=== PATIENT | male | born 1975 | race Caucasian/White ===

== ENCOUNTER → 2017-07-15 11:37 | Outpatient (CLI) | payer OTHER, SELFPAY | PROVIDERS: Family Provider Nurse Practitioner; PCP Nurse Practitioner; Visit Provider Otolaryngology | DX: J32.9 Chronic sinusitis, unspecified (principal) | CPT/HCPCS: 87070; 87205 ==

== ENCOUNTER → 2017-07-29 08:18 | Outpatient (CLI) | payer OTHER, SELFPAY ==
--- NOTE | 2017-07-29 08:25 | CT_ITS ---
STUDY: CT MAXILLOFACIAL SINUSES REASON FOR EXAM: Male, 41 years old. Acute sinusitis. RADIATION DOSAGE (If Supplied By Facility): CTDIvol = ( 33.06 ) mGy, DLP = ( 862.77 ) mGycm TECHNIQUE: The patient was scanned in a multi detector CT scanner. High resolution axial imaging was performed without the administration of intravenous contrast material. Sagittal and coronal images were reconstructed. Individualized dose optimization techniques were used for this CT. COMPARISON: None. FINDINGS: FRONTAL SINUSES: There is minimal mucosal thickening of the frontal sinuses. ETHMOIDAL SINUSES: There is mild mucosal thickening of the ethmoid sinuses bilaterally. MAXILLARY SINUSES: There is mild mucosal thickening of the maxillary sinuses bilaterally with well-defined large soft tissue density that could represent retention cyst or polyp. SPHENOIDAL SINUSES: Normal aeration, without mucosal inflammatory disease. The right ostiomeatal complex is patent. The left ostiomeatal complex is probably occluded. Normal bilateral middle turbinates. Normal bilateral inferior turbinates. There is a right sided nasal septal deviation, but without a nasal septal spur. There is patency of the bilateral nasal airways. The visualized osseous structures are normal. The visualized bilateral orbital contents are normal. CT/Sinus/Facial Bone IMPRESSION: Sinus disease as described above. Probable retention cyst or polyp in the right maxillary sinus. 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 Electronically Signed: Norris Phillips MD at 15:27 EST Tel , Service support ,
== END ==
PROVIDERS: Family Provider Nurse Practitioner; PCP Nurse Practitioner; Visit Provider Otolaryngology
DX: J32.9 Chronic sinusitis, unspecified (principal)
CPT/HCPCS: 70486

== ENCOUNTER → 2024-02-10 | Outpatient (CLI) | payer OTHER, SELFPAY ==
[2024-02-10 07:47] LABS: Absolute Lymphocyte Count 1.89 X10^3/uL (0.83-4.51); Absolute Neutrophil Count 3.7 X10^3/uL (2.0-7.7); Basophil# 0.03 X10^3/uL; Basophil% 0.5 % (0-1); Eosinophils% 1.6 % (0-5); Hematocrit 50.1 % (40-54); Hemoglobin 16.8 g/dL (13.0-16.5); Lymphocyte # 1.89 X10^3/ul (0.83-4.51); Lymphocyte % 29.8 % (19-41); Mean Corp Hgb Conc 33.5 g/dL (32-36); Mean Corpuscular Hgb 30.9 pg (27.0-32.0); Mean Corpuscular Volume 92.1 fL (80-94); Monocyte# 0.61 X10^3/uL; Monocyte% 9.6 % (0-10); NRBC Flagged by Analyzer 0 % (0-5); Neutrophil % 58.2 % (47-70); Platelet Count 207 K/mm3 (150-450); RBC Distribution Width CV 11.9 % (11.6-14.6); RBC Distribution Width SD 40.2 fl (35.1-43.9); Red Blood Count 5.44 M/mm3 (4.6-6.2); White Blood Count 6.4 K/mm3 (4.4-11.0)
[2024-02-10 11:12] LABS: ALB/GLOB Ratio 1.1 RATIO (0.9-2.4); AST(SGOT) 22 U/L (15-37); Alanine Aminotransfer ALT/SGPT 34 U/L (16-61); Albumin, Serum 3.6 g/dL (3.2-5.0); Alkaline Phosphatase 80 U/L (45-117); Anion Gap 4 (5-15); BUN 13 mg/dL (7-18); Calcium,Total 8.9 mg/dL (8.5-10.1); Chloride 108 mmol/L (98-107); Cholesterol 183 mg/dL (200); Creatinine, Serum 0.93 mg/dL (0.70-1.30); EST Glomerular Filtration Rate 92 mL/min (>60); Est Glom Filt Rate - Afr Amer 112 mL/min (>60); Globulin 3.2 g/dL (2.2-4.2); Glucose 92 mg/dL (74-106); High Density Lipoprotein 37 mg/dL; PSA,Total - Annual Screen 1.44 ng/mL (0.00-4.00); Potassium 3.8 mmol/L (3.5-5.1); Protein, Total 6.8 g/dL (6.4-8.2); Sodium Level 141 mmol/L (136-145); Triglycerides 125 mg/dL; Very Low Density Lipoprotein 25 mg/dL (5-40)
== END | disposition home or self-care (01) ==
LOC: LAB 06:57
PROVIDERS: PCP Nurse Practitioner; Referring Provider Nurse Practitioner Family; Visit Provider Nurse Practitioner Family
DX: Z00.01 Encounter for general adult medical examination with abnormal findings (principal)
CPT/HCPCS: 36415; 80053; 80061; 84153; 85025; G0103

== ENCOUNTER → 2024-03-12 | Outpatient (CLI) | payer OTHER, SELFPAY ==
--- OUTSIDE RECORDS SUMMARY | 2024-03-12 16:28 | XMS RPT_ITS | CCD ---
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 Engineering Professor Name Role Phone Xiao Coon Unavailable Benjamín Dumontwin Unavailable Angelica Akhtar Unavailable Unavailable Twyla Tapia Unavailable Unavailable Unavailable Unavailable Dannielle Doran Unavailable Unavailable Elli Shipman Unavailable Unavailable Angelica Akhtar Unavailable Unavailable Medications Completed/Discontinued Medications Medication Drug Class(es) Dates Sig (Normalized) Sig (Original) amoxicillin 875 mg / clavulanate 125 mg oral tablet (6 sources) Penicillin-class Antibacterial Start: 02-16-2015 End: 03-02-2015 take 1 tablet by mouth twice daily AUGMENTIN, 875-125MG (Oral Tablet) 1 (one) Tablet bid for 14 days Quantity: 28 {Tablet} Refills: 0 Ordered: 16-Feb-2015 Rei PIERRE Susan Start : 16-Feb-2015 End : 02-Mar-2015 Inactive azithromycin 250 mg oral tablet (6 sources) Macrolide Antimicrobial Start: 03-14-2019 End: 07-08-2020 take 1 tablet by mouth once daily Zithromax Z-Eloy 250 MG Oral Tablet tad Tablet qd for 0 days Quantity: 1 {Package} Refills: 0 Ordered: 08-Jul-2020 Gene Doran CMAin Start : 14-Mar-2019 End : 08-Jul-2020 Inactive bifidobacterium infantis 4 mg oral capsule (6 sources) Start: 04-05-2011 End: 04-23-2013 take 1 capsule by mouth once daily ALIGN, 4MG (Oral Capsule) 1 Capsule daily for 0 days Quantity: 30 {Capsule} Refills: 0 Ordered: 23-Apr-2013 Lisa Hwang LPN Start : 05-Apr-2011 End : 23-Apr-2013 Inactive 12 hr buPROPion hydrochloride 150 mg extended release oral tablet (6 sources) Aminoketone Start: 01-06-2014 End: 02-16-2015 BUPROPION HCL ER (SR), 150MG (Oral Tablet Extended Release 12 Hour) 1 (one) Tablet ER 12HR Tablet ER 12HR TAD for 0 days Quantity: 60 {Tablet} Refills: 0 Ordered: 16-Feb-2015 Krystle Cleveland LPN Start : 06-Jan-2014 End : 16-Feb-2015 Discontinued Comments: take 150mg daily x 3 days, then take twice daily the last dose of the day no later than 6pm after on for 7 days then stop smoking Comment on above: take 150mg daily x 3 days, then take twice daily the last dose of the day no later than 6pm after on for 7 days then stop smoking celecoxib 200 mg oral capsule (6 sources) Nonsteroidal Anti-inflammatory Drug Start: 01-10-2014 End: 02-16-2015 take 1 capsule by mouth once daily CELEBREX, 200MG (Oral Capsule) 1 Capsule daily for 0 days Quantity: 30 {Capsule} Refills: 0 Ordered: 16-Feb-2015 Krystle Cleveland LPN Start : 10-Jan-2014 End : 16-Feb-2015 Discontinued cetirizine hydrochloride 10 mg chewable tablet (6 sources) Histamine-1 Receptor Antagonist Start: 02-15-2013 End: 04-23-2013 take 1 tablet by mouth once daily ZYRTEC CHILDRENS ALLERGY, 10MG (Oral Tablet Chewable) 1 Tablet Chewable daily for 0 days Quantity: 30 {Tablet_Chewable } Refills: 0 Ordered: 23-Apr-2013 Lisa Hwang LPN Start : 15-Feb-2013 End : 23-Apr-2013 Inactive esomeprazole 40 mg granules for oral suspension (6 sources) Proton Pump Inhibitor Start: 07-09-2009 take 1 dose by mouth once daily NEXIUM, 40MG (Oral Packet) 1 (one) Packet daily for 0 days Quantity: 30 {Packet} Refills: 6 Ordered: 17-Aug-2009 Angelica Akhtar RN Start : 09-Jul-2009 Inactive FLUoxetine 20 mg oral capsule (6 sources) Serotonin Reuptake Inhibitor Start: 08-17-2009 take 1 capsule by mouth once daily PROZAC, 20MG (Oral Capsule) 1 (one) Capsule qd for 0 days Quantity: 30 {Capsule} Refills: 0 Ordered: 01-Feb-2010 Jaiden HOUSER Lisa Start : 17-Aug-2009 Inactive hyoscyamine sulfate 0.125 mg sublingual tablet (6 sources) Start: 08-17-2009 take 1 tablet under the tongue every four hours as needed LEVSIN/SL, 0.125MG (Sublingual Tablet Sublingual) 1 (one) Tab Sublingual q4hr prn for 0 days Quantity: 30 {Tab_Sublingual} Refills: 0 Ordered: 01-Feb-2010 Lisa Hwang LPN Start : 17-Aug-2009 Inactive Comments: no more than 1.5mg/day-- pt will try again alone- it could have been the PPI giving the side effects Comment on above: no more than 1.5mg/d ay-- pt will try again alone- it could have been the PPI giving the side effects ivermectin 3 mg oral tablet (2 sources) Antiparasitic, Pediculicide Start: 07-08-2020 take 4 tablets by mouth once daily Ivermectin 3 MG Oral Tablet 4 Tablet qd for 0 days Quantity: 20 {Tablet} Refills: 0 Ordered: 08-Jul-2020 Xiao Coon DO, DO, Kathleen Start : 08-Jul-2020 Active levoFLOXacin 500 mg oral tablet (6 sources) Quinolone Antimicrobial Start: 07-17-2007 End: 07-31-2007 take 1 tablet by mouth once daily LEVAQUIN, 500MG (Oral Tablet) 1 Tablet daily for 10 days Quantity: 10 {Tablet} Refills: 0 Ordered: 17-Jul-2007 Michelle Landeros Start : 17-Jul-2007 End : 31-Jul-2007 Inactive lidocaine 0.05 mg/mg medicated patch (6 sources) Antiarrhythmic, Amide Local Anesthetic Start: 08-14-2007 LIDODERM, 5% (External Patch) 1 for 0 days Refills: 0 Ordered: 17-Aug-2009 Angelica Akhtar RN Start : 14-Aug-2007 Inactive lubiprostone 0.024 mg oral capsule (6 sources) Chloride Channel Activator Start: 08-17-2009 End: 09-07-2009 take 1 capsule by mouth once daily AMITIZA, 24MCG (Oral Capsule) 1 (one) Capsule qd for 21 days Refills: 0 Ordered: 06-Oct-2009 Jaymie MATT Xiao Coon DO Xiao Start : 17-Aug-2009 End : 07-Sep-2009 Inactive meloxicam 7.5 mg oral tablet (6 sources) Nonsteroidal Anti-inflammatory Drug Start: 04-23-2013 End: 07-17-2013 take 1 tablet by mouth once daily at mealtime MOBIC, 7.5MG (Oral Tablet) 1 Tablet daily for 0 days Quantity: 30 {Tablet} Refills: 0 Ordered: 17-Jul-2013 Angelica Akhtar RN Start : 23-Apr-2013 End : 17-Jul-2013 Inactive Comments: take with food Comment on above: take with food metaxalone 800 mg oral tablet (6 sources) Start: 10-21-2013 End: 01-06-2014 take 1 tablet by mouth once daily at bedtime SKELAXIN, 800MG (Oral Tablet) 1 Tablet qhs / HS for 0 days Quantity: 30 {Tablet} Refills: 0 Ordered: 06-Jan-2014 Lisa Hwang LPN Start : 21-Oct-2013 End : 06-Jan-2014 Discontinued methylPREDNISolone 4 mg oral tablet (6 sources) Corticosteroid Start: 10-21-2013 End: 01-06-2014 take 1 tablet by mouth at mealtime MEDROL (ELOY), 4MG (Oral Tablet) 1 Tablet TAD for 0 days Quantity: 1 {Package} Refills: 0 Ordered: 06-Jan-2014 Lisa Hwang LPN Start : 21-Oct-2013 End : 06-Jan-2014 Discontinued Comments: with food Comment on above: with food mometasone furoate 0.05 mg/actuat metered dose nasal spray (6 sources) Corticosteroid Start: 12-10-2008 NASONEX, 50MCG/ACT (Nasal Suspension) 2 (two) Suspension qd for 0 days Refills: 0 Ordered: 17-Aug-2009 Angelica Akhtar RN Start : 10-Dec-2008 Inactive naproxen 500 mg oral tablet (12 sources) Nonsteroidal Anti-inflammatory Drug Start: 04-02-2012 End: 04-23-2013 take 1 tablet by mouth twice daily at mealtime NAPROXEN, 500MG (Oral Tablet) 1 Tablet bid for 0 days Quantity: 60 {Tablet} Refills: 3 Ordered: 23-Apr-2013 Lisa Hwang LPN Start : 02-Apr-2012 End : 23-Apr-2013 Inactive Comments: Take with food Start: 02-08-2010 End: 02-22-2010 take 1 tablet by mouth every six hours as needed ALEVE, 220MG (Oral Tablet) 1 (one) Tablet q6hrs prn for 14 days Refills: 0 Ordered: 16-Mar-2010 Carmelina Minaya CNP Start : 08-Feb-2010 End : 22-Feb-2010 Inactive Comment on above: Take with food predniSONE 20 mg oral tablet (6 sources) Start: 01-18-2016 End: 03-14-2019 predniSONE 20 MG Oral Tablet 1 (one) Tablet bid for 3days then qd for 4days with food for 0 days Quantity: 10 {Tablet} Refills: 0 Ordered: 14-Mar-2019 Angelica Akhtar RN Start : 18-Jan-2016 End : 14-Mar-2019 Inactive raNITIdine 300 mg oral tablet (12 sources) Histamine-2 Receptor Antagonist Start: 02-15-2013 End: 07-17-2013 take 1 tablet by mouth twice daily ZANTAC, 300MG (Oral Tablet) 1 Tablet bid for 0 days Quantity: 60 {Tablet} Refills: 0 Ordered: 17-Jul-2013 Angelica Akhtar RN Start : 15-Feb-2013 End : 17-Jul-2013 Inactive ZANTAC 75, 75MG (Oral Tablet) 1 PRN for 0 days Refills: 0 Ordered: 17-Aug-2009 Angelica Akhtar RN Inactive Triamcinolone (6 sources) Corticosteroid Start: 07-24-2007 NASACORT AQ, 5 5MCG/ACT (Nasal Aerosol Solution) 1 Aerosol Soln 1-2 sprays daily for 0 days Refills: 0 Ordered: 17-Aug-2009 Angelica Akhtar RN Start : 24-Jul-2007 Inactive Start: 07-24-2007 NASACORT AQ, 5 5MCG/ACT (Nasal Aerosol Solution) 1 Aerosol Soln 1-2 sprays daily for 0 days Refills: 0 Ordered: 17-Aug-2009 Angelica Akhtar LPN Start : 24-Jul-2007 Inactive NEGATED: Highlighted row has not occurred!drug or medication (6 sources) No Known Histori john Medications Problems Active Problems Problem Classification Problem Date Documented Date Episodic/Chronic Abdominal hernia (6 sources) Diaphragmatic hernia without mention of obstruction or gangrene; Translations: [HERNIA, DIAPHRAGMATIC W/O OBSTRUCTION/GNGR] 03-14-2019 Episodic Abdominal pain (20 sources) Epigastric pain; Translations: [Abdominal pain] Resolved : 07-08-1903-14-2019 Episodic Anxiety disorders (12 sources) Anxiety; Translations: [Anxiety] 03-14-2019 Chronic Chronic obstructive pulmonary disease and bronchiectasis (6 sources) Chronic obstructive pulmonary disease and bronchiectasis Conditions associated with dizziness or vertigo (12 sources) Dizziness; Translations: [Dizziness] Resolved : 12-11-1912-10-2008 Episodic Disorders of teeth and jaw (12 sources) Unspecified disorder of the teeth and supporting structures; Translations: [Unspecified disorder of the teeth and supporting structures] 03-14-2019 Episodic Esophageal disorders (6 sources) Esophageal reflux; Translations: [Reflux, esophageal] 03-14-2019 Chronic Fever of unknown origin (20 sources) Fever; Translations: [Fever presenting with conditions classified elsewhere] 03-14-2019 Episodic Gastritis and duodenitis (6 sources) Acute gastritis, without mention of hemorrhage; Translations: [GASTRITIS, ACUTE W/O HEMORRHAGE] 03-14-2019 Episodic Immunizations and screening for infectious disease (2 sources) Contact with and (suspected) exposure to other viral communicable diseases; Translations: [Exposure to SARS virus] 07-08-2020 Episodic Other connective tissue disease (6 sources) Tendinitis of elbow or forearm; Translations: [Tendonitis of elbow or forearm] 03-14-2019 Episodic Other gastrointestinal disorders (18 sources) Irritable bowel syndrome; Translations: [Irritable bowel syndrome] 03-14-2019 Chronic Other gastrointestinal disorders (18 sources) Constipation; Translations: [Constipation] 03-14-2019 Episodic Other gastrointestinal disorders (12 sources) Diarrhea; Translations: [Diarrhea] 03-14-2019 Episodic Other nervous system disorders (2 sources) Loss of sense of smell; Translations: [Loss of smell] 07-08-2020 Episodic Other non-traumatic joint disorders (6 sources) Joint pain; Translations: [Pain in unspecified joint] 03-14-2019 Episodic Other non-traumatic joint disorders (6 sources) Pain in joint, shoulder region; Translations: [Shoulder joint pain, unspecified laterality] 03-14-2019 Episodic Other nutritional; endocrine; and metabolic disorders (6 sources) Body mass index 25-29 - overweight; Translations: [BMI 26.0-26.9,adult] 03-14-2019 Chronic Other nutritional; endocrine; and metabolic disorders (12 sources) Weight loss; Translations: [Weight loss] 03-14-2019 Episodic Other upper respiratory disease (12 sources) Chronic pharyngitis; Translations: [CHRONIC PHARYNGITIS] 03-14-2019 Chronic Comment on above: has reflux uncontrol led, nasal drainage. stop etoh stop nsaid handout given reflux Other upper respiratory disease (6 sources) Spasm of the cricopharyngeus muscle; Translations: [Dysphagia, cricopharyngeal] 03-14-2019 Episodic Comment on above: consider endoscopy i f not better Other upper respiratory disease (12 sources) Pain in throat Episodic Other upper respiratory infections (20 sources) Sinusitis; Translations: [Acute sinusitis] 03-14-2019 Episodic Otitis media and related conditions (6 sources) Dysfunction of eustachian tube; Translations: [Eustachian tube dysfunction] 03-14-2019 Episodic Pneumonia (except that caused by tuberculosis or sexually transmitted disease) (2 sources) Severe acute respiratory syndrome; Translations: [SARS (severe acute respiratory syndrome)] 07-16-2020 Episodic Residual codes; unclassified (12 sources) Chill; Translations: [Chill] 03-14-2019 Episodic Residual codes; unclassified (6 sources) Vaccination required; Translations: [Vaccine for ejqwkmngqc-lwopivh-jogpms sis with poliomyelitis] 03-14-2019 Episodic Residual codes; unclassified (2 sources) Generalized aches and pains; Translations: [Body aches] 07-08-2020 Episodic Spondylosis; intervertebral disc disorders; other back problems (20 sources) Low back pain; Translations: [Neck pain] 03-14-2019 Episodic Comment on above: 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 resolving now. willuese otc pepcid ac bid. increase fliuds. not think need IV fliuds today. if not better byu end of week call. off work unti tomorrow Past or Other Problems Problem Classification Problem Date Documented Date Episodic/Chronic Chronic obstructive pulmonary disease and bronchiectasis (6 sources) Bronchitis; Translations: [Bronchitis] Resolved: 12-10-2008 02-24-2015 Episodic Influenza (6 sources) Influenza Other connective tissue disease (6 sources) Pain of left hand; Translations: [Pain of left hand] 03-14-2019 Unclassified (6 sources) Social Hx: Non Smoker/No Tobacco Use (Renamed from Non Smoker/No Tobacco Use); Translations: [Social Hx: Non Smoker/No Tobacco Use (Renamed from Non Smoker/No Tobacco Use)] 03-14-2019 Unclassified (12 sources) Finding of sensation of pharynx; Translations: [Throat fullness] 03-14-2019 Comment on above: swollen uvula ? nusrat rgy vs effect of smoking vs other Unclassified (6 sources) Eustachian tube dysfunction (381.81) Unclassified (12 sources) Smoking Unclassified (14 sources) Non-smoker; Translations: [Non-smoker] 03-14-2019 Unclassified (20 sources) Unspecified Diagnosis 03-14-2019 Unclassified (18 sources) Pain in joint involving shoulder region (719.41) Unclassified (6 sources) PREVENTION OF TETANUS (V03.7) Unclassified (6 sources) Social Hx: Alcohol Use (Renamed from Alcohol Use); Translations: [Social Hx: Alcohol Use (Renamed from Alcohol Use)] 03-14-2019 Comment on above: Occasional alcohol u se Unclassified (6 sources) Social Hx: Caffeine Use (Renamed from Caffeine Use); Translations: [Social Hx: Caffeine Use (Renamed from Caffeine Use)] 03-14-2019 Comment on above: 1 12oz qd Unclassified (6 sources) Social Hx: Exercise History (Renamed from Exercise History); Translations: [Social Hx: Exercise History (Renamed from Exercise History)] 03-14-2019 Comment on above: Moderate Unclassified (6 sources) Social Hx: Most Recent Primary Occupation (Renamed from Most Recent Primary Occupation); Translations: [Social Hx: Most Recent Primary Occupation (Renamed from Most Recent Primary Occupation)] 03-14-2019 Comment on above: 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 Unclassified (6 sources) Social Hx: No Drug Use (Renamed from No Drug Use); Translations: [Social Hx: No Drug Use (Renamed from No Drug Use)] 03-14-2019 Unclassified (6 sources) Dysphagia, cricopharyngeal Unclassified (8 sources) BMI 26.0-26.9,adult Unclassified (12 sources) Tendonitis of elbow or forearm Unclassified (12 sources) Pain of left hand Unclassified (6 sources) ARTHRALGIAS 719.40 Unclassified (4 sources) Body aches Unclassified (2 sources) Loss of smell Results Test Name Value Interpretation Reference Range Facility Influenza A&B Viral Culture (46259)Ordered By: Yuid Cruz on 03-14-2019 Virus identified Cx Nom (Isol) Negative Normal [facility] Work Phone: Throat Culture ([id number])Ordere d By: Yudi Cruz on 03-14-2019 Bacteria identified Aer cx Nom (Unsp spec) Negative Normal [facility] Work Phone: DAVID CULTURE-OTHER ([phone])Ord ered By: Contracting Specialist on 02-16-2015 Bacteria identified Respiratory culture Nom (Unsp spec) Final report Normal [facility] Work Phone: Comment on above: PATIENT NOT FASTINGP ERFORMED BY: [facility] Aifguk7766 [facility] [id number] Information: SRC:ENE [id number] Bacteria identified Respiratory culture Nom (Unsp spec) RRF Normal [facility] Work Phone: Comment on above: Routine respiratory nasim PATIENT NOT FASTINGP ERFORMED BY: [facility] Khydzm3360 [facility] [id number] Information: SRC:ENE [id number] Rapid Strep Test, Office ([phone])on 02-16-2015 S. pyogenes Ag IA Ql (Unsp spec) Negative Normal [facility] Work Phone: MANISHA (ANTINUCLEAR ANTIBODY) ( [phone])Ordered By: Contracting Specialist on 01-10-2014 Nuclear Ab Ql (S) Negative Normal [facility] Work Phone: Comment on above: PATIENT NOT FASTINGP ERFORMED BY: CB [facility] Xxzbun1561 [address] RoadDublin [place] [id number] BY: teextee[address] [id number] ANTI-SEMI TRUCK DRIVER (ANTI RIBONUCLEAR P ROTEIN ANTIBODY) (41392) test code [id number] By: Contracting Specialist on 01-10-2014 Sjogrens syndrome-A extractable nuclear Ab Qn (S) <0.2 Normal 0.0-0.9 [facility] Work Phone: Comment on above: PATIENT NOT FASTINGP ERFORMED BY: CB [facility] Gryccr0904 Johns RoadDublin [place] [id number] BY: teextee[address] [id number] Sjogrens syndrome-B extractable nuclear Ab Qn (S) 0.5 {AI} Normal 0.0-0.9 [facility] Work Phone: Comment on above: PATIENT NOT FASTINGP ERFORMED BY: CB [facility] Ucnpry3363 Johns RoadThe [facility] Banks Hospitalin [place] [id number] BY: teextee[address] [id number] ANTI-Sm (ANTI KURTZ ANTIBODY ) (35524) test code 868705Nymhdcp By: Contracting Specialist on 01-10-2014 Ribonucleoprotein extractable nuclear Ab Qn (S) <0.2 Normal 0.0-0.9 [facility] Work Phone: Comment on above: PATIENT NOT FASTINGP ERFORMED BY: CB [facility] Qpmbyd0732 [address] RoadDublin [place] [id number] BY: teextee[address] [id number] Kurtz extractable nuclear Ab Qn (S) <0.2 Normal 0.0-0.9 [facility] Work Phone: Comment on above: PATIENT NOT FASTINGP ERFORMED BY: CB [facility] Gwnmee2566 [address] RoadDublin [place] [id number] BY: te[address]tee[address] [id number] C-REACTIVE PROTEIN (47255)Or dered By: Contracting Specialist on 01-10-2014 CRP [Mass/Vol] 0.6 mg/L Normal 0.0-4.9 [facility] Work Phone: Comment on above: PATIENT NOT FASTINGP ERFORMED BY: [employer]70 [facility] [id number] BY: teextee[address] [id number] [facility]CP ANTIBODY (01858)Ordered By: Contracting Specialist on 01-10-2014 Cyclic citrullinated peptide IgA+IgG IA Qn 11 {units} Normal 0-19 [facility] Work Phone: Comment on above: Negative <20 Weak po sitive 20 - 39 Moderate positive 40 - 59 Strong positive >59 PATIENT NOT FASTINGP ERFORMED BY: [employer]6370 [facility] [id number] BY: [employer] [id number] Lyme Disease Antibody W/ Ref trevor (90529)Ordered By: Contracting Specialist on 01-10-2014 B. burgdorferi IgG+IgM Qn (S) {index_val} Normal 0.00-0.90 [facility] Work Phone: Comment on above: Negative <0.91 Equiv ocal 0.91 - 1.09 Positive >1.09 Please note reference interval change PATIENT NOT FASTINGP ERFORMED BY: [place]6370 [facility] [id number] BY: teextee[address] [id number] METABOLIC PANEL, COMPREHENSI VE (33392)Ordered By: Contracting Specialist on 01-10-2014 Albumin [Mass/Vol] 4.3 g/dL Normal 3.5-5.[address] [facility] Work Phone: Comment on above: PATIENT NOT FASTINGP ERFORMED BY: CB [facility] Tllxsx1973 [facility] [id number] BY: [facility] [id number] Information: 246128,[id number] Albumin/Globulin [Mass ratio] 2.0 {ratio} Normal 1.1-2.5 [facility] Work Phone: Comment on above: PATIENT NOT FASTINGP ERFORMED BY: CB [facility] Qztszb6833 [facility] [id number] BY: [facility] [id number] Information: [id number] ALP [Catalytic activity/Vol] 73 [iU]/L Normal 39-117 [facility] Work Phone: Comment on above: PATIENT NOT FASTINGP ERFORMED BY: CB [facility] Mkpopm8257 [facility] [id number] BY: [facility] [id number] Information: 618498,F51241 ALT [Catalytic activity/Vol] 21 [iU]/L Normal 0-44 [facility] Work Phone: Comment on above: PATIENT NOT FASTINGP ERFORMED BY: CB [facility] Xtuznk6347 [facility] [id number] BY: [facility] [id number] Information: 150444,[id number] AST [Catalytic activity/Vol] 18 [iU]/L Normal 0-40 [facility] Work Phone: Comment on above: PATIENT NOT FASTINGP ERFORMED BY: CB [facility] Ostjka7960 [facility] [id number] BY: [address] [id number] Information: [id number] Bilirubin [Mass/Vol] 0.4 mg/dL Normal 0.0-1.2 [facility] Work Phone: Comment on above: PATIENT NOT FASTINGP ERFORMED BY: CB [facility] Cvyjru8518 [address] RoadDublin [place] [id number] BY: BN [facility] [address] [id number] Information: [id number],T61400 Calcium [Mass/Vol] 9.3 mg/dL Normal 8.7-10.[address] [facility] Work Phone: Comment on above: PATIENT NOT FASTINGP ERFORMED BY: CB [facility] Eppmld2531 [address] RoadDublin [place] [id number] BY: BN [facility] [address] [id number] Information: 054220,D27896 Chloride [Moles/Vol] 103 mmol/L Normal 97-108 [facility] Work Phone: Comment on above: PATIENT NOT FASTINGP ERFORMED BY: CB [facility] Gadjnb8801 [address] RoadDublin [place] [id number] BY: [facility] [address] [id number] Information: 530990,F97200 CO2 [Moles/Vol] 24 mmol/L Normal 18-29 [facility] Work Phone: Comment on above: PATIENT NOT FASTINGP ERFORMED BY: CB [facility] Puavsv3591 [address] RoadDublin [place] [id number] BY: [facility] [address] [id number] Information: 147584,S13337 Creatinine [Mass/Vol] 0.95 mg/dL Normal 0.76-1.27 [facility] Work Phone: Comment on above: PATIENT NOT FASTINGP ERFORMED BY: CB [facility] Abnfhc8839 [address] RoadDublin [place] [id number] BY: [facility] [address] [id number] Information: 633471,H78490 GFR/1.73 sq M predicted among blacks CKD-EPI (S/P/Bld) [Vol rate/Area] 117 mL/min/1.73 Normal [facility] Work Phone: Comment on above: PATIENT NOT FASTINGP ERFORMED BY: CB [facility] Luuizh9650 [facility] [id number] BY: LabTusaar Corp[address] [id number] Information: 557071,C42195 GFR/1.73 sq M predicted among non-blacks CKD-EPI (S/P/Bld) [Vol rate/Area] 101 mL/min/1.73 Normal [facility] Work Phone: Comment on above: PATIENT NOT FASTINGP ERFORMED BY: CB [facility] Uyanya9599 [facility] [id number] BY: [facility] [employer] [id number] Information: 468945,O76853 Globulin (S) [Mass/Vol] 2.1 g/dL Normal 1.5-4.5 [facility] Work Phone: Comment on above: PATIENT NOT FASTINGP ERFORMED BY: CB [facility] Ebblqc8470 [facility] [id number] BY: [employer] [id number] Information: [id number] Glucose [Mass/Vol] 101 mg/dL Abnormal 65-99 Compre [facility] Internal Medicine Work Phone: Comment on above: PATIENT NOT FASTINGP ERFORMED BY: CB [facility] Kvdogw5235 [facility] [id number] BY: [employer] [id number] Information: [id number] Potassium [Moles/Vol] 4.7 mmol/L Normal 3.5-5.2 [facility] Work Phone: Comment on above: PATIENT NOT FASTINGP ERFORMED BY: CB [facility] Moghpj3273 Johns RoadDublin [place] [id number] BY: [facility] [address] [id number] Information: [id number] Protein [Mass/Vol] 6.4 g/dL Normal 6.0-8.[address] [facility] Internal Medicine Work Phone: Comment on above: PATIENT NOT FASTINGP ERFORMED BY: CB [facility] Pjjqtz6171 Johns RoadDublin [place] [id number] BY: [facility] [address] [id number] Information: [id number] Sodium [Moles/Vol] 142 mmol/L Normal 134-[address] [facility] Internal Medicine Work Phone: Comment on above: PATIENT NOT FASTINGP ERFORMED BY: CB [facility] Jxhkwz9018 Johns RoadDublin [place] [id number] BY: [facility] [address] [id number] Information: [id number] Urea nitrogen [Mass/Vol] 10 mg/dL Normal 6-20 [facility] Work Phone: Comment on above: PATIENT NOT FASTINGP ERFORMED BY: CB [facility] Cnjygx4642 Johns RoadDuin [place] [id number] BY: BN [facility] [address] [id number] Information: [id number] Urea nitrogen/Creatinine [Mass ratio] 11 mg/mg Normal 8-19 [facility] Work Phone: Comment on above: PATIENT NOT FASTINGP ERFORMED BY: CB [facility] Vrkcww6885 Johns RoadDublin [place] [id number] BY: [facility] [address] [id number] Information: [id number] RHEUMATOID FACTOR-QUANT (288 31)Ordered By: Contracting Specialist on 01-10-2014 Rheumatoid factor Qn 6.1 {IU/mL} Normal 0.0-13.9 [facility] Work Phone: Comment on above: PATIENT NOT FASTINGP ERFORMED BY: MILLER teextee Ykhczs1640 [facility] [id number] BY: teextee[address] [id number] SED RATE ERYTHROCYTE ([id number]) Ordered By: Contracting Specialist on 01-10-2014 ESR (Bld) [Velocity] 2 mm/h Normal 0-15 [facility] Work Phone: Comment on above: PATIENT NOT FASTINGP ERFORMED BY: MILLER [employer] Zfyswi8506 [address] [facility] [id number] BY: teextee[address] [id number] TSH ([id number])Ordered By: CROSSROADS SYSTEMSe m Partnership Manager on 01-10-2014 TSH Qn 1.240 {uIU/mL} Normal 0.450-4.500 [facility] Internal Medicine Work Phone: Comment on above: PATIENT NOT FASTINGP ERFORMED BY: MILLER [employer] Vmdwwk9531 [facility] [id number] BY: teextee[address] [id number] CBC, Platelets & Auto Diff ( [id number])Ordered By: Contracting Specialist on 10-21-2013 Basophils (Bld) [#/Vol] 0.0 {x10E3/uL} Normal 0.0-0.2 [facility] Work Phone: Comment on above: PATIENT NOT FASTINGP ERFORMED BY: MILLER [employer] Jggsog6794 [facility] [id number] Information: [id number] Basophils/100 WBC (Bld) 1 % Normal 0-3 [facility] Work Phone: Comment on above: PATIENT NOT FASTINGP ERFORMED BY: [facility]6370 [facility] [id number] Information: [id number] Eosinophils (Bld) [#/Vol] 0.2 {x10E3/uL} Normal 0.0-0.4 [facility] Work Phone: Comment on above: PATIENT NOT FASTINGP ERFORMED BY: [address] [id number] Information: [id number] Eosinophils/100 WBC (Bld) 3 % Normal 0-5 [facility] Work Phone: Comment on above: PATIENT NOT FASTINGP ERFORMED BY: [address] [id number] Information: [id number] Erythrocyte distribution width (RBC) [Ratio] 13.1 % Normal 12.3-15.4 [facility] Work Phone: Comment on above: PATIENT NOT FASTINGP ERFORMED BY: [address] [id number] Information: [id number] Hematocrit (Bld) [Volume fraction] 49.1 % Normal 37.5-51.0 [facility] Work Phone: Comment on above: PATIENT NOT FASTINGP ERFORMED BY: [address] [id number] Information: [id number] Hemoglobin (Bld) [Mass/Vol] 17.2 g/dL Normal 12.6-17.7 [facility] Work Phone: Comment on above: PATIENT NOT FASTINGP ERFORMED BY: [address] [id number] Information: [id number] Immature granulocytes (Bld) [#/Vol] 0.0 {x10E3/uL} Normal 0.0-0.1 [facility] Work Phone: Comment on above: PATIENT NOT FASTINGP ERFORMED BY: MILLER [facility]Ins[facility]6370 [facility] [id number] Information: [id number] Immature granulocytes/100 WBC (Bld) 0 % Normal 0-2 [facility] Work Phone: Comment on above: PATIENT NOT FASTINGP ERFORMED BY: [address] [id number] Information: [id number] Lymphocytes (Bld) [#/Vol] 1.2 {x10E3/uL} Normal 0.7-3.1 [facility] Work Phone: Comment on above: PATIENT NOT FASTINGP ERFORMED BY: [address] [id number] Information: [id number] Lymphocytes/100 WBC (Bld) 24 % Normal 14-46 [facility] Work Phone: Comment on above: PATIENT NOT FASTINGP ERFORMED BY: [address] [id number] Information: [id number] MCH (RBC) [Entitic mass] 31.3 pg Normal 26.6-33.0 [facility] Work Phone: Comment on above: PATIENT NOT FASTINGP ERFORMED BY: [address] [id number] Information: [id number] MCHC (RBC) [Mass/Vol] 35.0 g/dL Normal 31.5-35.7 [facility] Work Phone: Comment on above: PATIENT NOT FASTINGP ERFORMED BY: [place] 3545670 [facility] [id number] Information: [id number] MCV (RBC) [Entitic vol] 89 fL Normal 79-97 [facility] Work Phone: Comment on above: PATIENT NOT FASTINGP ERFORMED BY: [address] [id number] Information: [id number] Monocytes (Bld) [#/Vol] 0.4 {x10E3/uL} Normal 0.1-0.9 [facility] Work Phone: Comment on above: PATIENT NOT FASTINGP ERFORMED BY: MILLER LabCoRehabilitation Hospital of South JerseyQgoohy6685 [facility] [id number] Information: [id number] Monocytes/100 WBC (Bld) 8 % Normal 4-12 [facility] Work Phone: Comment on above: PATIENT NOT FASTINGP ERFORMED BY: [facility]Ins[facility]6370 [facility] [id number] Information: [id number] Neutrophils (Bld) [#/Vol] 3.3 {x10E3/uL} Normal 1.4-7.0 [facility] Work Phone: Comment on above: PATIENT NOT FASTINGP ERFORMED BY: [facility]Ins[facility] Hospital6370 [facility] [id number] Information: [id number] Neutrophils/100 WBC (Bld) 64 % Normal 40-74 [facility] Work Phone: Comment on above: PATIENT NOT FASTINGP ERFORMED BY: [facility] Zjczhc5670 [facility] [id number] Information: [id number] Platelets (Bld) [#/Vol] 190 {x10E3/uL} Normal 155-379 [facility] Work Phone: Comment on above: Effective November 04, 2013, the reference interval for Platelets will be changing for 13 years and older to: 150 - 379 PATIENT NOT FASTINGP ERFORMED BY: MILLER [facility] Cydnyg7674 [facility] [id number] Information: [id number] RBC (Bld) [#/Vol] 5.50 {x10E6/uL} Normal 4.14-5.80 Co mprehensive Internal Medicine Work Phone: Comment on above: PATIENT NOT FASTINGP ERFORMED BY: MILLER [facility] Jyrlqe4090 [facility] [id number] Information: [id number] WBC (Bld) [#/Vol] 5.1 {x10E3/uL} Normal 3.4-10.8 [facility] Work Phone: Comment on above: PATIENT NOT FASTINGP ERFORMED BY: MILLER [facility] Jznlck0110 [facility] [id number] Information: [id number] TSH (62965)Ordered By: Neale m Partnership Manager on 10-21-2013 TSH Qn 1.180 {uIU/mL} Normal 0.450-4.500 [facility] Internal Medicine Work Phone: Comment on above: PATIENT NOT FASTINGP ERFORMED BY: MILLER LabM[facility] Rsmfpn7273 [facility] [id number] Rapid Flu (14626 x 2)on 06-23 FLUAV Ag IA Ql (Throat) Negative Normal [facility] Work Phone: DAVID CULTURE-OTHER ([id number])Ord ered By: Contracting Specialist on 02-15-2013 Bacteria identified Respiratory culture Nom (Unsp spec) RRF Normal [facility] Work Phone: Comment on above: Routine respiratory nasim PATIENT NOT FASTINGP ERFORMED BY: MILLER [facility] Cnykbt5992 [facility] [id number] Information: SRC: THROAT Bacteria identified Respiratory culture Nom (Unsp spec) Final report Normal [facility] Work Phone: Comment on above: PATIENT NOT FASTINGP ERFORMED BY: [facility] Hoqijs5382 [facility] [id number] Information: SRC: THROAT Rapid Flu (11241 x 2)on 03-22 FLUAV Ag IA Ql (Throat) Negative Normal [facility] Work Phone: Urinalysis, Office ([id number])Or dered By: Maria Fernanda Santillan on 07-09-2009 Bilirubin Ql (U) Negative Normal Comprehe nsive Internal Medicine Work Phone: Glucose Test strip (U) [Mass/Vol] Negative Normal [facility] Work Phone: Hemoglobin Ql (U) Negative Normal Compreh ensive Internal Medicine Work Phone: Ketones Ql (U) Negative Normal Comprehens naresh Internal Medicine Work Phone: Leukocyte esterase Test strip Ql (U) Negative Normal [facility] Work Phone: Nitrite Ql (U) Negative Normal Comprehens naresh Internal Medicine Work Phone: pH (U) 6.5 [pH] Normal [facility] Work Phone: Protein Ql (U) Trace Normal Comprehens naresh Internal Medicine Work Phone: Specific gravity (U) [Rel density] 1.020 1 Normal [facility] Work Phone: Urobilinogen (24H U) [Mass/Time] Normal Normal [facility] Work Phone: Vital Signs Date Time Vital Sign Value Performing Clinician Facility 07-08-2020 14:14-0500 BMI (Body Mass Index) 26.55 kg/m2 Xiao Coon [facility] naresh Internal Medicine; [facility] Work Phone: Comment on above: no vs taken as this is phone encounter d ue to covid 07-08-2020 14:14-0500 Body weight 86.35 kg Xiao Coon [facility] Internal Medicine; [facility] Work Phone: Comment on above: no vs taken as this is phone encounter d ue to covid 07-08-2020 14:14-0500 BSA (Body Surface Area) 2.07 m2 Xiao Coon [facility] Internal Medicine; [facility] Work Phone: Comment on above: no vs taken as this is phone encounter d ue to covid 07-08-2020 14:14-0500 Height 180.34 cm X[facility] Coon [facility]; [facility] Work Phone: Comment on above: no vs taken as this is phone encounter d ue to covid 03-14-2019 07:21-0400 BMI (Body Mass Index) 26.55 kg/m2 Xiao Seay [facility] Internal Medicine Work Phone: 03-14-2019 07:21-0400 Body Temperature 97.8 [degF] Xiao Coon [facility] Internal Medicine Work Phone: Comment on above: Method: Temporal 03-14-2019 07:21-0400 Body weight 86.35 kg Xiao Coon [facility] Internal Medicine Work Phone: 03-14-2019 07:21-0400 BP Diastolic 78 mm[Hg] Xiao Coon [facility] Internal Medicine Work Phone: Comment on above: Patient Position: Sitting; Cuff Location : Left Arm; Cuff Size: Large 03-14-2019 07:21-0400 BP Systolic 146 mm[Hg] Xiao Coon [facility] Internal Medicine Work Phone: Comment on above: Patient Position: Sitting; Cuff Location : Left Arm; Cuff Size: Large 03-14-2019 07:21-0400 BSA (Body Surface Area) 2.07 m2 Xiao Coon [facility] Internal Medicine Work Phone: 03-14-2019 07:21-0400 Height 180.34 cm Xiao Coon [facility] Internal Medicine Work Phone: 03-14-2019 07:21-0400 Pulse (Heart Rate) 94 /min Xiao Coon [facility] Internal Medicine Work Phone: Comment on above: Pattern: Regular 03-14-2019 07:21-0400 Pulse Oximetry 97 % Xiao Coon [facility] Internal Medicine Work Phone: Comment on above: Room air 03-14-2019 07:21-0400 Respiratory Rate 17 /min Xiao Coon [facility] Internal Medicine Work Phone: Comment on above: Pattern: Unlabored 01-18-2016 13:25-0400 BMI (Body Mass Index) 26.55 kg/m2 Xiao Seay [facility] Internal Medicine Work Phone: 01-18-2016 13:25-0400 Body weight 86.35 kg Xiao Coon [facility] Internal Medicine Work Phone: 01-18-2016 13:25-0400 BP Diastolic 80 mm[Hg] Xiao Coon [facility] Internal Medicine Work Phone: Comment on above: Patient Position: Sitting; Cuff Location : Left Arm; Cuff Size: Large 01-18-2016 13:25-0400 BP Systolic 120 mm[Hg] Xiao Coon [facility] Internal Medicine Work Phone: Comment on above: Patient Position: Sitting; Cuff Location : Left Arm; Cuff Size: Large 01-18-2016 13:25-0400 BSA (Body Surface Area) 2.07 m2 Xiao Coon [facility] Internal Medicine Work Phone: 01-18-2016 13:25-0400 Height 180.34 cm Xiao Coon [facility] Internal Medicine Work Phone: 01-18-2016 13:25-0400 Pulse (Heart Rate) 89 /min Xiao Coon [facility] Internal Medicine Work Phone: Comment on above: Pattern: Regular 01-18-2016 13:25-0400 Pulse Oximetry 97 % Xiao Coon [facility] Internal Medicine Work Phone: Comment on above: Room air 01-18-2016 13:25-0400 Respiratory Rate 18 /min Xiao Coon [facility] Internal Medicine Work Phone: Comment on above: Pattern: Unlabored 09-03-2015 07:43-0400 BMI (Body Mass Index) 26.24 kg/m2 Xiao Coon [facility] Internal Medicine Work Phone: 09-03-2015 07:43-0400 Body weight 85.33 kg Xiao Coon [facility] Internal Medicine Work Phone: 09-03-2015 07:43-0400 BP Diastolic 60 mm[Hg] Xiao Coon [facility] Internal Medicine Work Phone: Comment on above: Patient Position: Sitting; Cuff Location : Left Arm; Cuff Size: Large 09-03-2015 07:43-0400 BP Systolic 110 mm[Hg] Xiao Coon [facility] Internal Medicine Work Phone: Comment on above: Patient Position: Sitting; Cuff Location : Left Arm; Cuff Size: Large 09-03-2015 07:43-0400 BSA (Body Surface Area) 2.05 m2 Xiao Coon [facility] Internal Medicine Work Phone: 09-03-2015 07:43-0400 Height 180.34 cm Xiao Coon [facility] Internal Medicine Work Phone: 09-03-2015 07:43-0400 Pulse (Heart Rate) 65 /min Xiao Coon [facility] Internal Medicine Work Phone: Comment on above: Pattern: Regular 09-03-2015 07:43-0400 Pulse Oximetry 97 % Xiao Coon [facility] Internal Medicine Work Phone: Comment on above: Room air 09-03-2015 07:43-0400 Respiratory Rate 18 /min Xiao Coon [facility] Internal Medicine Work Phone: Comment on above: Pattern: Unlabored 02-16-2015 09:38-0400 BMI (Body Mass Index) 25.82 kg/m2 Xiao Coon [facility] Internal Medicine Work Phone: 02-16-2015 09:38-0400 Body Temperature 97.4 [degF] Xiao Coon [facility] Internal Medicine Work Phone: 02-16-2015 09:38-0400 Body weight 83.97 kg Xiao Coon [facility] Internal Medicine Work Phone: 02-16-2015 09:38-0400 BP Diastolic 78 mm[Hg] Xiao Coon [facility] Internal Medicine Work Phone: Comment on above: Patient Position: Sitting; Cuff Location : Left Arm; Cuff Size: Standard 02-16-2015 09:38-0400 BP Systolic 114 mm[Hg] Xiao Coon [facility] Internal Medicine Work Phone: Comment on above: Patient Position: Sitting; Cuff Location : Left Arm; Cuff Size: Standard 02-16-2015 09:38-0400 BSA (Body Surface Area) 2.04 m2 Xiao Coon [facility] Internal Medicine Work Phone: 02-16-2015 09:38-0400 Height 180.34 cm Xiao Coon [facility] Internal Medicine Work Phone: 02-16-2015 09:38-0400 Pulse (Heart Rate) 82 /min Xiao Coon [facility] Internal Medicine Work Phone: Comment on above: Pattern: Regular 02-16-2015 09:38-0400 Pulse Oximetry 98 % Xiao Coon [facility] Internal Medicine Work Phone: Comment on above: Room air 02-16-2015 09:38-0400 Respiratory Rate 16 /min Xiao Coon [facility] Internal Medicine Work Phone: Comment on above: Pattern: Unlabored 01-10-2014 08:03-0400 BMI (Body Mass Index) 24.87 kg/m2 Xiao Coon [facility] Internal Medicine Work Phone: 01-10-2014 08:03-0400 Body Temperature 98.6 [degF] Xiao Coon [facility] Internal Medicine Work Phone: Comment on above: Method: Oral 01-10-2014 08:03-0400 Body weight 80.88 kg Xiao Coon [facility] Internal Medicine Work Phone: 01-10-2014 08:03-0400 BP Diastolic 80 mm[Hg] Xiao Coon [facility] Internal Medicine Work Phone: Comment on above: Patient Position: Sitting; Cuff Location : Left Arm; Cuff Size: Standard 01-10-2014 08:03-0400 BP Systolic 120 mm[Hg] Xiao Coon [facility] Internal Medicine Work Phone: Comment on above: Patient Position: Sitting; Cuff Location : Left Arm; Cuff Size: Standard 01-10-2014 08:03-0400 BSA (Body Surface Area) 2.01 m2 Xiao Coon [facility] Internal Medicine Work Phone: 01-10-2014 08:03-0400 Height 180.34 cm Xiao Coon [facility] Internal Medicine Work Phone: 01-10-2014 08:03-0400 Pulse (Heart Rate) 76 /min Xiao Coon [facility] Internal Medicine Work Phone: Comment on above: Pattern: Regular 01-10-2014 08:03-0400 Pulse Oximetry 98 % Xiao Coon [facility] Internal Medicine Work Phone: Comment on above: Room air 01-10-2014 08:03-0400 Respiratory Rate 16 /min Xiao Coon [facility] Internal Medicine Work Phone: 01-06-2014 08:39-0400 BMI (Body Mass Index) 24.87 kg/m2 Xiao Coon [facility] Internal Medicine Work Phone: 01-06-2014 08:39-0400 Body Temperature 98.4 [degF] Xiao Coon [facility] Internal Medicine Work Phone: Comment on above: Method: Oral 01-06-2014 08:39-0400 Body weight 80.88 kg Xiao Coon [facility] Internal Medicine Work Phone: 01-06-2014 08:39-0400 BP Diastolic 78 mm[Hg] Xiao Coon [facility] Internal Medicine Work Phone: Comment on above: Patient Position: Sitting; Cuff Location : Left Arm; Cuff Size: Standard 01-06-2014 08:39-0400 BP Systolic 120 mm[Hg] Xiao Coon [facility] Internal Medicine Work Phone: Comment on above: Patient Position: Sitting; Cuff Location : Left Arm; Cuff Size: Standard 01-06-2014 08:39-0400 BSA (Body Surface Area) 2.01 m2 Xiao Coon [facility] Internal Medicine Work Phone: 01-06-2014 08:39-0400 Height 180.34 cm Xiao Coon [facility] Internal Medicine Work Phone: 01-06-2014 08:39-0400 Pulse (Heart Rate) 82 /min Xiao Coon [facility] Internal Medicine Work Phone: Comment on above: Pattern: Regular 01-06-2014 08:39-0400 Pulse Oximetry 98 % Xiao Coon [facility] Internal Medicine Work Phone: Comment on above: Room air 01-06-2014 08:39-0400 Respiratory Rate 17 /min Xiao Coon [facility] Internal Medicine Work Phone: Comment on above: Pattern: Unlabored 10-21-2013 09:49-0400 BMI (Body Mass Index) 26.12 kg/m2 Xiao Coon [facility] Internal Medicine Work Phone: 10-21-2013 09:49-0400 Body Temperature 99.2 [degF] Xiao Coon [facility] Internal Medicine Work Phone: Comment on above: Method: Oral 10-21-2013 09:49-0400 Body weight 84.96 kg Xiao Coon [facility] Internal Medicine Work Phone: 10-21-2013 09:49-0400 BP Diastolic 80 mm[Hg] Xiao Coon [facility] Internal Medicine Work Phone: Comment on above: Patient Position: Sitting; Cuff Location : Left Arm; Cuff Size: Standard 10-21-2013 09:49-0400 BP Systolic 122 mm[Hg] Xiao Coon [facility] Internal Medicine Work Phone: Comment on above: Patient Position: Sitting; Cuff Location : Left Arm; Cuff Size: Standard 10-21-2013 09:49-0400 BSA (Body Surface Area) 2.05 m2 Xiao Coon [facility] Internal Medicine Work Phone: 10-21-2013 09:49-0400 Height 180.34 cm Xiao Coon [facility] Internal Medicine Work Phone: 10-21-2013 09:49-0400 Pulse (Heart Rate) 78 /min Xiao Coon [facility] Internal Medicine Work Phone: Comment on above: Pattern: Regular 10-21-2013 09:49-0400 Pulse Oximetry 99 % Xiao Coon [facility] Internal Medicine Work Phone: Comment on above: Room air 10-21-2013 09:49-0400 Respiratory Rate 17 /min Xiao Coon [facility] Internal Medicine Work Phone: 07-17-2013 08:57-0500 BMI (Body Mass Index) 26.12 kg/m2 Xiao Seay [facility] Internal Medicine Work Phone: 07-17-2013 08:57-0500 Body Temperature 98.7 [degF] Xiao Coon [facility] Internal Medicine Work Phone: Comment on above: Method: Oral 07-17-2013 08:57-0500 Body weight 84.96 kg Xiao Coon [facility] Internal Medicine Work Phone: 07-17-2013 08:57-0500 BP Diastolic 70 mm[Hg] Xiao Coon [facility] Internal Medicine Work Phone: Comment on above: Patient Position: Sitting; Cuff Location : Left Arm; Cuff Size: Large 07-17-2013 08:57-0500 BP Systolic 118 mm[Hg] Xiao Coon [facility] Internal Medicine Work Phone: Comment on above: Patient Position: Sitting; Cuff Location : Left Arm; Cuff Size: Large 07-17-2013 08:57-0500 BSA (Body Surface Area) 2.05 m2 Xiao Coon [facility] Internal Medicine Work Phone: 07-17-2013 08:57-0500 Height 180.34 cm Xiao Coon [facility] Internal Medicine Work Phone: 07-17-2013 08:57-0500 Pulse (Heart Rate) 79 /min Xiao Coon [facility] Internal Medicine Work Phone: Comment on above: Pattern: Regular 07-17-2013 08:57-0500 Pulse Oximetry 99 % Xiao Coon [facility] Internal Medicine Work Phone: Comment on above: Room air 07-17-2013 08:57-0500 Respiratory Rate 18 /min Xiao Coon [facility] Internal Medicine Work Phone: Comment on above: Pattern: Unlabored 04-23-2013 08:50-0500 BMI (Body Mass Index) 26.12 kg/m2 Xiao Seay [facility] Internal Medicine Work Phone: 04-23-2013 08:50-0500 Body Temperature 98.9 [degF] Xiao Coon [facility] Internal Medicine Work Phone: Comment on above: Method: Oral 04-23-2013 08:50-0500 Body weight 84.96 kg Xiao Coon [facility] Internal Medicine Work Phone: 04-23-2013 08:50-0500 BP Diastolic 78 mm[Hg] Xiao Coon [facility] Internal Medicine Work Phone: Comment on above: Patient Position: Sitting; Cuff Location : Left Arm; Cuff Size: Standard 04-23-2013 08:50-0500 BP Systolic 128 mm[Hg] Xiao Coon [facility] Internal Medicine Work Phone: Comment on above: Patient Position: Sitting; Cuff Location : Left Arm; Cuff Size: Standard 04-23-2013 08:50-0500 BSA (Body Surface Area) 2.05 m2 Xiao Coon [facility] Internal Medicine Work Phone: 04-23-2013 08:50-0500 Height 180.34 cm Xiao Coon [facility] Internal Medicine Work Phone: 04-23-2013 08:50-0500 Pulse (Heart Rate) 84 /min Xiao Coon [facility] Internal Medicine Work Phone: Comment on above: Pattern: Regular 04-23-2013 08:50-0500 Pulse Oximetry 98 % Xiao Coon [facility] Internal Medicine Work Phone: Comment on above: Room air 04-23-2013 08:50-0500 Respiratory Rate 17 /min Xiao Coon [facility] Internal Medicine Work Phone: 02-15-2013 07:18-0400 BMI (Body Mass Index) 26.12 kg/m2 X[facility] Coon [facility] Internal Medicine Work Phone: Comment on above: 136/78 at [facility] 02-15-2013 07:18-0400 Body Temperature 97.5 [degF] Xiao Coon [facility] Internal Medicine Work Phone: Comment on above: Method: Temporal 136/78 at [facility] 02-15-2013 07:18-0400 Body weight 84.96 kg Xiao Coon [facility] Internal Medicine Work Phone: Comment on above: 136/78 at [facility] 02-15-2013 07:18-0400 BP Diastolic 80 mm[Hg] Xiao Coon [facility] Internal Medicine Work Phone: Comment on above: Patient Position: Sitting; Cuff Location : Left Arm; Cuff Size: Standard 136/78 at [facility] 02-15-2013 07:18-0400 BP Systolic 140 mm[Hg] Xiao Coon [facility] Internal Medicine Work Phone: Comment on above: Patient Position: Sitting; Cuff Location : Left Arm; Cuff Size: Standard 136/78 at [facility] 02-15-2013 07:18-0400 BSA (Body Surface Area) 2.05 m2 Xiao Coon [facility] Internal Medicine Work Phone: Comment on above: 136/78 at [facility] 02-15-2013 07:18-0400 Height 180.34 cm Xiao Coon [facility] Internal Medicine Work Phone: Comment on above: 136/78 at [facility] 02-15-2013 07:18-0400 Pulse (Heart Rate) 72 /min Xiao Coon [facility] Internal Medicine Work Phone: Comment on above: Pattern: Regular 136/78 at [facility] 02-15-2013 07:18-0400 Pulse Oximetry 98 % Xiao Coon [facility] Internal Medicine Work Phone: Comment on above: Room air 136/78 at [facility] 02-15-2013 07:18-0400 Respiratory Rate 16 /min Xiao Coon [facility] Internal Medicine Work Phone: Comment on above: Pattern: Unlabored 136/78 at [facility] 04-02-2012 09:10-0500 BMI (Body Mass Index) 26.12 kg/m2 Xiao Coon [facility] Internal Medicine Work Phone: 04-02-2012 09:10-0500 Body Temperature 98.9 [degF] Xiao Coon [facility] Internal Medicine Work Phone: Comment on above: Method: Oral 04-02-2012 09:10-0500 Body weight 84.96 kg Xiao Coon [facility] Internal Medicine Work Phone: 04-02-2012 09:10-0500 BP Diastolic 84 mm[Hg] Xiao Coon [facility] Internal Medicine Work Phone: Comment on above: Patient Position: Sitting; Cuff Location : Left Arm; Cuff Size: Standard 04-02-2012 09:10-0500 BP Systolic 120 mm[Hg] Xiao Coon [facility] Internal Medicine Work Phone: Comment on above: Patient Position: Sitting; Cuff Location : Left Arm; Cuff Size: Standard 04-02-2012 09:10-0500 BSA (Body Surface Area) 2.05 m2 Xiao Coon [facility] Internal Medicine Work Phone: 04-02-2012 09:10-0500 Height 180.34 cm Xiao Coon [facility] Internal Medicine Work Phone: 04-02-2012 09:10-0500 Pulse (Heart Rate) 72 /min Xiao Coon [facility] Internal Medicine Work Phone: Comment on above: Pattern: Regular 04-02-2012 09:10-0500 Respiratory Rate 16 /min Xiao Coon [facility] Internal Medicine Work Phone: Comment on above: Pattern: Unlabored 06-14-2011 08:10-0500 Body Temperature 98.5 [degF] Xiao Cono [facility] Internal Medicine Work Phone: Comment on above: Method: Oral 06-14-2011 08:10-0500 BP Diastolic 84 mm[Hg] Xiao Coon [facility] Internal Medicine Work Phone: Comment on above: Patient Position: Sitting 06-14-2011 08:10-0500 BP Systolic 122 mm[Hg] Xiao Coon [facility] Internal Medicine Work Phone: Comment on above: Patient Position: Sitting 06-14-2011 08:10-0500 Pulse (Heart Rate) 76 /min Xiao Coon [facility] Internal Medicine Work Phone: Comment on above: Pattern: Regular 06-14-2011 08:10-0500 Pulse Oximetry 98 % Xiao Coon [facility] Internal Medicine Work Phone: Comment on above: Room air 06-14-2011 08:10-0500 Respiratory Rate 18 /min Xiao Coon [facility] Internal Medicine Work Phone: 04-05-2011 08:13-0500 BMI (Body Mass Index) 26.12 kg/m2 Xiao Coon [facility] Internal Medicine Work Phone: 04-05-2011 08:13-0500 Body Temperature 97.3 [degF] Xiao Coon [facility] Internal Medicine Work Phone: Comment on above: Method: Oral 04-05-2011 08:13-0500 Body weight 84.96 kg Xiao Coon [facility] Internal Medicine Work Phone: 04-05-2011 08:13-0500 BP Diastolic 78 mm[Hg] Xiao Coon [facility] Internal Medicine Work Phone: Comment on above: Patient Position: Sitting; Cuff Location : Left Arm; Cuff Size: Standard 04-05-2011 08:13-0500 BP Systolic 118 mm[Hg] Xiao Coon [facility] Internal Medicine Work Phone: Comment on above: Patient Position: Sitting; Cuff Location : Left Arm; Cuff Size: Standard 04-05-2011 08:13-0500 BSA (Body Surface Area) 2.05 m2 Xiao Coon [facility] Internal Medicine Work Phone: 04-05-2011 08:13-0500 Height 180.34 cm Xiao Coon [facility] Internal Medicine Work Phone: 04-05-2011 08:13-0500 Pulse (Heart Rate) 76 /min Xiao Coon [facility] Internal Medicine Work Phone: Comment on above: Pattern: Regular 04-05-2011 08:13-0500 Pulse Oximetry 98 % Xiao Coon [facility] Internal Medicine Work Phone: Comment on above: Room air 04-05-2011 08:13-0500 Respiratory Rate 17 /min Xiao Coon [facility] Internal Medicine Work Phone: Comment on above: Pattern: Unlabored 02-08-2010 16:44-0400 BMI (Body Mass Index) 25.9 kg/m2 Xiao Seay naresh Internal Medicine Work Phone: 02-08-2010 16:44-0400 Body weight 89.05 kg Xiao Coon [facility] Internal Medicine Work Phone: 02-08-2010 16:44-0400 BP Diastolic 70 mm[Hg] Xiao Coon [facility] Internal Medicine Work Phone: Comment on above: Patient Position: Sitting; Cuff Location : Left Arm; Cuff Size: Standard 02-08-2010 16:44-0400 BP Systolic 110 mm[Hg] Xiao Coon [facility] Internal Medicine Work Phone: Comment on above: Patient Position: Sitting; Cuff Location : Left Arm; Cuff Size: Standard 02-08-2010 16:44-0400 BSA (Body Surface Area) 2.14 m2 Xiao Coon [facility] Internal Medicine Work Phone: 02-08-2010 16:44-0400 Height 185.42 cm Xiao Coon [facility] Internal Medicine Work Phone: 02-08-2010 16:44-0400 Pulse (Heart Rate) 76 /min Xiao Coon [facility] Internal Medicine Work Phone: Comment on above: Pattern: Regular 02-08-2010 16:44-0400 Respiratory Rate 16 /min Xiao Coon [facility] Internal Medicine Work Phone: Comment on above: Pattern: Unlabored 02-01-2010 10:33-0400 BMI (Body Mass Index) 25.9 kg/m2 Xiao Seay naresh Internal Medicine Work Phone: 02-01-2010 10:33-0400 Body Temperature 97.7 [degF] Xiao Coon [facility] Internal Medicine Work Phone: Comment on above: Method: Oral 02-01-2010 10:33-0400 Body weight 89.05 kg Xiao Coon [facility] Internal Medicine Work Phone: 02-01-2010 10:33-0400 BP Diastolic 74 mm[Hg] Xiao Coon [facility] Internal Medicine Work Phone: Comment on above: Patient Position: Sitting; Cuff Location : Left Arm; Cuff Size: Standard 02-01-2010 10:33-0400 BP Systolic 112 mm[Hg] Xiao Coon [facility] Internal Medicine Work Phone: Comment on above: Patient Position: Sitting; Cuff Location : Left Arm; Cuff Size: Standard 02-01-2010 10:33-0400 BSA (Body Surface Area) 2.14 m2 Xiao Coon [facility] Internal Medicine Work Phone: 02-01-2010 10:33-0400 Height 185.42 cm Xiao Coon [facility] Internal Medicine Work Phone: 02-01-2010 10:33-0400 Pulse (Heart Rate) 78 /min Xiao Coon [facility] Internal Medicine Work Phone: Comment on above: Pattern: Regular 02-01-2010 10:33-0400 Respiratory Rate 17 /min Xiao Coon [facility] Internal Medicine Work Phone: Comment on above: Pattern: Unlabored 08-17-2009 17:26-0400 BMI (Body Mass Index) 25.9 kg/m2 Xiao Coon [facility] Internal Medicine Work Phone: 08-17-2009 17:26-0400 Body weight 89.05 kg Xiao Coon [facility] Internal Medicine Work Phone: 08-17-2009 17:26-0400 BP Diastolic 86 mm[Hg] Xiao Coon [facility] Internal Medicine Work Phone: Comment on above: Patient Position: Sitting; Cuff Location : Left Arm; Cuff Size: Large 08-17-2009 17:26-0400 BP Systolic 122 mm[Hg] Xiao Coon [facility] Internal Medicine Work Phone: Comment on above: Patient Position: Sitting; Cuff Location : Left Arm; Cuff Size: Large 08-17-2009 17:26-0400 BSA (Body Surface Area) 2.14 m2 Xiao Coon [facility] Internal Medicine Work Phone: 08-17-2009 17:26-0400 Height 185.42 cm Xiao Coon [facility] Internal Medicine Work Phone: 08-17-2009 17:26-0400 Pulse (Heart Rate) 60 /min Xiao Coon [facility] Internal Medicine Work Phone: Comment on above: Pattern: Regular 08-17-2009 17:26-0400 Respiratory Rate 20 /min Xiao Coon [facility] Internal Medicine Work Phone: Comment on above: Pattern: Unlabored 07-23-2009 09:56-0500 BMI (Body Mass Index) 25.9 kg/m2 Xiao Coon [facility] Internal Medicine Work Phone: 07-23-2009 09:56-0500 Body weight 89.05 kg Xiao Coon [facility] Internal Medicine Work Phone: 07-23-2009 09:56-0500 BP Diastolic 78 mm[Hg] Xiao Coon [facility] Internal Medicine Work Phone: Comment on above: Patient Position: Sitting; Cuff Location : Left Arm; Cuff Size: Standard 07-23-2009 09:56-0500 BP Systolic 118 mm[Hg] Xiao Coon [facility] Internal Medicine Work Phone: Comment on above: Patient Position: Sitting; Cuff Location : Left Arm; Cuff Size: Standard 07-23-2009 09:56-0500 BSA (Body Surface Area) 2.14 m2 Xiao Coon [facility] Internal Medicine Work Phone: 07-23-2009 09:56-0500 Height 185.42 cm Xiao Coon [facility] Internal Medicine Work Phone: 07-23-2009 09:56-0500 Pulse (Heart Rate) 82 /min Xiao Coon [facility] Internal Medicine Work Phone: Comment on above: Pattern: Regular 07-23-2009 09:56-0500 Respiratory Rate 16 /min Xiao Coon [facility] Internal Medicine Work Phone: Comment on above: Pattern: Unlabored 07-09-2009 15:27-0500 BMI (Body Mass Index) 25.9 kg/m2 [facility] Work Phone: 07-09-2009 15:27-0500 Body Temperature 98.5 [degF] Xiao Coon [facility] Internal Medicine Work Phone: Comment on above: Method: Oral 07-09-2009 15:27-0500 Body weight 89.05 kg Xiao Coon [facility] Internal Medicine Work Phone: 07-09-2009 15:27-0500 BP Diastolic 82 mm[Hg] Xiao Coon [facility] Internal Medicine Work Phone: Comment on above: Patient Position: Sitting; Cuff Location : Left Arm; Cuff Size: Standard 07-09-2009 15:27-0500 BP Systolic 130 mm[Hg] Xiao Coon [facility] Internal Medicine Work Phone: Comment on above: Patient Position: Sitting; Cuff Location : Left Arm; Cuff Size: Standard 07-09-2009 15:27-0500 BSA (Body Surface Area) 2.14 m2 Xiao Coon [facility] Internal Medicine Work Phone: 07-09-2009 15:27-0500 Height 185.42 cm Xiao Coon [facility] Internal Medicine Work Phone: 07-09-2009 15:27-0500 Pulse (Heart Rate) 80 /min Xiao Coon [facility] Internal Medicine Work Phone: Comment on above: Pattern: Regular 07-09-2009 15:27-0500 Respiratory Rate 16 /min Xiao Coon [facility] Internal Medicine Work Phone: Comment on above: Pattern: Unlabored 12-10-2008 09:02-0400 Body Temperature 98.6 [degF] Xiao Coon [facility] Internal Medicine Work Phone: Comment on above: Method: Undefined 12-10-2008 09:02-0400 Body weight 0 kg Xiao Coon [facility] Internal Medicine Work Phone: 12-10-2008 09:02-0400 BP Diastolic 72 mm[Hg] Xiao Coon [facility] Internal Medicine Work Phone: Comment on above: Patient Position: Sitting; Cuff Location : Left Arm; Cuff Size: Standard 12-10-2008 09:02-0400 BP Systolic 124 mm[Hg] Xiao Coon [facility] Internal Medicine Work Phone: Comment on above: Patient Position: Sitting; Cuff Location : Left Arm; Cuff Size: Standard 12-10-2008 09:02-0400 Head Circumference 0 cm Xiao Coon [facility] Internal Medicine Work Phone: 12-10-2008 09:02-0400 Height 0 cm Xiao Coon [facility] Internal Medicine Work Phone: 12-10-2008 09:02-0400 Pulse (Heart Rate) 92 /min Xiao Coon [facility] Internal Medicine Work Phone: Comment on above: Pattern: Regular 12-10-2008 09:02-0400 Respiratory Rate 16 /min Xiao Coon [facility] Internal Medicine Work Phone: Comment on above: Pattern: Undefined 08-14-2007 15:30-0400 BMI (Body Mass Index) 25.9 kg/m2 Xiao Coon [facility] Internal Medicine Work Phone: 08-14-2007 15:30-0400 Body Temperature 98.9 [degF] Xiao Coon [facility] Internal Medicine Work Phone: Comment on above: Method: Oral 08-14-2007 15:30-0400 Body weight 89.05 kg Xiao Coon [facility] Internal Medicine Work Phone: 08-14-2007 15:30-0400 BP Diastolic 78 mm[Hg] Xiao Coon [facility] Internal Medicine Work Phone: Comment on above: Patient Position: Sitting; Cuff Location : Left Arm; Cuff Size: Large 08-14-2007 15:30-0400 BP Systolic 124 mm[Hg] Xiao Coon [facility] Internal Medicine Work Phone: Comment on above: Patient Position: Sitting; Cuff Location : Left Arm; Cuff Size: Large 08-14-2007 15:30-0400 BSA (Body Surface Area) 2.14 m2 Xiao Coon [facility] Internal Medicine Work Phone: 08-14-2007 15:30-0400 Head Circumference 0 cm Xiao Coon [facility] Internal Medicine Work Phone: 08-14-2007 15:30-0400 Height 185.42 cm Xiao Coon [facility] Internal Medicine Work Phone: 08-14-2007 15:30-0400 Pulse (Heart Rate) 80 /min Xiao Coon [facility] Internal Medicine Work Phone: Comment on above: Pattern: Regular 08-14-2007 15:30-0400 Respiratory Rate 18 /min Xiao Coon [facility] Internal Medicine Work Phone: Comment on above: Pattern: Unlabored 07-31-2007 15:16-0400 BMI (Body Mass Index) 25.9 kg/m2 Xiao Coon [facility] Internal Medicine Work Phone: 07-31-2007 15:16-0400 Body Temperature 98.2 [degF] Xiao Coon [facility] Internal Medicine Work Phone: Comment on above: Method: Oral 07-31-2007 15:16-0400 Body weight 89.05 kg Xiao Coon [facility] Internal Medicine Work Phone: 07-31-2007 15:16-0400 BP Diastolic 66 mm[Hg] Xiao Coon [facility] Internal Medicine Work Phone: Comment on above: Patient Position: Sitting; Cuff Location : Left Arm; Cuff Size: Standard 07-31-2007 15:16-0400 BP Systolic 120 mm[Hg] Xiao Coon [facility] Internal Medicine Work Phone: Comment on above: Patient Position: Sitting; Cuff Location : Left Arm; Cuff Size: Standard 07-31-2007 15:16-0400 BSA (Body Surface Area) 2.14 m2 Xiao Coon [facility] Internal Medicine Work Phone: 07-31-2007 15:16-0400 Head Circumference 0 cm Xiao Coon [facility] Internal Medicine Work Phone: 07-31-2007 15:16-0400 Height 185.42 cm Xiao Coon [facility] Internal Medicine Work Phone: 07-31-2007 15:16-0400 Pulse (Heart Rate) 80 /min Xiao Coon [facility] Internal Medicine Work Phone: Comment on above: Pattern: Regular 07-31-2007 15:16-0400 Respiratory Rate 18 /min Xiao Coon [facility] Internal Medicine Work Phone: Comment on above: Pattern: Unlabored 07-24-2007 15:10-0500 BMI (Body Mass Index) 25.9 kg/m2 Xiao Coon [facility] Internal Medicine Work Phone: 07-24-2007 15:10-0500 Body Temperature 97.5 [degF] Xiao Coon [facility] Internal Medicine Work Phone: Comment on above: Method: Oral 07-24-2007 15:10-0500 Body weight 89.05 kg Xiao Coon [facility] Internal Medicine Work Phone: 07-24-2007 15:10-0500 BP Diastolic 72 mm[Hg] Xiao Coon [facility] Internal Medicine Work Phone: Comment on above: Patient Position: Sitting; Cuff Location : Right Arm; Cuff Size: Large 07-24-2007 15:10-0500 BP Systolic 122 mm[Hg] Xiao Coon [facility] Internal Medicine Work Phone: Comment on above: Patient Position: Sitting; Cuff Location : Right Arm; Cuff Size: Large 07-24-2007 15:10-0500 BSA (Body Surface Area) 2.14 m2 Xiao Coon [facility] Internal Medicine Work Phone: 07-24-2007 15:10-0500 Head Circumference 0 cm Xiao Coon [facility] Internal Medicine Work Phone: 07-24-2007 15:10-0500 Height 185.42 cm Xiao Coon [facility] Internal Medicine Work Phone: 07-24-2007 15:10-0500 Pulse (Heart Rate) 84 /min Xiao Coon [facility] Internal Medicine Work Phone: Comment on above: Pattern: Regular 07-24-2007 15:10-0500 Respiratory Rate 18 /min Xiao Coon [facility] Internal Medicine Work Phone: Comment on above: Pattern: Unlabored 07-17-2007 12:58-0500 BMI (Body Mass Index) 25.9 kg/m2 Xiao Seay naresh Internal Medicine Work Phone: 07-17-2007 12:58-0500 Body Temperature 98.1 [degF] Xiao Coon [facility] Internal Medicine Work Phone: Comment on above: Method: Oral 07-17-2007 12:58-0500 Body weight 89.05 kg Xiao Coon [facility] Internal Medicine Work Phone: 07-17-2007 12:58-0500 BP Diastolic 80 mm[Hg] Xiao Coon [facility] Internal Medicine Work Phone: Comment on above: Patient Position: Sitting; Cuff Location : Left Arm; Cuff Size: Standard 07-17-2007 12:58-0500 BP Systolic 126 mm[Hg] Xiao Coon [facility] Internal Medicine Work Phone: Comment on above: Patient Position: Sitting; Cuff Location : Left Arm; Cuff Size: Standard 07-17-2007 12:58-0500 BSA (Body Surface Area) 2.14 m2 Xiao Coon [facility] Internal Medicine Work Phone: 07-17-2007 12:58-0500 Head Circumference 0 cm Xiao Coon [facility] Internal Medicine Work Phone: 07-17-2007 12:58-0500 Height 185.42 cm Xiao Coon [facility] Internal Medicine Work Phone: 07-17-2007 12:58-0500 Pulse (Heart Rate) 78 /min Xiao Coon [facility] Internal Medicine Work Phone: Comment on above: Pattern: Regular 07-17-2007 12:58-0500 Respiratory Rate 17 /min Xiao Coon [facility] Internal Medicine Work Phone: Comment on above: Pattern: Unlabored Encounters Encounter Date Encounter Type Care Provider Facility Start: 07-16-2020 End: 07-16-2020 Annotation/Addendum Xiao [facility] Start: 07-08-2020 End: 07-08-2020 Annotation/Addendum Xiao [facility] Start: 07-08-2020 End: 07-08-2020 Office outpatient visit 10 minutes Xiao Andrade [facility] Start: 03-15-2019 End: 03-15-2019 Phone Encounter Xiao [facility] Start: 03-15-2019 End: 03-15-2019 Phone Encounter Xiao Jaymie [facility] Start: 03-14-2019 End: 03-14-2019 Phone Encounter Xiao Jaymieronnie [facility] Start: 03-14-2019 End: 03-14-2019 Office outpatient visit 10 minutes Xiao Andrade [facility] Start: 01-18-2016 End: 01-18-2016 Office outpatient visit 10 minutes Xiao Coon [facility] Start: 09-03-2015 End: 09-03-2015 Office outpatient visit 15 minutes Xiao Coon [facility] Start: 02-16-2015 End: 02-16-2015 Office outpatient visit 15 minutes Xiao Coon [facility] Start: 01-10-2014 End: 01-10-2014 Office outpatient visit 25 minutes Xiao Coon [facility] Start: 01-06-2014 End: 01-06-2014 Office outpatient visit 25 minutes Xiao Coon [facility] Start: 10-21-2013 End: 10-21-2013 Erroneous Entry Xiao [facility] Start: 10-21-2013 End: 10-21-2013 Office outpatient visit 25 minutes Xiao Coon [facility] Start: 07-17-2013 End: 07-17-2013 Patient encounter procedure [facility] Start: 04-23-2013 End: 04-23-2013 Office outpatient visit 15 minutes Xiao oCon [facility] Start: 02-15-2013 End: 02-17-2013 Patient encounter procedure Xiao Andrade [facility] Start: 04-02-2012 End: 04-02-2012 Office outpatient visit 25 minutes Xiao Andrade [facility] Start: 06-14-2011 End: 06-14-2011 Patient encounter procedure Xiao Coon [facility] Start: 04-05-2011 End: 04-05-2011 Office outpatient visit 25 minutes X[facility] Start: 02-08-2010 End: 02-08-2010 Office outpatient visit 15 minutes Xiao Coon [facility] Start: 02-01-2010 End: 02-01-2010 Annotation/Addendum Xiao Coon [facility] Start: 02-01-2010 End: 02-01-2010 Patient encounter procedure Xiao Coon [facility] Start: 02-01-2010 End: 02-01-2010 Office outpatient visit 25 minutes Xiao Coon [facility] Start: 10-06-2009 End: 10-06-2009 Phone Encounter Xiao Coon [facility] Start: 08-17-2009 End: 08-17-2009 Patient encounter procedure Xiao Coon [facility] Start: 07-23-2009 End: 07-23-2009 Office outpatient visit 25 minutes Xiaomo Coon [facility] Start: 07-09-2009 End: 07-09-2009 Office outpatient visit 25 minutes Xiao Prescotton [facility] Start: 12-10-2008 End: 12-10-2008 Patient encounter procedure Xiaomo Coon [facility] Start: 08-14-2007 End: 08-14-2007 Patient encounter procedure Xiao Coon [facility] Start: 07-31-2007 End: 07-31-2007 Office outpatient visit 15 minutes Xiaomo Prescotton [facility] Start: 07-24-2007 End: 07-24-2007 Office outpatient visit 25 minutes Xiao Coon [facility] Start: 07-17-2007 End: 07-17-2007 Office outpatient visit 15 minutes Xiao Jaymie [facility] Procedures Date Procedure Procedure Detail Performing Clinician Start: 07-29-2017 End: 07-29-2017 Sinus/Facial Bone Comments: See Note; NOTES: [facility] Imaging Services [address] [place] [address] Sinus/Facial Bone MR#: [id number] Acct: [id number] Name: HASEEB HERNANDEZ aXnder Rep #: [id number] : 1975 M 41 From: Norris Phillips MD PCP: Carmelina Minaya NP Status: REG CLI Study: Sinus/Facial Bone Date of Exam: 07/29/17 Exam# [id number] Ordering Dr: Mickey Rice MD STUDY: CT MAXILLOFACIAL SINUSES REASON FOR EXAM: Male, 41 years old. Acute sinusitis. RADIATION DOSAGE (If Supplied By Facility): CTDIvol = ( 33.06 ) mGy, DLP = ( 862.77 ) mGycm TECHNIQUE: The patient was scanned in a multi detector CT scanner. High resolution axial imaging was performed without the administration of intravenous contrast material. Sagittal and coronal images were reconstructed. Individualized dose optimization techniques were used for this CT. COMPARISON: None. FINDINGS: FRONTAL SINUSES: There is minimal mucosal thickening of the frontal sinuses. ETHMOIDAL SINUSES: There is mild mucosal thickening of the ethmoid sinuses bilaterally. MAXILLARY SINUSES: There is mild mucosal thickening of the maxillary sinuses bilaterally with well-defined large soft tissue density that could represent retention cyst or polyp. SPHENOIDAL SINUSES: Normal aeration, without mucosal inflammatory disease. The right ostiomeatal complex is patent. The left ostiomeatal complex is probably occluded. Normal bilateral middle turbinates. Normal bilateral inferior turbinates. There is a right sided nasal septal deviation, but without a nasal septal spur. There is patency of the bilateral nasal airways. The visualized osseous structures are normal. The visualized bilateral orbital contents are normal. CT/Sinus/Facial Bone IMPRESSION: Sinus disease as described above. Probable retention cyst or polyp in the right maxillary sinus. 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 Electronically Signed: Norris Phillips MD at 15:27 EST Tel , Service support , CC: Carmelina Minaya NP; Ron Rice MD Feature Writer: Signed Xiao Coon Start: 01-07-2014 End: 01-07-2014 Cerv Spine 4 or 5 Views Comments: See Note; NOTES: [facility] Imaging Services [address] [place] [id number] Radiology Report MR#: [id number] Acct: [id number] Name: HASEEB HERNANDEZ Rep #: [id number] : 1975 M 38 From: Quirino Marcial MD PCP: Carmelina Minaya Status: REG CLI Study: Cerv Spine 4 or 5 Views Date of Exam: 01/07/14 Exam# [id number] Ordering Dr: Carmelina Minaya STUDY: X-RAY - CERVICAL SPINE REASON FOR EXAM: Male, 38 years old. Soft tissue density along the posterior cervical region. TECHNIQUE: 6 view(s) of the cervical spine were obtained including oblique views. COMPARISON: None FINDINGS: Normal anterior atlantoaxial articulation. Normal odontoid process. Normal cervical lordosis. Normal vertebral bodies and endplates. Normal disc space heights. Normal visualized intervertebral neuroforamina. The soft tissue structures are unremarkable. IMPRESSION: Normal x-ray examination of the visualized cervical spine. Electronically Signed: Quirino Marcial MD at 15:45 EDT Tel [phone], Service support [phone], RAD/Cerv Spine 4 or 5 Views IMPRESSION: Normal x-ray examination of the visualized cervical spine. Electronically Signed: Quirino Marcial MD at 15:45 EDT Tel [phone], Service support [phone], CC: Carmelina Minaya Feature Writer: Signed Carmelina Minaya Work Phone: Start: 01-07-2014 End: 01-07-2014 Chest PA and Lateral Comments: See Note; NOTES: [facility] Imaging Services [address] [place] [address] Radiology Report MR#: [id number] Acct: [id number] Name: HASEEB HERNANDEZ Rep #: [id number] : 1975 M 38 From: Quirino Marcial MD PCP: Carmelina Minaya Status: REG CLI Study: Chest PA and Lateral Date of Exam: 01/07/14 Exam# [id number] Ordering Dr: Carmelina Minaya STUDY: X-RAY CHEST REASON FOR EXAM: Male, 38 years old. Long-time smoker. TECHNIQUE: PA and lateral views of the chest. COMPARISON: None. FINDINGS: Hyperinflation. 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 There is no demonstrated pleural abnormality. Normal size heart. Normal mediastinum and tawny. Normal visualized pulmonary arteries. Normal visualized aortic arch and descending thoracic aorta. Normal visualized thoracic spine. Normal visualized ribs, clavicles, and shoulders. There is no demonstrated abnormality of the visualized soft tissue structures of the upper abdomen. IMPRESSION: Hyperinflation. 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 Electronically Signed: Quirino Marcial MD at 15:44 EDT Tel [phone], Service support [phone], RAD/Chest PA and Lateral IMPRESSION: Hyperinflation. 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 Electronically Signed: Quirino Marcial MD at 15:44 EDT Tel [phone], Service support [phone], CC: Carmelina Minaya Feature Writer: Signed Carmelina Minaya Work Phone: Start: 01-07-2014 End: 01-07-2014 Thyroid Comments: See Note; NOTES: [facility] Imaging Services [address] [place] [address] Ultrasound Report MR#: [id number] Acct: [id number] Name: HASEEB HERNANDEZ Rep #: [id number] : 1975 M 38 From: Quirino Marcial MD PCP: Carmelina Minaya Status: REG CLI Study: Thyroid Date of Exam: 01/07/14 Exam# [id number] Ordering Dr: Carmelina Minaya STUDY: THYROID ULTRASOUND REASON FOR EXAM: Male, 38 years old. Swelling and dysphagia. TECHNIQUE: Ultrasound evaluation of the thyroid was performed with real-time and static mays-scale imaging. COMPARISON: None. FINDINGS: RIGHT LOBE: The right lobe of the thyroid gland measures 4.6 cm x 1.7 cm x 1.5 cm. There is a homogeneous echotexture. The regional lymph nodes are normal. There are no demonstrated solid, cystic or complex lesions. LEFT LOBE: The left lobe of the thyroid gland measures 4.2 cm x 2.1 cm x 1.6 cm. There is a homogeneous echotexture. The regional lymph nodes are normal. There are no demonstrated solid, cystic or complex lesions. ISTHMUS: The isthmus measures 2.0 mm. IMPRESSION: Normal ultrasound examination of the thyroid. Electronically Signed: Quirino Marcial MD at 13:56 EDT Tel [phone], Service support [phone], CC: Carmelina Minaya Feature Writer: Signed Carmelina Minaya Work Phone: Plan of Treatment Date Care Activity Detail Author Start: 07-08-2020 [place] influenza 2019 Novel Coronavirus (COVID-19), FANNY (32258) [facility]; [facility] Work Phone: Start: 07-08-2020 Procedure Education Eprescribe d prescriptions (G8553) [facility]; [facility] Work Phone: Start: 03-14-2019 Procedure Education Eprescribe d prescriptions (G8553) [facility] Work Phone: Start: 03-14-2019 [place] influenza Rapid Flu (46231 x 2) [facility] Work Phone: Start: 03-14-2019 S. pyogenes Ag IA Ql (Unsp spec) Rapid Strep Test, Office (80858) [facility] Work Phone: Start: 01-18-2016 Procedure Education Eprescribe d prescriptions (G8553) [facility] Work Phone: Start: 02-16-2015 Patient Education Sore throat: diagnosis and treatment [facility] Work Phone: Start: 02-16-2015 Provider Instruction s for Treatment [facility] Work Phone: Start: 01-10-2014 Patient Education Celiac Disea se and the Gluten-Free Diet: celiac disease [facility] Work Phone: Start: 01-10-2014 Provider Instruction s for Treatment Follow up if no improvement or if symptoms worsen [facility] Work Phone: Start: 01-06-2014 Provider Instruction s for Treatment Follow up Monday with [facility] Work Phone: Start: 07-17-2013 Provider Instruction s for Treatment [facility] Work Phone: Start: 04-23-2013 Patient Education Low Back Andres n: Brief Version *: low back [facility] Work Phone: Start: 04-23-2013 Provider Instruction s for Treatment Follow up in 1 week [facility] Work Phone: Start: 04-02-2012 Provider Instruction s for Treatment Follow up if no improvement or if symptoms worsen [facility] Work Phone: Start: 02-08-2010 Provider Instruction s for Treatment exercises [facility] Work Phone: Start: 02-01-2010 Provider Instruction s for Treatment FOLLOW UP IN 1 WEEK [facility] Work Phone: Start: 08-17-2009 Provider Instruction s for Treatment FOLLOW UP IN 1 MONTH [facility] Work Phone: Start: 07-23-2009 Fluorescent nonnfct agt antb screen ea antibody FLURESCNT ANTIB SCRN EA (67175) celiac profile [facility] Work Phone: Start: 07-23-2009 Immunoassay analyte qual/semiqual multiple step IMMUNOASSAY, ANALYTE (NON-INFECT) (19775) celiac profile [facility] Work Phone: Start: 07-23-2009 Assay of gammaglobul in iga igd igg igm each IGA/IGD/IGG/IGM-EACH (32961) celiac profile [facility] Work Phone: Start: 07-23-2009 Antibody helicobacte r pylori HELICOBACTER PYLORI ANTIBODY PROFILE IgG, IgM, IgA (97853) [facility] Work Phone: Start: 12-10-2008 Provider Instruction s for Treatment Antibiotic Usage Education - Male [facility] Work Phone: Start: 08-14-2007 Provider Instruction s for Treatment [facility] Work Phone: Start: 07-31-2007 Provider Instruction s for Treatment [facility] Work Phone: Start: 07-24-2007 Provider Instruction s for Treatment [facility] Work Phone: Start: 07-17-2007 Provider Instruction s for Treatment [facility] Work Phone: Start: 07-17-2007 Glucose [Mass/Vol] Blood Gluco se , Office (20236) [facility] Work Phone: Start: 07-17-2007 [place] influenza Rapid Flu (08457 x 2) [facility] Work Phone: Comment on above: neg [facility] Work Phone: [facility] Work Phone: [facility] Work Phone: [facility] Work Phone: [facility] Work Phone[facility] Work Phone: [facility] Work Phone: [facility] Work Phone: [facility] Work Phone: [facility] Work Phone: Payers Date Payer Category Payer Policy ID Unknown Social History Date Type Detail Facility Tobacco use: Tobacco use: [facility] Work Phone: Instructions Name Dates Details How to access health informa tion online Indication:Non-smoker Start:14-Mar-2019 Instruction Type:Patient Education How to access health informa tion online - Detail Indication:Non-smoker Start:14-Mar-2019 Instruction Type:Patient Education Patient Instructions Indication:Non-smoker Start:14-Mar-2019 Instruction Type:Provider Instructions for Treatment How to access health informa tion online Indication:Pain of left hand Start:18-Jan-2016 Instruction Type:Patient Education How to access health informa tion online - Detail Indication:Pain of left hand Start:18-Jan-2016 Instruction Type:Patient Education Patient Instructions Indication:Pain of left hand Start:18-Jan-2016 Instruction Type:Provider Instructions for Treatment How to access health informa tion online Indication:Tendonitis of elbow or forearm Start:03-Sep-2015 Instruction Type:Patient Education How to access health informa tion online - Detail Indication:Tendonitis of elbow or forearm Start:03-Sep-2015 Instruction Type:Patient Education Patient Instructions Indication:Tendonitis of elbow or forearm Start:03-Sep-2015 Instruction Type:Provider Instructions for Treatment Patient Instructions Indication:CHRONIC PHARYNGITIS Start:15-Feb-2013 Instruction Type:Provider Instructions for Treatment Name Dates Details How to access health informa tion online Indication:Non-smoker Start:14-Mar-2019 Instruction Type:Patient Education How to access health informa tion online - Detail Indication:Non-smoker Start:14-Mar-2019 Instruction Type:Patient Education Patient Instructions Indication:Non-smoker Start:14-Mar-2019 Instruction Type:Provider Instructions for Treatment How to access health informa tion online Indication:Pain of left hand Start:18-Jan-2016 Instruction Type:Patient Education How to access health informa tion online - Detail Indication:Pain of left hand Start:18-Jan-2016 Instruction Type:Patient Education Patient Instructions Indication:Pain of left hand Start:18-Jan-2016 Instruction Type:Provider Instructions for Treatment How to access health informa tion online Indication:Tendonitis of elbow or forearm Start:03-Sep-2015 Instruction Type:Patient Education How to access health informa tion online - Detail Indication:Tendonitis of elbow or forearm Start:03-Sep-2015 Instruction Type:Patient Education Patient Instructions Indication:Tendonitis of elbow or forearm Start:03-Sep-2015 Instruction Type:Provider Instructions for Treatment Patient Instructions Indication:CHRONIC PHARYNGITIS Start:15-Feb-2013 Instruction Type:Provider Instructions for Treatment Name Dates Details How to access health informa tion online Indication:Non-smoker Start:14-Mar-2019 Instruction Type:Patient Education How to access health informa tion online - Detail Indication:Non-smoker Start:14-Mar-2019 Instruction Type:Patient Education Patient Instructions Indication:Non-smoker Start:14-Mar-2019 Instruction Type:Provider Instructions for Treatment How to access health informa tion online Indication:Pain of left hand Start:18-Jan-2016 Instruction Type:Patient Education How to access health informa tion online - Detail Indication:Pain of left hand Start:18-Jan-2016 Instruction Type:Patient Education Patient Instructions Indication:Pain of left hand Start:18-Jan-2016 Instruction Type:Provider Instructions for Treatment How to access health informa tion online Indication:Tendonitis of elbow or forearm Start:03-Sep-2015 Instruction Type:Patient Education How to access health informa tion online - Detail Indication:Tendonitis of elbow or forearm Start:03-Sep-2015 Instruction Type:Patient Education Patient Instructions Indication:Tendonitis of elbow or forearm Start:03-Sep-2015 Instruction Type:Provider Instructions for Treatment Patient Instructions Indication:CHRONIC PHARYNGITIS Start:15-Feb-2013 Instruction Type:Provider Instructions for Treatment Name Dates Details Patient Instructions Indication:Non-smoker Start:08-Jul-2020 Instruction Type:Provider Instructions for Treatment How to Access Health Informa tion Online using Patient Portal and [employer] Indication:Non-smoker Start:08-Jul-2020 Instruction Type:Patient Education How to access health informa tion online Indication:Non-smoker Start:14-Mar-2019 Instruction Type:Patient Education How to access health informa tion online - Detail Indication:Non-smoker Start:14-Mar-2019 Instruction Type:Patient Education Patient Instructions Indication:Non-smoker Start:14-Mar-2019 Instruction Type:Provider Instructions for Treatment How to access health informa tion online Indication:Pain of left hand Start:18-Jan-2016 Instruction Type:Patient Education How to access health informa tion online - Detail Indication:Pain of left hand Start:18-Jan-2016 Instruction Type:Patient Education Patient Instructions Indication:Pain of left hand Start:18-Jan-2016 Instruction Type:Provider Instructions for Treatment How to access health informa tion online Indication:Tendonitis of elbow or forearm Start:03-Sep-2015 Instruction Type:Patient Education How to access health informa tion online - Detail Indication:Tendonitis of elbow or forearm Start:03-Sep-2015 Instruction Type:Patient Education Patient Instructions Indication:Tendonitis of elbow or forearm Start:03-Sep-2015 Instruction Type:Provider Instructions for Treatment Patient Instructions Indication:CHRONIC PHARYNGITIS Start:15-Feb-2013 Instruction Type:Provider Instructions for Treatment Name Dates Details Patient Instructions Indication:Non-smoker Start:08-Jul-2020 Instruction Type:Provider Instructions for Treatment How to Access Health Informa tion Online using Patient Portal and [employer] Indication:Non-smoker Start:08-Jul-2020 Instruction Type:Patient Education How to access health informa tion online Indication:Non-smoker Start:14-Mar-2019 Instruction Type:Patient Education How to access health informa tion online - Detail Indication:Non-smoker Start:14-Mar-2019 Instruction Type:Patient Education Patient Instructions Indication:Non-smoker Start:14-Mar-2019 Instruction Type:Provider Instructions for Treatment How to access health informa tion online Indication:Pain of left hand Start:18-Jan-2016 Instruction Type:Patient Education How to access health informa tion online - Detail Indication:Pain of left hand Start:18-Jan-2016 Instruction Type:Patient Education Patient Instructions Indication:Pain of left hand Start:18-Jan-2016 Instruction Type:Provider Instructions for Treatment How to access health informa tion online Indication:Tendonitis of elbow or forearm Start:03-Sep-2015 Instruction Type:Patient Education How to access health informa tion online - Detail Indication:Tendonitis of elbow or forearm Start:03-Sep-2015 Instruction Type:Patient Education Patient Instructions Indication:Tendonitis of elbow or forearm Start:03-Sep-2015 Instruction Type:Provider Instructions for Treatment Patient Instructions Indication:CHRONIC PHARYNGITIS Start:15-Feb-2013 Instruction Type:Provider Instructions for Treatment Additional Source Comments FOR RECORDS PERTAINING TO PATIENTS WHO ARE OR HAVE BEEN ENROLLED IN A CHEMICAL DEPENDENCY/SUBSTANCEABUSE PROGRAM, SOME INFORMATION MAY BE OMITTED. This clinical summary was aggregated from multiple sources. Caution should be exercised in using it in the provision of clinical care. This summary normalizes information from multiple sources, and as a consequence, information in this document may materially change the coding, format and clinical context of patient data. In addition, data may be omitted in some cases. CLINICAL DECISIONS SHOULD BE BASED ON THE PRIMARY CLINICAL RECORDS. [employer] [facility]. provides no warranty or guarantee of the accuracy or completeness of information in this document.
[2024-03-12 17:49] LABS: CRP 3.01 mg/L (0.0-3.0)
[2024-03-14 17:08] LABS: Endomysial Antibody IgA Negative (Negative); Immunoglobulin A 153 mg/dL (90-386); t-Transglutaminase IgA <2 U/mL (0-3)
== END | disposition home or self-care (01) ==
LOC: MTLAB 14:53
PROVIDERS: PCP Nurse Practitioner Family; Referring Provider Internal Medicine Gastroenterology; Visit Provider Internal Medicine Gastroenterology
DX: R14.0 Abdominal distension (gaseous) (principal); R19.7 Diarrhea, unspecified
CPT/HCPCS: 36415; 82784; 83516; 86140; 86255

== ENCOUNTER → 2024-04-03 | Outpatient (CLI) | payer OTHER, SELFPAY ==
[2024-04-03 13:58] LABS: Absolute Lymphocyte Count 1.26 X10^3/uL (0.83-4.51); Absolute Neutrophil Count 4.7 X10^3/uL (2.0-7.7); Basophil# 0.03 X10^3/uL; Basophil% 0.5 % (0-1); Eosinophil# 0.04 X10^3/uL; Eosinophils% 0.6 % (0-5); Hematocrit 48.4 % (40-54); Lymphocyte # 1.26 X10^3/ul (0.83-4.51); Lymphocyte % 20.1 % (19-41); Mean Corp Hgb Conc 35.1 g/dL (32-36); Mean Corpuscular Hgb 31.4 pg (27.0-32.0); Mean Corpuscular Volume 89.5 fL (80-94); Mean Platelet Vol. 9.9 fl (6.2-12.0); Monocyte# 0.24 X10^3/uL; Monocyte% 3.8 % (0-10); NRBC Flagged by Analyzer 0 % (0-5); Neutrophil # 4.69 X10^3/uL (2.7-7.7); Neutrophil % 74.7 % (47-70); Platelet Count 216 K/mm3 (150-450); RBC Distribution Width CV 11.7 % (11.6-14.6); RBC Distribution Width SD 37.8 fl (35.1-43.9); Red Blood Count 5.41 M/mm3 (4.6-6.2); White Blood Count 6.3 K/mm3 (4.4-11.0)
[2024-04-03 14:34] LABS: ALB/GLOB Ratio 1.1 RATIO (0.9-2.4); AST(SGOT) 20 U/L (15-37); Alanine Aminotransfer ALT/SGPT 32 U/L (16-61); Albumin, Serum 3.6 g/dL (3.2-5.0); Alkaline Phosphatase 82 U/L (45-117); Anion Gap 7 (5-15); BUN 16 mg/dL (7-18); BUN/Creat Ratio 15.1 RATIO (10-20); Chloride 107 mmol/L (98-107); Creatinine, Serum 1.06 mg/dL (0.70-1.30); EST Glomerular Filtration Rate 79 mL/min (>60); Est Glom Filt Rate - Afr Amer 96 mL/min (>60); Ferritin 246 ng/mL (26-388); Globulin 3.4 g/dL (2.2-4.2); Glucose 207 mg/dL (74-106); Iron 56 ug/dL (65-175); Potassium 3.8 mmol/L (3.5-5.1); Sodium Level 139 mmol/L (136-145)
[2024-04-03 14:41] LABS: Vitamin B12 757 pg/mL (211-911)
[2024-04-04 11:50] LABS: Hemoglobin A1c 5.5 % (3.8-5.6)
== END | disposition home or self-care (01) ==
LOC: LAB 13:35
PROVIDERS: PCP Nurse Practitioner Family; Referring Provider Nurse Practitioner Family; Visit Provider Nurse Practitioner Family
DX: R53.83 Other fatigue (principal); R73.01 Impaired fasting glucose
CPT/HCPCS: 36415; 80053; 82306; 82607; 82728; 83036; 83540; 84439; 84443; 85025

== ENCOUNTER 2024-09-17 06:04 | Emergency (ER) | payer OTHER, BC, SELFPAY ==
[2024-09-17 06:07] VITALS: BP 145/89; PULSE 67; RESP 17; TEMP 36.4; O2SAT 100; BMI 27.4
--- NOTE | 2024-09-17 06:36 | CT_ITS ---
PROCEDURE: BRAIN/HEAD WITHOUT CONTRAST 09/17/2024 REASON FOR EXAM: DIZZINESS TECHNIQUE: Head CT without intravenous contrast. Coronal and Sagittal reconstruction series were provided. One or more dose reduction techniques were used (e.g., Automated exposure control, adjustment of the mA and/or kV according to patient size, use of iterative reconstruction technique. RADIATION DOSE SUMMARY: CTDlvol: 44.99 mGy DLP: 796.11 mGycm COMPARISON: None available FINDINGS: No intracranial hemorrhage, mass effect or CT evidence of large vascular territory acute infarct. The ventricles are within limits and midline. The mays-white differentiation appears preserved. CSF spaces appear within limits. Partially imaged large mucous retention cyst right maxillary sinus. The other visualized paranasal sinuses, mastoids and orbits appear within limits. CT/Brain/Head without Contrast IMPRESSION: No intracranial hemorrhage, mass effect or CT evidence of large vascular territ ory acute infarct. Partially imaged large mucous retention cyst right maxillary sinus. Reading Location: [id number]
[2024-09-17 06:52] LABS: Absolute Lymphocyte Count 1.39 X10^3/uL (0.83-4.51); Absolute Neutrophil Count 3.4 X10^3/uL (2.0-7.7); Basophil# 0.03 X10^3/uL; Basophil% 0.6 % (0-1); Eosinophil# 0.06 X10^3/uL; Eosinophils% 1.1 % (0-5); Hematocrit 49.6 % (40-54); Hemoglobin 17.2 g/dL (13.0-16.5); Lymphocyte # 1.39 X10^3/ul (0.83-4.51); Mean Corp Hgb Conc 34.7 g/dL (32-36); Mean Corpuscular Hgb 31.4 pg (27.0-32.0); Mean Corpuscular Volume 90.7 fL (80-94); Mean Platelet Vol. 9.9 fl (6.2-12.0); Monocyte# 0.47 X10^3/uL; Monocyte% 8.8 % (0-10); NRBC Flagged by Analyzer 0 % (0-5); Neutrophil # 3.37 X10^3/uL (2.7-7.7); Neutrophil % 63.1 % (47-70); Platelet Count 195 K/mm3 (150-450); RBC Distribution Width CV 11.6 % (11.6-14.6); RBC Distribution Width SD 38.6 fl (35.1-43.9); Red Blood Count 5.47 M/mm3 (4.6-6.2); White Blood Count 5.3 K/mm3 (4.4-11.0)
[2024-09-17] MEDS: diazePAM 5 MG Tablet PO (07:04)
[2024-09-17] MEDS: 0.9% Normal Saline (1000mL) 1,000 ML 999 ML IV (07:04)
[2024-09-17 07:05] LABS: Anion Gap 11 (5-15); BUN 11 mg/dL (4-19); BUN/Creat Ratio 9.9 RATIO (10-20); Calcium,Total 9.1 mg/dL (7.6-11.0); Carbon Dioxide 23.1 mmol/L (21.0-32.0); Chloride 106 mmol/L (98-108); Creatinine, Serum 1.07 mg/dL (0.70-1.20); EST Glomerular Filtration Rate 85 (>60); Estimated Creatinine Clearance 88.94 ml/min (50-250); Glucose 126 mg/dL (70-99); Sodium Level 140 mmol/L (133-145)
--- NOTE | 2024-09-17 07:36 | EDS_ITS ---
HPI History of Present Illness Chief Complaint: Dizziness Informant: patient Narrative Narrative: Patient is a 49-year-old male with past medical history of colon cancer requiring intestinal resection roughly 5 months ago as well as anxiety. He states yesterday after stepping into his truck he felt dizzy. He described it as a sense of motion. He states it resolved but after driving home when he got out it it returned once again. He states he was able to go to sleep but when he awoke and tried to stand up the dizziness returned. He reports that the dizziness resolves that he is at rest but as soon as he begins to look around or move his head or change position symptoms return. He denies any recent illness and states that there has been no bouts of vomiting. He also denies any recent head trauma. However with the dizziness reoccurring he presents for evaluation [facility] Medical History RUQ pain Anxiety Hypertension Home Medications ?Medication ?Instructions ?Recorded ?Last Taken ?Type acetaminophen 325 mg tablet 650 mg PO Q6H PRN pain 08/13 Unknown History multivitamin 1 tab PO QDAY 05/24/24 Unkno wn History omeprazole 20 mg capsule,delayed 20 mg PO QDAY PRN maria del carmen aea 05/24/24 Unknown History release diazepam 5 mg tablet (Valium) 5 mg PO TID PRN vertigo #15 tabs 09/17/24 Unknown Rx Allergy/AdvReac Type Severity Reaction Status Date / Time No Known Allergies Allergy Verified 09/17/24 06:05 Family History Mother Diabetes Brother Diabetes Daughter Thyroid disorder Other Cancer Heart disease Surgical History History of esophagogastroduodenoscopy (EGD) Abnormal colonoscopy Hx of right hemicolectomy Social History housing: house Smoking Status: Former smoker quit date: 05/22/16 alcohol intake: current alcohol intake frequency: a few times a week substance use type: former substance user and marijuana ROS ROS ED Constitutional Constitutional ED: Denies chills or fever(s) Eyes Eyes: Denies change in vision ENT ENT ED: Reports other Details: Positive tinnitus ; Denies ear pain or sore throat Cardiovascular Cardiovascular: Denies chest pain or racing heartbeat Respiratory/Chest Respiratory/Chest: Denies cough or dyspnea Gastrointestinal Gastrointestinal: Reports diarrhea and other Details: Patient reports diarrhea is a chronic issue for him especially since his intestinal resection ; Denies abdominal pain, nausea or vomiting Musculoskeletal Musculoskeletal: Denies myalgias or neck pain Integumentary Denies rash Neurologic Neurologic: Reports other Details: Positive dizziness ; Denies headache(s) Hematologic/Lymphatic Hematologic/Lymphatic: Denies easy bleeding or easy bruising EXAM Physical Exam Const Vital Signs: 09/17/24 06:07 Temperature 97.5 F L Temperature Source Oral Pulse Rate 67 Respiratory Rate 17 Blood Pressure 145/89 H Blood Pressure Mean 107 Pulse Ox 100 Oxygen Delivery Method Room Air Positive well nourished and well developed General Appearance ED: well developed; Negative for pallor HEENT Reports moist mucous membranes HEENT Narrative: Normocephalic atraumatic Eyes PERRL and EOMs intact bilaterally General Eye ED: Negative for scleral icterus Neck supple Resp normal respiratory effort and clear to auscultation bilaterally Cardio regular rate and regular rhythm Rate: other Other Details: No murmurs rubs or gallops noted Radial and carotid pulses are equal and symmetric GI normal to inspection, nondistended, normoactive bowel sounds, non-tender, non- distended and no masses Auscultation: normoactive bowel sounds Palpation: soft Extremity normal to inspection Neuro oriented x3, CN's II-XII intact bilaterally and no sensory deficits noted Neuro Narrative: GCS of 15 Cranial nerves II through XII are grossly intact without focal neurologic deficit No pronator drift no dysmetria no truncal ataxia NIH stroke scale score of 0 There is positive horizontal nystagmus as well as Hallpike Leonard exam Sensorium / Orientation: alert Motor Exam: strength 5/5 throughout Psych mental status grossly normal Skin no rashes or lesions noted and No skin turgor normal Skin Narrative: Skin turgor is slightly increased General Skin Exam: Negative for jaundice or pallor MDM MDM MDM Narrative Medical decision making narrative: Patient arrived to the ER with stable vitals. He reported symptoms consistent with peripheral vertigo. As he does have an underlying history of intestinal cancer a CT of the head was obtained to rule out a metastatic brain mass or spontaneous subarachnoid or subdural hemorrhage. In order to rule out acute blood loss anemia or acute kidney injury or electrolyte abnormality basic labs were obtained. Patient was given IV fluids as he did have increase skin turgor and dehydration is a concern for dizziness. He was also medicated with Valium as his history and exam indicate peripheral vertigo. His imaging and laboratory studies revealed no clinically significant finding. After receiving IV hydration and Valium he did report improvement of his symptoms. He was ambulated and was able to walk to and from the bathroom with a steady gait. Therefore at this time with improvement of his dizziness and overall negative workup I do not feel there is need for admission and he is otherwise safe for discharge with symptomatic care History & Record Review Discussion w/independent historian: Patient Lab Data Attestation: I reviewed the patient's lab results. Labs: Laboratory Results - last 24 hr 09/17/24 06:12 WBC 5.3 RBC 5.47 Hgb 17.2 H Hct 49.6 MCV 90.7 MCH 31.4 MCHC 34.7 RDW Std Deviation 38.6 RDW Coeff of Miracle 11.6 Plt Count 195 MPV 9.9 Immature Gran % (Auto) 0.400 Neut % (Auto) 63.1 Lymph % (Auto) 26.0 [place] % (Auto) 8.8 Eos % (Auto) 1.1 Baso % (Auto) 0.6 Absolute Neuts (auto) 3.4 Absolute Lymphs (auto) 1.39 Nucleated RBC % 0 Sodium 140 Potassium 4.0 Chloride 106 Carbon Dioxide 23.1 Anion Gap 11 BUN 11 Creatinine 1.07 Estim Creat Clear Calc 88.94 Est GFR (MDRD) Non-Af 85 BUN/Creatinine Ratio 9.9 L Glucose 126 H Calcium 9.1 Radiography Diagnostic Testing: Clinical Impression(s) from Imaging Studies Brain CT 09/17/24 06:36 IMPRESSION: No intracranial hemorrhage, mass effect or CT evidence of large vascular territory acute infarct. Partially imaged large mucous retention cyst right maxillary sinus. Reading Location: [facility] Discharge Plan Triage Chief Complaint: Dizziness ED Provider: Florentin Barnes Dx/Rx/DC Orders Clinical Impression: Peripheral vertigo, History of colon cancer Instructions: Vestibular Rehab Therapy, ED Vertigo, Unspecified Prescriptions: New diazepam [Valium] 5 mg tablet 5 mg PO TID PRN (Reason: vertigo) Qty: 15 0RF No Action acetaminophen 325 mg tablet 650 mg PO Q6H PRN (Reason: pain) multivitamin Tablet 1 tab PO QDAY omeprazole 20 mg capsule,delayed release(DR/EC) 20 mg PO QDAY PRN (Reason: [place]) Stand Alone Forms: ED Work / School Excuse Primary Care Provider: Savannah Forbes Referrals: Savannah Forbes, [employer] [employer] [Primary Care Provider] - Activity Restrictions/Additional Instructions: Your history exam and workup is consistent with peripheral vertigo. Use the prescribed medication as directed to help control your symptoms. You may try physical therapy treatments such as the Yamilex maneuver to help resolve the vertigo as well. Follow-up with your family doctor for further evaluation and return to the ER if you have any further concerns or worsening of symptoms Print Language: Georgian Disposition Disposition: Home, Self Care
[2024-09-17 08:29] VITALS: PULSE 67; RESP 18; O2SAT 100
[2024-09-17 08:31] VITALS: BP 107/87; PULSE 67; RESP 15; TEMP 36.6; O2SAT 97
== END 2024-09-17 08:33 | disposition home or self-care (01) ==
PROVIDERS: Emergency Provider Emergency Medicine; PCP Nurse Practitioner Family; Visit Provider Emergency Medicine
DX: H81.399 Other peripheral vertigo, unspecified ear (principal); Z87.891 Personal history of nicotine dependence; Z85.038 Personal history of other malignant neoplasm of large intestine; I10 Essential (primary) hypertension; F41.9 Anxiety disorder, unspecified; E86.0 Dehydration
CPT/HCPCS: 70450; 80048; 85025; 96360; 99282; A4216

== ENCOUNTER → 2025-04-02 | Outpatient (CLI) | payer OTHER, BC, SELFPAY ==
--- OUTSIDE RECORDS SUMMARY | 2025-04-02 06:21 | XMS RPT_ITS | CCD ---
Author Organization [facility] Inform ion Partnership [facility] Care Team Providers Care Shot Core Drill Operator Helper Name Role Phone Xiao Coon Unavailable Cal Dumont Unavailable Angelica Akhtar Unavailable Unavailable Twyla Tapia Unavailable Unavailable Unavailable Unavailable Dannielle Doran Unavailable Unavailable Elli Shipman Unavailable Unavailable Angelica Akhtar Unavailable Unavailable YOANA RECORD CHANGER ASSEMBLER, IONIA Primary Care Physician NAVIN GONZALEZ Attending Unavailable YOANA RECORD CHANGER ASSEMBLER, IONIA Primary Care Unavailable Silverio Rounding Nurse, Nima Unavailable Unaluann lable Yoana, Kenny Attending Unavailable Yoana, Kenny Referring Unavailable Yoana, Kenny Primary Care Unavailable Florentin Barnes Attending Unavailable Yoana, Kenny Primary Care Unavailable Isiah Alexandra Attending Unavailable Isiah Alexandra Referring Unavailable Yoana, Kenny Primary Care Unavailable Yoana, Kenny Primary Care Unavailable Eleanor Lund Attending Unavailable Isiah Alexandra Attending Unavailable Yoana, Kenny Primary Care Unavailable Navin Gonzalez Referring Unavailable Yoana, Kenny Referring Unavailable Yoana, Kenny Primary Care Unavailable Rosio 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, Kenia Attending Unavailable Yoana, Kenny Attending Unavailable Yoana, Kenny Referring Unavailable Rei 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, Carmelina Primary Care Unavailable Yoana, Kenny Primary Care Unavailable Johan Preciado Referring Unavailable Johan Preciado Attending Unavailable NICOLLE UNDERWOOD, NAVIN Attending Unavailable NICOLLE UNDERWOOD, NAVIN Admitting Unavailable YOANA RECORD CHANGER ASSEMBLER, IONIA Primary Care Unavailable NICOLLE UNDERWOOD, NAVIN Consulting Unavailable NICOLLE UNDERWOOD, NAVIN Attending Unavailable NAVIN GONZALEZ MD Admitting Unavailable JOSE RAMON RAMIREZ MD Consulting Unavailable YOANA RECORD CHANGER ASSEMBLER, IONIA Primary Care Unavailable ALISA UNDERWOOD, ESTRELLITA Consulting Unavailable INCOLLE UNDERWOOD, NAVIN Attending Unavailable YOANA ROGERS, IONIA Primary Care Unavailable YOANA ROGERS, IONIA Primary Care Unavailable NICOLLE UNDERWOOD, NAVIN Attending Unavailable NICOLLE UNDERWOOD, NAVIN Attending Unavailable YOANA ROGERS, IONIA Primary Care Unavailable NICOLLE UNDERWOOD, NAVIN Attending Unavailable [facility] Primary Care Unavailable Medications Current Medications Medication Drug Class(es) Dates Sig (Normalized) Sig (Original) acetaminophen 325 mg oral tablet (3 sources) Start: 04-30-2024 Tylenol 325 mg oral tablet Dose : 650 mg = 2 tab(s), Oral, q6h, PRN as needed for pain Start Date: 04/30/24 Status: Ordered Repeat number: 1 Start: 04-27-2024 acetaminophen Dose : 650 mg = 2 tab(s), Oral, q6h, PRN Pain, scale 1-6, 0 Refill(s) Start Date: 04/27/24 Status: Ordered hydrOXYzine hydrochloride 25 mg oral tablet (4 sources) Antihistamine Start: 04-04-2024 hydrOXYzine hydrochloride 25 mg oral tablet Dose : 50 mg = 2 tab(s), Oral, q6h, PRN as needed for anxiety, 0 Refill(s) Start Date: 04/04/24 Status: Ordered metroNIDAZOLE 500 mg oral tablet (1 source) Nitroimidazole Antimicrobial Start: 04-09-2024 End: 04-10-2024 metroNIDAZOLE 500 mg oral tablet Dose : 1,000 mg = 2 tab(s), Oral, TID, Start day before surgery-1st dose noon/2nd dose 1pm /3rd dose 8pm. Follow each dose with glass of water., X 1 day(s), # 6 tab(s), 0 Refill(s), 04/10/24 10:38:00 AM EST, Pharmacy: [facility], 180.3, cm, 04/09/24 10:11:00 EST, Height, 90.7, kg, 04/09/24 10:11:00 EST, Dosing Weight Start Date: 04/09/24 Stop Date: 04/10/24 Status: Ordered mupirocin 0.02 mg/mg topical ointment (1 source) RNA Synthetase Inhibitor Antibacterial Start: 04-17-2024 mupirocin 2% topical ointment Apply 1 everett, Topical, BID, Bilateral intranasal application twice daily x 5 days pre-surgery &/or as many days pre-surgery as possible., Apply to: nostril, each, # 22 gram(s), 0 Refill(s), Pharmacy: [facility], Ointment, 180, cm, 04/17/24 11:10:00 EST, Height, 90.7, kg, 04/17/24 11:10:00 EST, Dosing Weight Start Date: 04/17/24 Status: Ordered neomycin sulfate 500 mg oral tablet (1 source) Aminoglycoside Antibacterial Start: 04-09-2024 End: 04-10-2024 neomycin 500 mg oral tablet Dose : 1,000 mg = 2 tab(s), Oral, TID, Start day before surgery-1st dose noon/2nd dose 1pm /3rd dose 8pm. Follow each dose with glass of water., X 1 day(s), # 6 tab(s), 0 Refill(s), 04/10/24 10:38:00 AM EST, Pharmacy: [facility], 180.3, cm, 04/09/24 10:11:00 EST, Height, 90.7, kg, 04/09/24 10:11:00 EST, Dosing Weight Start Date: 04/09/24 Stop Date: 04/10/24 Status: Ordered omeprazole 20 mg delayed release oral capsule (6 sources) Proton Pump Inhibitor Start: 04-04-2024 omeprazole 20 mg oral delayed release capsule Dose : 20 mg = 1 cap(s), Oral, qDay, PRN abdominal discomfort, 0 Refill(s) Start Date: 04/04/24 Status: Ordered Repeat number: 1 ondansetron 4 mg oral tablet (1 source) Serotonin-3 Receptor Antagonist Start: 04-27-2024 End: 04-30-2024 Zofran 4 mg oral tablet Dose : 4 mg = 1 tab(s), Oral, q6h, PRN Nausea/Vomiting, X 3 day(s), # 12 tab(s), 0 Refill(s), 04/30/24 12:08:00 PM EST, Pharmacy: [facility], 180.3, cm, 04/22/24 13:14:00 EST, Height, kg, 04/22/24 13:14:00 EST, Dosing Weight Start Date: 04/27/24 Stop Date: 04/30/24 Status: Ordered PEG-3350 with Electrolytes (Eqv-GoLYTELY) oral powder for reconstitution (2 sources) Start: 04-09-2024 PEG-3350 with Electrolytes (Eqv-GoLYTELY) oral powder for reconstitution Dose = 240 mL, Oral, q10min, until 4 liters are consumed or the rectal effluent is clear, # 4,000 mL, 0 Refill(s), Pharmacy: [facility], 180.3, cm, 04/09/24 10:11:00 EST, Height, kg, 04/09/24 10:11:00 EST, Dosing Weight Start Date: 04/09/24 Status: Ordered Vitafusion MultiVites Gummies (6 sources) Start: 04-04-2024 take 1 tablet by mouth once daily in the morning Vitafusion MultiVites Gummies Dose = 1 tab(s), Oral, qAM, 0 Refill(s) Start Date: 04/04/24 Status: Ordered Repeat number: 1 Start: 04-04-2024 take 1 tablet by koko th once daily in the morning Vitafusion MultiVites Gummies Dose = 1 tab(s), Oral, qAM, 0 Refill(s) Start Date: 04/04/24 Status: Ordered Start: 04-04-2024 Vitafusion Mul tiVites Gummies 0 Refill(s) Start Date: 04/04/24 Status: Ordered Vitamin D3 (2 sources) Start: 04-04-2024 Vitamin D3 qDa y, 0 Refill(s) Start Date: 04/04/24 Status: Ordered Completed/Discontinued Medications Medication Drug Class(es) Dates Sig (Normalized) Sig (Original) amoxicillin 875 mg / clavulanate 125 mg oral tablet (6 sources) Penicillin-class Antibacterial Start: 02-16-2015 End: 03-02-2015 take 1 tablet by mouth twice daily AUGMENTIN, 875-125MG (Oral Tablet) 1 (one) Tablet bid for 14 days Quantity: 28 {Tablet} Refills: 0 Ordered: 16-Feb-2015 Carmelina Minaya CNP Start : 16-Feb-2015 End : 02-Mar-2015 Inactive azithromycin 250 mg oral tablet (6 sources) Macrolide Antimicrobial Start: 03-14-2019 End: 07-08-2020 take 1 tablet by mouth once daily Zithromax Z-Eloy 250 MG Oral Tablet tad Tablet qd for 0 days Quantity: 1 {Package} Refills: 0 Ordered: 08-Jul-2020 Dannielle Doran CMA Start : 14-Mar-2019 End : 08-Jul-2020 Inactive [...] Quantity: 30 {Capsule} Refills: 0 Ordered: 01-Feb-2010 Lisa Hwang LPN Start : 17-Aug-2009 Inactive hyoscyamine sulfate 0.125 [...] for 21 days Refills: 0 Ordered: 06-Oct-2009 Xiao Coon DO, DO, Kathleen Start : 17-Aug-2009 End : 07-Sep-2009 Inactive [...] for 14 days Refills: 0 Ordered: 16-Mar-2010 Rei PIERRECarmelina Start : 08-Feb-2010 End : 22-Feb-2010 Inactive [...] (20 sources) Epigastric pain; Translations: [Abdominal pain] Onset: 07-03-19 25 Resolved : 07-08-1903-14-2019 Episodic Anxiety disorders (20 sources) Anxiety; Translations: [Anxiety disorder] 03-14-2019 Chronic Cancer of colon (10 sources) Malignant tumor of colon; Translations: [Malignant neoplasm of colon, unspecified] Onset: 04-22-20 Chronic Chronic obstructive pulmonary disease and bronchiectasis (6 sources) Chronic obstructive pulmonary disease and bronchiectasis Conditions associated with dizziness or vertigo (13 sources) Dizziness; Translations: [Dizziness and giddiness] Onset: 09-25-19 Resolved : 12-11-19 09 12-10-2008 Episodic Disorders of teeth and jaw (12 sources) Unspecified disorder of the teeth and supporting structures; Translations: [Unspecified disorder of the teeth and supporting structures] 03-14-2019 Episodic Esophageal disorders (7 sources) Esophageal reflux; Translations: [Gastroesophageal reflux disease without esophagitis] 03-14-2019 Chronic Essential hypertension (7 sources) Hypertensive disorder; Translations: [Essential hypertension] 04-04-2024 Chronic Fever of unknown origin (20 sources) Fever; Translations: [Fever presenting with conditions classified elsewhere] 03-14-2019 Episodic Gastritis and duodenitis (6 sources) Acute gastritis, without mention of hemorrhage; Translations: [GASTRITIS, ACUTE W/O HEMORRHAGE] 03-14-2019 Episodic Hypertension with complications and secondary hypertension (1 source) Hypertensive heart disease; Translations: [Hypertensive heart disease without heart failure] Chronic Immunizations and screening for infectious disease (2 sources) Contact with and (suspected) exposure to other viral communicable diseases; Translations: [Exposure to SARS virus] 07-08-2020 Episodic Intestinal obstruction without hernia (1 source) Intestinal obstruction; Translations: [Ileus, unspecified] Episodic Nausea and vomiting (1 source) Nausea; Translations: [Nausea] Episodic Nutritional deficiencies (1 source) Severe protein-calorie malnutrition (Luciano: less than 60% of standard weight); Translations: [Unspecified severe protein-calorie malnutrition] Chronic Other connective tissue disease (6 sources) Tendinitis of elbow or forearm; Translations: [Tendonitis of elbow or forearm] 03-14-2019 Episodic Other gastrointestinal disorders (18 sources) Irritable bowel syndrome; Translations: [Irritable bowel syndrome] 03-14-2019 Chronic Other gastrointestinal disorders (18 sources) Constipation; Translations: [Constipation] 03-14-2019 Episodic Other gastrointestinal disorders (12 sources) Diarrhea; Translations: [Diarrhea] 03-14-2019 Episodic Other gastrointestinal disorders (1 source) Swollen abdomen; Translations: [Abdominal distension (gaseous)] Episodic Other nervous system disorders (2 sources) [...] (6 sources) Vaccination required; Translations: [Vaccine for sejrblzzyv-pamrujx-unlsro sis with poliomyelitis] 03-14-2019 Episodic Residual codes; unclassified (2 sources) Generalized aches and pains; Translations: [Body aches] 07-08-2020 Episodic Residual codes; unclassified (1 source) Acquired absence of organ; Translations: [Acquired absence of other specified parts of digestive tract] Onset: 04-25-20 Episodic Screening and history of mental health and substance abuse codes (1 source) H/O: Disorder; Translations: [Personal history of nicotine dependence] Episodic Spondylosis; intervertebral disc disorders; other back problems (20 sources) Low back pain; Translations: [Neck pain] 03-14-2019 Episodic Comment on above: 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 -S1MRI July Substance-related disorders (6 sources) Smoker; Translations: [Smoking] 03-14-2019 Chronic Thyroid disorders (1 source) Disorder of thyroid gland; Translations: [Disorder of thyroid, unspecified] Episodic Unclassified (20 sources) Unclassified (6 sources) HERNIA, [...] Other Problems Problem Classification Problem Date Documented Da te Episodic/Chronic Chronic obstructive pulmonary disease and bronchiectasis (6 sources) Bronchitis; Translations: [Bronchitis] Resolved: 12-10-2008 02-24-2015 Episodic Complications of surgical procedures or medical care (3 sources) Postoperative complication; Translations: [Other postprocedural complications and disorders of digestive system] Onset: 04-30-2024 Episodic Influenza (6 sources) Influenza Malaise and fatigue (1 source) Other fatigue; Translations: [Other fatigue] Onset: 04-30-2024 Episodic Other connective tissue disease (6 sources) Pain of left hand; Translations: [Pain of left hand] 03-14-2019 Other gastrointestinal disorders (1 source) Abdominal distension (gaseous); Translations: [Abdominal distension (gaseous)] Onset: 04-05-2024 Episodic Unclassified (6 sources) Social Hx: Non Smoker/No [...] aches Unclassified (2 sources) Loss of smell Unclassified (1 source) History of SARS-CoV-2; Translations: [Personal history of COVID-19] Results Test Name Value Interpretation Reference Range Facility Basic Metabolic Profile (BMP )on 09-17-2024 BUN/CRE 9.9 RATIO Low 10-20 [facility] Comment on above: Performed By: #### L 100.0100, L500.2500 ####[facility] [address] [place], [address] Calcium [Mass/Vol] 9.1 mg/dL Normal 7.6-11.0 [facility] Comment on above: Performed By: #### L 100.0100, L500.2500 ####[facility] [address] [place], [address] Chloride [Moles/Vol] 106 mmol/L Normal 98-108 [facility] Comment on above: Performed By: #### L 100.0100, L500.2500 ####[facility] [address] [place], [address] CO2 [Moles/Vol] 23.1 mmol/L Normal 21.0-32.0 [facility] Comment on above: Performed By: #### L 100.0100, L500.2500 ####[facility] [address] [place], [address] Creatinine [Mass/Vol] 1.07 mg/dL Normal 0.70-1.20 [facility] Comment on above: Performed By: #### L 100.0100, L500.2500 ####[facility] [address] [place], [address] ECRCL 88.94 ml/min Normal 50-250 [facility] Comment on above: Performed By: #### L 100.0100, L500.2500 ####[facility] [address] [place], [address] GAP 11 Normal 5-15 [facility] Comment on above: Performed By: #### L 100.0100, L500.2500 ####[facility] [address] [place], [address] GFR/1.73 sq M.predicted among non-blacks MDRD (S/P/Bld) [Vol rate/Area] 85 mL/min/{1.73_m2} Normal >60 [facility] Comment on above: Result Comment: mL/m in/1.73m2 CKD-EPI Creatinine Equation (2020) Performed By: #### L 100.0100, L500.2500 ####[facility] [address] [place], [address] Glucose [Mass/Vol] 126 mg/dL High 70-99 [facility] Comment on above: Performed By: #### L 100.0100, L500.2500 ####[facility] [address] [place], [address] Potassium [Moles/Vol] 4.0 mmol/L Normal 3.3-5.1 [facility] Comment on above: Performed By: #### L 100.0100, L500.2500 ####[facility] [address] [place], [address] Sodium [Moles/Vol] 140 mmol/L Normal 133-145 [facility] Comment on above: Performed By: #### L 100.0100, L500.2500 ####[facility] [address] [place], [address] Urea nitrogen [Mass/Vol] 11 mg/dL Normal 4-19 [facility] Comment on above: Performed By: #### L 100.0100, L500.2500 ####[facility] [address] [place], [address] Brain/Head without Contrasto n 09-17-2024 Brain/Head without Contrast [facility] Imaging Services [address] [place] [address] Brain/Head without Contrast MR#: [id number] Acct: [id number] Name: DENISE HERNANDEZ Rep #: [id number] : 1975 M 49 From: Tor Kwon MD PCP: TIP Vanegas Status: REG ER Study: Brain/Head without Contrast Date of Exam: 08/21 02/13 Exam# [id number] Ordering Dr: Florentin Barnes DO PROCEDURE: BRAIN/HEAD WITHOUT CONTRAST 09/17/2024 REASON FOR EXAM: DIZZINESS TECHNIQUE: Head CT without intravenous contrast. Coronal and Sagittal reconstruction series were provided. One or more dose reduction techniques were used (e.g., Automated exposure control, adjustment of the mA and/or kV according to patient size, use of iterative reconstruction technique. RADIATION DOSE SUMMARY: CTDlvol: 44.99 mGy DLP: 796.11 mGycm COMPARISON: None available FINDINGS: No intracranial hemorrhage, mass effect or CT evidence of large vascular territory acute infarct. The ventricles are within limits and midline. The mays-white differentiation appears preserved. CSF spaces appear within limits. Partially imaged large mucous retention cyst right maxillary sinus. The other visualized paranasal sinuses, mastoids and orbits appear within limits. CT/Brain/Head without Contrast IMPRESSION: No intracranial hemorrhage, mass effect or CT evidence of large vascular territory acute infarct. Partially imaged large mucous retention cyst right maxillary sinus. Reading Location: [id number] CC: TIP Lees; Florentin Barnes DO Rag Cutting Machine Tender: Signed Normal [facility] CBC W/Diff, Automatedon 04-2 Absolute Lymph 1.39 X10 3/uL Normal 0.83-4.51 [facility] Comment on above: Performed By: #### L 100.0100, L500.2500 ####[facility] [address] [place], [address] Absolute Neut 3.4 X10 3/uL Normal 2.0-7.7 [facility] Comment on above: Performed By: #### L 100.0100, L500.2500 ####[facility] [address] [place], [address] Basophils/100 WBC (Bld) 0.6 % Normal 0-1 [facility] Comment on above: Performed By: #### L 100.0100, L500.2500 ####[facility] [address] [place], [address] Eosinophils/100 WBC (Bld) 1.1 % Normal 0-5 [facility] Comment on above: Performed By: #### L 100.0100, L500.2500 ####[facility] [address] [place], [address] Erythrocyte distribution width (RBC) [Ratio] 11.6 % Normal 11.6-14.6 [facility] Comment on above: Performed By: #### L 100.0100, L500.2500 ####[facility] [address] [place], [address] Hematocrit (Bld) [Volume fraction] 49.6 % Normal 40-54 [facility] Comment on above: Performed By: #### L 100.0100, L500.2500 ####[facility] [address] [place], [address] Hemoglobin (Bld) [Mass/Vol] 17.2 g/dL High 13.0-16.5 [facility] Comment on above: Performed By: #### L 100.0100, L500.2500 ####[facility] [address] [place], [address] IG% 0.400 Normal 0.0-0.9 [facility] Comment on above: Result Comment: IG% - Immature Granulocytes (promyelocytes, myelocytes and metamyelocytes) > 1% indicates that a LEFT SHIFT is Present. Performed By: #### L 100.0100, L500.2500 ####[facility] [address] [place], [address] Lymphocytes/100 WBC (Bld) 26.0 % Normal 19-41 [facility] Comment on above: Performed By: #### L 100.0100, L500.2500 ####[facility] [address] [place], [address] MCH (RBC) [Entitic mass] 31.4 pg Normal 27.0-32.0 [facility] Comment on above: Performed By: #### L 100.0100, L500.2500 ####[facility] [address] [place], [address] MCHC (RBC) [Mass/Vol] 34.7 g/dL Normal 32-36 [facility] Comment on above: Performed By: #### L 100.0100, L500.2500 ####[facility] [address] [place], [address] MCV (RBC) [Entitic vol] 90.7 fL Normal 80-94 [facility] Comment on above: Performed By: #### L 100.0100, L500.2500 ####[facility] [address] [place], [address] Monocytes/100 WBC (Bld) 8.8 % Normal 0-10 [facility] Comment on above: Performed By: #### L 100.0100, L500.2500 ####[facility] [address] [place], [address] Neutrophils/100 WBC (Bld) 63.1 % Normal 47-70 [facility] Comment on above: Performed By: #### L 100.0100, L500.2500 ####[facility] [address] [place], [address] Nucleated RBC (Bld) [#/Vol] 0 10*3/uL Normal 0-5 [facility] Comment on above: Performed By: #### L 100.0100, L500.2500 ####[facility] [address] [place], [address] Platelet mean volume (Bld) [Entitic vol] 9.9 fL Normal 6.2-12.0 [facility] Comment on above: Performed By: #### L 100.0100, L500.2500 ####[facility] [address] [place], [address] Platelets (Bld) [#/Vol] 195 10*3/uL Normal 150-450 [facility] Comment on above: Performed By: #### L 100.0100, L500.2500 ####[facility] [address] [place], [address] RBC (Bld) [#/Vol] 5.47 10*6/uL Normal 4.6-6.2 [facility] Comment on above: Performed By: #### L 100.0100, L500.2500 ####[facility] [address] [place], [address] RDW SD 38.6 fl Normal 35.1-43.9 [facility] Comment on above: Performed By: #### L 100.0100, L500.2500 ####[facility] [address] [place], [address] WBC (Bld) [#/Vol] 5.3 10*3/uL Normal 4.4-11.0 [facility] Comment on above: Performed By: #### L 100.0100, L500.2500 ####[facility] [address] [place], [address] Emergency Department Summary on 09-17-2024 Emergency Department Summary [facility] Medical Records Department [address] [place] [address] Emergency Department Summary 09/17/24 MR#: [id number] Acct: [id number] Name: DENISE HERNANDEZ Rep #: [id number] : 1975 49 From: Florentin Barnes DO PCP: TIP Vanegas Status:REG ER Location: ED HPI History of Present Illness Chief Complaint: Dizziness Informant: patient Narrative Narrative: Patient is a 49-year-old male with past medical history of colon cancer requiring intestinal resection roughly 5 months ago as well as anxiety. He states yesterday after stepping into his truck he felt dizzy. He described it as a sense of motion. He states it resolved but after driving home when he got out it it returned once again. He states he was able to go to sleep but when he awoke and tried to stand up the dizziness returned. He reports that the dizziness resolves that he is at rest but as soon as he begins to look around or move his head or change position symptoms return. He denies any recent illness and states that there has been no bouts of vomiting. He also denies any recent head trauma. However with the dizziness reoccurring he presents for evaluation [facility] Medical History RUQ pain Anxiety Hypertension Home Medications ???Medication ???Instructions ???Recorded ???Last Taken ???Type acetaminophen 325 mg tablet 650 mg PO Q6H PRN pain 05/24/24 Un known History multivitamin 1 tab PO QDAY 05/24/24 Unknown His tory omeprazole 20 mg capsule,delayed 20 mg PO QDAY PRN [place] 05/24/24 Unknown History release diazepam 5 mg tablet (Valium) 5 mg PO TID PRN vertigo #15 tabs 0 09/17/24 Unknown Rx Allergy/AdvReac Type Severity Reaction Status Date / Time No Known Allergies Allergy Verified 09/17/24 06:05 Family History Mother Diabetes Brother Diabetes Daughter Thyroid disorder Other Cancer Heart disease Surgical History History of esophagogastroduodenoscopy (EGD) Abnormal colonoscopy Hx of right hemicolectomy Social History housing: house Smoking Status: Former smoker quit date: 05/22/16 alcohol intake: current alcohol intake frequency: a few times a week substance use type: former substance user and marijuana ROS ROS ED Constitutional Constitutional ED: Denies chills or fever(s) Eyes Eyes: Denies change in vision ENT ENT ED: Reports other Details: Positive tinnitus ; Denies ear pain or sore throat Cardiovascular Cardiovascular: Denies chest pain or racing heartbeat Respiratory/Chest Respiratory/Chest: Denies cough or dyspnea Gastrointestinal Gastrointestinal: Reports diarrhea and other Details: Patient reports diarrhea is a chronic issue for him especially since his intestinal resection ; Denies abdominal pain, nausea or vomiting Musculoskeletal Musculoskeletal: Denies myalgias or neck pain Integumentary Denies rash Neurologic Neurologic: Reports other Details: Positive dizziness ; Denies headache(s) Hematologic/Lymphatic Hematologic/Lymphatic: Denies easy bleeding or easy bruising EXAM Physical Exam Const Vital Signs: 09/17/24 06:07 Temperature 97.5 F L Temperature Source Oral Pulse Rate 67 Respiratory Rate 17 Blood Pressure 145/89 H Blood Pressure Mean 107 Pulse Ox 100 Oxygen Delivery Method Room Air Positive well nourished and well developed General Appearance ED: well developed; Negative for pallor HEENT Reports moist mucous membranes HEENT Narrative: Normocephalic atraumatic Eyes PERRL and EOMs intact bilaterally General Eye ED: Negative for scleral icterus Neck supple Resp normal respiratory effort and clear to auscultation bilaterally Cardio regular rate and regular rhythm Rate: other Other Details: No murmurs rubs or gallops noted Radial and carotid pulses are equal and symmetric GI normal to inspection, nondistended, normoactive bowel sounds, non-tender, non-distended and no masses Auscultation: normoactive bowel sounds Palpation: soft Extremity normal to inspection Neuro oriented x3, CN's II-XII intact bilaterally and no sensory deficits noted Neuro Narrative: GCS of 15 Cranial nerves II through XII are grossly intact without focal neurologic deficit No pronator drift no dysmetria no truncal ataxia NIH stroke scale score of 0 There is positive horizontal nystagmus as well as Hallpike Mars exam Sensorium / Orientation: alert Motor Exam: strength 5/5 throughout Psych mental status grossly normal Skin no rashes or lesions noted and No skin turgor normal Skin Narrative: Skin turgor is slightly increased General S (more content not included)... Normal [facility] Oncology Visit Reporton 06-22 Oncology Visit Report [facility] [address] [facility] 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 History of Present Illness 48-year-old man with a PMH positive for IBS underwent screening colonoscopy on 03/19/2024 under the care of Dr. Preciado. Was found to have a broad-based sessile polyp in the ascending colon which was biopsied. Pathology showed moderately differentiated adenocarcinoma, MMR impaired. He underwent laparoscopic right hemicolectomy on 04/22/[address] Gonzalez at [facility]. Pathology showed adenocarcinoma, grade 2, tumor invaded into the lower third of the submucosa, margins negative, lymph node 23 negative. Care was complicated by ileus postoperatively requiring hospitalization for nearly 2 weeks. Referred to [facility] April 2024. [facility]: EPCAM, MLH1, MSH2, MSH6, PMHS2 negative Interval History The patient is presenting to clinic for a planned follow up to review genetic testing. Now 10 weeks post op. Concerns today include abd pain ongoing from surgery. Rates pain 2/10, achy with intermittent sharp pain. Is concerned as pain is not improving. BMs are 3-4 times daily. Specifically denies weight loss, CP, palpitations, cough, SOB, melena, hematochezia, swelling of his extremities, rash. + h/a related to eye strain, does not occur when wears his readers. PFSH Medical History Anxiety Hypertension Surgical History History of esophagogastroduodenoscopy (EGD) Abnormal colonoscopy Hx of right hemicolectomy Family History Mother Diabetes Brother Diabetes Daughter Thyroid disorder Other Cancer Heart disease Social History housing: house Smoking Status: Former smoker quit date: 05/22/16 alcohol intake: current alcohol intake frequency: a few times a week substance use type: former substance user and marijuana ROS ROS Narrative Negative except as documented in the interval HPI Intake Vital Signs 05/28/24 10:53 07/03/24 15:52 Height 5 ft 11 in 5 ft 11 in Weight: 194 lb 6 oz 199 lb 5 oz BMI 27.1 27.8 BP 110/76 Blood Pressure Location Lt brachial Position Sitting Respiration 18 Pulse 67 Pulse Source Monitor Temp 97.9 F Temperature Source Temporal Artery Pulse Oximetry (%) 97 Oxygen Delivery Method room air Intake Is patient in pain?: No Allergies No Known Allergies Allergy (Verified 07/03/24 15:52) Medications ???Medication ???Instructions ???Recorded ???Confirmed ???Type acetaminophen 325 mg tablet 650 mg PO Q6H PRN 05/24/24 5 History multivitamin 1 tab PO QDAY 05/24/24 07/03/24 Hi story omeprazole 20 mg capsule,delayed 20 mg PO QDAY PRN 05/24/24 5 History release Central Venous Access Central Venous Access: No Laboratory Tests 05/28/24 11:55 Carcinoembryonic Ag 2.8 Exam Physical Exam Const alert, oriented x3 and no apparent distress HEENT normocephalic Eyes no scleral icterus Neck supple Lymph Lymphatic: no lymphadenopathy noted Resp normal respiratory effort and clear to auscultation bilaterally Cardio regular rate, regular rhythm, S1 normal heart sound and S2 normal heart sound GI normal to inspection, nondistended, normoactive bowel sounds GI Narrative: midline incision well healed Back/Spine no CVA tenderness Extremity no clubbing, cyanosis or edema Skin no rashes or lesions noted Neuro oriented x3, CN's II-XII intact bilaterally and moves all extremities Psych mental status grossly normal Coding Level of Care Code Off vis,est,level 4 Exam Problem Focused Diagnoses Malignant neoplasm of ascending colon C18.2 Colon location: ascending RUQ pain R10.11 Assessment and Plan Assessment and Plan (1) Colon cancer: Status: Acute Qualifiers: Colon location: ascending Qualified Code(s): C18.2 - Malignant neoplasm of ascending colon Comment: Ascending colon cancer, stage I(pT1 pN0 M0) MMR impaired. 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 Also discussed stage I disease, the fact that there is no role for adjuvant chemotherapy so the appropriate management is surveillance for recurrence. Plan: To do observation. Ramirez syndrome Hereditary cancer panel negative for EPCAM, MLH1, MS (more content not included)... Normal [facility] Carcinoembryonic Antigenon 0 05-29-2024 CEA 2.8 ng/mL Normal 0.0-4.7 [facility] Comment on above: Result Comment: Nons mokers <3.9 Smokers <5.6 [employer] Electrochemiluminescence Immunoassay (ECLIA) Values obtained with different assay methods or kits cannot be used interchangeably. Results cannot be interpreted as absolute evidence of the presence or absence of malignant disease. Performed at: [employer] [id number] Small Business Sales Representative: Johan Montenegro PhD, Phone: [phone] Performed By: #### L 3108.2300 #### [facility] [address] [place], [address] NATERAon 05-28-2024 ANKUR SEE SCANNED REPORT Normal [facility] Comment on above: Performed By: #### L [id number] #### [facility] [address] [place], [address] Oncology Visit Reporton Oncology Visit Report [facility] [address] [place] [address] OFFICE VISIT Date of Service: 05/28/24 1047 MR#: [id number] Acct: [id number] Name: DENISE HERNANDEZ Rep #: [id number] : 1975 From: Isiah Alexandra MD Age/Sex: 48/M Location[place] [facility] [place] Status: Signed HPI Subjective Date of Service 05/28/24 Chief Complaint Referred for colon cancer/MMR positive. History of Present Illness 48-year-old man had screening colonoscopy on 03/19/2024. Was found to have a broad-based sessile polyp in the ascending colon which was biopsied. Pathology showed moderately differentiated adenocarcinoma, MMR impaired. He underwent laparoscopic right hemicolectomy on 04/22/2024. Pathology showed adenocarcinoma, grade 2, tumor invades into the lower third of the submucosa, margins negative, lymph node 23 negative. He is now referred for further evaluation and management. He feels well. [facility] Medical History Anxiety Hypertension Surgical History History of esophagogastroduodenoscopy (EGD) Abnormal colonoscopy Hx of right hemicolectomy Family History Mother Diabetes Brother Diabetes Daughter Thyroid disorder Other Cancer Heart disease Social History housing: house Smoking Status: Former smoker quit date: 05/22/16 alcohol intake: current alcohol intake frequency: a few times a week substance use type: former substance user and marijuana ROS Constitutional Constitutional: Reports systems reviewed and no addt'l complaints, except as documented Eyes Eyes: Reports systems reviewed and no addt'l complaints, except as documented ENT HEENT: Reports systems reviewed and no addt'l complaints, except as documented Cardiovascular Cardiovascular: Reports systems reviewed and no addt'l complaints, except as documented Respiratory/Chest Respiratory/Chest: Reports systems reviewed and no addt'l complaints, except as documented Gastrointestinal Gastrointestinal: Reports systems reviewed and no addt'l complaints, except as documented Genitourinary Genitourinary: Reports systems reviewed and no addt'l complaints, except as documented Musculoskeletal Musculoskeletal: Reports systems reviewed and no addt'l complaints, except as documented Integumentary Integumentary: Reports systems reviewed and no addt'l complaints, except as documented Neurologic Neurologic: Reports systems reviewed and no addt'l complaints, except as documented Psychiatric Psychiatric: Reports systems reviewed and no addt'l complaints, except as documented Endocrine Endocrinology: Reports systems reviewed and no addt'l complaints, except as documented Hematologic/Lymphatic Hematologic/Lymphatic: Reports systems reviewed and no addt'l complaints, except as documented Allergic/Immunologic Allergic/Immunologic: Reports systems reviewed and no addt'l complaints, except as documented Intake Vital Signs 05/28/24 10:49 05/28/24 10:53 Height 5 ft 11 in 5 ft 11 in Weight: 88.167 kg 88.167 kg BMI 27.1 27.1 BP 104/71 Blood Pressure Location Lt brachial Position Sitting Respiration 18 Pulse 71 Pulse Source Monitor Temp 98.4 F Temperature Source Temporal Artery Pulse Oximetry (%) 100 Oxygen Delivery Method room air Intake Is patient in pain?: No Allergies No Known Allergies Allergy (Verified 05/28/24 10:47) Medications ???Medication ???Instructions ???Recorded ???Confirmed ???Type acetaminophen 325 mg tablet 650 mg PO Q6H PRN 05/24/24 05/28/24 History multivitamin 1 tab PO QDAY 05/24/24 05/28/24 History omeprazole 20 mg capsule,delayed 20 mg PO QDAY PRN 05/24/24 05/28/24 History release Central Venous Access Central Venous Access: No Exam Physical Exam Const alert, oriented x3 and no apparent distress HEENT normocephalic, external ears normal and external nose normal Eyes PERRL, conjunctivae normal and no scleral icterus Neck supple Lymph Lymphatic: no lymphadenopathy noted Resp normal respiratory effort and clear to auscultation bilaterally Cardio regular rate, regular rhythm, S1 normal heart sound, S2 normal heart sound and no murmurs GI normal to inspection, nondistended, normoactive bowel sounds no CVA tenderness Back/Spine no CVA tenderness Extremity no clubbing, cyanosis or edema Skin no rashes or lesions noted Neuro oriented x3, CN's II-XII intact bilaterally and moves all extremities Psych mental status grossly normal Coding Level of Care Code Off vis,new,level 3 Diagnoses Malignant neoplasm of ascending colon C18.2 Colon location: ascending Assessment (more content not included)... Normal [facility] Supplemental Reporton 2023 Supplemental Report . Pathology Reports Accession: Collected Date/Time: Received Date/Time: Pathologist: [id number] 04/22/2024 11:18 EST 04/22/2024 14:03 ISAÍAS CHEN MD Supplemental Report SUPPLEMENTAL: [facility] [address] [place] [id number] MLH1 Methylation Analysis Clinical summary and Indication: Colon Adenocarcinoma Body Site: Right Colon MLH1 Result: Positive Hypermethylation of the MLH1 promoter was detected in the provided specimen. Hypermethylation of the MLH1 promoter and presence of the BRAF [id number] mutation are characteristic of sporadic cancers. Results should be interpreted in conjunction with clinical and other laboratory findings for the most accurate interpretation. Complete report scanned into chart. Electronically Signed by Diagnostic interpretation performed at [facility] ISAÍAS DAVILA Sign out Date: 05/13/2024 08:56 Performing Lab: [facility], [address] [place] [address] Pathology Dept Final Surgical Pathology Report DIAGNOSIS: COLON, RIGHT HEMICOLECTOMY: - ADENOCARCINOMA, MODERATELY DIFFERENTIATED, 2.2 CM IN GREATEST DIMENSION - TUMOR INVADES INTO SUBMUCOSA - MARGINS: NEGATIVE - 23 REGIONAL LYMPH NODES NEGATIVE FOR TUMOR Comment: The pathology report from the previous endoscopic biopsy at [place] revealed loss of MLH1 and PMS2 MMR proteins, with intact MSH2 and MSH6. The [place] specimen has been sent for MLH1 methylation studies. A supplemental report will follow. COLON AND RECTUM: Resection SPECIMEN PROCEDURE: Right hemicolectomy MACROSCOPIC EVALUATION OF MESORECTUM: Not applicable TUMOR TUMOR SITE: ASCENDING COLON - Mid ascending HISTOLOGIC TYPE: Adenocarcinoma HISTOLOGIC GRADE: G2, moderately differentiated TUMOR SIZE: GREATEST DIMENSION (CENTIMETERS) - 2.2 cm MULTIPLE PRIMARY SITES: Not applicable TUMOR EXTENT: Invades submucosa SUB-MUCOSAL INVASION: Present DEPTH OF SUB-MUCOSAL INVASION: 3 mm EXTENT OF SUB-MUCOSAL INVASION: Tumor invades into lower one third of submucosa MACROSCOPIC TUMOR PERFORATION: Not identified LYMPHATIC AND / OR VASCULAR INVASION: Not identified PERINEURAL INVASION: Not identified TUMOR BUDDING SCORE: Low (0-4) Pathology Reports Accession: Collected Date/Time: Received Date/Time: Pathologist: [id number] 04/22/2024 11:18 EST 04/22/2024 14:03 ISAÍAS CHEN MD 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 TREATMENT EFFECT: No known presurgical therapy MARGINS MARGIN STATUS FOR INVASIVE CARCINOMA: All margins negative for invasive carcinoma DISTANCE FROM INVASIVE CARCINOMA TO RADIAL (CIRCUMFERENTIAL) MARGIN: Not applicable MARGIN STATUS FOR NON-INVASIVE TUMOR: All margins negative for high-grade dysplasia / intramucosal carcinoma and low-grade dysplasia REGIONAL LYMPH NODES REGIONAL LYMPH NODE STATUS: All regional lymph nodes negative for tumor NUMBER OF LYMPH NODES EXAMINED: 23 TUMOR DEPOSITS: Not identified DISTANT METASTASIS DISTANT SITE(S) INVOLVED: Not applicable pTNM CLASSIFICATION (AJCC 8th Edition) Reporting of pT, pN, and (when applicable) pM categories is based on information available to the pathologist at the time the report is issued. As per the AJCC (Chapter 1, 8th Ed.) it is the managing physician's responsibility to establish the final pathologic stage based upon all pertinent information, including but potentially not limited to this pathology report. MODIFIED CLASSIFICATION: Not applicable PT CATEGORY: pT1 T SUFFIX: Not applicable PN CATEGORY: pN0 PM CATEGORY: Not applicable - pM cannot be determined from the submitted specimen(s) ADDITIONAL FINDINGS ADDITIONAL FINDINGS: None identified COMMENT(S): Previous endoscopic biopsy pathology report: Mismatch repair protein analysis was reported to show loss of MLH1 and PMS2, with intact MSH2 and MSH6 proteins. Ángel specimen has been sent for MLH1 methylation studies. 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 The serosal surface is pink-hemorrhagic with multiple thin adhesions with the distal 20 cm of colon air-filled and dilated to 8.5 cm. The specimen is opened at both stapled ends to reveal located in the ascending colon is a greenfield-pink polypoid mass measuring 3.5 x 1.9 x 1.5 cm. The polypoid mass is blocked out and entirely submitted. The polypoid mass measures 17 cm to the proximal staple line margin, 35 cm to the distal staple line margin, 6 cm to the b (more content not included)... Normal [facility] .Auto Diffon 05-04-2024 Basophil, Absolute 0.0 10 3/mcL Normal 0.0-0.3 [facility] Comment on above: Performed By: #### A RICARDO, CBC, ADIFF, MG, BMP, GFR #### [address] [address] Basophils/100 WBC (Bld) 0.5 % Normal 0.0-2.5 [facility] Comment on above: Performed By: #### A RICARDO, CBC, ADIFF, MG, BMP, GFR #### [address] [address] Eosinophil, Absolute 0.1 10 3/mcL Normal 0.0-0.7 [facility] Comment on above: Performed By: #### A RICARDO, CBC, ADIFF, MG, BMP, GFR #### [address] [address] Eosinophils/100 WBC (Bld) 2.0 % Normal 0.0-6.0 [facility] Comment on above: Performed By: #### A RICARDO, CBC, ADIFF, MG, BMP, GFR #### [address] [address] Lymphocyte, Absolute 1.5 10 3/mcL Normal 0.9-4.3 [facility] Comment on above: Performed By: #### A RICARDO, CBC, ADIFF, MG, BMP, GFR #### [address] [address] Lymphocytes/100 WBC (Bld) 23.7 % Normal 20.0-40.0 [facility] Comment on above: Performed By: #### A RICARDO, CBC, ADIFF, MG, BMP, GFR #### [address] [address] Monocyte, Absolute 0.6 10 3/mcL Normal 0.1-1.4 [facility] Comment on above: Performed By: #### A RICARDO, CBC, ADIFF, MG, BMP, GFR #### [address] [address] Monocytes/100 WBC (Bld) 9.5 % Normal 2.0-13.0 [facility] Comment on above: Performed By: #### A RICARDO, CBC, ADIFF, MG, BMP, GFR #### [address] [address] Neutrophils/100 WBC (Bld) 64.3 % Normal 50.0-75.0 [facility] Comment on above: Performed By: #### A RICARDO, CBC, ADIFF, MG, BMP, GFR #### [address] [address] .GFRon 05-04-2024 GFR Non- >60 [facility] Comment on above: Result Comment: GFR Population mean for , Non- Americans Ages 20-29 = 116 mL/min/1.73 sq.m. Ages 30-39 = 107 mL/min/1.73 sq.m. Ages 40-49 = 99 mL/min/1.73 sq.m. Ages 50-59 = 93 mL/min/1.73 sq.m. Ages 60-69 = 85 mL/min/1.73 sq.m. Ages 70+ = 75 mL/min/1.73 sq.m. Chronic Kidney Disease: Less than 60 mL/min/1.73 square meters End Stage Renal Disease: Less than 15 mL/min/1.73 square meters Performed By: #### A RICARDO, CBC, ADIFF, MG, BMP, GFR #### [place] [address] GFR >60 Normal [facility] Comment on above: Result Comment: GFR Population mean for , Non- Americans Ages 20-29 = 116 mL/min/1.73 sq.m. Ages 30-39 = 107 mL/min/1.73 sq.m. Ages 40-49 = 99 mL/min/1.73 sq.m. Ages 50-59 = 93 mL/min/1.73 sq.m. Ages 60-69 = 85 mL/min/1.73 sq.m. Ages 70+ = 75 mL/min/1.73 sq.m. Chronic Kidney Disease: Less than 60 mL/min/1.73 square meters End Stage Renal Disease: Less than 15 mL/min/1.73 square meters Performed By: #### A RICARDO, CBC, ADIFF, MG, BMP, GFR #### [address] [address] .NEUABSon 05-04-2024 Neutrophil, Absolute 4.0 10 3/mcL Normal 2.3-8.1 [facility] Comment on above: Performed By: #### A RICARDO, CBC, ADIFF, MG, BMP, GFR #### [address] [address] BMPon 05-04-2024 BUN/Creatinine Ratio 12.5 ratio Normal 10.0-22.0 [facility] Comment on above: Performed By: #### A RICARDO, CBC, ADIFF, MG, BMP, GFR #### [address] [address] Calcium [Mass/Vol] 8.4 mg/dL Low 8.7-10.4 [facility] Comment on above: Performed By: #### A RICARDO, CBC, ADIFF, MG, BMP, GFR #### [address] [address] Chloride [Moles/Vol] 110 mmol/L Normal 98-110 [facility] Comment on above: Performed By: #### A RICARDO, CBC, ADIFF, MG, BMP, GFR #### [address] [address] CO2 [Moles/Vol] 26 mmol/L Normal 22-32 [facility] Comment on above: Performed By: #### A RICARDO, CBC, ADIFF, MG, BMP, GFR #### [address] [address] Creatinine [Mass/Vol] 0.72 mg/dL Normal 0.60-1.40 [facility] Comment on above: Result Comment: Test ing performed on Vaprema analyzer using enzymatic creatinine methodology. Performed By: #### A RICARDO, CBC, ADIFF, MG, BMP, GFR #### [place] [address] Electrolyte Balance 5.0 mEq/L Normal 4.0-15.0 [facility] Comment on above: Performed By: #### A RICARDO, CBC, ADIFF, MG, BMP, GFR #### [place] [id number] Glucose [Mass/Vol] 91 mg/dL Normal 70-110 [facility] Comment on above: Performed By: #### A RICARDO, CBC, ADIFF, MG, BMP, GFR #### [place] [address] Potassium [Moles/Vol] 4.1 mmol/L Normal 3.5-5.0 [facility] Comment on above: Performed By: #### A RICARDO, CBC, ADIFF, MG, BMP, GFR #### [place] [id number] Sodium [Moles/Vol] 141 mmol/L Normal 136-145 [facility] Comment on above: Performed By: #### A RICARDO, CBC, ADIFF, MG, BMP, GFR #### [place] [id number] Urea nitrogen [Mass/Vol] 9.0 mg/dL Normal 8.0-22.0 [facility] Comment on above: Performed By: #### A RICARDO, CBC, ADIFF, MG, BMP, GFR #### [address] [address] CBCon 05-04-2024 Erythrocyte distribution width (RBC) [Ratio] 12.3 % Normal 11.5-15.5 [facility] Comment on above: Performed By: #### A RICARDO, CBC, ADIFF, MG, BMP, GFR #### [place] [address] Hematocrit (Bld) [Volume fraction] 41.3 % Normal 40.0-52.0 [facility] Comment on above: Performed By: #### A RICARDO, CBC, ADIFF, MG, BMP, GFR #### [place] [address] Hgb 14.2 G/dL Normal 13.0-17.5 [facility] Comment on above: Performed By: #### A RICARDO, CBC, ADIFF, MG, BMP, GFR #### [place] [address] MCH (RBC) [Entitic mass] 31.4 pg Normal 27.0-33.0 [facility] Comment on above: Performed By: #### A RICARDO, CBC, ADIFF, MG, BMP, GFR #### [place] [address] MCHC 34.5 G/dL Normal 32.0-36.0 [facility] Comment on above: Performed By: #### A RICARDO, CBC, ADIFF, MG, BMP, GFR #### [place] [address] MCV (RBC) [Entitic vol] 91.0 fL Normal 81.0-100.0 [facility] Comment on above: Performed By: #### A RICARDO, CBC, ADIFF, MG, BMP, GFR #### [place] [address] Platelet 211 10 3/mcL Normal 150-450 [facility] Comment on above: Performed By: #### A RICARDO, CBC, ADIFF, MG, BMP, GFR #### [place] [address] Platelet mean volume (Bld) [Entitic vol] 7.9 fL Normal 6.4-10.5 [facility] Comment on above: Performed By: #### A RICARDO, CBC, ADIFF, MG, BMP, GFR #### [place] [address] RBC 4.54 10 6/mcL Normal 4.50-6.00 [facility] Comment on above: Performed By: #### A RICARDO, CBC, ADIFF, MG, BMP, GFR #### [address] [address] WBC 6.2 10 3/mcL Normal 4.5-10.8 [facility] Comment on above: Performed By: #### A RICARDO, CBC, ADIFF, MG, BMP, GFR #### [address] [address] LABORATORYOrdered By: SYSTEM SYSTEM on 05-04-2024 Basophils (Bld) [#/Vol] 0.0 103/mcL Normal 0.0 - 0.3 10^3/mcL Workflow SS Basophils/100 WBC (Bld) 0.5 % Normal 0.0 - 2.5 % Workflow SS Calcium [Mass/Vol] 8.4 mg/dL Low 8.7 - 10. 4 mg/dL ADM SS Chloride [Moles/Vol] 110 mmol/L Normal 98 - 110 mEq/L ADM SS CO2 [Moles/Vol] 26 mmol/L Normal 22 - 32 mEq/L ADM SS Creatinine [Mass/Vol] 0.72 mg/dL Normal 0.60 - 1.40 mg/dL ADM SS Comment on above: Interpretive Data: T esting performed on [employer] analyzer using enzymatic creatinine methodology. Electrolyte Balance 5.0 mEq/L Normal 4.0 - 15 .0 mEq/L ADM SS Eosinophils (Bld) [#/Vol] 0.1 103/mcL Normal 0.0 - 0.7 10^3/mcL Workflow SS Eosinophils/100 WBC (Bld) 2.0 % Normal 0.0 - 6.0 % Workflow SS Erythrocyte distribution width (RBC) [Ratio] 12.3 % Normal 11.5 - 15.5 % Workflow SS GFR/1.73 sq M.predicted among blacks MDRD (S/P/Bld) [Vol rate/Area] ml/min/1.73sqm Invalid Interpretation Code Chemistry S Comment on above: Interpretive Data: GFR Population mean for , Non- Americans Ages 20-29 = 116 mL/min/1.73 sq.m. Ages 30-39 = 107 mL/min/1.73 sq.m. Ages 40-49 = 99 mL/min/1.73 sq.m. Ages 50-59 = 93 mL/min/1.73 sq.m. Ages 60-69 = 85 mL/min/1.73 sq.m. Ages 70+ = 75 mL/min/1.73 sq.m. Chronic Kidney Disease: Less than 60 mL/min/1.73 square meters End Stage Renal Disease: Less than 15 mL/min/1.73 square meters GFR/1.73 sq M.predicted among non-blacks MDRD (S/P/Bld) [Vol rate/Area] ml/min/1.73sqm Invalid Interpretation Code Chemistry S Comment on above: Interpretive Data: GFR Population mean for , Non- Americans Ages 20-29 = 116 mL/min/1.73 sq.m. Ages 30-39 = 107 mL/min/1.73 sq.m. Ages 40-49 = 99 mL/min/1.73 sq.m. Ages 50-59 = 93 mL/min/1.73 sq.m. Ages 60-69 = 85 mL/min/1.73 sq.m. Ages 70+ = 75 mL/min/1.73 sq.m. Chronic Kidney Disease: Less than 60 mL/min/1.73 square meters End Stage Renal Disease: Less than 15 mL/min/1.73 square meters Glucose [Mass/Vol] 91 mg/dL Normal 70 - 110 mg/dL ADM SS Hematocrit (Bld) [Volume fraction] 41.3 % Normal 40.0 - 52.0 % Workflow SS Hemoglobin (Bld) [Mass/Vol] 14.2 G/dL Normal 13.0 - 17.5 G/dL Workflow SS Lymphocytes (Bld) [#/Vol] 1.5 103/mcL Normal 0.9 - 4.3 10^3/mcL Workflow SS Lymphocytes/100 WBC (Bld) 23.7 % Normal 20.0 - 40.0 % Workflow SS Magnesium [Mass/Vol] 1.9 mg/dL Normal 1.6 - 2.4 mg/dL ADM SS MCH (RBC) [Entitic mass] 31.4 pg Normal 27.0 - 33.0 pg Workflow SS MCHC 34.5 G/dL Normal 32.0 - 36.0 G/dL Workflow SS MCV (RBC) [Entitic vol] 91.0 fL Normal 81.0 - 100.0 fL Workflow SS Monocytes (Bld) [#/Vol] 0.6 103/mcL Normal 0.1 - 1.4 10^3/mcL Workflow SS Monocytes/100 WBC (Bld) 9.5 % Normal 2.0 - 13.0 % AH Workflow SS Neutrophils (Bld) [#/Vol] 4.0 103/mcL Normal 2.3 - 8.1 10^3/mcL Workflow SS Neutrophils/100 WBC (Bld) 64.3 % Normal 50.0 - 75.0 % Workflow SS Platelet mean volume (Bld) [Entitic vol] 7.9 fL Normal 6.4 - 10.5 fL Workflow SS Platelets (Bld) [#/Vol] 211 103/mcL Normal 150 - 450 10^3/mcL AH Workflow SS Potassium [Moles/Vol] 4.1 mmol/L Normal 3.5 - 5.0 mEq/L ADM SS RBC (Bld) [#/Vol] 4.54 106/mcL Normal 4.50 - 6.00 10^6/mcL Workflow SS Sodium [Moles/Vol] 141 mmol/L Normal 136 - 145 mEq/L ADM SS Urea nitrogen [Mass/Vol] 9.0 mg/dL Normal 8.0 - 22.0 mg/dL ADM SS Urea nitrogen/Creatinine [Mass ratio] 12.5 ratio Normal 10.0 - 22.0 ratio ADM SS WBC (Bld) [#/Vol] 6.2 103/mcL Normal 4.5 - 10.8 10^3/mcL Workflow SS MGon 05-04-2024 Magnesium [Mass/Vol] 1.9 mg/dL Normal 1.6-2.4 [facility] Comment on above: Performed By: #### A RICARDO, CBC, ADIFF, MG, BMP, GFR #### [address] [address] .Auto Diffon 05-03-2024 Basophil, Absolute 0.0 10 3/mcL Normal 0.0-0.3 [facility] Comment on above: Performed By: #### A RICARDO, CBC, ADIFF, MG, BMP, GFR #### [address] [address] Eosinophil, Absolute 0.1 10 3/mcL Normal 0.0-0.7 [facility] Comment on above: Performed By: #### A RICARDO, CBC, ADIFF, MG, BMP, GFR #### [address] [address] Lymphocyte, Absolute 1.2 10 3/mcL Normal 0.9-4.3 [facility] Comment on above: Performed By: #### A RICARDO, CBC, ADIFF, MG, BMP, GFR #### [address] [address] Monocyte, Absolute 0.8 10 3/mcL Normal 0.1-1.4 [facility] Comment on above: Performed By: #### A RICARDO, CBC, ADIFF, MG, BMP, GFR #### [address] [address] .Auto DiffOrdered By: SYSTEM SYSTEM on 05-03-2024 Basophils/100 WBC (Bld) 0.4 % Normal 0.0-2.5 AH Workflow SS Comment on above: Performed By: #### A RICARDO, CBC, ADIFF, MG, BMP, GFR #### [address] [address] Eosinophils/100 WBC (Bld) 1.4 % Normal 0.0-6.0 AH Workflow SS Comment on above: Performed By: #### A RICARDO, CBC, ADIFF, MG, BMP, GFR #### [address] [address] Lymphocytes/100 WBC (Bld) 16.4 % Low 20.0-40.0 AH Workflow SS Comment on above: Performed By: #### A RICARDO, CBC, ADIFF, MG, BMP, GFR #### [address] [address] Monocytes/100 WBC (Bld) 10.1 % Normal 2.0-13.0 AH Workflow SS Comment on above: Performed By: #### A RICARDO, CBC, ADIFF, MG, BMP, GFR #### [address] [address] Neutrophils/100 WBC (Bld) 71.7 % Normal 50.0-75.0 AH Workflow SS Comment on above: Performed By: #### A RICARDO, CBC, ADIFF, MG, BMP, GFR #### [address] [address] .GFRon 05-03-2024 GFR >60 [facility] MAIN Comment on above: Result Comment: GFR Population mean for , Non- Americans Ages 20-29 = 116 mL/min/1.73 sq.m. Ages 30-39 = 107 mL/min/1.73 sq.m. Ages 40-49 = 99 mL/min/1.73 sq.m. Ages 50-59 = 93 mL/min/1.73 sq.m. Ages 60-69 = 85 mL/min/1.73 sq.m. Ages 70+ = 75 mL/min/1.73 sq.m. Chronic Kidney Disease: Less than 60 mL/min/1.73 square meters End Stage Renal Disease: Less than 15 mL/min/1.73 square meters Performed By: #### A RICARDO, CBC, GFR, ADIFF, BMP #### [place] [address] GFR Non- >60 [facility] MAIN Comment on above: Result Comment: GFR Population mean for , Non- Americans Ages 20-29 = 116 mL/min/1.73 sq.m. Ages 30-39 = 107 mL/min/1.73 sq.m. Ages 40-49 = 99 mL/min/1.73 sq.m. Ages 50-59 = 93 mL/min/1.73 sq.m. Ages 60-69 = 85 mL/min/1.73 sq.m. Ages 70+ = 75 mL/min/1.73 sq.m. Chronic Kidney Disease: Less than 60 mL/min/1.73 square meters End Stage Renal Disease: Less than 15 mL/min/1.73 square meters Performed By: #### A RICARDO, CBC, GFR, ADIFF, BMP #### [address] [address] GFR Non- >60 [facility] MAIN Comment on above: Result Comment: GFR Population mean for , Non- Americans Ages 20-29 = 116 mL/min/1.73 sq.m. Ages 30-39 = 107 mL/min/1.73 sq.m. Ages 40-49 = 99 mL/min/1.73 sq.m. Ages 50-59 = 93 mL/min/1.73 sq.m. Ages 60-69 = 85 mL/min/1.73 sq.m. Ages 70+ = 75 mL/min/1.73 sq.m. Chronic Kidney Disease: Less than 60 mL/min/1.73 square meters End Stage Renal Disease: Less than 15 mL/min/1.73 square meters Performed By: #### A RICARDO, CBC, ADIFF, MG, BMP, GFR #### [address] [address] GFR >60 Normal [facility] MAIN Comment on above: Result Comment: GFR Population mean for , Non- Americans Ages 20-29 = 116 mL/min/1.73 sq.m. Ages 30-39 = 107 mL/min/1.73 sq.m. Ages 40-49 = 99 mL/min/1.73 sq.m. Ages 50-59 = 93 mL/min/1.73 sq.m. Ages 60-69 = 85 mL/min/1.73 sq.m. Ages 70+ = 75 mL/min/1.73 sq.m. Chronic Kidney Disease: Less than 60 mL/min/1.73 square meters End Stage Renal Disease: Less than 15 mL/min/1.73 square meters Performed By: #### A RICARDO, CBC, ADIFF, MG, BMP, GFR #### [address] [address] .NEUABSon 05-03-2024 Neutrophil, Absolute 5.4 10 3/mcL Normal 2.3-8.1 [facility] MAIN Comment on above: Performed By: #### A RICARDO, CBC, ADIFF, MG, BMP, GFR #### [address] [address] BMPon 05-03-2024 BUN/Creatinine Ratio 12.5 ratio Normal 10.0-22.0 [facility] Comment on above: Performed By: #### A RICARDO, CBC, GFR, ADIFF, BMP #### [address] [address] Calcium [Mass/Vol] 6.3 mg/dL Critically abnormal 8.7-10.4 [facility] MAIN Comment on above: Performed By: #### A IRCARDO, CBC, GFR, ADIFF, BMP #### [address] [address] Creatinine [Mass/Vol] 0.56 mg/dL Low 0.60-1.40 [facility] MA[facility] Comment on above: Result Comment: Test ing performed on Vaprema analyzer using enzymatic creatinine methodology. Performed By: #### A RICARDO, CBC, GFR, ADIFF, BMP #### [address] [address] Glucose [Mass/Vol] 686 mg/dL Critically abnormal 70-110 [facility] MAIN Comment on above: Performed By: #### A RICARDO, CBC, GFR, ADIFF, BMP #### [address] [address] Urea nitrogen [Mass/Vol] 7.0 mg/dL Low 8.0-22.0 [facility] Comment on above: Performed By: #### A RICARDO, CBC, GFR, ADIFF, BMP #### [address] [address] Chloride [Moles/Vol] 112 mmol/L High 98-110 [facility] MA[facility] Comment on above: Performed By: #### A RICARDO, CBC, GFR, ADIFF, BMP #### [address] [address] CO2 [Moles/Vol] 19 mmol/L Low 22-32 [facility] MA[facility] Comment on above: Performed By: #### A RICARDO, CBC, GFR, ADIFF, BMP #### [address] [address] Electrolyte Balance 7.0 mEq/L Normal 4.0-15.0 [facility] Comment on above: Performed By: #### A RICARDO, CBC, GFR, ADIFF, BMP #### [address] [address] Potassium [Moles/Vol] 4.6 mmol/L Normal 3.5-5.0 [facility] Comment on above: Performed By: #### A RICARDO, CBC, GFR, ADIFF, BMP #### [place] [id number] Sodium [Moles/Vol] 138 mmol/L Normal 136-145 [facility] MAIN Comment on above: Performed By: #### A RICARDO, CBC, GFR, ADIFF, BMP #### [address] [address] CBCOrdered By: SYSTEM SYSTEM on 05-03-2024 Erythrocyte distribution width (RBC) [Ratio] 12.3 % Normal 11.5-15.5 AH Workflow SS Comment on above: Performed By: #### A RICARDO, CBC, ADIFF, MG, BMP, GFR #### [place] [id number] Hematocrit (Bld) [Volume fraction] 42.3 % Normal 40.0-52.0 AH Workflow SS Comment on above: Performed By: #### A RICARDO, CBC, ADIFF, MG, BMP, GFR #### [place] [address] MCH (RBC) [Entitic mass] 31.7 pg Normal 27.0-33.0 AH Workflow SS Comment on above: Performed By: #### A RICARDO, CBC, ADIFF, MG, BMP, GFR #### [place] [address] MCHC 34.4 G/dL Normal 32.0-36.0 AH Workflow SS Comment on above: Performed By: #### A RICARDO, CBC, ADIFF, MG, BMP, GFR #### [place] [address] MCV (RBC) [Entitic vol] 92.1 fL Normal 81.0-100.0 AH Workflow SS Comment on above: Performed By: #### A RICARDO, CBC, ADIFF, MG, BMP, GFR #### [place] [address] Platelet mean volume (Bld) [Entitic vol] 8.2 fL Normal 6.4-10.5 AH Workflow SS Comment on above: Performed By: #### A RICARDO, CBC, ADIFF, MG, BMP, GFR #### [place] [id number] [facility] 05-03-2024 Hgb 14.6 G/dL Normal 13.0-17.5 [facility] Comment on above: Performed By: #### A RICARDO, CBC, ADIFF, MG, BMP, GFR #### [place] [address] Platelet 221 10 3/mcL Normal 150-450 [facility] MA[facility] Comment on above: Performed By: #### A RICARDO, CBC, ADIFF, MG, BMP, GFR #### [place] [address] RBC 4.59 10 6/mcL Normal 4.50-6.00 [facility] Comment on above: Performed By: #### A RICARDO, CBC, ADIFF, MG, BMP, GFR #### [place] [address] WBC 7.6 10 3/mcL Normal 4.5-10.8 [facility] Comment on above: Performed By: #### A RICARDO, CBC, ADIFF, MG, BMP, GFR #### [place] [id number] CMP 05-03-2024 Albumin Level 2.8 G/dL Low 3.2-4.8 [facility] MA[facility] Comment on above: Performed By: #### A RICARDO, CBC, ADIFF, MG, BMP, GFR #### [place] [address] ALT [Catalytic activity/Vol] 60 U/L High 12-55 [facility] MA[facility] Comment on above: Performed By: #### A RICARDO, CBC, ADIFF, MG, BMP, GFR #### [place] [address] Bili Total 0.30 mg/dL Normal 0.20-1.20 [facility] MA[facility] Comment on above: Result Comment: Use of this assay is not recommended for patients undergoing treatment with eltrombopag due to the potential for falsely elevated results. Performed By: #### A RICARDO, CBC, ADIFF, MG, BMP, GFR #### [place] [address] BUN/Creatinine Ratio 16.7 ratio Normal 10.0-22.0 [facility] MAIN Comment on above: Performed By: #### A RICARDO, CBC, ADIFF, MG, BMP, GFR #### [place] [address] Electrolyte Balance 7.0 mEq/L Normal 4.0-15.0 [facility] MAIN Comment on above: Performed By: #### A RICARDO, CBC, ADIFF, MG, BMP, GFR #### [place] [address] Total Protein 5.3 G/dL Low 5.7-8.2 [facility] MAIN Comment on above: Performed By: #### A RICARDO, CBC, ADIFF, MG, BMP, GFR #### [place] [address] CMPOrdered By: SYSTEM SYSTEM on 05-03-2024 Albumin/Globulin [Mass ratio] 1.1 {ratio} Normal 0.9-1.6 AH ADM SS Comment on above: Performed By: #### A RICARDO, CBC, ADIFF, MG, BMP, GFR #### [place] [id number] ALP [Catalytic activity/Vol] 59 U/L Normal 38-126 AH ADM SS Comment on above: Performed By: #### A RICARDO, CBC, ADIFF, MG, BMP, GFR #### [place] [address] AST [Catalytic activity/Vol] 19 U/L Normal 8-34 AH ADM SS Comment on above: Performed By: #### A RICARDO, CBC, ADIFF, MG, BMP, GFR #### [place] [address] Calcium [Mass/Vol] 8.7 mg/dL Normal 8.7-10.4 AH ADM SS Comment on above: Performed By: #### A RICARDO, CBC, ADIFF, MG, BMP, GFR #### [place] [id number] Chloride [Moles/Vol] 110 mmol/L Normal 98-110 AH ADM SS Comment on above: Performed By: #### A RICARDO, CBC, ADIFF, MG, BMP, GFR #### [address] [address] CO2 [Moles/Vol] 25 mmol/L Normal 22-32 AH ADM SS Comment on above: Performed By: #### A RICARDO, CBC, ADIFF, MG, BMP, GFR #### [address] [address] Creatinine [Mass/Vol] 0.78 mg/dL Normal 0.60-1.40 ADM SS Comment on above: Interpretive Data: T esting performed on [employer] CH analyzer using enzymatic creatinine methodology. Result Comment: Test ing performed on [employer] CH analyzer using enzymatic creatinine methodology. Performed By: #### A RICARDO, CBC, ADIFF, MG, BMP, GFR #### [address] [address] Globulin 2.5 G/dL Normal 1.5-3.8 AH ADM SS Comment on above: Performed By: #### A RICARDO, CBC, ADIFF, MG, BMP, GFR #### [address] [address] Glucose [Mass/Vol] 124 mg/dL High 70-110 AH ADM SS Comment on above: Performed By: #### A RICARDO, CBC, ADIFF, MG, BMP, GFR #### [address] [address] Potassium [Moles/Vol] 3.9 mmol/L Normal 3.5-5.0 ADM SS Comment on above: Performed By: #### A RICARDO, CBC, ADIFF, MG, BMP, GFR #### [address] [address] Sodium [Moles/Vol] 142 mmol/L Normal 136-145 AH ADM SS Comment on above: Performed By: #### A RICARDO, CBC, ADIFF, MG, BMP, GFR #### [address] [address] Urea nitrogen [Mass/Vol] 13.0 mg/dL Normal 8.0-22.0 ADM SS Comment on above: Performed By: #### A RICARDO, CBC, ADIFF, MG, BMP, GFR #### [address] [address] LABORATORYOrdered By: Sandra Green on 05-03-2024 Glucose [Mass/Vol] 686 mg/dL Invalid Interpretation Code 70 - 110 mg/dL [facility] LABORATORYOrdered By: SYSTEM SYSTEM on 05-03-2024 Calcium [Mass/Vol] 6.3 mg/dL Invalid Interpretation Code 8.7 - 10.4 mg/dL ADM SS Comment on above: Result Comment: Read back by Yudi Wei RN. 05/03/2024 17:28:32 EST Chloride [Moles/Vol] 112 mmol/L High 98 - 110 mEq/L ADM SS CO2 [Moles/Vol] 19 mmol/L Low 22 - 32 mEq/L ADM SS Creatinine [Mass/Vol] 0.56 mg/dL Low 0.60 - 1.40 mg/dL ADM SS Comment on above: Interpretive Data: T esting performed on [employer] analyzer using enzymatic creatinine methodology. Glucose [Mass/Vol] 686 mg/dL Invalid Interpretation Code 70 - 110 mg/dL ADM SS Comment on above: Result Comment: Read back by Yudi Wei RN. 05/03/2024 17:28:32 EST Magnesium [Mass/Vol] 1.6 mg/dL Normal 1.6 - 2.4 mg/dL ADM SS Phosphate [Mass/Vol] 3.0 mg/dL Normal 2.4 - 5.1 mg/dL ADM SS Comment on above: Result Comment: Spec imen lipemic. Results may be falsely decreased. Interpretive Data: * *Note - New Reference Range in effect 19 Potassium [Moles/Vol] 4.6 mmol/L Normal 3.5 - 5.0 mEq/L ADM SS Sodium [Moles/Vol] 138 mmol/L Normal 136 - 145 mEq/L ADM SS Urea nitrogen [Mass/Vol] 7.0 mg/dL Low 8.0 - 22.0 mg/dL ADM SS Urea nitrogen/Creatinine [Mass ratio] 12.5 ratio Normal 10.0 - 22.0 ratio ADM SS Albumin BCP dye [Mass/Vol] 2.8 G/dL Low 3.2 - 4.8 G/dL ADM SS ALT No additional P-5'-P [Catalytic activity/Vol] 60 U/L High 12 - 55 U/L ADM SS Basophils (Bld) [#/Vol] 0.0 103/mcL Normal 0.0 - 0.3 10^3/mcL AH Workflow SS Bilirubin [Mass/Vol] 0.30 mg/dL Normal 0.20 - 1.20 mg/dL AH ADM SS Comment on above: Interpretive Data: U se of this assay is not recommended for patients undergoing treatment with eltrombopag due to the potential for falsely elevated results. Eosinophils (Bld) [#/Vol] 0.1 103/mcL Normal 0.0 - 0.7 10^3/mcL Workflow SS Hemoglobin (Bld) [Mass/Vol] 14.6 G/dL Normal 13.0 - 17.5 G/dL AH Workflow SS Lymphocytes (Bld) [#/Vol] 1.2 103/mcL Normal 0.9 - 4.3 10^3/mcL AH Workflow SS Monocytes (Bld) [#/Vol] 0.8 103/mcL Normal 0.1 - 1.4 10^3/mcL AH Workflow SS Neutrophils (Bld) [#/Vol] 5.4 103/mcL Normal 2.3 - 8.1 10^3/mcL AH Workflow SS Platelets (Bld) [#/Vol] 221 103/mcL Normal 150 - 450 10^3/mcL AH Workflow SS Protein [Mass/Vol] 5.3 G/dL Low 5.7 - 8.2 G/dL ADM SS RBC (Bld) [#/Vol] 4.59 106/mcL Normal 4.50 - 6.00 10^6/mcL Workflow SS Urea nitrogen/Creatinine [Mass ratio] 16.7 ratio Normal 10.0 - 22.0 ratio ADM SS WBC (Bld) [#/Vol] 7.6 103/mcL Normal 4.5 - 10.8 10^3/mcL Workflow SS Laboratory - Chemistry and C hemistry - challengeOrdered By: SYSTEM SYSTEM on 05-03-2024 GFR/1.73 sq M.predicted among blacks MDRD (S/P/Bld) [Vol rate/Area] ml/min/1.73sqm Invalid Interpretation Code Chemistry S Comment on above: Interpretive Data: GFR Population mean for , Non- Americans Ages 20-29 = 116 mL/min/1.73 sq.m. Ages 30-39 = 107 mL/min/1.73 sq.m. Ages 40-49 = 99 mL/min/1.73 sq.m. Ages 50-59 = 93 mL/min/1.73 sq.m. Ages 60-69 = 85 mL/min/1.73 sq.m. Ages 70+ = 75 mL/min/1.73 sq.m. Chronic Kidney Disease: Less than 60 mL/min/1.73 square meters End Stage Renal Disease: Less than 15 mL/min/1.73 square meters GFR/1.73 sq M.predicted among non-blacks MDRD (S/P/Bld) [Vol rate/Area] ml/min/1.73sqm Invalid Interpretation Code Chemistry S Comment on above: Interpretive Data: GFR Population mean for , Non- Americans Ages 20-29 = 116 mL/min/1.73 sq.m. Ages 30-39 = 107 mL/min/1.73 sq.m. Ages 40-49 = 99 mL/min/1.73 sq.m. Ages 50-59 = 93 mL/min/1.73 sq.m. Ages 60-69 = 85 mL/min/1.73 sq.m. Ages 70+ = 75 mL/min/1.73 sq.m. Chronic Kidney Disease: Less than 60 mL/min/1.73 square meters End Stage Renal Disease: Less than 15 mL/min/1.73 square meters MGon 05-03-2024 Magnesium [Mass/Vol] 1.6 mg/dL Normal 1.6-2.4 [facility] MAIN Comment on above: Performed By: #### A RICARDO, CBC, GFR, ADIFF, BMP #### [place] [address] No Panel InformationOrdered By: SYSTEM SYSTEM on 05-03-2024 Electrolyte Balance 7.0 mEq/L Normal 4.0 - 15 .0 mEq/L ADM SS PHOSon 05-03-2024 Phosphate [Mass/Vol] 3.0 mg/dL Normal 2.4-5.1 [facility] MAIN Comment on above: Result Comment: Spec imen lipemic. Results may be falsely decreased. Note - New Reference Range in effect 19 Performed By: #### A RICARDO, CBC, GFR, ADIFF, BMP #### [address] [address] .Auto Diffon 05-01-2024 Basophil, Absolute 0.0 10 3/mcL Normal 0.0-0.3 [facility] MAIN Comment on above: Performed By: #### A RICARDO, CBC, ADIFF, MG, BMP, GFR #### [address] [address] Basophils/100 WBC (Bld) 0.5 % Normal 0.0-2.5 [facility] MA[facility] Comment on above: Performed By: #### A RICARDO, CBC, ADIFF, MG, BMP, GFR #### [address] [address] Eosinophil, Absolute 0.1 10 3/mcL Normal 0.0-0.7 [facility] Comment on above: Performed By: #### A RICARDO, CBC, ADIFF, MG, BMP, GFR #### [address] [address] Eosinophils/100 WBC (Bld) 1.9 % Normal 0.0-6.0 [facility] Comment on above: Performed By: #### A RICARDO, CBC, ADIFF, MG, BMP, GFR #### [address] [address] Lymphocyte, Absolute 1.0 10 3/mcL Normal 0.9-4.3 [facility]IN Comment on above: Performed By: #### A RICARDO, CBC, ADIFF, MG, BMP, GFR #### [address] [address] Lymphocytes/100 WBC (Bld) 19.4 % Low 20.0-40.0 [facility] Comment on above: Performed By: #### A RICARDO, CBC, ADIFF, MG, BMP, GFR #### [address] [address] Monocyte, Absolute 0.9 10 3/mcL Normal 0.1-1.4 [facility] MAIN Comment on above: Performed By: #### A RICARDO, CBC, ADIFF, MG, BMP, GFR #### [address] [address] Monocytes/100 WBC (Bld) 17.9 % High 2.0-13.0 [facility] MA[facility] Comment on above: Performed By: #### A RICARDO, CBC, ADIFF, MG, BMP, GFR #### [address] [address] Neutrophils/100 WBC (Bld) 60.3 % Normal 50.0-75.0 [facility] Comment on above: Performed By: #### A RICARDO, CBC, ADIFF, MG, BMP, GFR #### [address] [address] .GFRon 05-01-2024 GFR Non- >60 [facility] MAIN Comment on above: Result Comment: GFR Population mean for , Non- Americans Ages 20-29 = 116 mL/min/1.73 sq.m. Ages 30-39 = 107 mL/min/1.73 sq.m. Ages 40-49 = 99 mL/min/1.73 sq.m. Ages 50-59 = 93 mL/min/1.73 sq.m. Ages 60-69 = 85 mL/min/1.73 sq.m. Ages 70+ = 75 mL/min/1.73 sq.m. Chronic Kidney Disease: Less than 60 mL/min/1.73 square meters End Stage Renal Disease: Less than 15 mL/min/1.73 square meters Performed By: #### A RICARDO, CBC, GFR, ADIFF, BMP #### [address] [address] GFR >60 [facility] MAIN Comment on above: Result Comment: GFR Population mean for , Non- Americans Ages 20-29 = 116 mL/min/1.73 sq.m. Ages 30-39 = 107 mL/min/1.73 sq.m. Ages 40-49 = 99 mL/min/1.73 sq.m. Ages 50-59 = 93 mL/min/1.73 sq.m. Ages 60-69 = 85 mL/min/1.73 sq.m. Ages 70+ = 75 mL/min/1.73 sq.m. Chronic Kidney Disease: Less than 60 mL/min/1.73 square meters End Stage Renal Disease: Less than 15 mL/min/1.73 square meters Performed By: #### A RICARDO, CBC, GFR, ADIFF, BMP #### [address] [address] GFR >60 Normal [facility] MAIN Comment on above: Result Comment: GFR Population mean for , Non- Americans Ages 20-29 = 116 mL/min/1.73 sq.m. Ages 30-39 = 107 mL/min/1.73 sq.m. Ages 40-49 = 99 mL/min/1.73 sq.m. Ages 50-59 = 93 mL/min/1.73 sq.m. Ages 60-69 = 85 mL/min/1.73 sq.m. Ages 70+ = 75 mL/min/1.73 sq.m. Chronic Kidney Disease: Less than 60 mL/min/1.73 square meters End Stage Renal Disease: Less than 15 mL/min/1.73 square meters Performed By: #### A RICARDO, CBC, GFR, ADIFF, BMP #### [address] [address] GFR Non- >60 Normal [facility] MAIN Comment on above: Result Comment: GFR Population mean for , Non- Americans Ages 20-29 = 116 mL/min/1.73 sq.m. Ages 30-39 = 107 mL/min/1.73 sq.m. Ages 40-49 = 99 mL/min/1.73 sq.m. Ages 50-59 = 93 mL/min/1.73 sq.m. Ages 60-69 = 85 mL/min/1.73 sq.m. Ages 70+ = 75 mL/min/1.73 sq.m. Chronic Kidney Disease: Less than 60 mL/min/1.73 square meters End Stage Renal Disease: Less than 15 mL/min/1.73 square meters Performed By: #### A RICARDO, CBC, GFR, ADIFF, BMP #### [address] [address] .NEUABSon 05-01-2024 Neutrophil, Absolute 3.2 10 3/mcL Normal 2.3-8.1 [facility] Comment on above: Performed By: #### A RICARDO, CBC, ADIFF, MG, BMP, GFR #### [address] [address] BMPon 05-01-2024 BUN/Creatinine Ratio 21.2 ratio Normal 10.0-22.0 [facility] Comment on above: Performed By: #### A RICARDO, CBC, ADIFF, MG, BMP, GFR #### [place] [id number] Calcium [Mass/Vol] 8.6 mg/dL Low 8.7-10.4 [facility] Comment on above: Performed By: #### A RICARDO, CBC, ADIFF, MG, BMP, GFR #### [place] [id number] Chloride [Moles/Vol] 105 mmol/L Normal 98-110 [facility] Comment on above: Performed By: #### A RICARDO, CBC, ADIFF, MG, BMP, GFR #### [place] [id number] CO2 [Moles/Vol] 28 mmol/L Normal 22-32 [facility] Comment on above: Performed By: #### A RICARDO, CBC, ADIFF, MG, BMP, GFR #### [place] [id number] Creatinine [Mass/Vol] 0.99 mg/dL Normal 0.60-1.40 [facility] Comment on above: Result Comment: Test ing performed on Vaprema analyzer using enzymatic creatinine methodology. Performed By: #### A RICARDO, CBC, ADIFF, MG, BMP, GFR #### [address] [address] Electrolyte Balance 6.0 mEq/L Normal 4.0-15.0 [facility] Comment on above: Performed By: #### A RICARDO, CBC, ADIFF, MG, BMP, GFR #### [address] [address] Glucose [Mass/Vol] 93 mg/dL Normal 70-110 [facility] Comment on above: Performed By: #### A RICARDO, CBC, ADIFF, MG, BMP, GFR #### [place] [id number] Potassium [Moles/Vol] 4.1 mmol/L Normal 3.5-5.0 [facility] Comment on above: Performed By: #### A RICARDO, CBC, ADIFF, MG, BMP, GFR #### [address] [address] Sodium [Moles/Vol] 139 mmol/L Normal 136-145 [facility] Comment on above: Performed By: #### A RICARDO, CBC, ADIFF, MG, BMP, GFR #### [place] [address] Urea nitrogen [Mass/Vol] 21.0 mg/dL Normal 8.0-22.0 [facility] Comment on above: Performed By: #### A RICARDO, CBC, ADIFF, MG, BMP, GFR #### [place] [id number] CBCon 05-01-2024 Erythrocyte distribution width (RBC) [Ratio] 12.7 % Normal 11.5-15.5 [facility] Comment on above: Performed By: #### A RICARDO, CBC, ADIFF, MG, BMP, GFR #### [place] [address] Hematocrit (Bld) [Volume fraction] 43.9 % Normal 40.0-52.0 [facility] Comment on above: Performed By: #### A RICARDO, CBC, ADIFF, MG, BMP, GFR #### [place] [address] Hgb 15.6 G/dL Normal 13.0-17.5 [facility] Comment on above: Performed By: #### A RICARDO, CBC, ADIFF, MG, BMP, GFR #### [place] [id number] MCH (RBC) [Entitic mass] 32.0 pg Normal 27.0-33.0 [facility] Comment on above: Performed By: #### A RICARDO, CBC, ADIFF, MG, BMP, GFR #### [place] [address] MCHC 35.6 G/dL Normal 32.0-36.0 [facility] Comment on above: Performed By: #### A RICARDO, CBC, ADIFF, MG, BMP, GFR #### [place] [address] MCV (RBC) [Entitic vol] 90.0 fL Normal 81.0-100.0 [facility] Comment on above: Performed By: #### A RICARDO, CBC, ADIFF, MG, BMP, GFR #### [place] [address] Platelet 225 10 3/mcL Normal 150-450 [facility] Comment on above: Performed By: #### A RICARDO, CBC, ADIFF, MG, BMP, GFR #### [place] [address] Platelet mean volume (Bld) [Entitic vol] 7.7 fL Normal 6.4-10.5 [facility] Comment on above: Performed By: #### A RICARDO, CBC, ADIFF, MG, BMP, GFR #### [place] [address] RBC 4.87 10 6/mcL Normal 4.50-6.00 [facility] Comment on above: Performed By: #### A RICARDO, CBC, ADIFF, MG, BMP, GFR #### [place] [address] WBC 5.3 10 3/mcL Normal 4.5-10.8 [facility] Comment on above: Performed By: #### A RICARDO, CBC, ADIFF, MG, BMP, GFR #### [place] [address] CHOLon 05-01-2024 Cholesterol [Mass/Vol] 117 mg/dL Normal 50-199 [facility] Comment on above: Result Comment: Chol esterol Reference Interval: Less than 200 Desirable 200-239 Borderline high risk 240 and above High risk Performed By: #### A RICARDO, CBC, GFR, ADIFF, BMP #### [place] [address] CKon 05-01-2024 CK [Catalytic activity/Vol] 53 U/L Normal 7-185 [facility] Comment on above: Performed By: #### A RICARDO, CBC, GFR, ADIFF, BMP #### [address] [address] CMPon 05-01-2024 Albumin Level 3.1 G/dL Low 3.2-4.8 [facility] Comment on above: Performed By: #### A RICARDO, CBC, GFR, ADIFF, BMP #### [place] [id number] Albumin/Globulin [Mass ratio] 1.2 {ratio} Normal 0.9-1.6 [facility] Comment on above: Performed By: #### A RICARDO, CBC, GFR, ADIFF, BMP #### [place] [address] ALP [Catalytic activity/Vol] 66 U/L Normal 38-126 [facility] Comment on above: Performed By: #### A RICARDO, CBC, GFR, ADIFF, BMP #### [place] [address] ALT [Catalytic activity/Vol] 98 U/L High 12-55 [facility] Comment on above: Performed By: #### A RICARDO, CBC, GFR, ADIFF, BMP #### [place] [id number] AST [Catalytic activity/Vol] 25 U/L Normal 8-34 [facility] Comment on above: Performed By: #### A RICARDO, CBC, GFR, ADIFF, BMP #### [place] [id number] Bili Total 0.80 mg/dL Normal 0.20-1.20 [facility] Comment on above: Result Comment: Use of this assay is not recommended for patients undergoing treatment with eltrombopag due to the potential for falsely elevated results. Performed By: #### A RICARDO, CBC, GFR, ADIFF, BMP #### [place] [id number] BUN/Creatinine Ratio 22.6 ratio High 10.0-22.0 [facility] Comment on above: Performed By: #### A RICARDO, CBC, GFR, ADIFF, BMP #### [address] [address] Calcium [Mass/Vol] 8.8 mg/dL Normal 8.7-10.4 [facility] Comment on above: Performed By: #### A RICARDO, CBC, GFR, ADIFF, BMP #### [address] [address] Chloride [Moles/Vol] 105 mmol/L Normal 98-110 [facility] Comment on above: Performed By: #### A RICARDO, CBC, GFR, ADIFF, BMP #### [address] [address] CO2 [Moles/Vol] 24 mmol/L Normal 22-32 [facility] Comment on above: Performed By: #### A RICARDO, CBC, GFR, ADIFF, BMP #### [place] [id number] Creatinine [Mass/Vol] 0.84 mg/dL Normal 0.60-1.40 [facility] Comment on above: Result Comment: Test ing performed on Vaprema analyzer using enzymatic creatinine methodology. Performed By: #### A RICARDO, CBC, GFR, ADIFF, BMP #### [place] [id number] Electrolyte Balance 10.0 mEq/L Normal 4.0-15.0 [facility] Comment on above: Performed By: #### A RICARDO, CBC, GFR, ADIFF, BMP #### [address] [address] Globulin 2.6 G/dL Normal 1.5-3.8 [facility] Comment on above: Performed By: #### A RICARDO, CBC, GFR, ADIFF, BMP #### [place] [id number] Glucose [Mass/Vol] 99 mg/dL Normal 70-110 [facility] Comment on above: Performed By: #### A RICARDO, CBC, GFR, ADIFF, BMP #### [place] [id number] Potassium [Moles/Vol] 4.0 mmol/L Normal 3.5-5.0 [facility] Comment on above: Performed By: #### A RICARDO, CBC, GFR, ADIFF, BMP #### [address] [address] Sodium [Moles/Vol] 139 mmol/L Normal 136-145 [facility] Comment on above: Performed By: #### A RICARDO, CBC, GFR, ADIFF, BMP #### [address] [address] Total Protein 5.7 G/dL Normal 5.7-8.2 [facility] Comment on above: Performed By: #### A RICARDO, CBC, GFR, ADIFF, BMP #### [address] [address] Urea nitrogen [Mass/Vol] 19.0 mg/dL Normal 8.0-22.0 [facility] Comment on above: Performed By: #### A RICARDO, CBC, GFR, ADIFF, BMP #### [address] [address] LABORATORYOrdered By: SYSTEM SYSTEM on 05-01-2024 Albumin BCP dye [Mass/Vol] 3.1 G/dL Low 3.2 - 4.8 G/dL ADM SS Albumin/Globulin [Mass ratio] 1.2 {ratio} Normal 0.9 - 1.6 ratio ADM SS ALP [Catalytic activity/Vol] 66 U/L Normal 38 - 126 U/L ADM SS ALT No additional P-5'-P [Catalytic activity/Vol] 98 U/L High 12 - 55 U/L ADM SS AST [Catalytic activity/Vol] 25 U/L Normal 8 - 34 U/L ADM SS Bilirubin [Mass/Vol] 0.80 mg/dL Normal 0.20 - 1.20 mg/dL ADM SS Comment on above: Interpretive Data: U se of this assay is not recommended for patients undergoing treatment with eltrombopag due to the potential for falsely elevated results. Cholesterol [Mass/Vol] 117 mg/dL Normal 50 - 199 mg/dL ADM SS Comment on above: Interpretive Data: C holesterol Reference Interval: Less than 200 Desirable 200-239 Borderline high risk 240 and above High risk CK [Catalytic activity/Vol] 53 U/L Normal 7 - 185 U/L ADM Globulin 2.6 G/dL Normal 1.5 - 3.8 G/dL [facility] LDH Lactate to pyruvate reaction [Catalytic activity/Vol] 139 1 Normal 120 - 246 U/L [facility] Magnesium [Mass/Vol] 1.9 mg/dL Normal 1.6 - 2.4 mg/dL [facility] Phosphate [Mass/Vol] 3.3 mg/dL Normal 2.4 - 5.1 mg/dL [facility] Comment on above: Interpretive Data: * *Note - New Reference Range in effect 19 Prealbumin [Mass/Vol] 17.7 mg/dL Normal 10.0 - 40.0 mg/dL [facility] Comment on above: Interpretive Data: * *Note - New Reference Range in effect 19 Protein [Mass/Vol] 5.7 G/dL Normal 5.7 - 8.2 G/dL [facility] PT Coag (PPP) [Time] 13.8 s Normal 9.0 - 14.4 seconds [facility] Comment on above: Interpretive Data: E ffective 12/04/07, Protime results may be affected by some antibiotics (i.e. Ciprofloxacin, Azithromycin, Bactrim) which may potentiate the action of oral anticoagulants, with further increases in Protime/INR. PT International Ratio 1.2 ratio Invalid Interpretation Code [facility] Comment on above: Interpretive Data: Syed werner [employer] (CHEST, 1992, 102:[id number]) recommended therapeutic range for oral anticoagulant therapy is: LOW RISK: Prophylaxis of venous thrombosis INR: 2.0-3.0 Treatment of pulmonary embolism 2.0-3.0 Prevention of systemic embolism 2.0-3.0 HIGH RISK: Mechanical prosthetic valves 2.5-3.5 Triglyceride [Mass/Vol] 105 mg/dL Normal 3 - 149 mg/dL [facility] Uric Acid Lvl 6.4 mg/dL Normal 3.7 - 9.2 mg/dL [facility] Comment on above: Interpretive Data: * *Note - New Reference Range in effect 19 Basophils (Bld) [#/Vol] 0.0 103/mcL Normal 0.0 - 0.3 10^3/mcL [facility] Workflow SS Basophils/100 WBC (Bld) 0.5 % Normal 0.0 - 2.5 % [facility] SS Eosinophils (Bld) [#/Vol] 0.1 103/mcL Normal 0.0 - 0.7 10^3/mcL [facility] SS Eosinophils/100 WBC (Bld) 1.9 % Normal 0.0 - 6.0 % [facility] SS Erythrocyte distribution width (RBC) [Ratio] 12.7 % Normal 11.5 - 15.5 % [facility] SS Hematocrit (Bld) [Volume fraction] 43.9 % Normal 40.0 - 52.0 % [facility] Workflow SS Hemoglobin (Bld) [Mass/Vol] 15.6 G/dL Normal 13.0 - 17.5 G/dL [facility] SS Lymphocytes (Bld) [#/Vol] 1.0 103/mcL Normal 0.9 - 4.3 10^3/mcL [facility] SS Lymphocytes/100 WBC (Bld) 19.4 % Low 20.0 - 40.0 % [facility] SS MCH (RBC) [Entitic mass] 32.0 pg Normal 27.0 - 33.0 pg [facility] Workflow SS MCHC 35.6 G/dL Normal 32.0 - 36.0 G/dL [facility] SS MCV (RBC) [Entitic vol] 90.0 fL Normal 81.0 - 100.0 fL [facility]flow SS Monocytes (Bld) [#/Vol] 0.9 103/mcL Normal 0.1 - 1.4 10^3/mcL [facility] SS Monocytes/100 WBC (Bld) 17.9 % High 2.0 - 13.0 % [facility]flow SS Neutrophils (Bld) [#/Vol] 3.2 103/mcL Normal 2.3 - 8.1 10^3/mcL [facility] Workflow SS Neutrophils/100 WBC (Bld) 60.3 % Normal 50.0 - 75.0 % [facility] Workflow SS Platelet mean volume (Bld) [Entitic vol] 7.7 fL Normal 6.4 - 10.5 fL [facility] Workflow SS Platelets (Bld) [#/Vol] 225 103/mcL Normal 150 - 450 10^3/mcL [facility] Workflow SS RBC (Bld) [#/Vol] 4.87 106/mcL Normal 4.50 - 6.00 10^6/mcL [facility] Workflow SS WBC (Bld) [#/Vol] 5.3 103/mcL Normal 4.5 - 10.8 10^3/mcL [facility] Workflow SS LDHon 05-01-2024 LDH 139 U/L Normal 120-246 [facility] Comment on above: Performed By: #### A RICARDO, CBC, GFR, ADIFF, BMP #### [place] [address] MGon 05-01-2024 Magnesium [Mass/Vol] 1.9 mg/dL Normal 1.6-2.4 [facility] Comment on above: Performed By: #### A RICARDO, CBC, GFR, ADIFF, BMP #### [place] [address] Magnesium [Mass/Vol] 2.0 mg/dL Normal 1.6-2.4 [facility] Comment on above: Performed By: #### A RICARDO, CBC, ADIFF, MG, BMP, GFR #### [place] [address] PHOSon 05-01-2024 Phosphate [Mass/Vol] 3.3 mg/dL Normal 2.4-5.1 [facility] Comment on above: Result Comment: No te - New Reference Range in effect 19 Performed By: #### A RICARDO, CBC, GFR, ADIFF, BMP #### [place] [address] PRALBon 05-01-2024 Prealbumin [Mass/Vol] 17.7 mg/dL Normal 10.0-40.0 [facility] Comment on above: Result Comment: No te - New Reference Range in effect 19 Performed By: #### A RICARDO, CBC, GFR, ADIFF, BMP #### [place] [address] PROon 05-01-2024 INR Coag (PPP) [Relative time] 1.2 {INR} Normal [facility] Comment on above: Result Comment: [employer] [employer] (CHEST, 1991, 102:312S-25S) recommended therapeutic range for oral anticoagulant therapy is: LOW RISK: Prophylaxis of venous thrombosis INR: 2.0-3.0 Treatment of pulmonary embolism 2.0-3.0 Prevention of systemic embolism 2.0-3.0 HIGH RISK: Mechanical prosthetic valves 2.5-3.5 Performed By: #### A RICARDO, CBC, GFR, ADIFF, BMP #### [place] [id number] PT Coag (PPP) [Time] 13.8 s Normal 9.0-14.4 [facility] Comment on above: Result Comment: Effe ctive 12/04/07, Protime results may be affected by some antibiotics (i.e. Ciprofloxacin, Azithromycin, Bactrim) which may potentiate the action of oral anticoagulants, with further increases in Protime/INR. Performed By: #### A RICARDO, CBC, GFR, ADIFF, BMP #### [place] [address] TRIG 05-01-2024 Triglyceride [Mass/Vol] 105 mg/dL Normal 3-149 [facility] Comment on above: Performed By: #### A RICARDO, CBC, GFR, ADIFF, BMP #### [place] [address] URICon 05-01-2024 Uric Acid Lvl 6.4 mg/dL Normal 3.7-9.2 [facility] Comment on above: Result Comment: No te - New Reference Range in effect 19 Performed By: #### A RICARDO, CBC, GFR, ADIFF, BMP #### [place] [address] XR SMALL BOWEL W/ SERIAL NINA MSon 05-01-2024 XR SMALL BOWEL W/ SERIAL FILMS ORIGINAL EXAMINATION: SMALL BOWEL FOLLOW THROUGH SERIES 05/01/2024 TECHNIQUE: Small bowel follow through series was performed with overhead images and spot images. Direct supervision was provided by attending physician Dr. Cortez. FLUOROSCOPY DOSE AND TYPE: Radiation Exposure Index: No fluoroscopic images were obtained. COMPARISON: CT abdomen and pelvis April 30, 2024 HISTORY: ORDERING SYSTEM PROVIDED HISTORY: Reason for Exam: Evaluation of obstruction, status post right colectomy FINDINGS: [employer]ing [employer] Demonstrator image of the abdomen demonstrates markedly dilated small bowel throughout the abdomen. There appears to be a transition at the midportion of the abdomen which is better appreciated on CT. At 3 hours most of the small bowel is contrast filled. IMPRESSION: Mid to high-grade obstruction at the ileocolic anastomosis. I have personally reviewed the images of this examination and agree with the resident's findings and interpretation. Interpreted by: Jose Ramon Cortez MD Preliminary Report By: German Garza Electronically signed By Jose Ramon Cortez MD Dictated Date: 05/01/2024 1:04:04 PM Prelim Date: 05/01/2024 4:50:43 PM Sign Date: 05/01/2024 4:50:43 PM Ordering Provider: DEREK Olsen [facility] MA[facility] .Auto Diffon 04-30-2024 Basophil, Absolute 0.0 10 3/mcL Normal 0.0-0.3 [facility] Comment on above: Performed By: #### A RICARDO, CBC, GFR, ADIFF, BMP #### [address] [address] Basophils/100 WBC (Bld) 0.3 % Normal 0.0-2.5 [facility] Comment on above: Performed By: #### A RICARDO, CBC, GFR, ADIFF, BMP #### [address] [address] Eosinophil, Absolute 0.1 10 3/mcL Normal 0.0-0.7 [facility] Comment on above: Performed By: #### A RICARDO, CBC, GFR, ADIFF, BMP #### [address] [address] Eosinophils/100 WBC (Bld) 0.8 % Normal 0.0-6.0 [facility] Comment on above: Performed By: #### A RICARDO, CBC, GFR, ADIFF, BMP #### [address] [address] Lymphocyte, Absolute 1.2 10 3/mcL Normal 0.9-4.3 [facility] Comment on above: Performed By: #### A RICARDO, CBC, GFR, ADIFF, BMP #### [address] [address] Lymphocytes/100 WBC (Bld) 14.1 % Low 20.0-40.0 [facility] Comment on above: Performed By: #### A RICARDO, CBC, GFR, ADIFF, BMP #### [address] [address] Monocyte, Absolute 1.2 10 3/mcL Normal 0.1-1.4 [facility] Comment on above: Performed By: #### A RICARDO, CBC, GFR, ADIFF, BMP #### [address] [address] Monocytes/100 WBC (Bld) 14.8 % High 2.0-13.0 [facility] Comment on above: Performed By: #### A RICARDO, CBC, GFR, ADIFF, BMP #### [address] [address] Neutrophils/100 WBC (Bld) 70.0 % Normal 50.0-75.0 [facility] Comment on above: Performed By: #### A RICARDO, CBC, GFR, ADIFF, BMP #### [address] [address] .GFRon 04-30-2024 GFR Non- >60 [facility] MAIN Comment on above: Result Comment: GFR Population mean for , Non- Americans Ages 20-29 = 116 mL/min/1.73 sq.m. Ages 30-39 = 107 mL/min/1.73 sq.m. Ages 40-49 = 99 mL/min/1.73 sq.m. Ages 50-59 = 93 mL/min/1.73 sq.m. Ages 60-69 = 85 mL/min/1.73 sq.m. Ages 70+ = 75 mL/min/1.73 sq.m. Chronic Kidney Disease: Less than 60 mL/min/1.73 square meters End Stage Renal Disease: Less than 15 mL/min/1.73 square meters Performed By: #### A RICARDO, CBC, ADIFF, MG, BMP, GFR #### [address] [address] GFR >60 [facility] MAIN Comment on above: Result Comment: GFR Population mean for , Non- Americans Ages 20-29 = 116 mL/min/1.73 sq.m. Ages 30-39 = 107 mL/min/1.73 sq.m. Ages 40-49 = 99 mL/min/1.73 sq.m. Ages 50-59 = 93 mL/min/1.73 sq.m. Ages 60-69 = 85 mL/min/1.73 sq.m. Ages 70+ = 75 mL/min/1.73 sq.m. Chronic Kidney Disease: Less than 60 mL/min/1.73 square meters End Stage Renal Disease: Less than 15 mL/min/1.73 square meters Performed By: #### A RICARDO, CBC, ADIFF, MG, BMP, GFR #### [address] [address] GFR >60 [facility] MAIN Comment on above: Result Comment: GFR Population mean for , Non- Americans Ages 20-29 = 116 mL/min/1.73 sq.m. Ages 30-39 = 107 mL/min/1.73 sq.m. Ages 40-49 = 99 mL/min/1.73 sq.m. Ages 50-59 = 93 mL/min/1.73 sq.m. Ages 60-69 = 85 mL/min/1.73 sq.m. Ages 70+ = 75 mL/min/1.73 sq.m. Chronic Kidney Disease: Less than 60 mL/min/1.73 square meters End Stage Renal Disease: Less than 15 mL/min/1.73 square meters Performed By: #### A RICARDO, CBC, GFR, ADIFF, BMP #### [address] [address] GFR Non- >60 [facility] MAIN Comment on above: Result Comment: GFR Population mean for , Non- Americans Ages 20-29 = 116 mL/min/1.73 sq.m. Ages 30-39 = 107 mL/min/1.73 sq.m. Ages 40-49 = 99 mL/min/1.73 sq.m. Ages 50-59 = 93 mL/min/1.73 sq.m. Ages 60-69 = 85 mL/min/1.73 sq.m. Ages 70+ = 75 mL/min/1.73 sq.m. Chronic Kidney Disease: Less than 60 mL/min/1.73 square meters End Stage Renal Disease: Less than 15 mL/min/1.73 square meters Performed By: #### A RICARDO, CBC, GFR, ADIFF, BMP #### [place] [address] .MDWon 04-30-2024 Monocyte Distribution Width 17.21 Normal 0.00-20.00 [facility]IN Comment on above: Result Comment: For ED adult patients suspected of sepsis, MDW<=20.0 does not rule out sepsis or risk of sepsis Performed By: #### A RICARDO, CBC, GFR, ADIFF, BMP #### [place] [address] .NEUABSon 04-30-2024 Neutrophil, Absolute 5.9 10 3/mcL Normal 2.3-8.1 [facility] Comment on above: Performed By: #### A RICARDO, CBC, GFR, ADIFF, BMP #### [place] [address] CAIONon 04-30-2024 Calcium Ionized 1.13 mmol/L Normal 1.12-1.32 [facility] Comment on above: Performed By: #### A RICARDO, CBC, GFR, ADIFF, BMP #### [place] [address] CBCon 04-30-2024 Erythrocyte distribution width (RBC) [Ratio] 12.6 % Normal 11.5-15.5 [facility] Comment on above: Performed By: #### A RICARDO, CBC, GFR, ADIFF, BMP #### [place] [address] Hematocrit (Bld) [Volume fraction] 51.9 % Normal 40.0-52.0 [facility] Comment on above: Performed By: #### A RICARDO, CBC, GFR, ADIFF, BMP #### [place] [address] Hgb 18.2 G/dL High 13.0-17.5 [facility] Comment on above: Performed By: #### A RICARDO, CBC, GFR, ADIFF, BMP #### [place] [address] MCH (RBC) [Entitic mass] 31.3 pg Normal 27.0-33.0 [facility] Comment on above: Performed By: #### A RICARDO, CBC, GFR, ADIFF, BMP #### [place] [address] MCHC 35.1 G/dL Normal 32.0-36.0 [facility] Comment on above: Performed By: #### A RICARDO, CBC, GFR, ADIFF, BMP #### [place] [address] MCV (RBC) [Entitic vol] 89.2 fL Normal 81.0-100.0 [facility] Comment on above: Performed By: #### A RICARDO, CBC, GFR, ADIFF, BMP #### [place] [address] Platelet 331 10 3/mcL Normal 150-450 [facility] Comment on above: Performed By: #### A RICARDO, CBC, GFR, ADIFF, BMP #### [place] [address] Platelet mean volume (Bld) [Entitic vol] 7.9 fL Normal 6.4-10.5 [facility] Comment on above: Performed By: #### A RICARDO, CBC, GFR, ADIFF, BMP #### [place] [address] RBC 5.82 10 6/mcL Normal 4.50-6.00 [facility] Comment on above: Performed By: #### A RICARDO, CBC, GFR, ADIFF, BMP #### [place] [address] WBC 8.4 10 3/mcL Normal 4.5-10.8 [facility] Comment on above: Performed By: #### A RICARDO, CBC, GFR, ADIFF, BMP #### [place] [address] CHOLon 04-30-2024 Cholesterol [Mass/Vol] 139 mg/dL Normal 50-199 [facility] Comment on above: Result Comment: Chol esterol Reference Interval: Less than 200 Desirable 200-239 Borderline high risk 240 and above High risk Performed By: #### A RICARDO, CBC, ADIFF, MG, BMP, GFR #### [address] [address] CKon 04-30-2024 CK [Catalytic activity/Vol] 55 U/L Normal 7-185 [facility] Comment on above: Performed By: #### A RICARDO, CBC, ADIFF, MG, BMP, GFR #### [address] [address] CMPon 04-30-2024 Albumin Level 3.6 G/dL Normal 3.2-4.8 [facility] Comment on above: Performed By: #### A RICARDO, CBC, ADIFF, MG, BMP, GFR #### [place] [id number] Albumin/Globulin [Mass ratio] 1.1 {ratio} Normal 0.9-1.6 [facility] Comment on above: Performed By: #### A RICARDO, CBC, ADIFF, MG, BMP, GFR #### [place] [id number] ALP [Catalytic activity/Vol] 75 U/L Normal 38-126 [facility] Comment on above: Performed By: #### A RICARDO, CBC, ADIFF, MG, BMP, GFR #### [place] [id number] ALT [Catalytic activity/Vol] 125 U/L High 12-55 [facility] Comment on above: Performed By: #### A RICARDO, CBC, ADIFF, MG, BMP, GFR #### [place] [id number] AST [Catalytic activity/Vol] 34 U/L Normal 8-34 [facility] Comment on above: Performed By: #### A RICARDO, CBC, ADIFF, MG, BMP, GFR #### [place] [id number] Bili Total 0.90 mg/dL Normal 0.20-1.20 [facility] Comment on above: Result Comment: Use of this assay is not recommended for patients undergoing treatment with eltrombopag due to the potential for falsely elevated results. Performed By: #### A RICARDO, CBC, ADIFF, MG, BMP, GFR #### [place] [address] BUN/Creatinine Ratio 29.2 ratio High 10.0-22.0 [facility] Comment on above: Performed By: #### A RICARDO, CBC, ADIFF, MG, BMP, GFR #### [place] [id number] Calcium [Mass/Vol] 9.2 mg/dL Normal 8.7-10.4 [facility] Comment on above: Performed By: #### A RICARDO, CBC, ADIFF, MG, BMP, GFR #### [place] [id number] Chloride [Moles/Vol] 103 mmol/L Normal 98-110 [facility] Comment on above: Performed By: #### A RICARDO, CBC, ADIFF, MG, BMP, GFR #### [place] [id number] CO2 [Moles/Vol] 25 mmol/L Normal 22-32 [facility] Comment on above: Performed By: #### A RICARDO, CBC, ADIFF, MG, BMP, GFR #### [place] [address] Creatinine [Mass/Vol] 0.72 mg/dL Normal 0.60-1.40 [facility] Comment on above: Result Comment: Test ing performed on Vaprema analyzer using enzymatic creatinine methodology. Performed By: #### A RICARDO, CBC, ADIFF, MG, BMP, GFR #### [place] [address] Electrolyte Balance 7.0 mEq/L Normal 4.0-15.0 [facility] Comment on above: Performed By: #### A RICARDO, CBC, ADIFF, MG, BMP, GFR #### [place] [id number] Globulin 3.3 G/dL Normal 1.5-3.8 [facility] Comment on above: Performed By: #### A RICARDO, CBC, ADIFF, MG, BMP, GFR #### [place] [id number] Glucose [Mass/Vol] 118 mg/dL High 70-110 [facility] Comment on above: Performed By: #### A RICARDO, CBC, ADIFF, MG, BMP, GFR #### [address] [address] Potassium [Moles/Vol] 3.6 mmol/L Normal 3.5-5.0 [facility] Comment on above: Performed By: #### A RICARDO, CBC, ADIFF, MG, BMP, GFR #### [address] [address] Sodium [Moles/Vol] 135 mmol/L Low 136-145 [facility] Comment on above: Performed By: #### A RICARDO, CBC, ADIFF, MG, BMP, GFR #### [address] [address] Total Protein 6.9 G/dL Normal 5.7-8.2 [facility] Comment on above: Performed By: #### A RICARDO, CBC, ADIFF, MG, BMP, GFR #### [address] [address] Urea nitrogen [Mass/Vol] 21.0 mg/dL Normal 8.0-22.0 [facility] Comment on above: Performed By: #### A RICARDO, CBC, ADIFF, MG, BMP, GFR #### [address] [address] Albumin Level 3.9 G/dL Normal 3.2-4.8 [facility] Comment on above: Performed By: #### A RICARDO, CBC, GFR, ADIFF, BMP #### [address] [address] Albumin/Globulin [Mass ratio] 1.1 {ratio} Normal 0.9-1.6 [facility] Comment on above: Performed By: #### A RICARDO, CBC, GFR, ADIFF, BMP #### [address] [address] ALP [Catalytic activity/Vol] 82 U/L Normal 38-126 [facility] Comment on above: Performed By: #### A RICARDO, CBC, GFR, ADIFF, BMP #### [address] [address] ALT [Catalytic activity/Vol] 139 U/L High 12-55 [facility] Comment on above: Performed By: #### A RICARDO, CBC, GFR, ADIFF, BMP #### [address] [address] AST [Catalytic activity/Vol] 37 U/L High 8-34 [facility] Comment on above: Performed By: #### A RICARDO, CBC, GFR, ADIFF, BMP #### [address] [address] Bili Total 1.00 mg/dL Normal 0.20-1.20 [facility] Comment on above: Result Comment: Use of this assay is not recommended for patients undergoing treatment with eltrombopag due to the potential for falsely elevated results. Performed By: #### A RICARDO, CBC, GFR, ADIFF, BMP #### [address] [address] BUN/Creatinine Ratio 29.5 ratio High 10.0-22.0 [facility] Comment on above: Performed By: #### A RICARDO, CBC, GFR, ADIFF, BMP #### [address] [address] Calcium [Mass/Vol] 9.7 mg/dL Normal 8.7-10.4 [facility] Comment on above: Performed By: #### A RICARDO, CBC, GFR, ADIFF, BMP #### [address] [address] Chloride [Moles/Vol] 100 mmol/L Normal 98-110 [facility] Comment on above: Performed By: #### A RICARDO, CBC, GFR, ADIFF, BMP #### [address] [address] CO2 [Moles/Vol] 21 mmol/L Low 22-32 [facility] Comment on above: Performed By: #### A RICARDO, CBC, GFR, ADIFF, BMP #### [address] [address] Creatinine [Mass/Vol] 0.78 mg/dL Normal 0.60-1.40 [facility] Comment on above: Result Comment: Test ing performed on Vaprema analyzer using enzymatic creatinine methodology. Performed By: #### A RICARDO, CBC, GFR, ADIFF, BMP #### [address] [address] Electrolyte Balance 12.0 mEq/L Normal 4.0-15.0 [facility] Comment on above: Performed By: #### A RICARDO, CBC, GFR, ADIFF, BMP #### [address] [address] Globulin 3.5 G/dL Normal 1.5-3.8 [facility] Comment on above: Performed By: #### A RICARDO, CBC, GFR, ADIFF, BMP #### [address] [address] Glucose [Mass/Vol] 144 mg/dL High 70-110 [facility] Comment on above: Performed By: #### A RICARDO, CBC, GFR, ADIFF, BMP #### [address] [address] Potassium [Moles/Vol] 3.4 mmol/L Low 3.5-5.0 [facility] Comment on above: Performed By: #### A RICARDO, CBC, GFR, ADIFF, BMP #### [address] [address] Sodium [Moles/Vol] 133 mmol/L Low 136-145 [facility] Comment on above: Performed By: #### A RICARDO, CBC, GFR, ADIFF, BMP #### [address] [address] Total Protein 7.4 G/dL Normal 5.7-8.2 [facility] Comment on above: Performed By: #### A RICARDO, CBC, GFR, ADIFF, BMP #### [address] [address] Urea nitrogen [Mass/Vol] 23.0 mg/dL High 8.0-22.0 [facility] Comment on above: Performed By: #### A RICARDO, CBC, GFR, ADIFF, BMP #### [address] [place], [place] [address] CT ABD/PELVIS W/ IV CONTRAST ONLYon 04-30-2024 CT ABD/PELVIS W/ IV CONTRAST ONLY ORIGINAL EXAMINATION: CT OF THE ABDOMEN AND PELVIS WITH CONTRAST 04/30/2024 1:54 pm TECHNIQUE: CT of the abdomen and pelvis was performed with the administration of intravenous contrast. Multiplanar reformatted images are provided for review. Automated exposure control, iterative reconstruction, and/or weight based adjustment of the mA/kV was utilized to reduce the radiation dose to as low as reasonably achievable. COMPARISON: April 16, 2024 HISTORY: ORDERING SYSTEM PROVIDED HISTORY: Reason for Exam: C.O PAIN AND DISTENDED ABD SINCE SURGERY ON COLON 5 DAYS AGO TO REMOVE MASS IN COLON pain/bloating FINDINGS: No osseous abnormality. Small areas of atelectasis are visible at the lung bases. Liver, spleen, adrenal glands, pancreas, and kidneys are unremarkable. No adenopathy is evident. A small amount of free pelvic fluid is evident. Patient is status post right hemicolectomy. Remaining portions of the colon are normal in caliber. There is diffuse prominent small bowel dilatation, extending to the ileocolic anastomosis. No small bowel wall thickening or pneumatosis is visible. No free air seen. No other GI tract abnormality seen. No additional contributory finding. IMPRESSION: Mid to high-grade obstruction of the distal ileum at the region of the ileocolic anastomosis. No pneumatosis or free air. Interpreted by: Jose Ramon Cortez MD Preliminary Report By: Jose Ramon Cortez MD Electronically signed By Jose Ramon Cortez MD Dictated Date: 04/30/2024 1:58:18 PM Prelim Date: 04/30/2024 2:01:39 PM Sign Date: 04/30/2024 2:01:39 PM Ordering Provider: KALI CHAPMAN Normal [facility] LABORATORYOrdered By: Otoniel Reed on 04-30-2024 Appearance (U) Clear (04/30/24 6:36 PM) Normal Clear AH Auto Urine SS Bilirubin Ql (U) Negative (04/30/24 6:36 PM) Normal Neg-Trace AH Auto Urine SS Color (U) Yellow (04/30/24 6:36 PM) Normal AH Auto Urine SS Glucose Test strip (U) [Mass/Vol] Negative Normal Negative AH Auto Urine SS Hemoglobin Auto test strip (U) [Mass/Vol] Negative (04/30/24 6:36 PM) Normal Neg-Trace AH Auto Urine SS Ketones Ql (U) 15 mg/dL Invalid Interpretation Code Neg-Trace AH Auto Urine SS UA Leuk Est Negative (04/30/24 6:36 PM) Normal Negative AH Auto Urine SS UA Nitrite Negative (04/30/24 6:36 PM) Normal Negative AH Auto Urine SS UA pH 5.5 (04/30/24 6:36 PM) Normal 5.0 - 8.0 AH Auto Urine SS UA Protein Trace mg/dL Normal Negative AH Auto Urine SS UA Spec Grav >=1.030 *ABN* (04/30/24 6:36 PM) Invalid Interpretation Code 1.006-1.02 9 AH Auto Urine SS UA Specimen Type Clean Catch (04/30/24 6:36 PM) Normal AH Auto Urine SS UA Urobilinogen 0.2 E.U./dL Normal 0.2-1.0 AH Auto Urine SS LABORATORYOrdered By: SYSTEM SYSTEM on 04-30-2024 Albumin BCP dye [Mass/Vol] 3.6 G/dL Normal 3.2 - 4.8 G/dL ADM SS Albumin/Globulin [Mass ratio] 1.1 {ratio} Normal 0.9 - 1.6 ratio AH ADM SS ALP [Catalytic activity/Vol] 75 U/L Normal 38 - 126 U/L ADM SS ALT No additional P-5'-P [Catalytic activity/Vol] 125 U/L High 12 - 55 U/L ADM SS AST [Catalytic activity/Vol] 34 U/L Normal 8 - 34 U/L ADM SS Bilirubin [Mass/Vol] 0.90 mg/dL Normal 0.20 - 1.20 mg/dL ADM SS Comment on above: Interpretive Data: U se of this assay is not recommended for patients undergoing treatment with eltrombopag due to the potential for falsely elevated results. Cholesterol [Mass/Vol] 139 mg/dL Normal 50 - 199 mg/dL ADM SS Comment on above: Interpretive Data: C holesterol Reference Interval: Less than 200 Desirable 200-239 Borderline high risk 240 and above High risk CK [Catalytic activity/Vol] 55 U/L Normal 7 - 185 U/L ADM SS Globulin 3.3 G/dL Normal 1.5 - 3.8 G/dL AH ADM SS LDH Lactate to pyruvate reaction [Catalytic activity/Vol] 200 1 Normal 120 - 246 U/L [facility] Phosphate [Mass/Vol] 4.2 mg/dL Normal 2.4 - 5.1 mg/dL [facility] Comment on above: Interpretive Data: * *Note - New Reference Range in effect 19 Prealbumin [Mass/Vol] 22.1 mg/dL Normal 10.0 - 40.0 mg/dL [facility] Comment on above: Interpretive Data: * *Note - New Reference Range in effect 19 Protein [Mass/Vol] 6.9 G/dL Normal 5.7 - 8.2 G/dL [facility] PT Coag (PPP) [Time] 13.9 s Normal 9.0 - 14.4 seconds [facility] Comment on above: Interpretive Data: E ffective 12/04/07, Protime results may be affected by some antibiotics (i.e. Ciprofloxacin, Azithromycin, Bactrim) which may potentiate the action of oral anticoagulants, with further increases in Protime/INR. PT International Ratio 1.2 ratio Invalid Interpretation Code [facility] Comment on above: Interpretive Data: Syed werner [employer] (CHEST, 1992, 102:[id number]) recommended therapeutic range for oral anticoagulant therapy is: LOW RISK: Prophylaxis of venous thrombosis INR: 2.0-3.0 Treatment of pulmonary embolism 2.0-3.0 Prevention of systemic embolism 2.0-3.0 HIGH RISK: Mechanical prosthetic valves 2.5-3.5 Triglyceride [Mass/Vol] 118 mg/dL Normal 3 - 149 mg/dL [facility] Uric Acid Lvl 7.7 mg/dL Normal 3.7 - 9.2 mg/dL [facility] Comment on above: Interpretive Data: * *Note - New Reference Range in effect 19 Lipase [Catalytic activity/Vol] 95 U/L High 12 - 53 U/L [facility] Comment on above: Interpretive Data: * *Note - New Reference Range in effect 19 Monocyte distribution width Auto (Bld) [Entitic vol] 17.21 1 Normal 0.00 - 20.00 [facility] Comment on above: Result Comment: For ED adult patients suspected of sepsis, MDW<=20.0 does not rule out sepsis or risk of sepsis LABORATORYOrdered By: Justin Lala on 04-30-2024 Calcium Ionized 1.13 mmol/L Normal 1.12 - 1.32 mmol/L AH Main Rapid Comm SS LDHon 04-30-2024 LDH 200 U/L Normal 120-246 [facility] Comment on above: Performed By: #### A RICARDO, CBC, ADIFF, MG, BMP, GFR #### [address] [address] LIPon 04-30-2024 Lipase Level 95 U/L High 12-53 [facility] Comment on above: Result Comment: No te - New Reference Range in effect 19 Performed By: #### A RICARDO, CBC, GFR, ADIFF, BMP #### [address] [address] MGon 04-30-2024 Magnesium [Mass/Vol] 2.0 mg/dL Normal 1.6-2.4 [facility] Comment on above: Performed By: #### A RICARDO, CBC, ADIFF, MG, BMP, GFR #### [address] [address] Magnesium [Mass/Vol] 2.0 mg/dL Normal 1.6-2.4 [facility] Comment on above: Performed By: #### A RICARDO, CBC, GFR, ADIFF, BMP #### [address] [address] PHOSon 04-30-2024 Phosphate [Mass/Vol] 4.2 mg/dL Normal 2.4-5.1 [facility] Comment on above: Result Comment: No te - New Reference Range in effect 19 Performed By: #### A RICARDO, CBC, ADIFF, MG, BMP, GFR #### [address] [address] PRALBon 04-30-2024 Prealbumin [Mass/Vol] 22.1 mg/dL Normal 10.0-40.0 [facility] Comment on above: Result Comment: No te - New Reference Range in effect 20 Performed By: #### A RICARDO, CBC, ADIFF, MG, BMP, GFR #### [address] [address] PROon 04-30-2024 INR Coag (PPP) [Relative time] 1.2 {INR} Normal [facility] Comment on above: Result Comment: [employer] (CHEST, 1991, [id number]) recommended therapeutic range for oral anticoagulant therapy is: LOW RISK: Prophylaxis of venous thrombosis INR: 2.0-3.0 Treatment of pulmonary embolism 2.0-3.0 Prevention of systemic embolism 2.0-3.0 HIGH RISK: Mechanical prosthetic valves 2.5-3.5 Performed By: #### A RICARDO, CBC, ADIFF, MG, BMP, GFR #### [place] [address] PT Coag (PPP) [Time] 13.9 s Normal 9.0-14.4 [facility] Comment on above: Result Comment: Effe ctive 12/04/07, Protime results may be affected by some antibiotics (i.e. Ciprofloxacin, Azithromycin, Bactrim) which may potentiate the action of oral anticoagulants, with further increases in Protime/INR. Performed By: #### A RICARDO, CBC, ADIFF, MG, BMP, GFR #### [place] [address] TRIG 04-30-2024 Triglyceride [Mass/Vol] 118 mg/dL Normal 3-149 [facility] Comment on above: Performed By: #### A RICARDO, CBC, ADIFF, MG, BMP, GFR #### [place] [id number] UAon 04-30-2024 Color (U) Yellow Normal [facility] Comment on above: Performed By: #### A RICARDO, CBC, ADIFF, MG, BMP, GFR #### [place] [id number] Glucose (U) [Mass/Vol] Negative Normal Negative [facility] Comment on above: Performed By: #### A RICARDO, CBC, ADIFF, MG, BMP, GFR #### [place] [id number] Ketones Ql (U) 15 mg/dL Abnormal Neg-Trace [facility] Comment on above: Performed By: #### A RICARDO, CBC, ADIFF, MG, BMP, GFR #### [place] [address] UA Appear Clear Normal Clear [facility] Comment on above: Performed By: #### A RICARDO, CBC, ADIFF, MG, BMP, GFR #### [place] [address] UA Blood Negative Normal Neg-Trace [facility] Comment on above: Performed By: #### A RICARDO, CBC, ADIFF, MG, BMP, GFR #### [place] [address] UA Leuk Est Negative Normal Negative [facility] Comment on above: Performed By: #### A RICARDO, CBC, ADIFF, MG, BMP, GFR #### [place] [address] UA Nitrite Negative Normal Negative [facility] Comment on above: Performed By: #### A RICARDO, CBC, ADIFF, MG, BMP, GFR #### [place] [address] UA pH 5.5 Normal 5.0 - 8.0 [facility] Comment on above: Performed By: #### A RICARDO, CBC, ADIFF, MG, BMP, GFR #### [place] [address] UA Protein Trace Normal Negative [facility] Comment on above: Performed By: #### A RICARDO, CBC, ADIFF, MG, BMP, GFR #### [place] [address] UA Spec Grav >=1.030 Abnormal 1.006-1.02 9 [facility] Comment on above: Performed By: #### A RICARDO, CBC, ADIFF, MG, BMP, GFR #### [place] [address] UA Specimen Type Clean Catch Normal [facility] Comment on above: Performed By: #### A RICARDO, CBC, ADIFF, MG, BMP, GFR #### [address] [address] UA Urobilinogen 0.2 E.U./dL Normal 0.2-1.0 [facility] Comment on above: Performed By: #### A RICARDO, CBC, ADIFF, MG, BMP, GFR #### [address] [address] Urobilinogen (U) [Mass/Vol] Negative Normal Neg-Trace [facility] Comment on above: Performed By: #### A RICARDO, CBC, ADIFF, MG, BMP, GFR #### [place] [address] URICon 04-30-2024 Uric Acid Lvl 7.7 mg/dL Normal 3.7-9.2 [facility] Comment on above: Result Comment: No te - New Reference Range in effect 19 Performed By: #### A RICARDO, CBC, ADIFF, MG, BMP, GFR #### [place] [address] .Auto Diffon 04-27-2024 Basophil, Absolute 0.0 10 3/mcL Normal 0.0-0.3 [facility] Comment on above: Performed By: #### A RICARDO, CBC, GFR, ADIFF, BMP #### [address] [address] Basophils/100 WBC (Bld) 0.2 % Normal 0.0-2.5 [facility] Comment on above: Performed By: #### A RICARDO, CBC, GFR, ADIFF, BMP #### [address] [address] Eosinophil, Absolute 0.1 10 3/mcL Normal 0.0-0.7 [facility] Comment on above: Performed By: #### A RICARDO, CBC, GFR, ADIFF, BMP #### [address] [address] Eosinophils/100 WBC (Bld) 0.7 % Normal 0.0-6.0 [facility] Comment on above: Performed By: #### A RICARDO, CBC, GFR, ADIFF, BMP #### [address] [address] Lymphocyte, Absolute 1.1 10 3/mcL Normal 0.9-4.3 [facility] Comment on above: Performed By: #### A RICARDO, CBC, GFR, ADIFF, BMP #### [address] [address] Lymphocytes/100 WBC (Bld) 10.4 % Low 20.0-40.0 [facility] Comment on above: Performed By: #### A RICARDO, CBC, GFR, ADIFF, BMP #### [address] [address] Monocyte, Absolute 0.9 10 3/mcL Normal 0.1-1.4 [facility] Comment on above: Performed By: #### A RICARDO, CBC, GFR, ADIFF, BMP #### [address] [address] Monocytes/100 WBC (Bld) 9.1 % Normal 2.0-13.0 [facility] Comment on above: Performed By: #### A RICARDO, CBC, GFR, ADIFF, BMP #### [address] [address] Neutrophils/100 WBC (Bld) 79.6 % High 50.0-75.0 [facility] Comment on above: Performed By: #### A RICARDO, CBC, GFR, ADIFF, BMP #### [address] [address] .GFRon 04-27-2024 GFR >60 Normal [facility] Comment on above: Result Comment: GFR Population mean for , Non- Americans Ages 20-29 = 116 mL/min/1.73 sq.m. Ages 30-39 = 107 mL/min/1.73 sq.m. Ages 40-49 = 99 mL/min/1.73 sq.m. Ages 50-59 = 93 mL/min/1.73 sq.m. Ages 60-69 = 85 mL/min/1.73 sq.m. Ages 70+ = 75 mL/min/1.73 sq.m. Chronic Kidney Disease: Less than 60 mL/min/1.73 square meters End Stage Renal Disease: Less than 15 mL/min/1.73 square meters Performed By: #### A RICARDO, CBC, GFR, ADIFF, BMP #### [address] [address] GFR Non- >60 Normal [facility] Comment on above: Result Comment: GFR Population mean for , Non- Americans Ages 20-29 = 116 mL/min/1.73 sq.m. Ages 30-39 = 107 mL/min/1.73 sq.m. Ages 40-49 = 99 mL/min/1.73 sq.m. Ages 50-59 = 93 mL/min/1.73 sq.m. Ages 60-69 = 85 mL/min/1.73 sq.m. Ages 70+ = 75 mL/min/1.73 sq.m. Chronic Kidney Disease: Less than 60 mL/min/1.73 square meters End Stage Renal Disease: Less than 15 mL/min/1.73 square meters Performed By: #### A RICARDO, CBC, GFR, ADIFF, BMP #### [address] [address] .NEUABSon 04-27-2024 Neutrophil, Absolute 8.2 10 3/mcL High 2.3-8.1 [facility] Comment on above: Performed By: #### A RICARDO, CBC, GFR, ADIFF, BMP #### [address] [address] BMPon 04-27-2024 BUN/Creatinine Ratio 19.1 ratio Normal 10.0-22.0 [facility] Comment on above: Performed By: #### A RICARDO, CBC, GFR, ADIFF, BMP #### [address] [address] Calcium [Mass/Vol] 9.4 mg/dL Normal 8.7-10.4 [facility] Comment on above: Performed By: #### A RICARDO, CBC, GFR, ADIFF, BMP #### [address] [address] Chloride [Moles/Vol] 106 mmol/L Normal 98-110 [facility] Comment on above: Performed By: #### A RICARDO, CBC, GFR, ADIFF, BMP #### [address] [address] CO2 [Moles/Vol] 23 mmol/L Normal 22-32 [facility] Comment on above: Performed By: #### A RICARDO, CBC, GFR, ADIFF, BMP #### [address] [address] Creatinine [Mass/Vol] 0.94 mg/dL Normal 0.60-1.40 [facility] Comment on above: Result Comment: Test ing performed on Vaprema analyzer using enzymatic creatinine methodology. Performed By: #### A RICARDO, CBC, GFR, ADIFF, BMP #### [address] [address] Electrolyte Balance 10.0 mEq/L Normal 4.0-15.0 [facility] Comment on above: Performed By: #### A RICARDO, CBC, GFR, ADIFF, BMP #### [place] [id number] Glucose [Mass/Vol] 119 mg/dL High 70-110 [facility] Comment on above: Performed By: #### A RICARDO, CBC, GFR, ADIFF, BMP #### [address] [address] Potassium [Moles/Vol] 4.0 mmol/L Normal 3.5-5.0 [facility] Comment on above: Performed By: #### A RICARDO, CBC, GFR, ADIFF, BMP #### [address] [address] Sodium [Moles/Vol] 139 mmol/L Normal 136-145 [facility] Comment on above: Performed By: #### A RICARDO, CBC, GFR, ADIFF, BMP #### [address] [address] Urea nitrogen [Mass/Vol] 18.0 mg/dL Normal 8.0-22.0 [facility] Comment on above: Performed By: #### A RICARDO, CBC, GFR, ADIFF, BMP #### [address] [address] CBCon 12-07-2024 Erythrocyte distribution width (RBC) [Ratio] 12.7 % Normal 11.5-15.5 [facility] Comment on above: Performed By: #### A RICARDO, CBC, GFR, ADIFF, BMP #### [place] [id number] Hematocrit (Bld) [Volume fraction] 54.9 % High 40.0-52.0 [facility] Comment on above: Performed By: #### A RICARDO, CBC, GFR, ADIFF, BMP #### [place] [id number] Hgb 18.7 G/dL High 13.0-17.5 [facility] Comment on above: Performed By: #### A RICARDO, CBC, GFR, ADIFF, BMP #### [place] [id number] MCH (RBC) [Entitic mass] 31.3 pg Normal 27.0-33.0 [facility] Comment on above: Performed By: #### A RICARDO, CBC, GFR, ADIFF, BMP #### [place] [address] MCHC 34.1 G/dL Normal 32.0-36.0 [facility] Comment on above: Performed By: #### A RICARDO, CBC, GFR, ADIFF, BMP #### [place] [id number] MCV (RBC) [Entitic vol] 91.8 fL Normal 81.0-100.0 [facility] Comment on above: Performed By: #### A RICARDO, CBC, GFR, ADIFF, BMP #### [place] [id number] Platelet 250 10 3/mcL Normal 150-450 [facility] Comment on above: Performed By: #### A RICARDO, CBC, GFR, ADIFF, BMP #### [place] [id number] Platelet mean volume (Bld) [Entitic vol] 8.0 fL Normal 6.4-10.5 [facility] Comment on above: Performed By: #### A RICARDO, CBC, GFR, ADIFF, BMP #### [place] [address] [place] [address] RBC 5.99 10 6/mcL Normal 4.50-6.00 [facility] Comment on above: Performed By: #### A RICARDO, CBC, GFR, ADIFF, BMP #### [facility] [address] [place] [address] WBC 10.3 10 3/mcL Normal 4.5-10.8 [facility] Comment on above: Performed By: #### A RICARDO, CBC, GFR, ADIFF, BMP #### [facility] [address] [place] [id number] LABORATORYOrdered By: SYSTEM SYSTEM on 04-27-2024 Basophils (Bld) [#/Vol] 0.0 103/mcL Normal 0.0 - 0.3 10^3/mcL Workflow SS Basophils/100 WBC (Bld) 0.2 % Normal 0.0 - 2.5 % AH Workflow SS Calcium [Mass/Vol] 9.4 mg/dL Normal 8.7 - 10. 4 mg/dL ADM SS Chloride [Moles/Vol] 106 mmol/L Normal 98 - 110 mEq/L ADM SS CO2 [Moles/Vol] 23 mmol/L Normal 22 - 32 mEq/L ADM SS Creatinine [Mass/Vol] 0.94 mg/dL Normal 0.60 - 1.40 mg/dL ADM SS Comment on above: Interpretive Data: T esting performed on Vaprema analyzer using enzymatic creatinine methodology. Electrolyte Balance 10.0 mEq/L Normal 4.0 - 15 .0 mEq/L ADM SS Eosinophils (Bld) [#/Vol] 0.1 103/mcL Normal 0.0 - 0.7 10^3/mcL AH Workflow SS Eosinophils/100 WBC (Bld) 0.7 % Normal 0.0 - 6.0 % AH Workflow SS Erythrocyte distribution width (RBC) [Ratio] 12.7 % Normal 11.5 - 15.5 % Workflow SS GFR/1.73 sq M.predicted among blacks MDRD (S/P/Bld) [Vol rate/Area] ml/min/1.73sqm Invalid Interpretation Code Chemistry S Comment on above: Interpretive Data: GFR Population mean for , Non- Americans Ages 20-29 = 116 mL/min/1.73 sq.m. Ages 30-39 = 107 mL/min/1.73 sq.m. Ages 40-49 = 99 mL/min/1.73 sq.m. Ages 50-59 = 93 mL/min/1.73 sq.m. Ages 60-69 = 85 mL/min/1.73 sq.m. Ages 70+ = 75 mL/min/1.73 sq.m. Chronic Kidney Disease: Less than 60 mL/min/1.73 square meters End Stage Renal Disease: Less than 15 mL/min/1.73 square meters GFR/1.73 sq M.predicted among non-blacks MDRD (S/P/Bld) [Vol rate/Area] ml/min/1.73sqm Invalid Interpretation Code Chemistry S Comment on above: Interpretive Data: GFR Population mean for , Non- Americans Ages 20-29 = 116 mL/min/1.73 sq.m. Ages 30-39 = 107 mL/min/1.73 sq.m. Ages 40-49 = 99 mL/min/1.73 sq.m. Ages 50-59 = 93 mL/min/1.73 sq.m. Ages 60-69 = 85 mL/min/1.73 sq.m. Ages 70+ = 75 mL/min/1.73 sq.m. Chronic Kidney Disease: Less than 60 mL/min/1.73 square meters End Stage Renal Disease: Less than 15 mL/min/1.73 square meters Glucose [Mass/Vol] 119 mg/dL High 70 - 110 mg/dL ADM SS Hematocrit (Bld) [Volume fraction] 54.9 % High 40.0 - 52.0 % Workflow SS Hemoglobin (Bld) [Mass/Vol] 18.7 G/dL High 13.0 - 17.5 G/dL AH Workflow SS Lymphocytes (Bld) [#/Vol] 1.1 103/mcL Normal 0.9 - 4.3 10^3/mcL Workflow SS Lymphocytes/100 WBC (Bld) 10.4 % Low 20.0 - 40.0 % AH Workflow SS MCH (RBC) [Entitic mass] 31.3 pg Normal 27.0 - 33.0 pg AH Workflow SS MCHC 34.1 G/dL Normal 32.0 - 36.0 G/dL Workflow SS MCV (RBC) [Entitic vol] 91.8 fL Normal 81.0 - 100.0 fL Workflow SS Monocytes (Bld) [#/Vol] 0.9 103/mcL Normal 0.1 - 1.4 10^3/mcL AH Workflow SS Monocytes/100 WBC (Bld) 9.1 % Normal 2.0 - 13.0 % AH Workflow SS Neutrophils (Bld) [#/Vol] 8.2 103/mcL High 2.3 - 8.1 10^3/mcL AH Workflow SS Neutrophils/100 WBC (Bld) 79.6 % High 50.0 - 75.0 % Workflow SS Platelet mean volume (Bld) [Entitic vol] 8.0 fL Normal 6.4 - 10.5 fL Workflow SS Platelets (Bld) [#/Vol] 250 103/mcL Normal 150 - 450 10^3/mcL AH Workflow SS Potassium [Moles/Vol] 4.0 mmol/L Normal 3.5 - 5.0 mEq/L ADM SS RBC (Bld) [#/Vol] 5.99 106/mcL Normal 4.50 - 6.00 10^6/mcL Workflow SS Sodium [Moles/Vol] 139 mmol/L Normal 136 - 145 mEq/L ADM SS Urea nitrogen [Mass/Vol] 18.0 mg/dL Normal 8.0 - 22.0 mg/dL ADM SS Urea nitrogen/Creatinine [Mass ratio] 19.1 ratio Normal 10.0 - 22.0 ratio ADM SS WBC (Bld) [#/Vol] 10.3 103/mcL Normal 4.5 - 10.8 10^3/mcL Workflow SS .Auto Diffon 04-25-2024 Basophil, Absolute 0.0 10 3/mcL Normal 0.0-0.3 [facility] Comment on above: Performed By: #### A RICARDO, CBC, ADIFF, MG, BMP, GFR #### [address] [address] Basophils/100 WBC (Bld) 0.3 % Normal 0.0-2.5 [facility] Comment on above: Performed By: #### A RICARDO, CBC, ADIFF, MG, BMP, GFR #### [address] [address] Eosinophil, Absolute 0.1 10 3/mcL Normal 0.0-0.7 [facility] Comment on above: Performed By: #### A RCIARDO, CBC, ADIFF, MG, BMP, GFR #### [address] [address] Eosinophils/100 WBC (Bld) 0.6 % Normal 0.0-6.0 [facility] Comment on above: Performed By: #### A RICARDO, CBC, ADIFF, MG, BMP, GFR #### [address] [address] Lymphocyte, Absolute 1.0 10 3/mcL Normal 0.9-4.3 [facility] Comment on above: Performed By: #### A RICARDO, CBC, ADIFF, MG, BMP, GFR #### [address] [address] Lymphocytes/100 WBC (Bld) 9.9 % Low 20.0-40.0 [facility] Comment on above: Performed By: #### A RICARDO, CBC, ADIFF, MG, BMP, GFR #### [address] [address] Monocyte, Absolute 0.9 10 3/mcL Normal 0.1-1.4 [facility] Comment on above: Performed By: #### A RICARDO, CBC, ADIFF, MG, BMP, GFR #### [address] [address] Monocytes/100 WBC (Bld) 8.9 % Normal 2.0-13.0 [facility] Comment on above: Performed By: #### A RICARDO, CBC, ADIFF, MG, BMP, GFR #### [address] [address] Neutrophils/100 WBC (Bld) 80.3 % High 50.0-75.0 [facility] Comment on above: Performed By: #### A RICARDO, CBC, ADIFF, MG, BMP, GFR #### [address] [address] .GFRon 04-25-2024 GFR Non- >60 Normal [facility] Comment on above: Result Comment: GFR Population mean for , Non- Americans Ages 20-29 = 116 mL/min/1.73 sq.m. Ages 30-39 = 107 mL/min/1.73 sq.m. Ages 40-49 = 99 mL/min/1.73 sq.m. Ages 50-59 = 93 mL/min/1.73 sq.m. Ages 60-69 = 85 mL/min/1.73 sq.m. Ages 70+ = 75 mL/min/1.73 sq.m. Chronic Kidney Disease: Less than 60 mL/min/1.73 square meters End Stage Renal Disease: Less than 15 mL/min/1.73 square meters Performed By: #### A RICARDO, CBC, ADIFF, MG, BMP, GFR #### [address] [address] GFR >60 Normal [facility] Comment on above: Result Comment: GFR Population mean for , Non- Americans Ages 20-29 = 116 mL/min/1.73 sq.m. Ages 30-39 = 107 mL/min/1.73 sq.m. Ages 40-49 = 99 mL/min/1.73 sq.m. Ages 50-59 = 93 mL/min/1.73 sq.m. Ages 60-69 = 85 mL/min/1.73 sq.m. Ages 70+ = 75 mL/min/1.73 sq.m. Chronic Kidney Disease: Less than 60 mL/min/1.73 square meters End Stage Renal Disease: Less than 15 mL/min/1.73 square meters Performed By: #### A RICARDO, CBC, ADIFF, MG, BMP, GFR #### [address] [address] .NEUABSon 04-25-2024 Neutrophil, Absolute 8.2 10 3/mcL High 2.3-8.1 [facility] Comment on above: Performed By: #### A RICARDO, CBC, ADIFF, MG, BMP, GFR #### [address] [address] BMPon 04-25-2024 BUN/Creatinine Ratio 14.0 ratio Normal 10.0-22.0 [facility] Comment on above: Performed By: #### A RICARDO, CBC, ADIFF, MG, BMP, GFR #### [address] [address] Calcium [Mass/Vol] 9.0 mg/dL Normal 8.7-10.4 [facility] Comment on above: Performed By: #### A RICARDO, CBC, ADIFF, MG, BMP, GFR #### [address] [address] Chloride [Moles/Vol] 106 mmol/L Normal 98-110 [facility] Comment on above: Performed By: #### A RICARDO, CBC, ADIFF, MG, BMP, GFR #### [address] [address] CO2 [Moles/Vol] 24 mmol/L Normal 22-32 [facility] Comment on above: Performed By: #### A RICARDO, CBC, ADIFF, MG, BMP, GFR #### [address] [address] Creatinine [Mass/Vol] 0.86 mg/dL Normal 0.60-1.40 [facility] Comment on above: Result Comment: Test ing performed on [employer] analyzer using enzymatic creatinine methodology. Performed By: #### A RICARDO, CBC, ADIFF, MG, BMP, GFR #### [address] [address] Electrolyte Balance 8.0 mEq/L Normal 4.0-15.0 [facility] Comment on above: Performed By: #### A RICARDO, CBC, ADIFF, MG, BMP, GFR #### [address] [address] Glucose [Mass/Vol] 111 mg/dL High 70-110 [facility] Comment on above: Performed By: #### A RICARDO, CBC, ADIFF, MG, BMP, GFR #### [address] [address] Potassium [Moles/Vol] 4.0 mmol/L Normal 3.5-5.0 [facility] Comment on above: Performed By: #### A RICARDO, CBC, ADIFF, MG, BMP, GFR #### [place] [address] Sodium [Moles/Vol] 138 mmol/L Normal 136-145 [facility] Comment on above: Performed By: #### A RICARDO, CBC, ADIFF, MG, BMP, GFR #### [place] [address] Urea nitrogen [Mass/Vol] 12.0 mg/dL Normal 8.0-22.0 [facility] Comment on above: Performed By: #### A RICARDO, CBC, ADIFF, MG, BMP, GFR #### [place] [address] CBCon 04-25-2024 Erythrocyte distribution width (RBC) [Ratio] 12.8 % Normal 11.5-15.5 [facility] Comment on above: Performed By: #### A RICARDO, CBC, ADIFF, MG, BMP, GFR #### [place] [address] Hematocrit (Bld) [Volume fraction] 51.3 % Normal 40.0-52.0 [facility] Comment on above: Performed By: #### A RICARDO, CBC, ADIFF, MG, BMP, GFR #### [place] [address] Hgb 17.4 G/dL Normal 13.0-17.5 [facility] Comment on above: Performed By: #### A RICARDO, CBC, ADIFF, MG, BMP, GFR #### [place] [address] MCH (RBC) [Entitic mass] 31.2 pg Normal 27.0-33.0 [facility] Comment on above: Performed By: #### A RICARDO, CBC, ADIFF, MG, BMP, GFR #### [place] [address] MCHC 34.0 G/dL Normal 32.0-36.0 [facility] Comment on above: Performed By: #### A RICARDO, CBC, ADIFF, MG, BMP, GFR #### [place] [address] MCV (RBC) [Entitic vol] 91.8 fL Normal 81.0-100.0 [facility] Comment on above: Performed By: #### A RICARDO, CBC, ADIFF, MG, BMP, GFR #### [place] [address] Platelet 203 10 3/mcL Normal 150-450 [facility] Comment on above: Performed By: #### A RICARDO, CBC, ADIFF, MG, BMP, GFR #### [place] [address] Platelet mean volume (Bld) [Entitic vol] 8.3 fL Normal 6.4-10.5 [facility] Comment on above: Performed By: #### A RICARDO, CBC, ADIFF, MG, BMP, GFR #### [place] [address] RBC 5.58 10 6/mcL Normal 4.50-6.00 [facility] Comment on above: Performed By: #### A RICARDO, CBC, ADIFF, MG, BMP, GFR #### [place] [address] WBC 10.2 10 3/mcL Normal 4.5-10.8 [facility] Comment on above: Performed By: #### A RICARDO, CBC, ADIFF, MG, BMP, GFR #### [place] [address] LABORATORYOrdered By: SYSTEM SYSTEM on 04-25-2024 Basophils (Bld) [#/Vol] 0.0 103/mcL Normal 0.0 - 0.3 10^3/mcL AH Workflow SS Basophils/100 WBC (Bld) 0.3 % Normal 0.0 - 2.5 % AH Workflow SS Calcium [Mass/Vol] 9.0 mg/dL Normal 8.7 - 10. 4 mg/dL AH ADM SS Chloride [Moles/Vol] 106 mmol/L Normal 98 - 110 mEq/L AH ADM SS CO2 [Moles/Vol] 24 mmol/L Normal 22 - 32 mEq/L AH ADM SS Creatinine [Mass/Vol] 0.86 mg/dL Normal 0.60 - 1.40 mg/dL AH ADM SS Comment on above: Interpretive Data: T esting performed on [employer] analyzer using enzymatic creatinine methodology. Electrolyte Balance 8.0 mEq/L Normal 4.0 - 15 .0 mEq/L ADM SS Eosinophils (Bld) [#/Vol] 0.1 103/mcL Normal 0.0 - 0.7 10^3/mcL AH Workflow SS Eosinophils/100 WBC (Bld) 0.6 % Normal 0.0 - 6.0 % Workflow SS Erythrocyte distribution width (RBC) [Ratio] 12.8 % Normal 11.5 - 15.5 % Workflow SS GFR/1.73 sq M.predicted among blacks MDRD (S/P/Bld) [Vol rate/Area] ml/min/1.73sqm Invalid Interpretation Code [employer] Chemistry S Comment on above: Interpretive Data: GFR Population mean for , Non- Americans Ages 20-29 = 116 mL/min/1.73 sq.m. Ages 30-39 = 107 mL/min/1.73 sq.m. Ages 40-49 = 99 mL/min/1.73 sq.m. Ages 50-59 = 93 mL/min/1.73 sq.m. Ages 60-69 = 85 mL/min/1.73 sq.m. Ages 70+ = 75 mL/min/1.73 sq.m. Chronic Kidney Disease: Less than 60 mL/min/1.73 square meters End Stage Renal Disease: Less than 15 mL/min/1.73 square meters GFR/1.73 sq M.predicted among non-blacks MDRD (S/P/Bld) [Vol rate/Area] ml/min/1.73sqm Invalid Interpretation Code [employer] Chemistry S Comment on above: Interpretive Data: GFR Population mean for , Non- Americans Ages 20-29 = 116 mL/min/1.73 sq.m. Ages 30-39 = 107 mL/min/1.73 sq.m. Ages 40-49 = 99 mL/min/1.73 sq.m. Ages 50-59 = 93 mL/min/1.73 sq.m. Ages 60-69 = 85 mL/min/1.73 sq.m. Ages 70+ = 75 mL/min/1.73 sq.m. Chronic Kidney Disease: Less than 60 mL/min/1.73 square meters End Stage Renal Disease: Less than 15 mL/min/1.73 square meters Glucose [Mass/Vol] 111 mg/dL High 70 - 110 mg/dL ADM SS Hematocrit (Bld) [Volume fraction] 51.3 % Normal 40.0 - 52.0 % AH Workflow SS Hemoglobin (Bld) [Mass/Vol] 17.4 G/dL Normal 13.0 - 17.5 G/dL AH Workflow SS Lymphocytes (Bld) [#/Vol] 1.0 103/mcL Normal 0.9 - 4.3 10^3/mcL AH Workflow SS Lymphocytes/100 WBC (Bld) 9.9 % Low 20.0 - 40.0 % AH Workflow SS MCH (RBC) [Entitic mass] 31.2 pg Normal 27.0 - 33.0 pg Workflow SS MCHC 34.0 G/dL Normal 32.0 - 36.0 G/dL Workflow SS MCV (RBC) [Entitic vol] 91.8 fL Normal 81.0 - 100.0 fL Workflow SS Monocytes (Bld) [#/Vol] 0.9 103/mcL Normal 0.1 - 1.4 10^3/mcL AH Workflow SS Monocytes/100 WBC (Bld) 8.9 % Normal 2.0 - 13.0 % Workflow SS Neutrophils (Bld) [#/Vol] 8.2 103/mcL High 2.3 - 8.1 10^3/mcL AH Workflow SS Neutrophils/100 WBC (Bld) 80.3 % High 50.0 - 75.0 % AH Workflow SS Platelet mean volume (Bld) [Entitic vol] 8.3 fL Normal 6.4 - 10.5 fL Workflow SS Platelets (Bld) [#/Vol] 203 103/mcL Normal 150 - 450 10^3/mcL AH Workflow SS Potassium [Moles/Vol] 4.0 mmol/L Normal 3.5 - 5.0 mEq/L ADM SS RBC (Bld) [#/Vol] 5.58 106/mcL Normal 4.50 - 6.00 10^6/mcL AH Workflow SS Sodium [Moles/Vol] 138 mmol/L Normal 136 - 145 mEq/L ADM SS Urea nitrogen [Mass/Vol] 12.0 mg/dL Normal 8.0 - 22.0 mg/dL ADM SS Urea nitrogen/Creatinine [Mass ratio] 14.0 ratio Normal 10.0 - 22.0 ratio ADM SS WBC (Bld) [#/Vol] 10.2 103/mcL Normal 4.5 - 10.8 10^3/mcL AH Workflow SS .Auto Diffon 04-24-2024 Basophil, Absolute 0.0 10 3/mcL Normal 0.0-0.3 [facility] Comment on above: Performed By: #### A RICARDO, CBC, GFR, ADIFF, BMP #### [address] [address] Eosinophil, Absolute 0.1 10 3/mcL Normal 0.0-0.7 [facility] Comment on above: Performed By: #### A RICARDO, CBC, GFR, ADIFF, BMP #### [address] [address] Lymphocyte, Absolute 1.7 10 3/mcL Normal 0.9-4.3 [facility] Comment on above: Performed By: #### A RICARDO, CBC, GFR, ADIFF, BMP #### [address] [address] Monocyte, Absolute 0.8 10 3/mcL Normal 0.1-1.4 [facility] Comment on above: Performed By: #### A RICARDO, CBC, GFR, ADIFF, BMP #### [address] [address] .Auto DiffOrdered By: SYSTEM SYSTEM on 04-24-2024 Basophils/100 WBC (Bld) 0.2 % Normal 0.0-2.5 AH Workflow SS Comment on above: Performed By: #### A RICARDO, CBC, GFR, ADIFF, BMP #### [address] [address] Eosinophils/100 WBC (Bld) 0.6 % Normal 0.0-6.0 AH Workflow SS Comment on above: Performed By: #### A RICARDO, CBC, GFR, ADIFF, BMP #### [address] [address] Lymphocytes/100 WBC (Bld) 19.5 % Low 20.0-40.0 AH Workflow SS Comment on above: Performed By: #### A RICARDO, CBC, GFR, ADIFF, BMP #### [address] [address] Monocytes/100 WBC (Bld) 9.8 % Normal 2.0-13.0 Workflow SS Comment on above: Performed By: #### A RICARDO, CBC, GFR, ADIFF, BMP #### [address] [address] Neutrophils/100 WBC (Bld) 69.9 % Normal 50.0-75.0 Workflow SS Comment on above: Performed By: #### A RICARDO, CBC, GFR, ADIFF, BMP #### [address] [address] .GFRon 04-24-2024 GFR >60 [facility] Comment on above: Result Comment: GFR Population mean for , Non- Americans Ages 20-29 = 116 mL/min/1.73 sq.m. Ages 30-39 = 107 mL/min/1.73 sq.m. Ages 40-49 = 99 mL/min/1.73 sq.m. Ages 50-59 = 93 mL/min/1.73 sq.m. Ages 60-69 = 85 mL/min/1.73 sq.m. Ages 70+ = 75 mL/min/1.73 sq.m. Chronic Kidney Disease: Less than 60 mL/min/1.73 square meters End Stage Renal Disease: Less than 15 mL/min/1.73 square meters Performed By: #### A RICARDO, CBC, GFR, ADIFF, BMP #### [address] [address] GFR Non- >60 Normal [facility] Comment on above: Result Comment: GFR Population mean for , Non- Americans Ages 20-29 = 116 mL/min/1.73 sq.m. Ages 30-39 = 107 mL/min/1.73 sq.m. Ages 40-49 = 99 mL/min/1.73 sq.m. Ages 50-59 = 93 mL/min/1.73 sq.m. Ages 60-69 = 85 mL/min/1.73 sq.m. Ages 70+ = 75 mL/min/1.73 sq.m. Chronic Kidney Disease: Less than 60 mL/min/1.73 square meters End Stage Renal Disease: Less than 15 mL/min/1.73 square meters Performed By: #### A RICARDO, CBC, GFR, ADIFF, BMP #### [place] [address] .NEUABSon 04-24-2024 Neutrophil, Absolute 6.0 10 3/mcL Normal 2.3-8.1 [facility] Comment on above: Performed By: #### A RICARDO, CBC, GFR, ADIFF, BMP #### [place] [address] BMPon 04-24-2024 BUN/Creatinine Ratio 12.7 ratio Normal 10.0-22.0 [facility] Comment on above: Performed By: #### A RICARDO, CBC, GFR, ADIFF, BMP #### [place] [address] BMPOrdered By: SYSTEM SYSTEM on 04-24-2024 Calcium [Mass/Vol] 9.4 mg/dL Normal 8.7-10.4 ADM SS Comment on above: Performed By: #### A RICARDO, CBC, GFR, ADIFF, BMP #### [place] [address] Chloride [Moles/Vol] 102 mmol/L Normal 98-110 AH ADM SS Comment on above: Performed By: #### A RICARDO, CBC, GFR, ADIFF, BMP #### [place] [address] CO2 [Moles/Vol] 31 mmol/L Normal 22-32 AH ADM SS Comment on above: Performed By: #### A RICARDO, CBC, GFR, ADIFF, BMP #### [place] [address] Creatinine [Mass/Vol] 1.10 mg/dL Normal 0.60-1.40 AH ADM SS Comment on above: Interpretive Data: T esting performed on [employer] CH analyzer using enzymatic creatinine methodology. Result Comment: Test ing performed on [employer] CH analyzer using enzymatic creatinine methodology. Performed By: #### A RICARDO, CBC, GFR, ADIFF, BMP #### [place] [address] Electrolyte Balance 8.0 mEq/L Normal 4.0-15.0 AH AD M SS Comment on above: Performed By: #### A RICARDO, CBC, GFR, ADIFF, BMP #### [address] [address] Glucose [Mass/Vol] 91 mg/dL Normal 70-110 AH ADM SS Comment on above: Performed By: #### A RICARDO, CBC, GFR, ADIFF, BMP #### [address] [address] Potassium [Moles/Vol] 4.1 mmol/L Normal 3.5-5.0 AH ADM SS Comment on above: Performed By: #### A RICARDO, CBC, GFR, ADIFF, BMP #### [address] [address] Sodium [Moles/Vol] 141 mmol/L Normal 136-145 AH ADM SS Comment on above: Performed By: #### A RICARDO, CBC, GFR, ADIFF, BMP #### [place] [id number] Urea nitrogen [Mass/Vol] 14.0 mg/dL Normal 8.0-22.0 AH ADM SS Comment on above: Performed By: #### A RICARDO, CBC, GFR, ADIFF, BMP #### [address] [address] CBCOrdered By: SYSTEM SYSTEM on 04-24-2024 Erythrocyte distribution width (RBC) [Ratio] 12.8 % Normal 11.5-15.5 AH Workflow SS Comment on above: Performed By: #### A RICARDO, CBC, GFR, ADIFF, BMP #### [address] [address] Hematocrit (Bld) [Volume fraction] 48.0 % Normal 40.0-52.0 AH Workflow SS Comment on above: Performed By: #### A RICARDO, CBC, GFR, ADIFF, BMP #### [address] [address] MCH (RBC) [Entitic mass] 31.8 pg Normal 27.0-33.0 AH Workflow SS Comment on above: Performed By: #### A RICARDO, CBC, GFR, ADIFF, BMP #### [facility] [address] [place], [place] [address] MCHC 34.3 G/dL Normal 32.0-36.0 AH Workflow SS Comment on above: Performed By: #### A IRCARDO, CBC, GFR, ADIFF, BMP #### [address] [address] MCV (RBC) [Entitic vol] 92.6 fL Normal 81.0-100.0 AH Workflow SS Comment on above: Performed By: #### A RICARDO, CBC, GFR, ADIFF, BMP #### [address] [address] Platelet mean volume (Bld) [Entitic vol] 8.6 fL Normal 6.4-10.5 AH Workflow SS Comment on above: Performed By: #### A RICARDO, CBC, GFR, ADIFF, BMP #### [address] [address] CBCon 04-24-2024 Hgb 16.5 G/dL Normal 13.0-17.5 [facility] Comment on above: Performed By: #### A RICARDO, CBC, GFR, ADIFF, BMP #### [address] [address] Platelet 174 10 3/mcL Normal 150-450 [facility] Comment on above: Performed By: #### A RICARDO, CBC, GFR, ADIFF, BMP #### [address] [address] RBC 5.19 10 6/mcL Normal 4.50-6.00 [facility] Comment on above: Performed By: #### A RICARDO, CBC, GFR, ADIFF, BMP #### [address] [address] WBC 8.6 10 3/mcL Normal 4.5-10.8 [facility] Comment on above: Performed By: #### A RICARDO, CBC, GFR, ADIFF, BMP #### [address] [address] Final Surgical Pathology Rep [facility] 04-24-2024 Final Surgical Pathology Report . 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 The [place] specimen has been sent for MLH1 methylation studies. A supplemental report will follow. COLON AND RECTUM: Resection SPECIMEN PROCEDURE: Right hemicolectomy MACROSCOPIC EVALUATION OF MESORECTUM: Not applicable TUMOR TUMOR SITE: ASCENDING COLON - Mid ascending HISTOLOGIC TYPE: Adenocarcinoma HISTOLOGIC GRADE: G2, moderately differentiated TUMOR SIZE: GREATEST DIMENSION (CENTIMETERS) - 2.2 cm MULTIPLE PRIMARY SITES: Not applicable TUMOR EXTENT: Invades submucosa SUB-MUCOSAL INVASION: Present DEPTH OF SUB-MUCOSAL INVASION: 3 mm EXTENT OF SUB-MUCOSAL INVASION: Tumor invades into lower one third of submucosa MACROSCOPIC TUMOR PERFORATION: Not identified LYMPHATIC AND / OR VASCULAR INVASION: Not identified PERINEURAL INVASION: Not identified TUMOR BUDDING SCORE: Low (0-4) 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 TREATMENT EFFECT: No known presurgical therapy MARGINS MARGIN STATUS FOR INVASIVE CARCINOMA: All margins negative for invasive carcinoma DISTANCE FROM INVASIVE CARCINOMA TO RADIAL (CIRCUMFERENTIAL) MARGIN: Not applicable MARGIN STATUS FOR NON-INVASIVE TUMOR: All margins negative for high-grade dysplasia / intramucosal carcinoma and low-grade dysplasia REGIONAL LYMPH NODES REGIONAL LYMPH NODE STATUS: All regional lymph nodes negative for tumor NUMBER OF LYMPH NODES EXAMINED: 23 TUMOR DEPOSITS: Not identified DISTANT METASTASIS DISTANT SITE(S) INVOLVED: Not applicable pTNM CLASSIFICATION (AJCC 8th Edition) Reporting of pT, pN, and (when applicable) pM categories is based on information available to the pathologist at the time the report is issued. As per the AJCC (Chapter 1, 8th Ed.) it is the managing physician's responsibility to establish the final pathologic stage based upon all pertinent information, including but potentially not limited to this pathology report. MODIFIED CLASSIFICATION: Not applicable PT CATEGORY: pT1 T SUFFIX: Not applicable PN CATEGORY: pN0 PM CATEGORY: Not applicable - pM cannot be determined from the submitted specimen(s) ADDITIONAL FINDINGS ADDITIONAL FINDINGS: None identified Pathology Reports Accession: Collected Date/Time: Received Date/Time: Pathologist: [id number] 04/22/2024 11:18 EST 04/22/2024 14:03 EST ISAÍAS DAVILA MD DIAGNOSIS: COMMENT(S): Previous endoscopic biopsy pathology report: Mismatch repair protein analysis was reported to show loss of MLH1 and PMS2, with intact MSH2 and MSH6 proteins. [place] specimen has been sent for MLH1 methylation studies. 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 The serosal surface is pink-hemorrhagic with multiple thin adhesions with the distal 20 cm of colon air-filled and dilated to 8.5 cm. The specimen is opened at both stapled ends to reveal located in the ascending colon is a greenfield-pink polypoid mass measuring 3.5 x 1.9 x 1.5 cm. The polypoid mass is blocked out and entirely submitted. The polypoid mass measures 17 cm to the proximal staple line margin, 35 cm to the distal staple line margin, 6 cm to the black inked mesenteric margin and 0.3 cm to the blue inked serosa. The terminal ileum mucosa is greenfield -pink-mays, unremarkably folded with no additional masses or polyps identified. The cecum, remaining ascending colon mucosa is greenfield-pink unremarkably folded with no additional polyps or masses identified. The pericolonic adipose tissue was removed from the specimen and placed into dissect aid solution. The tissue is palpated and dissected to reveal multiple lymph nodes which are submitted. RS-20 Cassette Summary: A1 - Proximal staple line margin A2 - distal staple line margin A3 - Appendix A4 - Black inked mesenteric margin en face A5-A10 -Entire ascending colon polypoid mass with blue inked serosa A11 - Mucosa directly adjacent to polypoid mass A12 - Terminal ileum mucosa A13 - Cecum mucosa A14 - Ascending colon mucosa A15 - Transverse co (more content not included)... Normal [facility] MA[facility] LABORATORYOrdered By: SYSTEM SYSTEM on 04-24-2024 Basophils (Bld) [#/Vol] 0.0 103/mcL Normal 0.0 - 0.3 10^3/mcL Workflow SS Eosinophils (Bld) [#/Vol] 0.1 103/mcL Normal 0.0 - 0.7 10^3/mcL Workflow SS GFR/1.73 sq M.predicted among blacks MDRD (S/P/Bld) [Vol rate/Area] ml/min/1.73sqm Invalid Interpretation Code [employer] Chemistry S Comment on above: Interpretive Data: GFR Population mean for , Non- Americans Ages 20-29 = 116 mL/min/1.73 sq.m. Ages 30-39 = 107 mL/min/1.73 sq.m. Ages 40-49 = 99 mL/min/1.73 sq.m. Ages 50-59 = 93 mL/min/1.73 sq.m. Ages 60-69 = 85 mL/min/1.73 sq.m. Ages 70+ = 75 mL/min/1.73 sq.m. Chronic Kidney Disease: Less than 60 mL/min/1.73 square meters End Stage Renal Disease: Less than 15 mL/min/1.73 square meters GFR/1.73 sq M.predicted among non-blacks MDRD (S/P/Bld) [Vol rate/Area] ml/min/1.73sqm Invalid Interpretation Code [employer] Chemistry S Comment on above: Interpretive Data: GFR Population mean for , Non- Americans Ages 20-29 = 116 mL/min/1.73 sq.m. Ages 30-39 = 107 mL/min/1.73 sq.m. Ages 40-49 = 99 mL/min/1.73 sq.m. Ages 50-59 = 93 mL/min/1.73 sq.m. Ages 60-69 = 85 mL/min/1.73 sq.m. Ages 70+ = 75 mL/min/1.73 sq.m. Chronic Kidney Disease: Less than 60 mL/min/1.73 square meters End Stage Renal Disease: Less than 15 mL/min/1.73 square meters Hemoglobin (Bld) [Mass/Vol] 16.5 G/dL Normal 13.0 - 17.5 G/dL Workflow SS Lymphocytes (Bld) [#/Vol] 1.7 103/mcL Normal 0.9 - 4.3 10^3/mcL Workflow SS Monocytes (Bld) [#/Vol] 0.8 103/mcL Normal 0.1 - 1.4 10^3/mcL Workflow SS Neutrophils (Bld) [#/Vol] 6.0 103/mcL Normal 2.3 - 8.1 10^3/mcL Workflow SS Platelets (Bld) [#/Vol] 174 103/mcL Normal 150 - 450 10^3/mcL Workflow SS RBC (Bld) [#/Vol] 5.19 106/mcL Normal 4.50 - 6.00 10^6/mcL AH Workflow SS Urea nitrogen/Creatinine [Mass ratio] 12.7 ratio Normal 10.0 - 22.0 ratio AH ADM SS WBC (Bld) [#/Vol] 8.6 103/mcL Normal 4.5 - 10.8 10^3/mcL Workflow SS .Auto Diffon 04-23-2024 Basophil, Absolute 0.0 10 3/mcL Normal 0.0-0.3 [facility] Comment on above: Performed By: #### A RICARDO, CBC, GFR, ADIFF, BMP #### [address] [id number] Basophils/100 WBC (Bld) 0.1 % Normal 0.0-2.5 [facility] Comment on above: Performed By: #### A RICARDO, CBC, GFR, ADIFF, BMP #### [address] [address] Eosinophil, Absolute 0.0 10 3/mcL Normal 0.0-0.7 [facility] MAIN Comment on above: Performed By: #### A RICARDO, CBC, GFR, ADIFF, BMP #### [address] [address] Eosinophils/100 WBC (Bld) 0.0 % Normal 0.0-6.0 [facility] MAIN Comment on above: Performed By: #### A RICARDO, CBC, GFR, ADIFF, BMP #### [address] [address] Lymphocyte, Absolute 0.8 10 3/mcL Low 0.9-4.3 [facility] MAIN Comment on above: Performed By: #### A RICARDO, CBC, GFR, ADIFF, BMP #### [address] [address] Lymphocytes/100 WBC (Bld) 9.0 % Low 20.0-40.0 [facility] MAIN Comment on above: Performed By: #### A RICARDO, CBC, GFR, ADIFF, BMP #### [address] [address] Monocyte, Absolute 1.0 10 3/mcL Normal 0.1-1.4 [facility] MAIN Comment on above: Performed By: #### A RICARDO, CBC, GFR, ADIFF, BMP #### [address] [address] Monocytes/100 WBC (Bld) 10.2 % Normal 2.0-13.0 [facility] MAIN Comment on above: Performed By: #### A RICARDO, CBC, GFR, ADIFF, BMP #### [address] [address] Neutrophils/100 WBC (Bld) 80.7 % High 50.0-75.0 [facility] MAIN Comment on above: Performed By: #### A RICARDO, CBC, GFR, ADIFF, BMP #### [address] [address] .GFRon 04-23-2024 GFR >60 [facility] MAIN Comment on above: Result Comment: GFR Population mean for , Non- Americans Ages 20-29 = 116 mL/min/1.73 sq.m. Ages 30-39 = 107 mL/min/1.73 sq.m. Ages 40-49 = 99 mL/min/1.73 sq.m. Ages 50-59 = 93 mL/min/1.73 sq.m. Ages 60-69 = 85 mL/min/1.73 sq.m. Ages 70+ = 75 mL/min/1.73 sq.m. Chronic Kidney Disease: Less than 60 mL/min/1.73 square meters End Stage Renal Disease: Less than 15 mL/min/1.73 square meters Performed By: #### A RICARDO, CBC, GFR, ADIFF, BMP #### [address] [address] GFR Non- >60 Normal [facility] MAIN Comment on above: Result Comment: GFR Population mean for , Non- Americans Ages 20-29 = 116 mL/min/1.73 sq.m. Ages 30-39 = 107 mL/min/1.73 sq.m. Ages 40-49 = 99 mL/min/1.73 sq.m. Ages 50-59 = 93 mL/min/1.73 sq.m. Ages 60-69 = 85 mL/min/1.73 sq.m. Ages 70+ = 75 mL/min/1.73 sq.m. Chronic Kidney Disease: Less than 60 mL/min/1.73 square meters End Stage Renal Disease: Less than 15 mL/min/1.73 square meters Performed By: #### A RICARDO, CBC, GFR, ADIFF, BMP #### [address] [address] .NEUABSon 04-23-2024 Neutrophil, Absolute 7.5 10 3/mcL Normal 2.3-8.1 [facility] MAIN Comment on above: Performed By: #### A RICARDO, CBC, GFR, ADIFF, BMP #### [address] [address] BMPon 04-23-2024 BUN/Creatinine Ratio 11.3 ratio Normal 10.0-22.0 [facility] MAIN Comment on above: Performed By: #### A RICARDO, CBC, GFR, ADIFF, BMP #### [address] [address] Calcium [Mass/Vol] 9.2 mg/dL Normal 8.7-10.4 [facility] MAIN Comment on above: Performed By: #### A RICARDO, CBC, GFR, ADIFF, BMP #### [address] [address] Chloride [Moles/Vol] 107 mmol/L Normal 98-110 [facility] MAIN Comment on above: Performed By: #### A RICARDO, CBC, GFR, ADIFF, BMP #### [address] [address] CO2 [Moles/Vol] 30 mmol/L Normal 22-32 [facility] MAIN Comment on above: Performed By: #### A RICARDO, CBC, GFR, ADIFF, BMP #### [address] [address] Creatinine [Mass/Vol] 0.97 mg/dL Normal 0.60-1.40 [facility] MAIN Comment on above: Result Comment: Test ing performed on Vaprema analyzer using enzymatic creatinine methodology. Performed By: #### A RICARDO, CBC, GFR, ADIFF, BMP #### [address] [address] Electrolyte Balance 7.0 mEq/L Normal 4.0-15.0 [facility] MAIN Comment on above: Performed By: #### A RICARDO, CBC, GFR, ADIFF, BMP #### [address] [address] Glucose [Mass/Vol] 124 mg/dL High 70-110 [facility] MAIN Comment on above: Performed By: #### A RICARDO, CBC, GFR, ADIFF, BMP #### [place] [id number] Potassium [Moles/Vol] 4.5 mmol/L Normal 3.5-5.0 [facility] MAIN Comment on above: Performed By: #### A RICARDO, CBC, GFR, ADIFF, BMP #### [address] [address] Sodium [Moles/Vol] 144 mmol/L Normal 136-145 [facility] MAIN Comment on above: Performed By: #### A RICARDO, CBC, GFR, ADIFF, BMP #### [address] [address] Urea nitrogen [Mass/Vol] 11.0 mg/dL Normal 8.0-22.0 [facility] MAIN Comment on above: Performed By: #### A RICARDO, CBC, GFR, ADIFF, BMP #### [address] [address] CBCon 04-23-2024 Erythrocyte distribution width (RBC) [Ratio] 12.8 % Normal 11.5-15.5 [facility] MAIN Comment on above: Performed By: #### A RICARDO, CBC, GFR, ADIFF, BMP #### [place] [address] Hematocrit (Bld) [Volume fraction] 44.8 % Normal 40.0-52.0 [facility] MAIN Comment on above: Performed By: #### A RICARDO, CBC, GFR, ADIFF, BMP #### [place] [id number] Hgb 15.5 G/dL Normal 13.0-17.5 [facility] MAIN Comment on above: Performed By: #### A RICARDO, CBC, GFR, ADIFF, BMP #### [place] [id number] MCH (RBC) [Entitic mass] 31.7 pg Normal 27.0-33.0 [facility] MAIN Comment on above: Performed By: #### A RICARDO, CBC, GFR, ADIFF, BMP #### [place] [address] MCHC 34.5 G/dL Normal 32.0-36.0 [facility] MAIN Comment on above: Performed By: #### A RICARDO, CBC, GFR, ADIFF, BMP #### [place] [id number] MCV (RBC) [Entitic vol] 91.8 fL Normal 81.0-100.0 [facility] MAIN Comment on above: Performed By: #### A RICARDO, CBC, GFR, ADIFF, BMP #### [place] [id number] Platelet 165 10 3/mcL Normal 150-450 [facility] MAIN Comment on above: Performed By: #### A RICARDO, CBC, GFR, ADIFF, BMP #### [place] [id number] Platelet mean volume (Bld) [Entitic vol] 8.4 fL Normal 6.4-10.5 [facility] MAIN Comment on above: Performed By: #### A RICARDO, CBC, GFR, ADIFF, BMP #### [place] [id number] RBC 4.89 10 6/mcL Normal 4.50-6.00 [facility] MAIN Comment on above: Performed By: #### A RICARDO, CBC, GFR, ADIFF, BMP #### [facility] [address] [place] [address] WBC 9.4 10 3/mcL Normal 4.5-10.8 [facility] MAIN Comment on above: Performed By: #### A RICARDO, CBC, GFR, ADIFF, BMP #### [facility] [address] [place] [address] LABORATORYOrdered By: Sofi Jensen on 04-22-2024 Glucose [Mass/Vol] 230 mg/dL High 70 - 110 mg/dL [facility] US ANESTHESIA BLOCKon 2023 US ANESTHESIA BLOCK ORIGINAL Images acquired, not reported on this accession number. Normal [facility] MAIN CT ABDOMEN/PELVIS W/CONTRAST on 04-19-2024 CT ABDOMEN/PELVIS W/CONTRAST ORIGINAL EXAMINATION: CT OF THE ABDOMEN AND PELVIS WITH FMJAKGHT08/26/2024 11:20 am TECHNIQUE: CT of the abdomen and pelvis was performed with the administration of intravenous contrast. Multiplanar reformatted images are provided for review. Automated exposure control, iterative reconstruction, and/or weight based adjustment of the mA/kV was utilized to reduce the radiation dose to as low as reasonably achievable. COMPARISON: None HISTORY: ORDERING SYSTEM PROVIDED HISTORY: Reason for Exam: COLON CANCER FINDINGS: The included lung bases are clear. There is no visible pleural or pericardial effusion. The heart is normal in size. The liver, spleen, adrenal glands, and pancreas are within normal limits. No filling defects seen in the gallbladder. The kidneys enhance symmetrically. The stomach and proximal duodenum appear distended with air in fluid. The small bowel is otherwise normal caliber. Colon is normal in caliber. The reported colon neoplasm is not visible by CT. The appendix is normal. No free intraperitoneal fluid or gas is identified. The aorta is normal in caliber. There is mild atherosclerosis of the larger arteries. There is no lymphadenopathy. No filling defects seen in the urinary bladder. There is no fracture or aggressive osseous lesion. Degenerative changes are present in the spine. A hemangioma noted in the L4 vertebral body. Small fat containing left inguinal hernia noted. Bone islands noted. Transitional segment at the lumbosacral junction with a left pseudoarthrosis. There is bridging between the transverse processes on the left at L3 and L4 IMPRESSION: Nonspecific distension of the stomach and proximal duodenum with fluid and air. No focal inflammatory changes The reported colon malignancy is not visible by CT. There is no convincing evidence of metastatic disease Other incidental findings as above Interpreted by: Jose Guadalupe Araujo MD Preliminary Report By: Jose Guadalupe Araujo MD Electronically signed By Jose Guadalupe Araujo MD Dictated Date: 04/19/2024 4:19:36 PM Prelim Date: 04/19/2024 4:27:58 PM Sign Date: 04/19/2024 4:27:58 PM Ordering Provider: NAVIN Olsen [facility] .Auto Diffon 04-17-2024 Basophil, Absolute 0.0 10 3/mcL Normal 0.0-0.3 [facility] MAIN Comment on above: Performed By: #### A RICARDO, CBC, ADIFF, MG, BMP, GFR #### [address] [address] Basophils/100 WBC (Bld) 0.5 % Normal 0.0-2.5 [facility] MAIN Comment on above: Performed By: #### A RICARDO, CBC, ADIFF, MG, BMP, GFR #### [address] [address] Eosinophil, Absolute 0.1 10 3/mcL Normal 0.0-0.7 [facility] MAIN Comment on above: Performed By: #### A RICARDO, CBC, ADIFF, MG, BMP, GFR #### [address] [address] Eosinophils/100 WBC (Bld) 1.1 % Normal 0.0-6.0 [facility] MAIN Comment on above: Performed By: #### A RICARDO, CBC, ADIFF, MG, BMP, GFR #### [address] [address] Lymphocyte, Absolute 1.5 10 3/mcL Normal 0.9-4.3 [facility] MAIN Comment on above: Performed By: #### A RICARDO, CBC, ADIFF, MG, BMP, GFR #### [address] [address] Lymphocytes/100 WBC (Bld) 21.6 % Normal 20.0-40.0 [facility] MAIN Comment on above: Performed By: #### A RICARDO, CBC, ADIFF, MG, BMP, GFR #### [address] [address] Monocyte, Absolute 0.5 10 3/mcL Normal 0.1-1.4 [facility] MAIN Comment on above: Performed By: #### A RICARDO, CBC, ADIFF, MG, BMP, GFR #### [address] [address] Monocytes/100 WBC (Bld) 7.6 % Normal 2.0-13.0 [facility] MAIN Comment on above: Performed By: #### A RICARDO, CBC, ADIFF, MG, BMP, GFR #### [address] [address] Neutrophils/100 WBC (Bld) 69.2 % Normal 50.0-75.0 [facility] MAIN Comment on above: Performed By: #### A RICARDO, CBC, ADIFF, MG, BMP, GFR #### [address] [address] .GFRon 04-17-2024 GFR >60 [facility] MAIN Comment on above: Result Comment: GFR Population mean for , Non- Americans Ages 20-29 = 116 mL/min/1.73 sq.m. Ages 30-39 = 107 mL/min/1.73 sq.m. Ages 40-49 = 99 mL/min/1.73 sq.m. Ages 50-59 = 93 mL/min/1.73 sq.m. Ages 60-69 = 85 mL/min/1.73 sq.m. Ages 70+ = 75 mL/min/1.73 sq.m. Chronic Kidney Disease: Less than 60 mL/min/1.73 square meters End Stage Renal Disease: Less than 15 mL/min/1.73 square meters Performed By: #### A RICARDO, CBC, ADIFF, MG, BMP, GFR #### [address] [address] GFR Non- >60 Normal [facility] MAIN Comment on above: Result Comment: GFR Population mean for , Non- Americans Ages 20-29 = 116 mL/min/1.73 sq.m. Ages 30-39 = 107 mL/min/1.73 sq.m. Ages 40-49 = 99 mL/min/1.73 sq.m. Ages 50-59 = 93 mL/min/1.73 sq.m. Ages 60-69 = 85 mL/min/1.73 sq.m. Ages 70+ = 75 mL/min/1.73 sq.m. Chronic Kidney Disease: Less than 60 mL/min/1.73 square meters End Stage Renal Disease: Less than 15 mL/min/1.73 square meters Performed By: #### A RICARDO, CBC, ADIFF, MG, BMP, GFR #### [address] [address] .NEUABSon 04-17-2024 Neutrophil, Absolute 4.8 10 3/mcL Normal 2.3-8.1 [facility] MAIN Comment on above: Performed By: #### A RICARDO, CBC, ADIFF, MG, BMP, GFR #### [address] [address] BMPon 04-17-2024 BUN/Creatinine Ratio 19.8 ratio Normal 10.0-22.0 [facility] MAIN Comment on above: Performed By: #### A RICARDO, CBC, ADIFF, MG, BMP, GFR #### [address] [address] Calcium [Mass/Vol] 9.9 mg/dL Normal 8.7-10.4 [facility] MAIN Comment on above: Performed By: #### A RICARDO, CBC, ADIFF, MG, BMP, GFR #### [address] [address] Chloride [Moles/Vol] 108 mmol/L Normal 98-110 [facility] MAIN Comment on above: Performed By: #### A RICARDO, CBC, ADIFF, MG, BMP, GFR #### [address] [address] CO2 [Moles/Vol] 26 mmol/L Normal 22-32 [facility] MAIN Comment on above: Performed By: #### A RICARDO, CBC, ADIFF, MG, BMP, GFR #### [address] [address] Creatinine [Mass/Vol] 0.86 mg/dL Normal 0.60-1.40 [facility] MAIN Comment on above: Result Comment: Test ing performed on Vaprema analyzer using enzymatic creatinine methodology. Performed By: #### A RICARDO, CBC, ADIFF, MG, BMP, GFR #### [address] [address] Electrolyte Balance 7.0 mEq/L Normal 4.0-15.0 [facility] MAIN Comment on above: Performed By: #### A RICARDO, CBC, ADIFF, MG, BMP, GFR #### [place] [id number] Glucose [Mass/Vol] 87 mg/dL Normal 70-110 [facility] MAIN Comment on above: Performed By: #### A RICARDO, CBC, ADIFF, MG, BMP, GFR #### [place] [address] Potassium [Moles/Vol] 4.4 mmol/L Normal 3.5-5.0 [facility] MAIN Comment on above: Performed By: #### A RICARDO, CBC, ADIFF, MG, BMP, GFR #### [place] [id number] Sodium [Moles/Vol] 141 mmol/L Normal 136-145 [facility] MAIN Comment on above: Performed By: #### A RICARDO, CBC, ADIFF, MG, BMP, GFR #### [place] [id number] Urea nitrogen [Mass/Vol] 17.0 mg/dL Normal 8.0-22.0 [facility] MAIN Comment on above: Performed By: #### A RICARDO, CBC, ADIFF, MG, BMP, GFR #### [address] [address] CBCon 04-17-2024 Erythrocyte distribution width (RBC) [Ratio] 12.7 % Normal 11.5-15.5 [facility] MAIN Comment on above: Performed By: #### A RICARDO, CBC, ADIFF, MG, BMP, GFR #### [place] [id number] Hematocrit (Bld) [Volume fraction] 50.2 % Normal 40.0-52.0 [facility] MAIN Comment on above: Performed By: #### A RICARDO, CBC, ADIFF, MG, BMP, GFR #### [place] [address] Hgb 17.2 G/dL Normal 13.0-17.5 [facility] MAIN Comment on above: Performed By: #### A RICARDO, CBC, ADIFF, MG, BMP, GFR #### [place] [address] MCH (RBC) [Entitic mass] 31.5 pg Normal 27.0-33.0 [facility] MAIN Comment on above: Performed By: #### A RICARDO, CBC, ADIFF, MG, BMP, GFR #### [place] [address] MCHC 34.2 G/dL Normal 32.0-36.0 [facility] MAIN Comment on above: Performed By: #### A RICARDO, CBC, ADIFF, MG, BMP, GFR #### [place] [address] MCV (RBC) [Entitic vol] 92.0 fL Normal 81.0-100.0 [facility] MAIN Comment on above: Performed By: #### A RICARDO, CBC, ADIFF, MG, BMP, GFR #### [place] [address] Platelet 196 10 3/mcL Normal 150-450 [facility] MAIN Comment on above: Performed By: #### A RICARDO, CBC, ADIFF, MG, BMP, GFR #### [place] [address] Platelet mean volume (Bld) [Entitic vol] 8.9 fL Normal 6.4-10.5 [facility] MAIN Comment on above: Performed By: #### A RICARDO, CBC, ADIFF, MG, BMP, GFR #### [place] [address] RBC 5.46 10 6/mcL Normal 4.50-6.00 [facility] MAIN Comment on above: Performed By: #### A RICARDO, CBC, ADIFF, MG, BMP, GFR #### [place] [id number] [place] [address] WBC 6.9 10 3/mcL Normal 4.5-10.8 [facility] MAIN Comment on above: Performed By: #### A RICARDO, CBC, ADIFF, MG, BMP, GFR #### [facility] [address] [place] [address] LABORATORYOrdered By: SYSTEM SYSTEM on 04-17-2024 Basophils (Bld) [#/Vol] 0.0 103/mcL Normal 0.0 - 0.3 10^3/mcL Workflow SS Basophils/100 WBC (Bld) 0.5 % Normal 0.0 - 2.5 % Workflow SS Calcium [Mass/Vol] 9.9 mg/dL Normal 8.7 - 10. 4 mg/dL ADM SS Chloride [Moles/Vol] 108 mmol/L Normal 98 - 110 mEq/L ADM SS CO2 [Moles/Vol] 26 mmol/L Normal 22 - 32 mEq/L ADM SS Creatinine [Mass/Vol] 0.86 mg/dL Normal 0.60 - 1.40 mg/dL ADM SS Comment on above: Interpretive Data: T esting performed on Vaprema analyzer using enzymatic creatinine methodology. Electrolyte Balance 7.0 mEq/L Normal 4.0 - 15 .0 mEq/L ADM SS Eosinophils (Bld) [#/Vol] 0.1 103/mcL Normal 0.0 - 0.7 10^3/mcL Workflow SS Eosinophils/100 WBC (Bld) 1.1 % Normal 0.0 - 6.0 % Workflow SS Erythrocyte distribution width (RBC) [Ratio] 12.7 % Normal 11.5 - 15.5 % Workflow SS GFR/1.73 sq M.predicted among blacks MDRD (S/P/Bld) [Vol rate/Area] ml/min/1.73sqm Invalid Interpretation Code Chemistry S Comment on above: Interpretive Data: GFR Population mean for , Non- Americans Ages 20-29 = 116 mL/min/1.73 sq.m. Ages 30-39 = 107 mL/min/1.73 sq.m. Ages 40-49 = 99 mL/min/1.73 sq.m. Ages 50-59 = 93 mL/min/1.73 sq.m. Ages 60-69 = 85 mL/min/1.73 sq.m. Ages 70+ = 75 mL/min/1.73 sq.m. Chronic Kidney Disease: Less than 60 mL/min/1.73 square meters End Stage Renal Disease: Less than 15 mL/min/1.73 square meters GFR/1.73 sq M.predicted among non-blacks MDRD (S/P/Bld) [Vol rate/Area] ml/min/1.73sqm Invalid Interpretation Code Chemistry S Comment on above: Interpretive Data: GFR Population mean for , Non- Americans Ages 20-29 = 116 mL/min/1.73 sq.m. Ages 30-39 = 107 mL/min/1.73 sq.m. Ages 40-49 = 99 mL/min/1.73 sq.m. Ages 50-59 = 93 mL/min/1.73 sq.m. Ages 60-69 = 85 mL/min/1.73 sq.m. Ages 70+ = 75 mL/min/1.73 sq.m. Chronic Kidney Disease: Less than 60 mL/min/1.73 square meters End Stage Renal Disease: Less than 15 mL/min/1.73 square meters Glucose [Mass/Vol] 87 mg/dL Normal 70 - 110 mg/dL ADM SS Hematocrit (Bld) [Volume fraction] 50.2 % Normal 40.0 - 52.0 % AH Workflow SS Hemoglobin (Bld) [Mass/Vol] 17.2 G/dL Normal 13.0 - 17.5 G/dL AH Workflow SS Lymphocytes (Bld) [#/Vol] 1.5 103/mcL Normal 0.9 - 4.3 10^3/mcL Workflow SS Lymphocytes/100 WBC (Bld) 21.6 % Normal 20.0 - 40.0 % Workflow SS MCH (RBC) [Entitic mass] 31.5 pg Normal 27.0 - 33.0 pg AH Workflow SS MCHC 34.2 G/dL Normal 32.0 - 36.0 G/dL Workflow SS MCV (RBC) [Entitic vol] 92.0 fL Normal 81.0 - 100.0 fL Workflow SS Monocytes (Bld) [#/Vol] 0.5 103/mcL Normal 0.1 - 1.4 10^3/mcL AH Workflow SS Monocytes/100 WBC (Bld) 7.6 % Normal 2.0 - 13.0 % AH Workflow SS Neutrophils (Bld) [#/Vol] 4.8 103/mcL Normal 2.3 - 8.1 10^3/mcL AH Workflow SS Neutrophils/100 WBC (Bld) 69.2 % Normal 50.0 - 75.0 % AH Workflow SS Platelet mean volume (Bld) [Entitic vol] 8.9 fL Normal 6.4 - 10.5 fL AH Workflow SS Platelets (Bld) [#/Vol] 196 103/mcL Normal 150 - 450 10^3/mcL AH Workflow SS Potassium [Moles/Vol] 4.4 mmol/L Normal 3.5 - 5.0 mEq/L AH ADM SS RBC (Bld) [#/Vol] 5.46 106/mcL Normal 4.50 - 6.00 10^6/mcL AH Workflow SS Sodium [Moles/Vol] 141 mmol/L Normal 136 - 145 mEq/L ADM SS Urea nitrogen [Mass/Vol] 17.0 mg/dL Normal 8.0 - 22.0 mg/dL AH ADM SS Urea nitrogen/Creatinine [Mass ratio] 19.8 ratio Normal 10.0 - 22.0 ratio AH ADM SS WBC (Bld) [#/Vol] 6.9 103/mcL Normal 4.5 - 10.8 10^3/mcL Workflow SS Hemoglobin A1con 04-04-2024 HbA1c (Bld) [Mass fraction] 5.5 % Normal 3.8-5.6 [facility] Comment on above: Order Comment: JOEY LEES CNP ADDED AN A1C. RANGLE Result Comment: Norm al < 5.7 % Prediabetic 5.7 - 6.4 % Diabetic >or= 6.5 % Please note range changes. Performed By: #### L 500.4050, L501.9520, L503.6150, L503.6550, L506.0400, L503.0105, L506.1000, L501.9985, L100.0100 ####[facility] [id number] [place], [address] CBC W/Diff, Automatedon 03-22 Absolute Lymph 1.26 X10 3/uL Normal 0.83-4.51 [facility] Comment on above: Performed By: #### L 500.4050, L501.9520, L503.6150, L503.6550, L506.0400, L503.0105, L506.1000, L501.9985, L100.0100 ####[facility] [address] [place], [address] Absolute Neut 4.7 X10 3/uL Normal 2.0-7.7 [facility] Comment on above: Performed By: #### L 500.4050, L501.9520, L503.6150, L503.6550, L506.0400, L503.0105, L506.1000, L501.9985, L100.0100 ####[facility] [id number] [place], [address] Basophils/100 WBC (Bld) 0.5 % Normal 0-1 [facility] Comment on above: Performed By: #### L 500.4050, L501.9520, L503.6150, L503.6550, L506.0400, L503.0105, L506.1000, L501.9985, L100.0100 ####[facility] [id number] [place], [address] Eosinophils/100 WBC (Bld) 0.6 % Normal 0-5 [facility] Comment on above: Performed By: #### L 500.4050, L501.9520, L503.6150, L503.6550, L506.0400, L503.0105, L506.1000, L501.9985, L100.0100 ####[facility] [address] [place], [address] Erythrocyte distribution width (RBC) [Ratio] 11.7 % Normal 11.6-14.6 [facility] Comment on above: Performed By: #### L 500.4050, L501.9520, L503.6150, L503.6550, L506.0400, L503.0105, L506.1000, L501.9985, L100.0100 ####[facility] [address] [place], [address] Hematocrit (Bld) [Volume fraction] 48.4 % Normal 40-54 [facility] Comment on above: Performed By: #### L 500.4050, L501.9520, L503.6150, L503.6550, L506.0400, L503.0105, L506.1000, L501.9985, L100.0100 ####[facility] [id number] [facility] [place], [address] Hemoglobin (Bld) [Mass/Vol] 17.0 g/dL High 13.0-16.5 [facility] Comment on above: Performed By: #### L 500.4050, L501.9520, L503.6150, L503.6550, L506.0400, L503.0105, L506.1000, L501.9985, L100.0100 ####[facility] [id number] [facility] [place], [address] IG% 0.300 Normal 0.0-0.9 [facility] Comment on above: Result Comment: IG% - Immature Granulocytes (promyelocytes, myelocytes and metamyelocytes) > 1% indicates that a LEFT SHIFT is Present. Performed By: #### L 500.4050, L501.9520, L503.6150, L503.6550, L506.0400, L503.0105, L506.1000, L501.9985, L100.0100 ####[facility] [address] [place], [address] Lymphocytes/100 WBC (Bld) 20.1 % Normal 19-41 [facility] Comment on above: Performed By: #### L 500.4050, L501.9520, L503.6150, L503.6550, L506.0400, L503.0105, L506.1000, L501.9985, L100.0100 ####[facility] [address] [place], [address] MCH (RBC) [Entitic mass] 31.4 pg Normal 27.0-32.0 [facility] Comment on above: Performed By: #### L 500.4050, L501.9520, L503.6150, L503.6550, L506.0400, L503.0105, L506.1000, L501.9985, L100.0100 ####[facility] [id number] [place], [address] MCHC (RBC) [Mass/Vol] 35.1 g/dL Normal 32-36 [facility] Comment on above: Performed By: #### L 500.4050, L501.9520, L503.6150, L503.6550, L506.0400, L503.0105, L506.1000, L501.9985, L100.0100 ####[facility] [id number] [place], [address] MCV (RBC) [Entitic vol] 89.5 fL Normal 80-94 [facility] Comment on above: Performed By: #### L 500.4050, L501.9520, L503.6150, L503.6550, L506.0400, L503.0105, L506.1000, L501.9985, L100.0100 ####[facility] [id number] [place], [address] Monocytes/100 WBC (Bld) 3.8 % Normal 0-10 [facility] Comment on above: Performed By: #### L 500.4050, L501.9520, L503.6150, L503.6550, L506.0400, L503.0105, L506.1000, L501.9985, L100.0100 ####[facility] [id number] [place], [address] Neutrophils/100 WBC (Bld) 74.7 % High 47-70 [facility] Comment on above: Performed By: #### L 500.4050, L501.9520, L503.6150, L503.6550, L506.0400, L503.0105, L506.1000, L501.9985, L100.0100 ####[facility] [id number] [place], [address] Nucleated RBC (Bld) [#/Vol] 0 10*3/uL Normal 0-5 [facility] Comment on above: Performed By: #### L 500.4050, L501.9520, L503.6150, L503.6550, L506.0400, L503.0105, L506.1000, L501.9985, L100.0100 ####[facility] [id number] [place], [address] Platelet mean volume (Bld) [Entitic vol] 9.9 fL Normal 6.2-12.0 [facility] Comment on above: Performed By: #### L 500.4050, L501.9520, L503.6150, L503.6550, L506.0400, L503.0105, L506.1000, L501.9985, L100.0100 ####[facility] [address] [place], [address] Platelets (Bld) [#/Vol] 216 10*3/uL Normal 150-450 [facility] Comment on above: Performed By: #### L 500.4050, L501.9520, L503.6150, L503.6550, L506.0400, L503.0105, L506.1000, L501.9985, L100.0100 ####[facility] [address] [place], [address] RBC (Bld) [#/Vol] 5.41 10*6/uL Normal 4.6-6.2 [facility] Comment on above: Performed By: #### L 500.4050, L501.9520, L503.6150, L503.6550, L506.0400, L503.0105, L506.1000, L501.9985, L100.0100 ####[facility] [address] [place], [address](026) RDW SD 37.8 fl Normal 35.1-43.9 [facility] Comment on above: Performed By: #### L 500.4050, L501.9520, L503.6150, L503.6550, L506.0400, L503.0105, L506.1000, L501.9985, L100.0100 ####[facility] [address] [place], [address] WBC (Bld) [#/Vol] 6.3 10*3/uL Normal 4.4-11.0 [facility] Comment on above: Performed By: #### L 500.4050, L501.9520, L503.6150, L503.6550, L506.0400, L503.0105, L506.1000, L501.9985, L100.0100 ####[facility] [address] [place], [address] Comprehensive Metabolic [facility] 04-03-2024 Albumin [Mass/Vol] 3.6 g/dL Normal 3.2-5.0 [facility] Comment on above: Performed By: #### L 500.4050, L501.9520, L503.6150, L503.6550, L506.0400, L503.0105, L506.1000, L501.9985, L100.0100 ####[facility] [address] [place], [address] Albumin/Globulin [Mass ratio] 1.1 {ratio} Normal 0.9-2.4 [facility] Comment on above: Performed By: #### L 500.4050, L501.9520, L503.6150, L503.6550, L506.0400, L503.0105, L506.1000, L501.9985, L100.0100 ####[facility] [address] [place], [address] ALK P 82 U/L Normal 45-117 [facility] Comment on above: Performed By: #### L 500.4050, L501.9520, L503.6150, L503.6550, L506.0400, L503.0105, L506.1000, L501.9985, L100.0100 ####[facility] [address] [place], [address] ALT [Catalytic activity/Vol] 32 U/L Normal 16-61 [facility] Comment on above: Performed By: #### L 500.4050, L501.9520, L503.6150, L503.6550, L506.0400, L503.0105, L506.1000, L501.9985, L100.0100 ####[facility] [address] [place], [address] AST [Catalytic activity/Vol] 20 U/L Normal 15-37 [facility] Comment on above: Performed By: #### L 500.4050, L501.9520, L503.6150, L503.6550, L506.0400, L503.0105, L506.1000, L501.9985, L100.0100 ####[facility] [address] [place], [address] Bilirubin [Mass/Vol] 0.40 mg/dL Normal 0.20-1.00 [facility] Comment on above: Result Comment: For patients on eltrombopag therapy, use of Dimension [place] TBIL is not recommended. Performed By: #### L 500.4050, L501.9520, L503.6150, L503.6550, L506.0400, L503.0105, L506.1000, L501.9985, L100.0100 ####[facility] [address] [place], [address] BUN/CRE 15.1 RATIO Normal 10-20 [facility] Comment on above: Performed By: #### L 500.4050, L501.9520, L503.6150, L503.6550, L506.0400, L503.0105, L506.1000, L501.9985, L100.0100 ####[facility] [address] [place], [address] CA,Total 9.0 mg/dL Normal 8.5-10.1 [facility] Comment on above: Performed By: #### L 500.4050, L501.9520, L503.6150, L503.6550, L506.0400, L503.0105, L506.1000, L501.9985, L100.0100 ####[facility] [address] [place], [address] Chloride [Moles/Vol] 107 mmol/L Normal 98-107 [facility] Comment on above: Performed By: #### L 500.4050, L501.9520, L503.6150, L503.6550, L506.0400, L503.0105, L506.1000, L501.9985, L100.0100 ####[facility] [address] [place], [address] CO2 [Moles/Vol] 25.0 mmol/L Normal 21.0-32.0 [facility] Comment on above: Performed By: #### L 500.4050, L501.9520, L503.6150, L503.6550, L506.0400, L503.0105, L506.1000, L501.9985, L100.0100 ####[facility] [address] [place], [address] Creatinine [Mass/Vol] 1.06 mg/dL Normal 0.70-1.30 [facility] Comment on above: Result Comment: The validity of the calculated GFR GFRAA in patients over 70 years has not been determined. Clinical correlation is essential. Performed By: #### L 500.4050, L501.9520, L503.6150, L503.6550, L506.0400, L503.0105, L506.1000, L501.9985, L100.0100 ####[facility] [address] [place], [address] EST GFR - AA 96 mL/min Normal >60 [facility] Comment on above: Result Comment: Afri can [place] GFR Calc Performed By: #### L 500.4050, L501.9520, L503.6150, L503.6550, L506.0400, L503.0105, L506.1000, L501.9985, L100.0100 ####[facility] [address] [place], [address] GAP 7 Normal 5-15 [facility] Comment on above: Performed By: #### L 500.4050, L501.9520, L503.6150, L503.6550, L506.0400, L503.0105, L506.1000, L501.9985, L100.0100 ####[facility] [address] [place], [address] GFR/1.73 sq M.predicted among non-blacks MDRD (S/P/Bld) [Vol rate/Area] 79 mL/min/{1.73_m2} Normal >60 [facility] Comment on above: Result Comment: Non- GFR Calc Performed By: #### L 500.4050, L501.9520, L503.6150, L503.6550, L506.0400, L503.0105, L506.1000, L501.9985, L100.0100 ####[facility] [address] [place], [address] Globulin (S) [Mass/Vol] 3.4 g/dL Normal 2.2-4.2 [facility] Comment on above: Performed By: #### L 500.4050, L501.9520, L503.6150, L503.6550, L506.0400, L503.0105, L506.1000, L501.9985, L100.0100 ####[facility] [address] [place], [address] Glucose [Mass/Vol] 207 mg/dL High 74-106 [facility] Comment on above: Result Comment: Gluc ose result greater than or equal to 200 mg/dL suggests DIABETES MELLITUS per A.D.A. criteria. Performed By: #### L 500.4050, L501.9520, L503.6150, L503.6550, L506.0400, L503.0105, L506.1000, L501.9985, L100.0100 ####[facility] [address] [place], [address] Potassium [Moles/Vol] 3.8 mmol/L Normal 3.5-5.1 [facility] Comment on above: Performed By: #### L 500.4050, L501.9520, L503.6150, L503.6550, L506.0400, L503.0105, L506.1000, L501.9985, L100.0100 ####[facility] [address] [place], [address] Sodium [Moles/Vol] 139 mmol/L Normal 136-145 [facility] Comment on above: Performed By: #### L 500.4050, L501.9520, L503.6150, L503.6550, L506.0400, L503.0105, L506.1000, L501.9985, L100.0100 ####[facility] [address] [place], [address] T PROT 7.0 g/dL Normal 6.4-8.2 [facility] Comment on above: Performed By: #### L 500.4050, L501.9520, L503.6150, L503.6550, L506.0400, L503.0105, L506.1000, L501.9985, L100.0100 ####[facility] [address] [place], [address] Urea nitrogen [Mass/Vol] 16 mg/dL Normal 7-18 [facility] Comment on above: Performed By: #### L 500.4050, L501.9520, L503.6150, L503.6550, L506.0400, L503.0105, L506.1000, L501.9985, L100.0100 ####[facility] [address] [place], [address] Ferritinon 04-03-2024 Ferritin [Mass/Vol] 246 ng/mL Normal 26-388 [facility] Comment on above: Performed By: #### L 500.4050, L501.9520, L503.6150, L503.6550, L506.0400, L503.0105, L506.1000, L501.9985, L100.0100 ####[facility] [address] [place], [address] Ironon 04-03-2024 Iron [Mass/Vol] 56 ug/dL Low 65-175 [facility] Comment on above: Performed By: #### L 500.4050, L501.9520, L503.6150, L503.6550, L506.0400, L503.0105, L506.1000, L501.9985, L100.0100 ####[facility] [address] [place], [address] T4 Free Directon 04-03-2024 T4 FREE DIRECT 0.90 ng/dL Normal 0.76-1.46 [facility] Comment on above: Performed By: #### L 500.4050, L501.9520, L503.6150, L503.6550, L506.0400, L503.0105, L506.1000, L501.9985, L100.0100 ####[facility] [address] [facility] [place], [address] Thyroid Stim Hormone (TSH)on 04-03-2024 TSH 1.640 uIU/mL Normal 0.358-3.74 0 [facility] Comment on above: Performed By: #### L 500.4050, L501.9520, L503.6150, L503.6550, L506.0400, L503.0105, L506.1000, L501.9985, L100.0100 ####[facility] [address] [place], [place], [address] Vitamin B12on 04-03-2024 Cobalamin (Vitamin B12) [Mass/Vol] 757 pg/mL Normal 211-911 [facility] Comment on above: Performed By: #### L 500.4050, L501.9520, L503.6150, L503.6550, L506.0400, L503.0105, L506.1000, L501.9985, L100.0100 ####[facility] [address] [place], [place], [id number] Vitamin D,25 Hydroxyon 04-03 Vitamin D 25-OH 48.0 ng/mL Normal [facility] Comment on above: Result Comment: Kim min D 25(OH) Status Range Deficiency <20 ng/mL (50nmol/L) Insufficiency 20 - 30 ng/mL (50 - 75 nmol/L) Sufficiency 30 - 100 ng/mL (75 - 250 nmol/L) Toxicity >100 ng/mL (>250 nmol/L) Performed By: #### L 500.4050, L501.9520, L503.6150, L503.6550, L506.0400, L503.0105, L506.1000, L501.9985, L100.0100 ####[facility] [address] [place], [address] Celiac Disease Profileon ENDOMYSIAL IGA Negative Normal Negative [facility] Comment on above: Performed By: #### L 501.6710, L3410.2400 ####[facility] [address] [place], [place], [id number] IMMUNOGLOB A QN 153 mg/dL Normal 90-386 [facility] Comment on above: Result Comment: Perf ormed at: [facility] [address] [id number] Small Business Sales Representative: Johan Montenegro PhD, Phone: [phone] Performed By: #### L 501.6710, L3360.2406 ####[facility] [address] [place], [place], [id number] tTG IGA <2 Normal 0-3 [facility] Comment on above: Result Comment: Nega tive 0 - 3 Weak Positive 4 - 10 Positive >10 Tissue Transglutaminase (tTG) has been identified as the endomysial antigen. Studies have demonstr- ated that endomysial IgA antibodies have over 99% specificity for gluten sensitive enteropathy. Performed By: #### L 501.6710, L3410.2400 ####[facility] [address] [place], [place], [id number] CRPon 03-12-2024 C-REACTIVE PROT 3.01 mg/L High 0.0-3.0 [facility] Comment on above: Result Comment: C-Re active Protein (CRP) provides useful information for the diagnosis, therapy and monitoring of inflammatory processes and associated diseases. For the evaluation of Relative Risk for Cardiovascular Disease, a High Sensitivity CRP (HSCRP) should be ordered. Performed By: #### L 501.6710, L3410.2400 ####[facility] [address] [place], [address] CBC W/Diff, Automatedon - Absolute Lymph 1.89 X10 3/uL Normal 0.83-4.51 [facility] Comment on above: Performed By: #### L 100.0100, L500.4050, L500.4100, L501.9910 #### [facility] [address] [place], [address] Absolute Neut 3.7 X10 3/uL Normal 2.0-7.7 [facility] Comment on above: Performed By: #### L 100.0100, L500.4050, L500.4100, L501.9910 #### [facility] [address] [place], [address] Basophils/100 WBC (Bld) 0.5 % Normal 0-1 [facility] Comment on above: Performed By: #### L 100.0100, L500.4050, L500.4100, L501.9910 #### [facility] [address] [place], [address] Eosinophils/100 WBC (Bld) 1.6 % Normal 0-5 [facility] Comment on above: Performed By: #### L 100.0100, L500.4050, L500.4100, L501.9910 #### [facility] [address] [place], [address] Erythrocyte distribution width (RBC) [Ratio] 11.9 % Normal 11.6-14.6 [facility] Comment on above: Performed By: #### L 100.0100, L500.4050, L500.4100, L501.9910 #### [facility] [address] [place], [address] Hematocrit (Bld) [Volume fraction] 50.1 % Normal 40-54 [facility] Comment on above: Performed By: #### L 100.0100, L500.4050, L500.4100, L501.9910 #### [facility] [address] [place], [address] Hemoglobin (Bld) [Mass/Vol] 16.8 g/dL High 13.0-16.5 [facility] Comment on above: Performed By: #### L 100.0100, L500.4050, L500.4100, L501.9910 #### [facility] [address] [place], [address] IG% 0.300 Normal 0.0-0.9 [facility] Comment on above: Result Comment: IG% - Immature Granulocytes (promyelocytes, myelocytes and metamyelocytes) > 1% indicates that a LEFT SHIFT is Present. Performed By: #### L 100.0100, L500.4050, L500.4100, L501.9910 #### [facility] [address] [place], [address] Lymphocytes/100 WBC (Bld) 29.8 % Normal 19-41 [facility] Comment on above: Performed By: #### L 100.0100, L500.4050, L500.4100, L501.9910 #### [facility] [address] [place], [address] MCH (RBC) [Entitic mass] 30.9 pg Normal 27.0-32.0 [facility] Comment on above: Performed By: #### L 100.0100, L500.4050, L500.4100, L501.9910 #### [facility] [address] [place], [address] MCHC (RBC) [Mass/Vol] 33.5 g/dL Normal 32-36 [facility] Comment on above: Performed By: #### L 100.0100, L500.4050, L500.4100, L501.9910 #### [facility] [address] [place], [address] MCV (RBC) [Entitic vol] 92.1 fL Normal 80-94 [facility] Comment on above: Performed By: #### L 100.0100, L500.4050, L500.4100, L501.9910 #### [facility] [address] [place], [address] Monocytes/100 WBC (Bld) 9.6 % Normal 0-10 [facility] Comment on above: Performed By: #### L 100.0100, L500.4050, L500.4100, L501.9910 #### [facility] [address] [place], [address] Neutrophils/100 WBC (Bld) 58.2 % Normal 47-70 [facility] Comment on above: Performed By: #### L 100.0100, L500.4050, L500.4100, L501.9910 #### [facility] [address] [place], [address] Nucleated RBC (Bld) [#/Vol] 0 10*3/uL Normal 0-5 [facility] Comment on above: Performed By: #### L 100.0100, L500.4050, L500.4100, L501.9910 #### [facility] [address] [place], [address] Platelet mean volume (Bld) [Entitic vol] 10.0 fL Normal 6.2-12.0 [facility] Comment on above: Performed By: #### L 100.0100, L500.4050, L500.4100, L501.9910 #### [facility] [address] [place], [address] Platelets (Bld) [#/Vol] 207 10*3/uL Normal 150-450 [facility] Comment on above: Performed By: #### L 100.0100, L500.4050, L500.4100, L501.9910 #### [facility] [address] [place], [address] RBC (Bld) [#/Vol] 5.44 10*6/uL Normal 4.6-6.2 [facility] Comment on above: Performed By: #### L 100.0100, L500.4050, L500.4100, L501.9910 #### [facility] [address] [place], [address] RDW SD 40.2 fl Normal 35.1-43.9 [facility] Comment on above: Performed By: #### L 100.0100, L500.4050, L500.4100, L501.9910 #### [facility] [address] [place], [address] WBC (Bld) [#/Vol] 6.4 10*3/uL Normal 4.4-11.0 [facility] Comment on above: Performed By: #### L 100.0100, L500.4050, L500.4100, L501.9910 #### [facility] [address] [place], [address] Comprehensive Metabolic [facility] 02-10-2024 Albumin [Mass/Vol] 3.6 g/dL Normal 3.2-5.0 [facility] Comment on above: Performed By: #### L 100.0100, L500.4050, L500.4100, L501.9910 #### [facility] [address] [place], [address] Albumin/Globulin [Mass ratio] 1.1 {ratio} Normal 0.9-2.4 [facility] Comment on above: Performed By: #### L 100.0100, L500.4050, L500.4100, L501.9910 #### [facility] [address] [place], [address] ALK P 80 U/L Normal 45-117 [facility] Comment on above: Performed By: #### L 100.0100, L500.4050, L500.4100, L501.9910 #### [facility] [address] [place], [address] ALT [Catalytic activity/Vol] 34 U/L Normal 16-61 [facility] Comment on above: Performed By: #### L 100.0100, L500.4050, L500.4100, L501.9910 #### [facility] [address] [place], [address] AST [Catalytic activity/Vol] 22 U/L Normal 15-37 [facility] Comment on above: Performed By: #### L 100.0100, L500.4050, L500.4100, L501.9910 #### [facility] [address] [place], [address] Bilirubin [Mass/Vol] 0.60 mg/dL Normal 0.20-1.00 [facility] Comment on above: Result Comment: For patients on eltrombopag therapy, use of Dimension [place] TBIL is not recommended. Performed By: #### L 100.0100, L500.4050, L500.4100, L501.9910 #### [facility] [address] [place], [address] BUN/CRE 14.0 RATIO Normal 10-20 [facility] Comment on above: Performed By: #### L 100.0100, L500.4050, L500.4100, L501.9910 #### [facility] [address] [place], [address] CA,Total 8.9 mg/dL Normal 8.5-10.1 [facility] Comment on above: Performed By: #### L 100.0100, L500.4050, L500.4100, L501.9910 #### [facility] [address] [place], [address] Chloride [Moles/Vol] 108 mmol/L High 98-107 [facility] Comment on above: Performed By: #### L 100.0100, L500.4050, L500.4100, L501.9910 #### [facility] [address] [place], [address] CO2 [Moles/Vol] 29.0 mmol/L Normal 21.0-32.0 [facility] Comment on above: Performed By: #### L 100.0100, L500.4050, L500.4100, L501.9910 #### [facility] [address] [place], [address] Creatinine [Mass/Vol] 0.93 mg/dL Normal 0.70-1.30 [facility] Comment on above: Result Comment: The validity of the calculated GFR GFRAA in patients over 70 years has not been determined. Clinical correlation is essential. Performed By: #### L 100.0100, L500.4050, L500.4100, L501.9910 #### [facility] [address] [place], [address] EST GFR - AA 112 mL/min Normal >60 [facility] Comment on above: Result Comment: Afri can [place] GFR Calc Performed By: #### L 100.0100, L500.4050, L500.4100, L501.9910 #### [facility] [address] [place], [address] GAP 4 Low 5-15 [facility] Comment on above: Performed By: #### L 100.0100, L500.4050, L500.4100, L501.9910 #### [facility] [address] [place], [address] GFR/1.73 sq M.predicted among non-blacks MDRD (S/P/Bld) [Vol rate/Area] 92 mL/min/{1.73_m2} Normal >60 [facility] Comment on above: Result Comment: Non- GFR Calc Performed By: #### L 100.0100, L500.4050, L500.4100, L501.9910 #### [facility] [address] [place], [address] Globulin (S) [Mass/Vol] 3.2 g/dL Normal 2.2-4.2 [facility] Comment on above: Performed By: #### L 100.0100, L500.4050, L500.4100, L501.9910 #### [facility] [address] [place], [address] Glucose [Mass/Vol] 92 mg/dL Normal 74-106 [facility] Comment on above: Performed By: #### L 100.0100, L500.4050, L500.4100, L501.9910 #### [facility] [address] [place], [address] Potassium [Moles/Vol] 3.8 mmol/L Normal 3.5-5.1 [facility] Comment on above: Performed By: #### L 100.0100, L500.4050, L500.4100, L501.9910 #### [facility] [address] [place], [address] Sodium [Moles/Vol] 141 mmol/L Normal 136-145 [facility] Comment on above: Performed By: #### L 100.0100, L500.4050, L500.4100, L501.9910 #### [facility] [address] [place], [address] T PROT 6.8 g/dL Normal 6.4-8.2 [facility] Comment on above: Performed By: #### L 100.0100, L500.4050, L500.4100, L501.9910 #### [facility] [address] [place], [address] Urea nitrogen [Mass/Vol] 13 mg/dL Normal 7-18 [facility] Comment on above: Performed By: #### L 100.0100, L500.4050, L500.4100, L501.9910 #### [facility] [address] [place], [address] Lipid Profileon 02-10-2024 Cholesterol [Mass/Vol] 183 mg/dL Normal 200 [facility] Comment on above: Result Comment: <200 mg/dL Desirable 200-240 mg/dL Borderline >240 mg/dL High Risk Performed By: #### L 100.0100, L500.4050, L500.4100, L501.9910 #### [facility] [address] [place], [address] Cholesterol in HDL [Mass/Vol] 37 mg/dL Low [facility] Comment on above: Result Comment: The drugs N-Acetylcysteine and Metamizole may falsely depress this assay. Reference Range HDL <40 mg/dL Low HDL Cholesterol HDL >or= 60 mg/dL High HDL Cholesterol Performed By: #### L 100.0100, L500.4050, L500.4100, L501.9910 #### [facility] [address] [place], [address] Cholesterol in LDL [Mass/Vol] 121 mg/dL Normal 0-130 [facility] Comment on above: Performed By: #### L 100.0100, L500.4050, L500.4100, L501.9910 #### [facility] [address] [place], [address] Cholesterol in VLDL [Mass/Vol] 25 mg/dL Normal 5-40 [facility] Comment on above: Performed By: #### L 100.0100, L500.4050, L500.4100, L501.9910 #### [facility] [address] [place], [address] Triglyceride [Mass/Vol] 125 mg/dL Normal [facility] Comment on above: Result Comment: The drugs N-Acetylcysteine and Metamizole may falsely depress this assay. Serum Triglycerides Reference Interval Normal <150 mg/dL Borderline high 150 - 199 mg/dL High 200 - 499 mg/dL Very High > or = 500 mg/dL Performed By: #### L 100.0100, L500.4050, L500.4100, L501.9910 #### [facility] [address] [place], [place], [id number] PSA,Total - Annual Screenon 02-10-2024 PSA,TOT SCREEN 1.44 ng/mL Normal 0.00-4.00 [facility] Comment on above: Result Comment: This test was performed using the TPSA assay method for the [employer] chemistry system. Values obtained with different assay methods cannot be used interchangably. When changing PSA assays in the course of monitoring a patient, additional sequential testing should be carried out to confirm baseline values. Performed By: #### L 100.0100, L500.4050, L500.4100, L501.9910 #### [facility] [address] [place], [place], [id number] Influenza A&B Viral Culture ([id number])Ordered By: Yudi Cruz on 03-14-2019 Virus identified Cx Nom (Isol) Negative Normal [facility] Work Phone: Throat Culture ([id number])Ordere d By: Yudi Cruz on 03-14-2019 Bacteria identified Aer cx Nom (Unsp spec) Negative Normal [facility] Work Phone: DAVID CULTURE-OTHER ([id number])Ord ered By: Hat Brim Curler on 02-16-2015 Bacteria identified Respiratory culture Nom (Unsp spec) Final report Normal [facility] Work Phone: Comment on above: PATIENT NOT FASTINGP ERFORMED BY: [facility] Bkonao8988 [facility] [id number] Information: SRC:ENE [id number] Bacteria identified Respiratory culture Nom (Unsp spec) RRF Normal [facility] Work Phone: Comment on above: Routine respiratory nasim PATIENT NOT FASTINGP ERFORMED BY: [facility] Qimani7439 [facility] [id number] Information: SRC:ENE [id number] Rapid Strep Test, Office ([phone])on 02-16-2015 S. pyogenes Ag IA Ql (Unsp spec) Negative Normal [facility] Work Phone: MANISHA (ANTINUCLEAR ANTIBODY) ( [id number])Ordered By: Hat Brim Curler on 01-10-2014 Nuclear Ab Ql (S) Negative Normal Compreh ensive Internal Medicine Work Phone: Comment on above: PATIENT NOT FASTINGP ERFORMED BY: How do you roll? Btilod8638 [facility] [id number] BY: How do you roll?[address] [id number] ANTI-ROLLING CHAIR PUSHER (ANTI RIBONUCLEAR P ROTEIN ANTIBODY) (23667) test code 423504Kuiqumt By: Hat Brim Curler on 01-10-2014 Sjogrens syndrome-A extractable nuclear Ab Qn (S) <0.2 Normal 0.0-0.9 [facility] Work Phone: Comment on above: PATIENT NOT FASTINGP ERFORMED BY: How do you roll? Obojdj6999 [facility] [id number] BY: [address] [id number] Sjogrens syndrome-B extractable nuclear Ab Qn (S) 0.5 {AI} Normal 0.0-0.9 [facility] Work Phone: Comment on above: PATIENT NOT FASTINGP ERFORMED BY: [facility] Klkjam4147 [facility] [id number] BY: [facility] [id number] ANTI-Sm (ANTI KURTZ ANTIBODY ) (84666) test code 322533Ibdsyij By: Hat Brim Curler on 01-10-2014 Ribonucleoprotein extractable nuclear Ab Qn (S) <0.2 Normal 0.0-0.9 [facility] Work Phone: Comment on above: PATIENT NOT FASTINGP ERFORMED BY: How do you roll? Jsoigi8290 [facility] [id number] BY: [employer] [id number] Kurtz extractable nuclear Ab Qn (S) <0.2 Normal 0.0-0.9 [facility] Work Phone: Comment on above: PATIENT NOT FASTINGP ERFORMED BY: Vins[employer] Aukmpj0005 [facility] [id number] BY: How do you roll?[address] [id number] C-REACTIVE PROTEIN (59496)Or dered By: Hat Brim Curler on 01-10-2014 CRP [Mass/Vol] 0.6 mg/L Normal 0.0-4.9 [facility] Internal Medicine Work Phone: Comment on above: PATIENT NOT FASTINGP ERFORMED BY: How do you roll?[place] [id number] [facility] [id number] BY: [employer] [id number] CCP ANTIBODY (49793)Ordered By: Hat Brim Curler on 01-10-2014 Cyclic citrullinated peptide IgA+IgG IA Qn 11 {units} Normal 0-19 [facility] Work Phone: Comment on above: Negative <20 Weak po sitive 20 - 39 Moderate positive 40 - 59 Strong positive >59 PATIENT NOT FASTINGP ERFORMED BY: How do you roll?[place] 2346570 [facility] [id number] BY: [address] [id number] Lyme Disease Antibody W/ Ref trevor (68832)Ordered By: Hat Brim Curler on 01-10-2014 B. burgdorferi IgG+IgM Qn (S) {index_val} Normal 0.00-0.90 [facility] Work Phone: Comment on above: Negative <0.91 Equiv ocal 0.91 - 1.09 Positive >1.09 Please note reference interval change PATIENT NOT FASTINGP ERFORMED BY: [employer] [facility] Feybqc2780 [facility] [id number] BY: [employer] [id number] METABOLIC PANEL, COMPREHENSI VE (58269)Ordered By: Hat Brim Curler on 01-10-2014 Albumin [Mass/Vol] 4.3 g/dL Normal 3.5-5.5 [facility] Internal Medicine Work Phone: Comment on above: PATIENT NOT FASTINGP ERFORMED BY: [employer] [facility] Vvflhp5552 [facility] [id number] BY: How do you roll?[address] [id number] Information: 138552,M41402 Albumin/Globulin [Mass ratio] 2.0 {ratio} Normal 1.1-2.5 [facility] Work Phone: Comment on above: PATIENT NOT FASTINGP ERFORMED BY: [employer] [facility] Vvkuyg7231 [facility] [id number] BY: [employer] [id number] Information: 751359,H83404 ALP [Catalytic activity/Vol] 73 [iU]/L Normal 39-117 [facility] Work Phone: Comment on above: PATIENT NOT FASTINGP ERFORMED BY: CB [facility] Bpjncl0303 [facility] [id number] BY: [employer] [id number] Information: 641060,C23041 ALT [Catalytic activity/Vol] 21 [iU]/L Normal 0-44 [facility] Work Phone: Comment on above: PATIENT NOT FASTINGP ERFORMED BY: CB [facility] Jktqmp4764 Johns RoadDublin [place] [id number] BY: [facility] [address] [id number] Information: 206012,Y32358 AST [Catalytic activity/Vol] 18 [iU]/L Normal 0-40 [facility] Work Phone: Comment on above: PATIENT NOT FASTINGP ERFORMED BY: CB [facility] Leacig9019 Johns RoadDublin [place] [id number] BY: [facility] [address] [id number] Information: 185417,N39781 Bilirubin [Mass/Vol] 0.4 mg/dL Normal 0.0-1.2 [facility] Work Phone: Comment on above: PATIENT NOT FASTINGP ERFORMED BY: CB [facility] Hxyrtz3278 Johns RoadDublin [place] [id number] BY: [facility]Co[address] [id number] Information: 543304,J27475 Calcium [Mass/Vol] 9.3 mg/dL Normal 8.7-10.2 [facility] Internal Medicine Work Phone: Comment on above: PATIENT NOT FASTINGP ERFORMED BY: CB [facility] Evkzle5040 Johns RoadDublin [place] [id number] BY: [facility] [address] [id number] Information: 848071,G95694 Chloride [Moles/Vol] 103 mmol/L Normal 97-108 [facility] Work Phone: Comment on above: PATIENT NOT FASTINGP ERFORMED BY: CB [facility] Gqfpnk4336 Johns RoadDublin [place] [id number] BY: [facility] [address] [id number] Information: 574370,Q46262 CO2 [Moles/Vol] 24 mmol/L Normal 18-29 [facility] Work Phone: Comment on above: PATIENT NOT FASTINGP ERFORMED BY: CB [facility] Jiaenk4727 [facility] [id number] BY: How do you roll?[address] [id number] Information: 062784,W46471 Creatinine [Mass/Vol] 0.95 mg/dL Normal 0.76-1.27 [facility] Work Phone: Comment on above: PATIENT NOT FASTINGP ERFORMED BY: CB [facility] Mmtdxq8701 [facility] [id number] BY: How do you roll?[address] [id number] Information: 803183,Z97593 GFR/1.73 sq M predicted among blacks CKD-EPI (S/P/Bld) [Vol rate/Area] 117 mL/min/1.73 Normal [facility] Work Phone: Comment on above: PATIENT NOT FASTINGP ERFORMED BY: CB [facility] Oceboy9536 [facility] [id number] BY: How do you roll?[address] [id number] Information: 673937,F37635 GFR/1.73 sq M predicted among non-blacks CKD-EPI (S/P/Bld) [Vol rate/Area] 101 mL/min/1.73 Normal [facility] Work Phone: Comment on above: PATIENT NOT FASTINGP ERFORMED BY: CB [facility] Xyqvdh6510 [facility] [id number] BY: How do you roll?[address] [id number] Information: 692793,X50784 Globulin (S) [Mass/Vol] 2.1 g/dL Normal 1.5-4.5 [facility] Work Phone: Comment on above: PATIENT NOT FASTINGP ERFORMED BY: CB [facility] Znbgds3096 Johns RoadDublin [place] [id number] BY: [facility] [address] [id number] Information: 503540,Q88492 Glucose [Mass/Vol] 101 mg/dL Abnormal 65-99 [facility] Internal Medicine Work Phone: Comment on above: PATIENT NOT FASTINGP ERFORMED BY: CB [facility] Yqxyhk6625 [facility] RoadAt[facility] [id number] BY: LabCo[address] [id number] Information: 093869,F35449 Potassium [Moles/Vol] 4.7 mmol/L Normal 3.5-5.2 [facility] Work Phone: Comment on above: PATIENT NOT FASTINGP ERFORMED BY: CB [facility] Nsozbn1658 [facility] [id number] BY: [address] [id number] Information: 383698,Y42827 Protein [Mass/Vol] 6.4 g/dL Normal 6.0-8.5 [facility] Internal Medicine Work Phone: Comment on above: PATIENT NOT FASTINGP ERFORMED BY: CB [facility] Xkiaok8182 [facility] [id number] BY: LabCo[address] [id number] Information: 088628,B76828 Sodium [Moles/Vol] 142 mmol/L Normal 134-144 [facility] Internal Medicine Work Phone: Comment on above: PATIENT NOT FASTINGP ERFORMED BY: CB [facility] Ajkobi2442 [facility] [id number] BY: LabCo[address] [id number] Information: 739741,E40848 Urea nitrogen [Mass/Vol] 10 mg/dL Normal 6-20 [facility] Work Phone: Comment on above: PATIENT NOT FASTINGP ERFORMED BY: MILLER [facility] Wczwqn7904 [facility] [id number] BY: [employer] [id number] Information: 969243,V75524 Urea nitrogen/Creatinine [Mass ratio] 11 mg/mg Normal 8-19 [facility] Work Phone: Comment on above: PATIENT NOT FASTINGP ERFORMED BY: MILLER [facility] Kmngzm8356 [facility] [id number] BY: How do you roll?[address] [id number] Information: 340751,Z93453 RHEUMATOID FACTOR-QUANT (864 31)Ordered By: Hat Brim Curler on 01-10-2014 Rheumatoid factor Qn 6.1 {IU/mL} Normal 0.0-13.9 [facility] Work Phone: Comment on above: PATIENT NOT FASTINGP ERFORMED BY: MILLER [facility] Bjdhlp2006 [facility] [id number] BY: How do you roll?[address] [id number] SED RATE ERYTHROCYTE (30261) Ordered By: Hat Brim Curler on 01-10-2014 ESR (Bld) [Velocity] 2 mm/h Normal 0-15 [facility] Work Phone: Comment on above: PATIENT NOT FASTINGP ERFORMED BY: [facility] Zqkmvc0404 [facility] [id number] BY: [employer] [id number] TSH (70219)Ordered By: Ilan m Smoking Pipe Repairer on 01-10-2014 TSH Qn 1.240 {uIU/mL} Normal 0.450-4.50 0 [facility] Work Phone: Comment on above: PATIENT NOT FASTINGP ERFORMED BY: LabCoThe [facility] Hospital [facility] Salem CountyZpbvdz6120 [facility]in [place] [id number] BY: LabMatthew Ville 947067 [facility] [id number] CBC, Platelets & Auto Diff ( 12391)Ordered By: Hat Brim Curler on 10-21-2013 Basophils (Bld) [#/Vol] 0.0 {x10E3/uL} Normal 0.0-0.2 [facility] Work Phone: Comment on above: PATIENT NOT FASTINGP ERFORMED BY: [facility] Dquxos7090 Johns RoadRandolph Healthin [place] [id number] Information: 607042,[id number] Basophils/100 WBC (Bld) 1 % Normal 0-3 [facility] Work Phone: Comment on above: PATIENT NOT FASTINGP ERFORMED BY: [facility] Ptjhvt4751 Johns RoadAt[facility]Park [id number] Information: 366050,I49894 Eosinophils (Bld) [#/Vol] 0.2 {x10E3/uL} Normal 0.0-0.4 [facility] Work Phone: Comment on above: PATIENT NOT FASTINGP ERFORMED BY: [facility] Haqgly9856 [facility]in [place] [id number] Information: 503080,V74666 Eosinophils/100 WBC (Bld) 3 % Normal 0-5 [facility] Work Phone: Comment on above: PATIENT NOT FASTINGP ERFORMED BY: [facility] Xclbbu0475 [facility]in [place] [id number] Information: 927899,A68185 Erythrocyte distribution width (RBC) [Ratio] 13.1 % Normal 12.3-15.4 [facility] Work Phone: Comment on above: PATIENT NOT FASTINGP ERFORMED BY: [facility] Aaflpw1320 [facility] [id number] Information: 281587,J35946 Hematocrit (Bld) [Volume fraction] 49.1 % Normal 37.5-51.0 [facility] Work Phone: Comment on above: PATIENT NOT FASTINGP ERFORMED BY: MILLER Zamora6370 [facility] [id number] Information: 116416,H95002 Hemoglobin (Bld) [Mass/Vol] 17.2 g/dL Normal 12.6-17.7 [facility] Work Phone: Comment on above: PATIENT NOT FASTINGP ERFORMED BY: MILLER Sanches Iyzvhy[address] [id number] Information: [id number],J31022 Immature granulocytes (Bld) [#/Vol] 0.0 {x10E3/uL} Normal 0.0-0.1 [facility] Work Phone: Comment on above: PATIENT NOT FASTINGP ERFORMED BY: [facility] Gujsrh[address] [id number] Information: 878784,F83541 Immature granulocytes/100 WBC (Bld) 0 % Normal 0-2 [facility] Work Phone: Comment on above: PATIENT NOT FASTINGP ERFORMED BY: MILLER Sanches Fflewr0013[address] [id number] Information: 284838,J13905 Lymphocytes (Bld) [#/Vol] 1.2 {x10E3/uL} Normal 0.7-3.1 [facility] Work Phone: Comment on above: PATIENT NOT FASTINGP ERFORMED BY: MILLER HernandezTracey V[place] 2782470 [facility] [id number] Information: 289932,C64358 Lymphocytes/100 WBC (Bld) 24 % Normal 14-46 [facility] Work Phone: Comment on above: PATIENT NOT FASTINGP ERFORMED BY: MILLER Hernandez[address] [id number] Information: 235695,B51803 MCH (RBC) [Entitic mass] 31.3 pg Normal 26.6-33.0 [facility] Work Phone: Comment on above: PATIENT NOT FASTINGP ERFORMED BY: MILLER Zamora6370 [facility] [id number] Information: 479004,T67059 MCHC (RBC) [Mass/Vol] 35.0 g/dL Normal 31.5-35.7 [facility] Work Phone: Comment on above: PATIENT NOT FASTINGP ERFORMED BY: MILLER Ortizlin6370 [facility] [id number] Information: 716243,J70408 MCV (RBC) [Entitic vol] 89 fL Normal 79-97 [facility] Work Phone: Comment on above: PATIENT NOT FASTINGP ERFORMED BY: MILLER Ortiz[address] [id number] Information: 779982,T83260 Monocytes (Bld) [#/Vol] 0.4 {x10E3/uL} Normal 0.1-0.9 [facility] Work Phone: Comment on above: PATIENT NOT FASTINGP ERFORMED BY: MILLER Ortizlin6370 [facility] [id number] Information: 274146,K35459 Monocytes/100 WBC (Bld) 8 % Normal 4-12 [facility] Work Phone: Comment on above: PATIENT NOT FASTINGP ERFORMED BY: MILLER Sanches Uuonlk7663 [facility] [id number] Information: 013666,H89450 Neutrophils (Bld) [#/Vol] 3.3 {x10E3/uL} Normal 1.4-7.0 [facility] Work Phone: Comment on above: PATIENT NOT FASTINGP ERFORMED BY: MILLER Sanches Smjtfq8445 [facility] [id number] Information: 139811,L52618 Neutrophils/100 WBC (Bld) 64 % Normal 40-74 [facility] Work Phone: Comment on above: PATIENT NOT FASTINGP ERFORMED BY: MILLER [facility] Hpbeiq1780 [facility] [id number] Information: 070081,H76995 Platelets (Bld) [#/Vol] 190 {x10E3/uL} Normal 155-379 [facility] Work Phone: Comment on above: Effective November 04, 2013, the reference interval for Platelets will be changing for 13 years and older to: 150 - 379 PATIENT NOT FASTINGP ERFORMED BY: [facility] Yxvoyk6691 [facility] [id number] Information: 810761,R02812 RBC (Bld) [#/Vol] 5.50 {x10E6/uL} Normal 4.14-5.80 [facility] Internal Medicine Work Phone: Comment on above: PATIENT NOT FASTINGP ERFORMED BY: [facility] Opafzh3631 [facility] [id number] Information: 357827,Y92464 WBC (Bld) [#/Vol] 5.1 {x10E3/uL} Normal 3.4-10.[address] [facility] Internal Medicine Work Phone: Comment on above: PATIENT NOT FASTINGP ERFORMED BY: [facility] Ivldwn6324 [facility] [id number] Information: 079896,[id number] TSH (84982)Ordered By: Syste m Smoking Pipe Repairer on 10-21-2013 TSH Qn 1.180 {uIU/mL} Normal 0.450-4.50 0 [facility] Work Phone: Comment on above: PATIENT NOT FASTINGP ERFORMED BY: [facility] Vrkxxm0690 [facility] [id number] Rapid Flu (71072 x 2)on 06-23 FLUAV Ag IA Ql (Throat) Negative Normal [facility] Work Phone: DAVID CULTURE-OTHER (91140)Ord ered By: Hat Brim Curler on 02-15-2013 Bacteria identified Respiratory culture Nom (Unsp spec) RRF Normal [facility] Work Phone: Comment on above: Routine respiratory nasim PATIENT NOT FASTINGP ERFORMED BY: [facility] Wabjzh3854 [facility] [id number] Information: SRC: THROAT Bacteria identified Respiratory culture Nom (Unsp spec) Final report Normal [facility] Work Phone: Comment on above: PATIENT NOT FASTINGP ERFORMED BY: MILLER [facility] Tclbbh1971 [facility] [id number] Information: SRC: THROAT Rapid Flu (85478 x 2)on 03-22 FLUAV Ag IA Ql (Throat) Negative Normal [facility] Work Phone: Urinalysis, Office ([id number])Or dered By: Maria Fernanda Santillan on 07-09-2009 [...] Time Vital Sign Value Performing Clinician Facility 05-06-2024 06:53-0500 Blood Pressure Cuff Size NAVIN GONZALEZ MD [facility] 05-06-2024 06:53-0500 Blood Pressure Location NAVIN GONZALEZ MD [facility] 05-06-2024 06:53-0500 Blood Pressure Method NAVIN GONZALEZ MD [facility] 05-06-2024 06:53-0500 Body temperature 98.24 [degF] NAVIN GONZALEZ MD [facility] 05-06-2024 06:53-0500 Diastolic Blood Pressure Non-Invasive 72 mm[Hg] NAVIN GONZALEZ MD [facility] 05-06-2024 06:53-0500 Heart rate 77 /min NAVIN GONZALEZ MD [facility] 05-06-2024 06:53-0500 Reason For Taking VItal Signs NAVIN GONZALEZ MD [facility] 05-06-2024 06:53-0500 Respiratory rate 18 /min NAVIN GONZALEZ MD [facility] 05-06-2024 06:53-0500 Systolic Blood Pressure Non-Invasive 109 mm[Hg] NAVIN GONZALEZ MD [facility] 05-05-2024 22:57-0500 Body temperature 98.42 [degF] NAVIN GONZALEZ MD [facility] 05-05-2024 22:57-0500 Diastolic Blood Pressure Non-Invasive 68 mm[Hg] NAVIN GONZALEZ MD [facility] 05-05-2024 22:57-0500 Heart rate 80 /min NAVIN GONZALEZ MD [facility] 05-05-2024 22:57-0500 Respiratory rate 18 /min NAVIN GONZALEZ MD [facility] 05-05-2024 22:57-0500 Systolic Blood Pressure Non-Invasive 111 mm[Hg] NAVIN GONZALEZ MD [facility] 14:51-0500 Blood Pressure Cuff Size NAVIN GONZALEZ MD [facility] 05-05-2024 14:51-0500 Blood Pressure Location NAVIN GONZALEZ MD [facility] 14:51-0500 Blood Pressure Method NAVIN GONZALEZ MD [facility] 14:51-0500 Body temperature 98.06 [degF] NAVIN GONZALEZ MD [facility] 14:51-0500 Diastolic Blood Pressure Non-Invasive 80 mm[Hg] NAVIN GONZALEZ MD [facility] 14:51-0500 Heart rate 77 /min NAVIN GONZALEZ MD [facility] 05-05-2024 14:51-0500 Reason For Taking VItal Signs NAVIN GONZALEZ MD [facility] 05-05-2024 14:51-0500 Respiratory rate 18 /min NAVIN GONZALEZ MD [facility] 05-05-2024 14:51-0500 Systolic Blood Pressure Non-Invasive 121 mm[Hg] NAVIN GONZALEZ MD [facility] 05-05-2024 08:07-0500 Reason For Taking VItal Signs NAVIN GONZALEZ MD [facility] 05-05-2024 06:38-0500 Blood Pressure Cuff Size NAVIN GONZALEZ MD [facility] 05-05-2024 06:38-0500 Blood Pressure Location NAVIN GONZALEZ MD [facility] 05-05-2024 06:38-0500 Blood Pressure Method NAVIN GONZALEZ MD [facility] 05-05-2024 06:38-0500 Heart rate 69 /min NAVIN GONZALEZ MD [facility] 05-04-2024 22:38-0500 Heart rate 66 /min NAVIN GONZALEZ MD [facility] 04-30-2024 22:59-0500 Heart rate 85 /min NAVIN GONZALEZ MD [facility] 04-30-2024 18:51-0500 Body height 180.3 cm NAVIN GONZALEZ MD [address] 04-30-2024 18:51-0500 Body weight 83 kg NAVIN GONZALEZ MD [address] 04-30-2024 18:51-0500 Body weight 25.53 kg/m2 NAVIN GONZALEZ MD [address] 04-30-2024 11:25-0500 Body temperature 96.98 [degF] NAVIN GONZALEZ MD [address] 04-30-2024 11:25-0500 Body weight 85 kg NAVIN GONZALEZ MD [address] 04-27-2024 07:09-0500 Blood Pressure Cuff Size NAVIN GONZALEZ MD [facility] 04-27-2024 07:09-0500 Blood Pressure Location NAVIN GONZALEZ MD [facility] 04-27-2024 07:09-0500 Blood Pressure Method NAVIN GONZALEZ MD [facility] 04-27-2024 07:09-0500 Body temperature 98.6 [degF] NAVIN GONZALEZ MD [address] 04-27-2024 07:09-0500 Diastolic Blood Pressure Non-Invasive 104 mm[Hg] NAVIN GONZALEZ MD [facility] 04-27-2024 07:09-0500 Heart rate 95 /min NAVIN GONZALEZ MD [facility] 04-27-2024 07:09-0500 Respiratory rate 18 /min NAVIN GONZALEZ MD [facility] 04-27-2024 07:09-0500 Systolic Blood Pressure Non-Invasive 126 mm[Hg] NAVIN GONZALEZ MD [facility] 04-26-2024 21:56-0500 Blood Pressure Cuff Size NAVIN GONZALEZ MD [address] [place] [address] 04-26-2024 21:56-0500 Blood Pressure Location NAVIN GONZALEZ MD [address] 04-26-2024 21:56-0500 Blood Pressure Method NAVIN GONZALEZ MD [address] 04-26-2024 21:56-0500 Body temperature 98.06 [degF] NAVIN GONZALEZ MD [address] 04-26-2024 21:56-0500 Diastolic Blood Pressure Non-Invasive 107 mm[Hg] NAVIN GONZALEZ MD [address] [place] [address] 04-26-2024 21:56-0500 Heart rate 101 /min NAVIN GONZALEZ MD [address] 04-26-2024 21:56-0500 Respiratory rate 18 /min NAVIN GONZALEZ MD [address] [place] [address] 04-26-2024 21:56-0500 Systolic Blood Pressure Non-Invasive 143 mm[Hg] NAVIN GONZALEZ MD [address] [place] [address] 04-26-2024 19:32-0500 Blood Pressure Cuff Size NAVIN GONZALEZ MD [facility] 04-26-2024 19:32-0500 Blood Pressure Location NAVIN GONZALEZ MD [address] [place] [address] 04-26-2024 19:32-0500 Blood Pressure Method NAVIN GONZALEZ MD [address] [place] [address] 04-26-2024 19:32-0500 Body temperature 98.42 [degF] NAVIN GONZALEZ MD [address] [place] [address] 04-26-2024 19:32-0500 Diastolic Blood Pressure Non-Invasive 98 mm[Hg] NAVIN GONZALEZ MD [address] 04-26-2024 19:32-0500 Heart rate 104 /min NAVIN GONZALEZ MD [address] 04-26-2024 19:32-0500 Respiratory rate 18 /min NAVIN GONZALEZ MD [address] 04-26-2024 19:32-0500 Systolic Blood Pressure Non-Invasive 137 mm[Hg] NAVIN GONZALEZ MD [address] [place] [address] 04-25-2024 23:37-0500 Heart rate 92 /min NAVIN GONZALEZ MD [address] [place] [address] 04-24-2024 15:32-0500 Reason For Taking VItal Signs NAVIN GONZALEZ MD [address] 04-22-2024 13:14-0500 Body height 180.3 cm ANVIN GONZALEZ MD [address] 04-22-2024 13:14-0500 Body weight 87 kg NAVIN GONZALEZ MD [address] [place] [id number] 04-22-2024 13:14-0500 Body weight 26.76 kg/m2 NAVIN GONZALEZ MD [address] 04-22-2024 13:07-0500 Body temperature 98.6 [degF] NAVIN GONZALEZ MD [address] 04-22-2024 12:35-0500 Body temperature 98.06 [degF] NAVIN GONZALEZ MD [address] 04-22-2024 12:35-0500 Heart rate 81 /min NAVIN GONZALEZ MD [address] 04-22-2024 12:35-0500 Mean blood pressure 87 mm[Hg] NAVIN GONZALEZ MD [address] 04-22-2024 12:20-0500 Heart rate 72 /min NAVIN GONZALEZ MD [address] 04-22-2024 12:20-0500 Mean blood pressure 84 mm[Hg] NAVIN GONZALEZ MD [address] 04-22-2024 12:05-0500 Mean blood pressure 87 mm[Hg] NAVIN GONZALEZ MD [address] [place] [id number] 04-22-2024 11:20-0500 Body temperature 97.16 [degF] NAVIN GONZALEZ MD [address] [place] [address] 04-22-2024 11:15-0500 Respiratory Rate - Anes 16 br/min NAVIN GONZALEZ MD [address] [place] [address] 04-22-2024 11:10-0500 Respiratory Rate - Anes 6 br/min NAVIN GONZALEZ MD [address] [place] [address] 04-22-2024 11:05-0500 Body temperature 98.56 [degF] NAVIN GONZALEZ MD [address] [place] [address] 04-22-2024 11:05-0500 Respiratory Rate - Anes 14 br/min NAVIN GONZALEZ MD [address] [place] [address] 04-22-2024 11:00-0500 Body temperature 98.51 [degF] NAVIN GONZALEZ MD [address] 04-22-2024 10:55-0500 Body temperature 98.49 [degF] NAVIN GONZALEZ MD [address] [place] [address] 04-22-2024 06:34-0500 Body height 180.3 cm NAVIN GONZALEZ MD [address] [place] [address] 04-22-2024 06:34-0500 Body temperature 98.24 [degF] NAVIN GONZALEZ MD [address] 04-22-2024 06:34-0500 Body weight 87 kg NAVIN GONZALEZ MD [facility] 04-17-2024 11:10-0500 Blood Pressure Cuff Size NAVIN GONZALEZ MD [facility] 04-17-2024 11:10-0500 Blood Pressure Location NAVIN GONZALEZ MD [facility] 04-17-2024 11:10-0500 Blood Pressure Method NAVIN GONZALEZ MD [facility] 04-17-2024 11:10-0500 Body height 180 cm NAVIN GONZALEZ MD [facility] 04-17-2024 11:10-0500 Body temperature 98.24 [degF] NAVIN GONZALEZ MD [facility] 04-17-2024 11:10-0500 Body weight 90.7 kg NAVIN GONZALEZ MD [facility] 04-17-2024 11:10-0500 Diastolic Blood Pressure Non-Invasive 89 mm[Hg] NAVIN GONZALEZ MD [facility] 04-17-2024 11:10-0500 Heart rate 75 /min NAVIN GONZALEZ MD [facility] 04-17-2024 11:10-0500 Systolic Blood Pressure Non-Invasive 125 mm[Hg] NAVIN GONZALEZ MD [facility] 07-08-2020 14:14-0500 BMI (Body Mass Index) 26.55 kg/m2 Xiao Coon [facility]; [facility] Work Phone: Comment on above: no vs taken as this is phone encounter d ue to covid 07-08-2020 14:14-0500 Body weight 86.35 kg Xiao Coon [facility]; [facility] Work Phone: Comment on above: no vs taken as this is phone encounter d ue to covid 07-08-2020 14:14-0500 BSA (Body Surface Area) 2.07 m2 Xiao Coon [facility]; [facility] Work Phone: Comment on above: no vs taken as this is phone encounter d ue to covid 07-08-2020 14:14-0500 Height 180.34 cm Xiao Coon [facility]; [facility] Work Phone: Comment on above: no vs taken as this is phone encounter d ue to covid 03-14-2019 07:21-0400 BMI (Body Mass Index) 26.55 kg/m2 X[facility] Internal Medicine Work Phone: 03-14-2019 07:21-0400 Body Temperature 97.8 [degF] Xiao Co[facility] Internal Medicine Work Phone: Comment on above: Method: Temporal 03-14-2019 07:21-0400 Body weight 86.35 kg Xiao Co[facility] Work Phone: 03-14-2019 07:21-0400 BP Diastolic 78 mm[Hg] Xiao Coon [facility] Medicine Work Phone: Comment on above: Patient Position: Sitting; Cuff Location : Left Arm; Cuff Size: Large 03-14-2019 07:21-0400 BP Systolic 146 mm[Hg] Xiao Coon [facility] Internal Medicine Work Phone: Comment on above: Patient Position: Sitting; Cuff Location : Left Arm; Cuff Size: Large 03-14-2019 07:21-0400 BSA (Body Surface Area) 2.07 m2 Xiao Co[facility] Medicine Work Phone: 03-14-2019 07:21-0400 Height 180.34 cm Xiao Co[facility] Work Phone: 03-14-2019 07:21-0400 Pulse (Heart Rate) 94 /min X[facility] Work Phone: Comment on above: Pattern: Regular 03-14-2019 07:21-0400 Pulse Oximetry 97 % Xiao Co[facility] Internal Medicine Work Phone: Comment on above: Room air 03-14-2019 07:21-0400 Respiratory Rate 17 /min X[facility] Internal Medicine Work Phone: Comment on above: Pattern: Unlabored 01-18-2016 13:25-040 BMI (Body Mass Index) 26.55 kg/m2 [facility] Work Phone: 01-18-2016 13:25-040 Body weight 86.35 kg Xiao Coon [facility] Work Phone: 01-18-2016 13:25-0400 BP Diastolic 80 mm[Hg] Xiao Co[facility] Work Phone: Comment on above: Patient Position: Sitting; Cuff Location : Left Arm; Cuff Size: Large 01-18-2016 13:25-0400 BP Systolic 120 mm[Hg] Xiao Coon [facility] Work Phone: Comment on above: Patient Position: Sitting; Cuff Location : Left Arm; Cuff Size: Large 01-18-2016 13:25-0400 BSA (Body Surface Area) 2.07 m2 Xiao Co[facility] Work Phone: 01-18-2016 [id number] Height 180.34 cm Xiao Coon [facility] Work Phone: 01-18-2016 13:25-040 Pulse (Heart Rate) 89 /min Xiao Co[facility] Internal Medicine Work Phone: Comment on above: Pattern: Regular 01-18-2016 13:25-0400 Pulse Oximetry 97 % Xiao Co[facility] Internal [facility] Work Phone: Comment on above: Room air 01-18-2016 13:25-0400 Respiratory Rate 18 /min Xiao [facility] Work Phone: Comment on above: Pattern: Unlabored 09-03-2015 07:43-0400 BMI (Body Mass Index) 26.24 kg/m2 [facility] Work Phone: 09-03-2015 07:43-0400 Body weight 85.33 kg [facility] Work Phone: 09-03-2015 07:43-0400 BP Diastolic 60 mm[Hg] Xiao Co[facility] Work Phone: Comment on above: Patient Position: Sitting; Cuff Location : Left Arm; Cuff Size: Large 09-03-2015 07:43-0400 BP Systolic 110 mm[Hg] Xiao Coon [facility] Work Phone: Comment on above: Patient Position: Sitting; Cuff Location : Left Arm; Cuff Size: Large 09-03-2015 07:43-0400 BSA (Body Surface Area) 2.05 m2 Xiao Co[facility] Internal [facility] Work Phone: 09-03-2015 07:43-0400 Height 180.34 cm Xiao [facility] Work Phone: 09-03-2015 07:43-0400 Pulse (Heart Rate) 65 /min [facility] Internal [facility] Work Phone: Comment on above: Pattern: Regular 09-03-2015 07:43-0400 Pulse Oximetry 97 % X[facility] Internal Medicine Work Phone: Comment on above: Room air 09-03-2015 07:43-0400 Respiratory Rate 18 /min [facility] Internal [facility] Work Phone: Comment on above: Pattern: Unlabored 02-16-2015 09:38-0400 BMI (Body Mass Index) 25.82 kg/m2 X[facility] Internal Medicine Work Phone: 02-16-2015 09:38-0400 Body Temperature 97.4 [degF] Xiao [facility] Work Phone: 02-16-2015 09:38-0400 Body weight 83.97 kg Xiao [facility] Work Phone: 02-16-2015 09:38-0400 BP Diastolic 78 mm[Hg] Xiao Co[facility] Work Phone: Comment on above: Patient Position: Sitting; Cuff Location : Left Arm; Cuff Size: Standard 02-16-2015 09:38-0400 BP Systolic 114 mm[Hg] Xiao Co[facility] Work Phone: Comment on above: Patient Position: Sitting; Cuff Location : Left Arm; Cuff Size: Standard 02-16-2015 09:38-0400 BSA (Body Surface Area) 2.04 m2 X[facility] Work Phone: 02-16-2015 09:38-0400 Height 180.34 cm Xiao Co[facility] Work Phone: 02-16-2015 09:38-0400 Pulse (Heart Rate) 82 /min [facility] Work Phone: Comment on above: Pattern: Regular 02-16-2015 09:38-0400 Pulse Oximetry 98 % X[facility] Work Phone: Comment on above: Room air 02-16-2015 09:38-0400 Respiratory Rate 16 /min [facility] Internal Medicine Work Phone: Comment on above: Pattern: Unlabored 01-10-2014 08:03-0400 BMI (Body Mass Index) 24.87 kg/m2 [facility] Internal Medicine Work Phone: 01-10-2014 08:03-0400 Body Temperature 98.6 [degF] X[facility] Work Phone: Comment on above: Method: Oral 01-10-2014 08:03-0400 Body weight 80.88 kg X[facility] Work Phone: 01-10-2014 08:03-0400 BP Diastolic 80 mm[Hg] Xiao Co[facility] Work Phone: Comment on above: Patient Position: Sitting; Cuff Location : Left Arm; Cuff Size: Standard 01-10-2014 08:03-0400 BP Systolic 120 mm[Hg] Xiao Co[facility] Work Phone: Comment on above: Patient Position: Sitting; Cuff Location : Left Arm; Cuff Size: Standard 01-10-2014 08:03-0400 BSA (Body Surface Area) 2.01 m2 X[facility] Work Phone: 01-10-2014 08:03-0400 Height 180.34 cm Xiao Co[facility] Work Phone: 01-10-2014 08:03-0400 Pulse (Heart Rate) 76 /min [facility] Work Phone: Comment on above: Pattern: Regular 01-10-2014 08:03-0400 Pulse Oximetry 98 % Xiao [facility] Work Phone: Comment on above: Room air 01-10-2014 08:03-0400 Respiratory Rate 16 /min X[facility] Work Phone: 01-06-2014 08:39-0400 BMI (Body Mass Index) 24.87 kg/m2 [facility] Internal Medicine Work Phone: 01-06-2014 08:39-0400 Body Temperature 98.4 [degF] X[facility] Work Phone: Comment on above: Method: Oral 01-06-2014 08:39-0400 Body weight 80.88 kg X[facility] Co[facility] Work Phone: 01-06-2014 08:39-0400 BP Diastolic 78 mm[Hg] Xaio Co[facility] Work Phone: Comment on above: Patient Position: Sitting; Cuff Location : Left Arm; Cuff Size: Standard 01-06-2014 08:39-0400 BP Systolic 120 mm[Hg] Xiao Co[facility] Work Phone: Comment on above: Patient Position: Sitting; Cuff Location : Left Arm; Cuff Size: Standard 01-06-2014 08:39-0400 BSA (Body Surface Area) 2.01 m2 X[facility] Work Phone: 01-06-2014 08:39-0400 Height 180.34 cm X[facility] Co[facility] Work Phone: 01-06-2014 08:39-0400 Pulse (Heart Rate) 82 /min [facility] Work Phone: Comment on above: Pattern: Regular 01-06-2014 08:39-0400 Pulse Oximetry 98 % X[facility] Work Phone: Comment on above: Room air 01-06-2014 08:39-0400 Respiratory Rate 17 /min X[facility] Work Phone: Comment on above: Pattern: Unlabored 10-21-2013 09:49-0400 BMI (Body Mass Index) 26.12 kg/m2 X[facility] Internal Medicine Work Phone: 10-21-2013 09:49-0400 Body Temperature 99.2 [degF] Xiao Coon [facility] Work Phone: Comment on above: Method: Oral 10-21-2013 09:49-0400 Body weight 84.96 kg Xiao Coon [facility] Work Phone: 10-21-2013 09:49-0400 BP Diastolic 80 mm[Hg] Xiao Coon [facility] Work Phone: Comment on above: Patient Position: Sitting; Cuff Location : Left Arm; Cuff Size: Standard 10-21-2013 09:49-0400 BP Systolic 122 mm[Hg] Xiao Coon [facility] Work Phone: Comment on above: Patient Position: Sitting; Cuff Location : Left Arm; Cuff Size: Standard 10-21-2013 09:49-0400 BSA (Body Surface Area) 2.05 m2 X[facility] Work Phone: 10-21-2013 09:49-0400 Height 180.34 cm Xiao Co[facility] Work Phone: 10-21-2013 09:49-0400 Pulse (Heart Rate) 78 /min X[facility] Work Phone: Comment on above: Pattern: Regular 10-21-2013 09:49-0400 Pulse Oximetry 99 % X[facility] Work Phone: Comment on above: Room air 10-21-2013 09:49-0400 Respiratory Rate 17 /min X[facility] Work Phone: 07-17-2013 08:57-0500 BMI (Body Mass Index) 26.12 kg/m2 X[facility] Medicine Work Phone: 07-17-2013 08:57-0500 Body Temperature 98.7 [degF] Xiao Co[facility] Work Phone: Comment on above: Method: Oral 07-17-2013 08:57-0500 Body weight 84.96 kg Xiao Coon [facility] Work Phone: 07-17-2013 08:57-0500 BP Diastolic 70 mm[Hg] Xiao Coon [facility] Work Phone: Comment on above: Patient Position: Sitting; Cuff Location : Left Arm; Cuff Size: Large 07-17-2013 08:57-0500 BP Systolic 118 mm[Hg] Xiao Co[facility] Work Phone: Comment on above: Patient Position: Sitting; Cuff Location : Left Arm; Cuff Size: Large 07-17-2013 08:57-0500 BSA (Body Surface Area) 2.05 m2 X[facility] Work Phone: 07-17-2013 08:57-0500 Height 180.34 cm Xiao Co[facility] Work Phone: 07-17-2013 08:57-0500 Pulse (Heart Rate) 79 /min [facility] Work Phone: Comment on above: Pattern: Regular 07-17-2013 08:57-0500 Pulse Oximetry 99 % X[facility] Work Phone: Comment on above: Room air 07-17-2013 08:57-0500 Respiratory Rate 18 /min X[facility] Work Phone: Comment on above: Pattern: Unlabored 04-23-2013 08:50-0500 BMI (Body Mass Index) 26.12 kg/m2 [facility] Internal [facility] Work Phone: 04-23-2013 08:50-0500 Body Temperature 98.9 [degF] X[facility] Work Phone: Comment on above: Method: Oral 04-23-2013 08:50-0500 Body weight 84.96 kg Xiao [facility] Work Phone: 04-23-2013 08:50-0500 BP Diastolic 78 mm[Hg] X[facility] Work Phone: Comment on above: Patient Position: Sitting; Cuff Location : Left Arm; Cuff Size: Standard 04-23-2013 08:50-0500 BP Systolic 128 mm[Hg] Xiao Coon [facility] Work Phone: Comment on above: Patient Position: Sitting; Cuff Location : Left Arm; Cuff Size: Standard 04-23-2013 08:50-0500 BSA (Body Surface Area) 2.05 m2 X[facility] Work Phone: 04-23-2013 08:50-0500 Height 180.34 cm Xiao Coon [facility] Work Phone: 04-23-2013 08:50-0500 Pulse (Heart Rate) 84 /min X[facility] Work Phone: Comment on above: Pattern: Regular 04-23-2013 08:50-0500 Pulse Oximetry 98 % X[facility] Co[facility] Work Phone: Comment on above: Room air 04-23-2013 08:50-0500 Respiratory Rate 17 /min X[facility] Work Phone: 02-15-2013 07:18-0400 BMI (Body Mass Index) 26.12 kg/m2 Xiao Saey [facility] Internal Medicine Work Phone: Comment on above: 136/78 at [employer] 02-15-2013 07:18-0400 Body Temperature 97.5 [degF] X[facility] Co[facility] Work Phone: Comment on above: Method: Temporal 136/78 at [employer] 02-15-2013 07:18-0400 Body weight 84.96 kg Xiao Coon [facility] Work Phone: Comment on above: 136/78 at [employer] 02-15-2013 07:18-0400 BP Diastolic 80 mm[Hg] Xiao Coon [facility] Work Phone: Comment on above: Patient Position: Sitting; Cuff Location : Left Arm; Cuff Size: Standard 136/78 at [employer] 02-15-2013 07:18-0400 BP Systolic 140 mm[Hg] Xiao Coon [facility] Work Phone: Comment on above: Patient Position: Sitting; Cuff Location : Left Arm; Cuff Size: Standard 136/78 at [employer] 02-15-2013 07:18-0400 BSA (Body Surface Area) 2.05 m2 X[facility] Co[facility] Work Phone: Comment on above: 136/78 at [employer] 02-15-2013 07:18-0400 Height 180.34 cm Xiao Coon [facility] Work Phone: Comment on above: [facility] 02-15-2013 07:18-0400 Pulse (Heart Rate) 72 /min Xiao Co[facility] Work Phone: Comment on above: Pattern: Regular 136[facility] 02-15-2013 07:18-0400 Pulse Oximetry 98 % Xiao Coon [facility] Work Phone: Comment on above: Room air 136[facility] 02-15-2013 07:18-0400 Respiratory Rate 16 /min X[facility] Work Phone: Comment on above: Pattern: Unlabored 136/[facility] 04-02-2012 09:10-0500 BMI (Body Mass Index) 26.12 kg/m2 X[facility] Work Phone: 04-02-2012 09:10-0500 Body Temperature 98.9 [degF] X[facility] Work Phone: Comment on above: Method: Oral 04-02-2012 09:10-0500 Body weight 84.96 kg Xiao [facility] Work Phone: 04-02-2012 09:10-0500 BP Diastolic 84 mm[Hg] Xiao [facility] Work Phone: Comment on above: Patient Position: Sitting; Cuff Location : Left Arm; Cuff Size: Standard 04-02-2012 09:10-0500 BP Systolic 120 mm[Hg] X[facility] Work Phone: Comment on above: Patient Position: Sitting; Cuff Location : Left Arm; Cuff Size: Standard 04-02-2012 09:10-0500 BSA (Body Surface Area) 2.05 m2 [facility] Work Phone: 04-02-2012 09:10-0500 Height 180.34 cm X[facility] Work Phone: 04-02-2012 09:10-0500 Pulse (Heart Rate) 72 /min [facility] Work Phone: Comment on above: Pattern: Regular 04-02-2012 09:10-0500 Respiratory Rate 16 /min [facility] Work Phone: Comment on above: Pattern: Unlabored 06-14-2011 08:10-0500 Body Temperature 98.5 [degF] X[facility] Work Phone: Comment on above: Method: Oral 06-14-2011 08:10-0500 BP Diastolic 84 mm[Hg] X[facility] Work Phone: Comment on above: Patient Position: Sitting 06-14-2011 08:10-0500 BP Systolic 122 mm[Hg] X[facility] Work Phone: Comment on above: Patient Position: Sitting 06-14-2011 08:10-0500 Pulse (Heart Rate) 76 /min [facility] Work Phone: Comment on above: Pattern: Regular 06-14-2011 08:10-0500 Pulse Oximetry 98 % [facility] Work Phone: Comment on above: Room air 06-14-2011 08:10-0500 Respiratory Rate 18 /min [facility] Work Phone: 04-05-2011 08:13-0500 BMI (Body Mass Index) 26.12 kg/m2 [facility] Work Phone: 04-05-2011 08:13-0500 Body Temperature 97.3 [degF] [facility] Work Phone: Comment on above: Method: Oral 04-05-2011 08:13-0500 Body weight 84.96 kg X[facility] Work Phone: 04-05-2011 08:13-0500 BP Diastolic 78 mm[Hg] X[facility] Work Phone: Comment on above: Patient Position: Sitting; Cuff Location : Left Arm; Cuff Size: Standard 04-05-2011 08:13-0500 BP Systolic 118 mm[Hg] X[facility] Work Phone: Comment on above: Patient Position: Sitting; Cuff Location : Left Arm; Cuff Size: Standard 04-05-2011 08:13-0500 BSA (Body Surface Area) 2.05 m2 [facility] Work Phone: 04-05-2011 08:13-0500 Height 180.34 cm X[facility] Work Phone: 04-05-2011 08:13-0500 Pulse (Heart Rate) 76 /min [facility] Work Phone: Comment on above: Pattern: Regular 04-05-2011 08:13-0500 Pulse Oximetry 98 % [facility] Work Phone: Comment on above: Room air 04-05-2011 08:13-0500 Respiratory Rate 17 /min [facility] Work Phone: Comment on above: Pattern: Unlabored 02-08-2010 16:44-0400 BMI (Body Mass Index) 25.9 kg/m2 Xiao [facility] Internal Medicine Work Phone: 02-08-2010 16:44-0400 Body weight 89.05 kg Xiao [facility] Internal Medicine Work Phone: 02-08-2010 16:44-0400 BP Diastolic 70 mm[Hg] Xiao [facility] Internal Medicine Work Phone: Comment on above: Patient Position: Sitting; Cuff Location : Left Arm; Cuff Size: Standard 02-08-2010 16:44-0400 BP Systolic 110 mm[Hg] Xiao [facility] Internal Medicine Work Phone: Comment on above: Patient Position: Sitting; Cuff Location : Left Arm; Cuff Size: Standard 02-08-2010 16:44-0400 BSA (Body Surface Area) 2.14 m2 Xiao [facility] Internal Medicine Work Phone: 02-08-2010 16:44-0400 Height 185.42 cm Xiao [facility] Internal Medicine Work Phone: 02-08-2010 16:44-0400 Pulse (Heart Rate) 76 /min Xiao [facility] Internal Medicine Work Phone: Comment on above: Pattern: Regular 02-08-2010 16:44-0400 Respiratory Rate 16 /min Xiao [facility] Internal Medicine Work Phone: Comment on above: Pattern: Unlabored 02-01-2010 10:33-0400 BMI (Body Mass Index) 25.9 kg/m2 [facility] Work Phone: 02-01-2010 10:33-0400 Body Temperature 97.7 [degF] Xiao [facility] Internal Medicine Work Phone: Comment on above: Method: Oral 02-01-2010 10:33-0400 Body weight 89.05 kg Xiao [facility] Internal Medicine Work Phone: 02-01-2010 10:33-0400 BP Diastolic 74 mm[Hg] Xiao [facility] Internal Medicine Work Phone: Comment on above: Patient Position: Sitting; Cuff Location : Left Arm; Cuff Size: Standard 02-01-2010 10:33-0400 BP Systolic 112 mm[Hg] Xiao [facility] Internal Medicine Work Phone: Comment on above: Patient Position: Sitting; Cuff Location : Left Arm; Cuff Size: Standard 02-01-2010 10:33-0400 BSA (Body Surface Area) 2.14 m2 Xiao [facility] Internal Medicine Work Phone: 02-01-2010 10:33-0400 Height 185.42 cm Xiao [facility] Internal Medicine Work Phone: 02-01-2010 10:33-0400 Pulse (Heart Rate) 78 /min Xiao [facility] Internal Medicine Work Phone: Comment on above: Pattern: Regular 02-01-2010 10:33-0400 Respiratory Rate 17 /min Xiao [facility] Internal Medicine Work Phone: Comment on above: Pattern: Unlabored 08-17-2009 17:26-0400 BMI (Body Mass Index) 25.9 kg/m2 Xiao [facility] Internal Medicine Work Phone: 08-17-2009 17:26-0400 Body weight 89.05 kg Xiao [facility] Internal Medicine Work Phone: 08-17-2009 17:26-0400 BP Diastolic 86 mm[Hg] Xiao [facility] Internal Medicine Work Phone: Comment on above: Patient Position: Sitting; Cuff Location : Left Arm; Cuff Size: Large 08-17-2009 17:26-0400 BP Systolic 122 mm[Hg] Xiao [facility] Internal Medicine Work Phone: Comment on above: Patient Position: Sitting; Cuff Location : Left Arm; Cuff Size: Large 08-17-2009 17:26-0400 BSA (Body Surface Area) 2.14 m2 Xiao [facility] Internal Medicine Work Phone: 08-17-2009 17:26-0400 Height 185.42 cm Xiao [facility] Internal Medicine Work Phone: 08-17-2009 17:26-0400 Pulse (Heart Rate) 60 /min Xiao [facility] Internal Medicine Work Phone: Comment on above: Pattern: Regular 08-17-2009 17:26-0400 Respiratory Rate 20 /min Xiao [facility] Internal Medicine Work Phone: Comment on above: Pattern: Unlabored 07-23-2009 09:56-0500 BMI (Body Mass Index) 25.9 kg/m2 Xiao [facility] Internal Medicine Work Phone: 07-23-2009 09:56-0500 Body weight 89.05 kg Xiao [facility] Internal Medicine Work Phone: 07-23-2009 09:56-0500 BP Diastolic 78 mm[Hg] Xiao [facility] Internal Medicine Work Phone: Comment on above: Patient Position: Sitting; Cuff Location : Left Arm; Cuff Size: Standard 07-23-2009 09:56-0500 BP Systolic 118 mm[Hg] Xiao [facility] Internal Medicine Work Phone: Comment on above: Patient Position: Sitting; Cuff Location : Left Arm; Cuff Size: Standard 07-23-2009 09:56-0500 BSA (Body Surface Area) 2.14 m2 Xiao [facility] Internal Medicine Work Phone: 07-23-2009 09:56-0500 Height 185.42 cm Xiao [facility] Internal Medicine Work Phone: 07-23-2009 09:56-0500 Pulse (Heart Rate) 82 /min Xiao [facility] Internal Medicine Work Phone: Comment on above: Pattern: Regular 07-23-2009 09:56-0500 Respiratory Rate 16 /min Xiao [facility] Internal Medicine Work Phone: Comment on above: Pattern: Unlabored 07-09-2009 15:27-0500 BMI (Body Mass Index) 25.9 kg/m2 Xiao [facility] Internal Medicine Work Phone: 07-09-2009 15:27-0500 Body Temperature 98.5 [degF] Xiao [facility] Internal Medicine Work Phone: Comment on above: Method: Oral 07-09-2009 15:27-0500 Body weight 89.05 kg Xiao [facility] Internal Medicine Work Phone: 07-09-2009 15:27-0500 BP Diastolic 82 mm[Hg] Xiao [facility] Internal Medicine Work Phone: Comment on above: Patient Position: Sitting; Cuff Location : Left Arm; Cuff Size: Standard 07-09-2009 15:27-0500 BP Systolic 130 mm[Hg] Xiao [facility] Internal Medicine Work Phone: Comment on above: Patient Position: Sitting; Cuff Location : Left Arm; Cuff Size: Standard 07-09-2009 15:27-0500 BSA (Body Surface Area) 2.14 m2 Xiao [facility] Internal Medicine Work Phone: 07-09-2009 15:27-0500 Height 185.42 cm Xiao [facility] Internal Medicine Work Phone: 07-09-2009 15:27-0500 Pulse (Heart Rate) 80 /min Xiao [facility] Internal Medicine Work Phone: Comment on above: Pattern: Regular 07-09-2009 15:27-0500 Respiratory Rate 16 /min Xiao [facility] Internal Medicine Work Phone: Comment on above: Pattern: Unlabored 12-10-2008 09:02-0400 Body Temperature 98.6 [degF] Xiao [facility] Internal Medicine Work Phone: Comment on above: Method: Undefined 12-10-2008 09:02-0400 Body weight 0 kg Xiao [facility] Internal Medicine Work Phone: 12-10-2008 09:02-0400 BP Diastolic 72 mm[Hg] Xiao [facility] Internal Medicine Work Phone: Comment on above: Patient Position: Sitting; Cuff Location : Left Arm; Cuff Size: Standard 12-10-2008 09:02-0400 BP Systolic 124 mm[Hg] Xiao [facility] Internal Medicine Work Phone: Comment on above: Patient Position: Sitting; Cuff Location : Left Arm; Cuff Size: Standard 12-10-2008 09:02-0400 Head Circumference 0 cm Xiao [facility] Internal Medicine Work Phone: 12-10-2008 09:02-0400 Height 0 cm Xiao [facility] Internal Medicine Work Phone: 12-10-2008 09:02-0400 Pulse (Heart Rate) 92 /min Xiao [facility] Internal Medicine Work Phone: Comment on above: Pattern: Regular 12-10-2008 09:02-0400 Respiratory Rate 16 /min Xiao [facility] Internal Medicine Work Phone: Comment on above: Pattern: Undefined 08-14-2007 15:30-0400 BMI (Body Mass Index) 25.9 kg/m2 Xiao [facility] Internal Medicine Work Phone: 08-14-2007 15:30-0400 Body Temperature 98.9 [degF] Xiao [facility] Internal Medicine Work Phone: Comment on above: Method: Oral 08-14-2007 15:30-0400 Body weight 89.05 kg Xiao [facility] Internal Medicine Work Phone: 08-14-2007 15:30-0400 BP Diastolic 78 mm[Hg] Xiao [facility] Internal Medicine Work Phone: Comment on above: Patient Position: Sitting; Cuff Location : Left Arm; Cuff Size: Large 08-14-2007 15:30-0400 BP Systolic 124 mm[Hg] Xiao [facility] Internal Medicine Work Phone: Comment on above: Patient Position: Sitting; Cuff Location : Left Arm; Cuff Size: Large 08-14-2007 15:30-0400 BSA (Body Surface Area) 2.14 m2 Xiao [facility] Internal Medicine Work Phone: 08-14-2007 15:30-0400 Head Circumference 0 cm Xiao [facility] Medicine Work Phone: 08-14-2007 15:30-0400 Height 185.42 cm Xiao [facility] Medicine Work Phone: 08-14-2007 15:30-0400 Pulse (Heart Rate) 80 /min Xiao [facility] Internal Medicine Work Phone: Comment on above: Pattern: Regular 08-14-2007 15:30-0400 Respiratory Rate 18 /min Xiao [facility] Internal Medicine Work Phone: Comment on above: Pattern: Unlabored 07-31-2007 15:16-0400 BMI (Body Mass Index) 25.9 kg/m2 Xiao [facility] Internal Medicine Work Phone: 07-31-2007 15:16-0400 Body Temperature 98.2 [degF] Xiao [facility] Internal Medicine Work Phone: Comment on above: Method: Oral 07-31-2007 15:16-0400 Body weight 89.05 kg Xiao [facility] Internal Medicine Work Phone: 07-31-2007 15:16-0400 BP Diastolic 66 mm[Hg] [facility] Work Phone: Comment on above: Patient Position: Sitting; Cuff Location : Left Arm; Cuff Size: Standard 07-31-2007 15:16-0400 BP Systolic 120 mm[Hg] Xiao [facility] Internal Medicine Work Phone: Comment on above: Patient Position: Sitting; Cuff Location : Left Arm; Cuff Size: Standard 07-31-2007 15:16-0400 BSA (Body Surface Area) 2.14 m2 [facility] Work Phone: 07-31-2007 15:16-0400 Head Circumference 0 cm Xiao [facility] Medicine Work Phone: 07-31-2007 15:16-0400 Height 185.42 cm Xiao [facility] Medicine Work Phone: 07-31-2007 15:16-0400 Pulse (Heart Rate) 80 /min Xiao [facility] Internal Medicine Work Phone: Comment on above: Pattern: Regular 07-31-2007 15:16-0400 Respiratory Rate 18 /min Xiao [facility] Internal Medicine Work Phone: Comment on above: Pattern: Unlabored 07-24-2007 15:10-0500 BMI (Body Mass Index) 25.9 kg/m2 Xiao [facility] Internal Medicine Work Phone: 07-24-2007 15:10-0500 Body Temperature 97.5 [degF] Xiao [facility] Internal Medicine Work Phone: Comment on above: Method: Oral 07-24-2007 15:10-0500 Body weight 89.05 kg Xiao [facility] Internal Medicine Work Phone: 07-24-2007 15:10-0500 BP Diastolic 72 mm[Hg] [facility] Work Phone: Comment on above: Patient Position: Sitting; Cuff Location : Right Arm; Cuff Size: Large 07-24-2007 15:10-0500 BP Systolic 122 mm[Hg] Xiao [facility] Internal Medicine Work Phone: Comment on above: Patient Position: Sitting; Cuff Location : Right Arm; Cuff Size: Large 07-24-2007 15:10-0500 BSA (Body Surface Area) 2.14 m2 Xiao [facility] Work Phone: 07-24-2007 15:10-0500 Head Circumference 0 cm Xiao [facility] Medicine Work Phone: 07-24-2007 15:10-0500 Height 185.42 cm Xiao [facility] Internal Medicine Work Phone: 07-24-2007 15:10-0500 Pulse (Heart Rate) 84 /min Xiao [facility] Internal Medicine Work Phone: Comment on above: Pattern: Regular 07-24-2007 15:10-0500 Respiratory Rate 18 /min Xiao [facility] Internal Medicine Work Phone: Comment on above: Pattern: Unlabored 07-17-2007 12:58-0500 BMI (Body Mass Index) 25.9 kg/m2 Xiao [facility] Internal Medicine Work Phone: 07-17-2007 12:58-0500 Body Temperature 98.1 [degF] Xiao [facility] Internal Medicine Work Phone: Comment on above: Method: Oral 07-17-2007 12:58-0500 Body weight 89.05 kg Xiao [facility] Internal Medicine Work Phone: 07-17-2007 12:58-0500 BP Diastolic 80 mm[Hg] Xiao [facility] Internal Medicine Work Phone: Comment on above: Patient Position: Sitting; Cuff Location : Left Arm; Cuff Size: Standard 07-17-2007 12:58-0500 BP Systolic 126 mm[Hg] Xiao [facility] Internal Medicine Work Phone: Comment on above: Patient Position: Sitting; Cuff Location : Left Arm; Cuff Size: Standard 07-17-2007 12:58-0500 BSA (Body Surface Area) 2.14 m2 Xiao [facility] Internal Medicine Work Phone: 07-17-2007 12:58-0500 Head Circumference 0 cm Xiao [facility] Medicine Work Phone: 07-17-2007 12:58-0500 Height 185.42 cm Xiao [facility] Medicine Work Phone: 07-17-2007 12:58-0500 Pulse (Heart Rate) 78 /min Xiao [facility] Internal Medicine Work Phone: Comment on above: Pattern: Regular 07-17-2007 12:58-0500 Respiratory Rate 17 /min Xiao [facility] Internal Medicine Work Phone: Comment on above: Pattern: Unlabored Encounters Encounter Date Encounter Type Care Provider Facility Start: 02-13-2025 ambulatory KENNY LEES [employer] Facili ty:A Start: 09-17-2024 End: 09-17-2024 [facility] Start: 07-03-2024 End: 07-03-2024 ambulatory Kenny Lees Facility:[facility] Start: 05-28-2024 ambulatory [facility] Facility:[facility] Start: 05-28-2024 End: 05-28-2024 ambulatory [facility] Facility:[facility] Start: 05-24-2024 ambulatory Kenny Lees [facility] Start: 05-21-2024 End: 05-21-2024 ambulatory NAVIN GONZALEZ MD Facility:A Start: 05-21-2024 End: 05-21-2024 Patient encounter procedure NAVIN GONZALEZ MD [facility] Start: 04-30-2024 End: 05-06-2024 Evaluation and management of inpatient NAVIN GONZALEZ MD [facility] Start: 04-22-2024 End: 04-27-2024 Evaluation and management of inpatient NAVIN GONZALEZ MD [facility] Start: 04-17-2024 End: 04-17-2024 Admission to establishment NAVIN GONZALEZ MD [facility] Start: 04-17-2024 End: 04-17-2024 ambulatory NAVIN GONZALEZ MD Facility:A Start: 04-16-2024 End: 04-16-2024 ambulatory NAVIN GONZALEZ Facility:[facility] Start: 04-16-2024 End: 04-16-2024 Patient encounter procedure NAVIN GONZALEZ MD [facility] Start: 04-09-2024 End: 04-09-2024 ambulatory NAVIN GONZALEZ MD Facility:A Start: 04-09-2024 End: 04-09-2024 Patient encounter procedure NAVIN GONZALEZ MD [facility] Start: 04-03-2024 End: 04-03-2024 ambulatory [facility] Facility:[facility] Start: 03-12-2024 End: 03-12-2024 ambulatory [facility] Facility:[facility] Start: 03-06-2024 Encounter for genera l adult medical examination with abnormal findings [facility] Start: 02-10-2024 End: 02-10-2024 ambulatory [facility] Facility:[facility] Start: 07-16-2020 End: 07-16-2020 Annotation/Addendum [facility] Start: 07-08-2020 End: 07-08-2020 Annotation/Addendum [facility] Start: 07-08-2020 End: 07-08-2020 Office outpatient visit 10 minutes [facility] Start: 03-15-2019 End: 03-15-2019 Phone Encounter [facility] Start: 03-15-2019 End: 03-15-2019 Phone Encounter [facility] Start: 03-14-2019 End: 03-14-2019 Phone Encounter [facility] Start: 03-14-2019 End: 03-14-2019 Office outpatient visit 10 minutes [facility] Start: 01-18-2016 End: 01-18-2016 Office outpatient visit 10 minutes [facility] Start: 09-03-2015 End: 09-03-2015 Office outpatient visit 15 minutes [facility] Start: 02-16-2015 End: 02-16-2015 Office outpatient visit 15 minutes [facility] Start: 01-10-2014 End: 01-10-2014 Office outpatient visit 25 minutes [facility] Start: 01-06-2014 End: 01-06-2014 Office outpatient visit 25 minutes Xiao [facility] Start: 10-21-2013 End: 10-21-2013 Erroneous Entry [facility] Start: 10-21-2013 End: 10-21-2013 Office outpatient visit 25 minutes [facility] Start: 07-17-2013 End: 07-17-2013 Patient encounter procedure Xiao Coon [facility] Start: 04-23-2013 End: 04-23-2013 Office outpatient visit 15 minutes Xiao Coon [facility] Start: 02-15-2013 End: 02-17-2013 Patient encounter procedure Xiao Coon [facility] Start: 04-02-2012 End: 04-02-2012 Office outpatient visit 25 minutes Xiao Co[facility] Start: 06-14-2011 End: 06-14-2011 Patient encounter procedure Xiao Coon [facility] Start: 04-05-2011 End: 04-05-2011 Office outpatient visit 25 minutes Xiao [facility] Start: 02-08-2010 End: 02-08-2010 Office outpatient visit 15 minutes Xiao [facility] Start: 02-01-2010 End: 02-01-2010 Annotation/Addendum [facility] Start: 02-01-2010 End: 02-01-2010 Patient encounter procedure Xiao Coon [facility] Start: 02-01-2010 End: 02-01-2010 Office outpatient visit 25 minutes Xiao [facility] Start: 10-06-2009 End: 10-06-2009 Phone Encounter [facility] Start: 08-17-2009 End: 08-17-2009 Patient encounter procedure [facility] Start: 07-23-2009 End: 07-23-2009 Office outpatient visit 25 minutes [facility] Start: 07-09-2009 End: 07-09-2009 Office outpatient visit 25 minutes Xiao [facility] Start: 12-10-2008 End: 12-10-2008 Patient encounter procedure Xiao Coon [facility] Start: 08-14-2007 End: 08-14-2007 Patient encounter procedure Xiao Coon [facility] Start: 07-31-2007 End: 07-31-2007 Office outpatient visit 15 minutes Xiao [facility] Start: 07-24-2007 End: 07-24-2007 Office outpatient visit 25 minutes Xiao [facility] Start: 07-17-2007 End: 07-17-2007 Office outpatient visit 15 minutes Xiao Co[facility] Procedures Date Procedure Procedure Detail Performing Clinician Start: 04-22-2024 Excision of colon NAVIN GONZALEZ MD Comment on above: Dr Gonzalez Laparoscopic convert ed to open right colectomy ICG angiography Start: 03-19-2024 Colonoscopy NAVIN GONZALEZ MD Comment on above: [facility] Start: 07-29-2017 End: 07-29-2017 Sinus/Facial Bone Comments: See Note; NOTES: [facility] Imaging Services [address] [place] [address] Sinus/Facial Bone MR#: [id number] Acct: [id number] Name: DENISE HERNANDEZ Rep #: [id number] : 1975 M 41 From: Norris Phillips MD PCP: Carmelina Minaya NP Status: REG CLI Study: Sinus/Facial Bone Date of Exam: 07/29/17 Exam# [id number] Ordering Dr: Mickey Rice MD STUDY: CT [...] , Service support , CC: Carmelina Minaya 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; Ron Rice MD Rag Cutting Machine Tender: Signed Xiao Coon Start: 01-07-2014 End: 01-07-2014 Cerv Spine 4 or 5 Views Comments: See Note; NOTES: [facility] Imaging Services [address] [place] [id number] Radiology Report MR#: [id number] Acct: [id number] Name: DENISE HERNANDEZ Rep #: [id number] : 1975 M 38 From: Quirino Marcial MD PCP: Carmelina Minaya Status: REG CLI Study: Cerv Spine 4 or 5 Views Date of Exam: 01/07/14 Exam# [id number] Ordering Dr: Carmelina Minaya STUDY: X-RAY - [...] Quirino Marcial MD at 15:45 EDT Tel [phone], Service support [phone], RAD/Cerv Spine 4 or 5 Views IMPRESSION: Normal x-ray examination of the visualized cervical spine. Electronically Signed: Quirino Marcial MD at 15:45 EDT Tel [phone], Service support [phone], CC: Carmelina Minaya Rag Cutting Machine Tender: Signed Carmelina Minaya Work Phone: Start: 01-07-2014 End: 01-07-2014 Chest PA and Lateral Comments: See Note; NOTES: [facility] Imaging Services [address] [place] [address] Radiology Report MR#: [id number] Acct: [id number] Name: DENISE HERNANDEZ Rep #: [id number] : 1975 M 38 From: Quirino Marcial MD PCP: Carmelina Minaya Status: REG CLI Study: Chest PA and Lateral Date of Exam: 01/07/14 Exam# [id number] Ordering Dr: Carmelina Minaya STUDY: X-RAY CHEST [...] Quirino Marcial MD at 15:44 EDT Tel [phone], Service support [phone], RAD/Chest PA and Lateral IMPRESSION: Hyperinflation. 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 Electronically Signed: Quirino Marcial MD at 15:44 EDT Tel [phone], Service support [phone], CC: Carmelina Minaya Rag Cutting Machine Tender: Signed Carmelina Minaya Work Phone: Start: 01-07-2014 End: 01-07-2014 Thyroid Comments: See Note; NOTES: [facility] Imaging Services [address] [place] [id number] Ultrasound Report MR#: [id number] Acct: [id number] Name: DENISE HERNANDEZ Rep #: [id number] : 1975 M 38 From: Quirino Marcial MD PCP: Carmelina Minaya Status: REG CLI Study: Thyroid Date of Exam: 01/07/14 Exam# [id number] Ordering Dr: Carmelina Minaya STUDY: THYROID ULTRASOUND [...] Quirino Marcial MD at 13:56 EDT Tel [phone], Service support [phone], CC: Carmelina Minaya Rag Cutting Machine Tender: Signed Carmelina Minaya Work Phone: Esophagogastroduodenoscopy M DELIA GONZALEZ MD Nasal balloon, devic e (physical object) NAVIN GONZALEZ MD Plan of Treatment Date Care Activity Detail Author Start: 07-08-2020 [employer] influenza 2019 Novel Coronavirus (COVID-19), FANNY ([id number]) [facility]; [facility] Work Phone: Start: 07-08-2020 Procedure Education Eprescribe d prescriptions (G8553) [facility]; [facility] Work Phone: Start: 03-14-2019 Procedure Education Eprescribe d prescriptions (G8553) [facility] Work Phone: Start: 03-14-2019 Iaadiadoo influenza Rapid Flu (24822 x 2) [facility] Work Phone: Start: 03-14-2019 S. pyogenes Ag IA Ql (Unsp spec) Rapid Strep Test, Office (93947) [facility] Work Phone: Start: 01-18-2016 [...] s for Treatment Follow up Monday with [facility] Work Phone: Start: 07-17-2013 [...] for Treatment FOLLOW UP IN 1 WEEK [facility] Work Phone: Start: 08-17-2009 Provider Instruction s for Treatment FOLLOW UP IN 1 MONTH [facility] Work Phone: Start: 07-23-2009 Fluorescent nonnfct agt antb screen ea antibody FLURESCNT ANTIB SCRN EA (34045) celiac profile [facility] Work Phone: Start: 07-23-2009 Immunoassay analyte qual/semiqual multiple step IMMUNOASSAY, ANALYTE (NON-INFECT) (68874) celiac profile [facility] Work Phone: Start: 07-23-2009 Assay of gammaglobul in iga igd igg igm each IGA/IGD/IGG/IGM-EACH (00130) celiac profile [facility] Work Phone: Start: 07-23-2009 Antibody helicobacte r pylori HELICOBACTER PYLORI ANTIBODY PROFILE IgG, IgM, IgA (07298) [facility] Work Phone: Start: 12-10-2008 [...] Glucose [Mass/Vol] Blood Gluco se , Office (96266) [facility] Work Phone: Start: 07-17-2007 Iaadiadoo influenza Rapid Flu (74853 x 2) [facility] Work Phone: [...] Work Phone: Payers Date Payer Category Payer Unknown 2024 Unknown [id number] 2024 Unknown [id number] 2024 Self-pay 2024 Unknown [id number] 1975 Unknown [id number] 2.16.8 [id number] 1975 Unknown [id number] 2.16. [id number] 1975 Unknown [id number] 2.16.8 [id number] 1975 Unknown [id number] 2.16.8 [id number] 1975 Unknown [id number] 2.16.8 [id number] 1975 Unknown [id number] 2.16.8 [id number] 1975 Unknown [id number] 2.16.8 [id number] Unknown [id number] 2.16.8 [id number] Unknown [id number] 2.16.8 [id number] Unknown [id number] 2.16.8 [id number] Unknown [id number] 2.16.8 [id number] Unknown [id number] 2.16.8 [id number] Unknown [id number] 2.16.8 [id number] Unknown [id number] 2.16.8 [id number] Unknown [id number] 2.16.8 [id number] Social History Date Type Detail Facility Tobacco use: Tobacco use: [facility] Work Phone: Start: 04-04-2024 End: 04-17-2024 Tobacco smoking status Ex-smoker (finding) [facility] Sex Assigned At Male [facility] Sexual Orientation [facility] ospital Sex Male (finding) [facility] Functional Status Date Assessment Result Facility 05-06-2024 Functional Status Done [facility] spital 05-06-2024 Functional Status Repositions self [facility] 05-06-2024 Functional Status Non-Slip footw ear, Room check performed [facility] 05-05-2024 Functional Status [facility] 05-05-2024 Functional Status Remains up in chair [facility] 05-05-2024 Functional Status Ambulation Ambulation i n Gregory [facility] 05-05-2024 Functional Status [facility] 05-05-2024 Functional Status [facility] 05[facility]05-2024 Functional Status [facility] 05-05-2024 Functional Status [facility] 05-05-2024 Functional Status [facility] 05[facility]05-2024 Functional Status [facility] 05-04-2024 Functional Status [facility] 05-04-2024 Functional Status [facility] 05[facility]04-2024 Functional Status [facility] 05-04-2024 Functional Status Reason Antiemb olism Stocking Removed/Off Patient refused [facility] 05-03-2024 Functional Status Beds/Devices Hospital b ed [facility] 05-03-2024 Functional Status [facility] 05-03-2024 Functional Status [facility] 05-03-2024 Functional Status NPO Status ice chips an d sips taken [facility] 05-02-2024 Functional Status Independent [facility] 05-02-2024 Functional Status [facility] 05-01-2024 Functional Status [facility] 05-01-2024 Functional Status Personal ADL [facility] 05-01-2024 Functional Status [facility] 05-01-2024 Functional Status [facility] 04-30-2024 Functional Status Sensory Deficits [facility] 04-27-2024 Functional Status Done [facility] 04-27-2024 Functional Status Room check performed [facility] 04-27-2024 Functional Status [facility] 04-26-2024 Functional Status [facility] 04-26-2024 Functional Status 0 [facility] 04-26-2024 Functional Status [facility] 04-26-2024 Functional Status [facility] 04-25-2024 Functional Status Antiembolism S tocking On/Re-applied bilateral knee high [facility] 04-25-2024 Functional Status [facility] 04-25-2024 Functional Status [facility] 04-24-2024 Functional Status Sequential Com pression Device bilateral knee high applied/on [facility] 04-24-2024 Functional Status [facility] 04-24-2024 Functional Status [facility] 04-23-2024 Functional Status [facility] 04-23-2024 Functional Status [facility] 04-23-2024 Functional Status [facility] 04-23-2024 Functional Status Personal ADL [facility] 04-23-2024 Functional Status [facility] 04-22-2024 Functional Status heel(s)s elevated [facility] 04-22-2024 Functional Status Patient Identified Iden tification band [facility] 04-22-2024 Functional Status Maintained [facility] 04-17-2024 Functional Status Sensory Deficits None [facility] Mental Status Date Assessment Result Facility 05-06-2024 Mental Status Oriented x 4 [facility] 05-05-2024 Mental Status [facility] 05-04-2024 Mental Status [facility] 05-04-2024 Mental Status [facility] 04-27-2024 Mental Status Orientation Oriented x 4 [facility] 04-26-2024 Mental Status [facility] 04-26-2024 Mental Status [facility] 04-25-2024 Mental Status [facility] 04-24-2024 Mental Status [facility] Clinical Notes 04-09-2024 to 05-06-2024 Note Date & Type Note Facility 05-06-2024 Hospital Discharg e instructions Patient Education 05/06/2024 09:57:05 Incision Care, Adult, Lldg-wg-Nvxi Incision Care, Adult An incision is a cut that a doctor makes in your skin for surgery (for a procedure). Most times, these cuts are closed after surgery. Your cut from surgery may be closed with stitches (sutures), sharon, skin glue, or skin tape (adhesive strips). You may need to return to your doctor to have stitches or sharon taken out. This may happen many days or many weeks after your surgery. The cut needs to be well cared for so it does not get infected. How to care for your cut Cut care Follow instructions from your doctor about how to take care of your cut. Make sure you: ?Wash your hands with soap and water before you change your bandage (dressing). If you cannot use soap and water, use hand computer specialist. ?Change your bandage as told by your doctor. ?Leave stitches, skin glue, or skin tape in place. They may need to stay in place for 2 weeks or longer. If tape strips get loose and curl up, you may trim the loose edges. Do not remove tape strips completely unless your doctor says it is okay. Check your cut area every day for signs of infection. Check for: ?More redness, swelling, or pain. ?More fluid or blood. ?Warmth. ?Pus or a bad smell. Ask your doctor how to clean the cut. This may include: ?Using mild soap and water. ?Using a clean towel to pat the cut dry after you clean it. ?Putting a cream or ointment on the cut. Do this only as told by your doctor. ?Covering the cut with a clean bandage. Ask your doctor when you can leave the cut uncovered. Do not take baths, swim, or use a hot tub until your doctor says it is okay. Ask your doctor if you can take showers. You may only be allowed to take sponge baths for bathing. Medicines If you were prescribed an antibiotic medicine, cream, or ointment, take the antibiotic or put it on the cut as told by your doctor. Do not stop taking or putting on the antibiotic even if your condition gets better. Take nbsy-wjj-izflfow and prescription medicines only as told by your doctor. General instructions Limit movement around your cut. This helps healing. ?Avoid straining, lifting, or exercise for the first month, or for as long as told by your doctor. ?Follow instructions from your doctor about going back to your normal activities. ?Ask your doctor what activities are safe. Protect your cut from the sun when you are outside for the first 6 months, or for as long as told by your doctor. Put on sunscreen around the scar or cover up the scar. Keep all follow-up visits as told by your doctor. This is important. Contact a doctor if: Your have more redness, swelling, or pain around the cut. You have more fluid or blood coming from the cut. Your cut feels warm to the touch. You have pus or a bad smell coming from the cut. You have a fever or shaking chills. You feel sick to your stomach (nauseous) or you throw up (vomit). You are dizzy. Your stitches or sharon come undone. Get help right away if: You have a red streak coming from your cut. Your cut bleeds through the bandage and the bleeding does not stop with gentle pressure. The edges of your cut open up and separate. You have very bad (severe) pain. You have a rash. You are confused. You pass out (faint). You have trouble breathing and you have a fast heartbeat. This information is not intended to replace advice given to you by your health care provider. Make sure you discuss any questions you have with your health care provider. Document Released: 07/30/2012 Document Revised: 09/25/2017 Document Reviewed: 01/13/2017 [employer] Patient Education 2020 [employer]. Follow Up Care 04/30/2024 11:23:33 With:KENNY LEES Address: [address] [place] [id number]- When:1-2 days Comments:Please call the office to schedule a follow up appointment. With:NAVIN GONZALEZ MD, Surgery Address: [address] [facility] [place] [address]- When:05/21/2024 08:30:00 [facility] 05-06-2024 Note Discharge Instructions Thank you for allowing [facility] to assist you with your healthcare needs. The following is important discharge information regarding your hospital visit. Your Care Team KENNY LEES What to do next Instructions From Your Doctor Postoperative Activity/Wound Care Recommendations: No lifting or pushing objects greater than 10-15 pounds and no strenuous activity. Walking, using the stairs, and riding in a car are acceptable forms of activity and are encouraged in the postoperative period. Incentive spirometry use and deep breathing/coughing exercises are also encouraged after discharge to prevent respiratory complications such as pneumonia and blood clots. No driving while taking narcotic pain medication. You may shower. No tub bathing or soaking your incisions, and no pool/hot tub use until cleared by your surgeon. Wash your incisions daily with a mild soap and water and pat dry. Postoperative Medication Recommendations/Education: It is recommended that you alternate between 650-1000 mg of Tylenol and 400-800 mg Motrin (Advil or Ibuprofen) every 6 hours as needed to optimize pain control after surgery. A temporary prescription for a narcotic pain medication is typically provided to you postoperatively and should only be used for breakthrough pain as narcotics increase the risk for constipation, dependency, and respiratory depression. Constipation after surgery is a very common concern for patients after discharge from the hospital. Patients are encouraged to take over the counter stool softeners (such as Colace) and over the counter laxatives (Miralax) as needed for constipation. Additional medications that can be taken for postoperative constipation include milk of magnesia, Metamucil, and Senokot. Scheduled Follow-Up Appointments Appointment Type When With Where Contact Information StatusGS OV Post Op 05/21/2024 08:30 AM NAVIN HERNANDEZ MD [facility] Confirmed Follow Up Appointments Follow Up with KENNY LEES When:Within 1-2 days Where:[address] [place] [address]- Additional Information: Please call the office to schedule a follow up appointment. Follow Up with NAVIN GONZALEZ MD, Surgery When:05/21/2024 08:30 AM EST Where:[address] [facility] [address] [place] [address]- The Following Activity and Diet Have Been Ordered for You Discharge Activity - Ordered -- Activity As Tolerated, Additional instructions include: No heavy lifting, pushing or pulling, 05/06/24 8:26:00 EST Discharge Diet - Ordered -- No changes were made to your diet during your hospital stay. Please resume your pre hospitalization diet on discharge., 05/06/24 8:26:00 EST The Following Equipment Has Been Ordered for You No qualifying data available. The Following Treatments Have Been Ordered for You Discharge Labs No qualifying data available. Discharge Radiology No qualifying data available. Other Therapies No qualifying data available. Post Acute Orders No qualifying data available. Someone Will Contact You Regarding These Home Health Referrals No home referrals have been ordered for you. No one will call you. Allergies NKA Medications Please ask your primary doctor or pharmacist before taking any other medication not listed, including over the counter drugs, herbal medications, vitamins and or supplements as they may interact with your home medications. What How Much When Instructions Last Dose Unchanged acetaminophen (Tylenol 325 mg oral tablet) 2 tab(s) by mouth Every 6 hours as needed for as needed for pain Unchanged multivitamin with minerals (Vitafusion MultiVites Gummies) 1 tab(s) by mouth Once a day (in the morning) Unchanged omeprazole (omeprazole 20 mg oral delayed release capsule) 1 cap by mouth Once a day as needed for abdominal discomfort Please take this list to your next doctor s visit. Bring all medications you take, including over the counter medications, herbals and other supplements with you to your doctor s visit. Patients and families are reminded to discard old lists and to update any records with all medication providers or retail pharmacies. Education Materials Incision Care, Adult An incision is a cut that a doctor makes in your skin for surgery (for a procedure). Most times, these cuts are closed after surgery. Your cut from surgery may be closed with stitches (sutures), sharon, skin glue, or skin tape (adhesive strips). You may need to return to your doctor to have stitches or shaorn taken out. This may happen many days or many weeks after your surgery. The cut needs to be well cared for so it does not get infected. How to care for your cut Cut care Follow instructions from your doctor about how to take care of your cut. Make sure you: ? Wash your hands with soap and water before you change your bandage (dressing). If you cannot use soap and water, use hand computer specialist. ? Change your bandage as told by your doctor. ? Leave stitches, skin glue, or skin tape in place. They may need to stay in place for 2 weeks or longer. If tape strips get loose and curl up, you may trim the loose edges. Do not remove tape strips completely unless your doctor says it is okay. Check your cut area every day for signs of infection. Check for: ? More redness, swelling, or pain. ? More fluid or blood. ? Warmth. ? Pus or a bad smell. Ask your doctor how to clean the cut. This may include: ? Using mild soap and water. ? Using a clean towel to pat the cut dry after you clean it. ? Putting a cream or ointment on the cut. Do this only as told by your doctor. ? Covering the cut with a clean bandage. Ask your doctor when you can leave the cut uncovered. Do not take baths, swim, or use a hot tub until your doctor says it is okay. Ask your doctor if you can take showers. You may only be allowed to take sponge baths for bathing. Medicines If you were prescribed an antibiotic medicine, cream, or ointment, take the antibiotic or put it on the cut as told by your doctor. Do not stop taking or putting on the antibiotic even if your condition gets better. Take ryur-kdu-snwotma and prescription medicines only as told by your doctor. General instructions Limit movement around your cut. This helps healing. ? Avoid straining, lifting, or exercise for the first month, or for as long as told by your doctor. ? Follow instructions from your doctor about going back to your normal activities. ? Ask your doctor what activities are safe. Protect your cut from the sun when you are outside for the first 6 months, or for as long as told by your doctor. Put on sunscreen around the scar or cover up the scar. Keep all follow-up visits as told by your doctor. This is important. Contact a doctor if: Your have more redness, swelling, or pain around the cut. You have more fluid or blood coming from the cut. Your cut feels warm to the touch. You have pus or a bad smell coming from the cut. You have a fever or shaking chills. You feel sick to your stomach (nauseous) or you throw up (vomit). You are dizzy. Your stitches or sharon come undone. Get help right away if: You have a red streak coming from your cut. Your cut bleeds through the bandage and the bleeding does not stop with gentle pressure. The edges of your cut open up and separate. You have very bad (severe) pain. You have a rash. You are confused. You pass out (faint). You have trouble breathing and you have a fast heartbeat. This information is not intended to replace advice given to you by your health care provider. Make sure you discuss any questions you have with your health care provider. Document Released: 07/30/2012 Document Revised: 09/25/2017 Document Reviewed: 01/13/2017 [employer] Patient Education 2020 [employer]. Additional Information VACCINATE! IT SAVES LIVES! Members of the community who have not yet received the COVID-19 vaccine and would like to receive it can visit one of [facility] vaccine clinics. There are many vaccine clinic locations within the [facility]. For locations and available times, please visit https://gettheshot.coronavirus.o hio.gov/. It is important to note that some COVID mobile vaccine clinics are held outdoors and may be canceled in rainy or stormy conditions. To learn more about pediatric vaccinations (ages 5-11), we invite you to visit the [facility] webpage. https://www.[employer].org/p ages/4600-Rgfvo-Shfvntvybxf-Freq douqbe-Kcrtl-Lhjuzzpik.html To learn more about the COVID-19 vaccine, we invite you to visit the CDC website for a list of frequently asked questions.https://www.cdc.gov/co ronavirus/2019-ncov/vaccines/faq .html [facility] Patient Portal Access Instructions: Stay connected with your healthcare team and access your personal medical information anytime with the [facility] [employer] Patient Portal. Please follow the directions below to create your [facility] [employer] account: 1.Access the email account you provided upon registration to the hospital/physician office.2.Look for an invitation email from [facility].3.Open the email and access the invitation link: Accept Invitation to [facility] [employer].4.Fill in the required jack to create your account. To access your account, visit [email or web address]. Click the blue button labeled Access Patient Portal and then log in with the username and password that you created in the steps above. You will be able to view your test results, lab results, a summary of your visits, upcoming appointments and more. There is also a convenient messaging option where you can send secure messages to your provider. In addition, you will have the ability to download any documents or summaries to your computer and/or send the information securely to a physician. Remember that your healthcare information is confidential, so carefully consider who you will allow to register on the [facility] Patient Portal for access to your information. You can also access the [facility] Patient Portal on the [facility]. Simply click on Patient Portal and then log into your account. If you would like to receive a full copy of your medical records, please contact the [facility] Medical Records Department by calling [phone], Monday through Monday between 8 a.m. and 4:30 p.m. HOW TO SAFELY DISPOSE OF PRESCRIPTION MEDICATIONS Please use one of the following methods to safely dispose of your unused medications. 1.Use a drug disposal kit: the drug disposal pouch allows you to safely discard your old and unused drugs. Ask your nurse to give you one when you are discharged.2.Visit a local take-back location: Many local pharmacies and police departments have programs that collect old and unwanted prescription drugs. Call your local pharmacy or go to http://[employer].Vatgia.com/1P2Sx5k to find one close to you.3.Make use of household items: Use cat litter or old coffee grounds to dispose medications if other options are not available. Mix your drugs with these household products, seal them in an airtight container and throw it into the garbage. Call [facility]: [phone] to be sure your drugs can be disposed of in this way. Some medicines may require a different approach.4.Never flush your medications down the toilet. IF YOU HAVE BEEN PRESCRIBED AN OPIOID FOR PAIN If you have been prescribed an opioid (such as hydrocodone, oxycodone or morphine), it is critical to understand the possible side effects and risks of opioid pain medications. Even when taken as directed, opioids can have several side effects including: Tolerance, meaning you might need to take more of a medication for the same pain relief. Nausea, vomiting and/or constipation. Sleepiness, dizziness, dry mouth, confusion, depression or itching. Physical dependence, meaning you have withdrawal symptoms when a medication is stopped, can develop within a few days. KNOW YOUR RESPONSIBILITIES It is important to know exactly how much and how often to take the opioid pain medications you are prescribed. Never take opioids in higher amounts or more often than prescribed. Do not combine opioids with alcohol or other drugs that cause drowsiness, such as benzodiazepines, also known as benzos, including diazepam and alprazolam, muscle relaxants or sleep aids. Never sell or share prescription opioids. This is illegal. Store opioids in a secure place and out of reach of others (including children, family, friends and visitors). The last page of this document has been signed and retained as a CHART COPY. Signatures Patient Education Materials [facility] Care, Adult, Btfc-cb-Tunm Medication Leaflets My discharge plan and instructions have been reviewed and explained to me and I,DENISE HERNANDEZ understand my current condition and have read and understand these discharge instructions. I have received a written copy of the plan/instructions. If I have questions, I am aware that I should contact my doctor. 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 Gonzalez on 04/22/2024 secondary to colon cancer, discharged postoperatively on 04/27/2024. Patient presented back to the emergency department on 04/30/2024 with complaints of nausea, vomiting and abdominal distention. Further complaints of weight loss and very little oral intake since his surgery. A repeat CT abdomen pelvis was done in the emergency department for evaluation showing mid to high-grade obstruction of the distal ileum at the region of the ileocolic anastomosis. No pneumatosis or free air. Patient was admitted under the care of of Dr. Gonzalez. A nasogastric tube was inserted for postoperative ileus. He was also started on TPN nutrition supplementation. After improvement in GI function his nasogastric tube was discontinued and patient did well with slow advancement of diet. 05/06/2024 patient met discharge criteria and was discharged home with instructions for outpatient follow-up with Dr. Gonzalez. Prior to discharge his abdominal surgical sharon were discontinued. Allergies NKA Consults No qualifying data available. Imaging Results and Diagnostics XR Small Bowel w/ Serial Films Result Date: May 01, 2024 Verified By: JOSE RAMON CORTEZ MD CLINICAL STATEMENT: IMPRESSION: Mid to high-grade obstruction at the ileocolic anastomosis. I have personally reviewed the images of this examination and agree with the resident's findings and interpretation. CT Abd/Pelvis w/ IV Contrast Only Result Date: April 30, 2024 Verified By: JOSE RAMON CORTEZ MD CLINICAL STATEMENT: IMPRESSION: Mid to high-grade obstruction of the distal ileum at the region of theileocolic anastomosis. No pneumatosis or free air. Objective Vitals and Measurements T: 36.8 C (Oral) TMIN: 36.7 C (Oral) TMAX: 36.9 C (Oral) HR: 77 RR: 18 BP: 109/72 SpO2: 99% Weight Dosing Weight: 83 kg (04/30/24) Dosing Weight: 85 kg (04/30/24) Code Status Code Status - Ordered -- 04/30/24 15:06:00 EST, Full Code, Constant Order Admission Date 04/30/2024 Discharge Date 05/06/2024 Patient Instructions Postoperative Activity/Wound Care Recommendations: No lifting or pushing objects greater than 10-15 pounds and no strenuous activity. Walking, using the stairs, and riding in a car are acceptable forms of activity and are encouraged in the postoperative period. Incentive spirometry use and deep breathing/coughing exercises are also encouraged after discharge to prevent respiratory complications such as pneumonia and blood clots. No driving while taking narcotic pain medication. You may shower. No tub bathing or soaking your incisions, and no pool/hot tub use until cleared by your surgeon. Wash your incisions daily with a mild soap and water and pat dry. Postoperative Medication Recommendations/Education: It is recommended that you alternate between 650-1000 mg of Tylenol and 400-800 mg Motrin (Advil or Ibuprofen) every 6 hours as needed to optimize pain control after surgery. A temporary prescription for a narcotic pain medication is typically provided to you postoperatively and should only be used for breakthrough pain as narcotics increase the risk for constipation, dependency, and respiratory depression. Constipation after surgery is a very common concern for patients after discharge from the hospital. Patients are encouraged to take over the counter stool softeners (such as Colace) and over the counter laxatives (Miralax) as needed for constipation. Additional medications that can be taken for postoperative constipation include milk of magnesia, Metamucil, and Senokot. Medications Unchanged acetaminophen (Tylenol 325 mg oral tablet)2 tab(s) by mouth every 6 hours as needed as needed for pain. multivitamin with minerals (Vitafusion MultiVites Gummies)1 tab(s) by mouth once a day (in the morning). omeprazole (omeprazole 20 mg oral delayed release capsule)1 cap by mouth once a day as needed abdominal discomfort. Follow Up Follow Up with NAVIN GONZALEZ MD, Surgery When:05/07/2024 09:15 AM EST Where:[address] [facility] [address] [facility] [place] [address]- Follow Up Labs/Studies Discharge Labs No Follow-up Labs Discharge Studies No Follow-up Studies Discharge Diet Discharge Diet - Ordered -- No changes were made to your diet during your hospital stay. Please resume your pre hospitalization diet on discharge., 05/06/24 8:26:00 EST Discharge Activity Discharge Activity - Ordered -- Activity As Tolerated, Additional instructions include: No heavy lifting, pushing or pulling, 05/06/24 8:26:00 EST Readmission Risk/Palliative Score No qualifying data available. Discharge Disposition Home Digitally Signed by MICHELLE AVELAR on 05/06/2024 08:35 AM [facility] 05-06-2024 Progress note Date of Service 05/06/2024 Chief Complaint No new complaints Subjective Patient resting in bed. No overnight concerns. He is having bowel movements. He denies any nausea or vomiting. He is tolerating a soft diet. Objective Vitals and Measurements T: 36.8 C (Oral) TMIN: 36.7 C (Oral) TMAX: 36.9 C (Oral) HR: 77 RR: 18 BP: 109/72 SpO2: 99% Intake and Output 7AM Yesterday to 7AM Today Intake and Output (Last 24 hours) Intake Oral Intake 1080.00 Administration Information 560.00 Output Stool Count 7.00 Urine Count 6.00 Total Summary Total Intake 1640.00 Total Output 0.00 Fluid Balance 1640.00 Physical Exam General: Awake, alert. No acute distress Skin: [place] warm and dry Lungs/chest: Respirations easy. Abdomen: Soft, nontender. Mildly distended. midline surgical incision without surrounding redness or drainage. : Voiding Weight Dosing Weight: 83 kg (04/30/24) Dosing Weight: 85 kg (04/30/24) Medications Medications (11) Active Scheduled: (3) chewing gum, sugar-free 1 EA, Oral, TID heparin 5,000 units/mL (1 mL) vial 5,000 unit(s) 1 mL, Subcutaneous, q8h metoclopramide 5 mg/mL (2mL) vial 10 mg 2 mL, IV Push, q6hr Continuous: (2) D10W 1,000 mL 1,000 mL, Intravenous TPN 840 mL + amino acids in TPN 5 % + dextrose in TPN 17.5 % + lipids in TPN 4 % + trace elements i 840 mL, Intravenous, 35 mL/hr PRN: (6) dextrose 50% Solution Disp syringe 50 mL 12.5 gram(s) 25 mL, IV Push, AsDirected HYDROmorphone 0.5 mg/0.5 mL syringe 0.25 mg 0.25 mL, IV Push, q3h HYDROmorphone 0.5 mg/0.5 mL syringe 0.5 mg 0.5 mL, IV Push, q3h omeprazole [address] capsule 20 mg 1 cap(s), Oral, qDay oxycodone 5 mg tablet (immediate release) 5 mg 1 tab(s), Oral, q4h tramadol 50 mg Tablet 50 mg 1 tab(s), Oral, q4h Lab Results No 36 Hour Lab Data EKG No qualifying data available. Assessment/Plan This is a 48-year-old male admitted 04/30/2024 with abdominal discomfort, nausea and vomiting-postoperative ileus. Most recent history of laparoscopic converted to open right colectomy on 04/22/2024 for colon cancer. Patient doing well this morning. No overnight concerns. He is tolerating a soft diet. He is having loose bowel movements. He denies further nausea or vomiting. Plan: 1. Encourage ambulation up in [place] several times a day 2. Hourly incentive spirometry 3. Discontinue surgical sharon 4. Discharge home later today with outpatient follow-up with Dr. Gonzalez Please see addendum Digitally Signed by MICHELLE AVELAR on 05/06/2024 07:18 AM [facility] 05-06-2024 Progress note Date of Service 05/06/2024 Chief Complaint No new complaints Subjective Patient resting in bed. No overnight concerns. He is having bowel movements. He denies any nausea or vomiting. He is tolerating a soft diet. Objective Vitals and Measurements T: 36.8 C (Oral) TMIN: 36.7 C (Oral) TMAX: 36.9 C (Oral) HR: 77 RR: 18 BP: 109/72 SpO2: 99% Intake and Output 7AM Yesterday to 7AM Today Intake and Output (Last 24 hours) Intake Oral Intake 1080.00 Administration Information 560.00 Output Stool Count 7.00 Urine Count 6.00 Total Summary Total Intake 1640.00 Total Output 0.00 Fluid Balance 1640.00 Physical Exam General: Awake, alert. No acute distress Skin: [place] warm and dry Lungs/chest: Respirations easy. Abdomen: Soft, nontender. Mildly distended. midline surgical incision without surrounding redness or drainage. : Voiding Weight Dosing Weight: 83 kg (04/30/24) Dosing Weight: 85 kg (04/30/24) Medications Medications (11) Active Scheduled: (3) chewing gum, sugar-free 1 EA, Oral, TID heparin 5,000 units/mL (1 mL) vial 5,000 unit(s) 1 mL, Subcutaneous, q8h metoclopramide 5 mg/mL (2mL) vial 10 mg 2 mL, IV Push, q6hr Continuous: (2) D10W 1,000 mL 1,000 mL, Intravenous TPN 840 mL + amino acids in TPN 5 % + dextrose in TPN 17.5 % + lipids in TPN 4 % + trace elements i 840 mL, Intravenous, 35 mL/hr PRN: (6) dextrose 50% Solution Disp syringe 50 mL 12.5 gram(s) 25 mL, IV Push, AsDirected HYDROmorphone 0.5 mg/0.5 mL syringe 0.25 mg 0.25 mL, IV Push, q3h HYDROmorphone 0.5 mg/0.5 mL syringe 0.5 mg 0.5 mL, IV Push, q3h omeprazole [address] capsule 20 mg 1 cap(s), Oral, qDay oxycodone 5 mg tablet (immediate release) 5 mg 1 tab(s), Oral, q4h tramadol 50 mg Tablet 50 mg 1 tab(s), Oral, q4h Lab Results No 36 Hour Lab Data EKG No qualifying data available. Assessment/Plan This is a 48-year-old male admitted 04/30/2024 with abdominal discomfort, nausea and vomiting-postoperative ileus. Most recent history of laparoscopic converted to open right colectomy on 04/22/2024 for colon cancer. Patient doing well this morning. No overnight concerns. He is tolerating a soft diet. He is having loose bowel movements. He denies further nausea or vomiting. Plan: 1. Encourage ambulation up in [place] several times a day 2. Hourly incentive spirometry 3. Discontinue surgical sharon 4. Discharge home later today with outpatient follow-up with Dr. Gonzalez Please see addendum Digitally Signed by MICHELLE AVELAR on 05/06/2024 07:18 AM [facility] 05-05-2024 Surgery Hospital Progress note Date of Service 05/05/24 Subjective Patient feels much better today. He tolerated clear liquids. Patient is passing gas and starting to have formed bowel movements. Patient states that his bloating distention is back to baseline. Objective Vitals and Measurements T: 36.9 C (Oral) TMIN: 36.4 C (Oral) TMAX: 36.9 C (Oral) HR: 69 RR: 18 BP: 109/71 SpO2: 96% Intake and Output 7AM Yesterday to 7AM Today Intake and Output (Last 24 hours) Intake Oral Intake 810.00 Administration Information 1520.00 Output Stool Count 5.00 Urine Count 6.00 Total Summary Total Intake 2330.00 Total Output 0.00 Fluid Balance 2330.00 Physical Exam General: No acute distress, alert and oriented Abdomen: Abdomen visibly looks much less distended today, soft, nontender, incision clean dry and intact with sharon Weight Dosing Weight: 83 kg (04/30/24) Dosing Weight: 85 kg (04/30/24) Medications Medications (11) Active Scheduled: (3) chewing gum, sugar-free 1 EA, Oral, TID heparin 5,000 units/mL (1 mL) vial 5,000 unit(s) 1 mL, Subcutaneous, q8h metoclopramide 5 mg/mL (2mL) vial 10 mg 2 mL, IV Push, q6hr Continuous: (2) D10W 1,000 mL 1,000 mL, Intravenous TPN 1,680 mL + amino acids in TPN 5 % + dextrose in TPN 17.5 % + lipids in TPN 4 % + trace elements 1,680 mL, Intravenous, 70 mL/hr PRN: (6) dextrose 50% Solution Disp syringe 50 mL 12.5 gram(s) 25 mL, IV Push, AsDirected HYDROmorphone 0.5 mg/0.5 mL syringe 0.25 mg 0.25 mL, IV Push, q3h HYDROmorphone 0.5 mg/0.5 mL syringe 0.5 mg 0.5 mL, IV Push, q3h omeprazole [address] capsule 20 mg 1 cap(s), Oral, qDay oxycodone 5 mg tablet (immediate release) 5 mg 1 tab(s), Oral, q4h tramadol 50 mg Tablet 50 mg 1 tab(s), Oral, q4h Lab Results 05/04 04:30 WBC: 6.2 Hgb: 14.2 Hct: 41.3 Platelet: 211 Neutrophil %: 64.3 Glucose Level: 91 Sodium Level: 141 Potassium Level: 4.1 BUN: 9.0 Creatinine Lvl (s): 0.72 EKG No qualifying data available. Assessment/Plan Orders: Diet Order, 05/05/24 9:33:00 EST, Soft Diet, Constant Order, : N/A, : N/A 48-year-old male with history of laparoscopic converted to open right colectomy in 04/22 for colon cancer patient with postoperative ileus that was exacerbated by his baseline history of bloating. Patient is improving and ileus is likely resolved. Cut the TPN dose in half. Start soft diet DVT prophylaxis Reglan If patient does well possibly home tomorrow. Anticipated Date of Discharge Possibly tomorrow Digitally Signed by NAVIN GONAZLEZ MD on 05/05/2024 09:41 AM [facility] 05-04-2024 Surgery Hospital Progress note Date of Service 05/04/2024 Chief Complaint Abdominal distention Subjective This is a split shared visit between myself and Dr. Gonzalez. Patient sitting up comfortably in chair this morning. States his abdomen feels less distended and he is having loose bowel movements overnight. Passing a small mount of flatus. Denies any nausea or vomiting. Tolerating sips and chips currently. Objective Vitals and Measurements T: 36.7 C (Oral) TMIN: 36.7 C (Oral) TMAX: 37.0 C (Oral) HR: 79 RR: 16 BP: 108/72 SpO2: 98% Intake and Output 7AM Yesterday to 7AM Today Intake and Output (Last 24 hours) Intake Administration Information 6530.00 Oral Intake 230.00 Output Urine Voided 700.00 Stool Count 6.00 Urine Count 7.00 Total Summary Total Intake 6760.00 Total Output 700.00 Fluid Balance 6060.00 Physical Exam General -alert and oriented x4, answers questions appropriately. In no acute distress. HEENT -normocephalic. Cardiovascular -S1-S2, regular rate and rhythm. Respiratory -easy unlabored respirations. Chest rise symmetrical. Abdomen/GI -soft, nontender, bowel sounds present. Mildly distended. Previous incisions are well-healing. Musculoskeletal -DEL RIO x4. Psychiatric -calm and cooperative. Skin -normal for ethnicity. Weight Dosing Weight: 83 kg (04/30/24) Dosing Weight: 85 kg (04/30/24) Medications Medications (11) Active Scheduled: (5) calcium carbonate 500 mg Chewable 1,000 mg 2 tab(s), Chewed, BID chewing gum, sugar-free 1 EA, Oral, TID heparin 5,000 units/mL (1 mL) vial 5,000 unit(s) 1 mL, Subcutaneous, q8h lidocaine 1% (MPF) 2 mL vial pf 30 mg 3 mL, Intradermal, prep pharm metoclopramide 5 mg/mL (2mL) vial 10 mg 2 mL, IV Push, q6hr Continuous: (2) D10W 1,000 mL 1,000 mL, Intravenous TPN 1,680 mL + amino acids in TPN 5 % + dextrose in TPN 17.5 % + lipids in TPN 4 % + trace elements 1,680 mL, Intravenous, 70 mL/hr PRN: (4) dextrose 50% Solution Disp syringe 50 mL 12.5 gram(s) 25 mL, IV Push, AsDirected HYDROmorphone 0.5 mg/0.5 mL syringe 0.25 mg 0.25 mL, IV Push, q3h HYDROmorphone 0.5 mg/0.5 mL syringe 0.5 mg 0.5 mL, IV Push, q3h omeprazole [address] capsule 20 mg 1 cap(s), Oral, qDay Lab Results 05/04 04:30 WBC: 6.2 Hgb: 14.2 Hct: 41.3 Platelet: 211 Neutrophil %: 64.3 Glucose Level: 91 Sodium Level: 141 Potassium Level: 4.1 BUN: 9.0 Creatinine Lvl (s): 0.72 05/03 16:26 Glucose Level: 686 C Sodium Level: 138 Potassium Level: 4.6 BUN: 7.0 L Creatinine Lvl (s): 0.56 L 05/03 03:00 WBC: 7.6 Hgb: 14.6 Hct: 42.3 Platelet: 221 Neutrophil %: 71.7 Glucose Level: 124 H Sodium Level: 142 Potassium Level: 3.9 BUN: 13.0 Creatinine Lvl (s): 0.78 EKG No qualifying data available. Assessment/Plan 48-year-old male who is hospital day #5 with abdominal distention nausea and vomiting status post open right colectomy on 04/22/2024. Patient's abdomen is much less distended today. He is having loose bowel movements overnight. Remains mildly distended but improved. He is passing flatus. Tolerating sips and chips. He has been hemodynamically stable and afebrile. White count normal with stable hemoglobin and stable electrolytes. KAITY reviewed. Plan: -Will start clear liquid diet. -Encourage mobilization with incentive spirometer use. -Continue Reglan as ordered. -Subcu heparin for DVT prophylaxis. -Anticipate discharge home once distention resolves and he is tolerating diet. Case discussed with Dr. Gonzalez, see addendum to follow. Digitally Signed by LUIS M JONES APRN-IGNACIO on 05/04/2024 08:48 AM [facility] 05-04-2024 Surgery Hospital Progress note Date of Service 05/04/2024 Chief Complaint Abdominal distention Subjective This is a split shared visit between myself and Dr. Gonzalez. Patient sitting up comfortably in chair this morning. States his abdomen feels less distended and he is having loose bowel movements overnight. Passing a small mount of flatus. Denies any nausea or vomiting. Tolerating sips and chips currently. Objective Vitals and Measurements T: 36.7 C (Oral) TMIN: 36.7 C (Oral) TMAX: 37.0 C (Oral) HR: 79 RR: 16 BP: 108/72 SpO2: 98% Intake and Output 7AM Yesterday to 7AM Today Intake and Output (Last 24 hours) Intake Administration Information 6530.00 Oral Intake 230.00 Output Urine Voided 700.00 Stool Count 6.00 Urine Count 7.00 Total Summary Total Intake 6760.00 Total Output 700.00 Fluid Balance 6060.00 Physical Exam General -alert and oriented x4, answers questions appropriately. In no acute distress. HEENT -normocephalic. Cardiovascular -S1-S2, regular rate and rhythm. Respiratory -easy unlabored respirations. Chest rise symmetrical. Abdomen/GI -soft, nontender, bowel sounds present. Mildly distended. Previous incisions are well-healing. Musculoskeletal -DEL RIO x4. Psychiatric -calm and cooperative. Skin -normal for ethnicity. Weight Dosing Weight: 83 kg (04/30/24) Dosing Weight: 85 kg (04/30/24) Medications Medications (11) Active Scheduled: (5) calcium carbonate 500 mg Chewable 1,000 mg 2 tab(s), Chewed, BID chewing gum, sugar-free 1 EA, Oral, TID heparin 5,000 units/mL (1 mL) vial 5,000 unit(s) 1 mL, Subcutaneous, q8h lidocaine 1% (MPF) 2 mL vial pf 30 mg 3 mL, Intradermal, prep pharm metoclopramide 5 mg/mL (2mL) vial 10 mg 2 mL, IV Push, q6hr Continuous: (2) D10W 1,000 mL 1,000 mL, Intravenous TPN 1,680 mL + amino acids in TPN 5 % + dextrose in TPN 17.5 % + lipids in TPN 4 % + trace elements 1,680 mL, Intravenous, 70 mL/hr PRN: (4) dextrose 50% Solution Disp syringe 50 mL 12.5 gram(s) 25 mL, IV Push, AsDirected HYDROmorphone 0.5 mg/0.5 mL syringe 0.25 mg 0.25 mL, IV Push, q3h HYDROmorphone 0.5 mg/0.5 mL syringe 0.5 mg 0.5 mL, IV Push, q3h omeprazole [address] capsule 20 mg 1 cap(s), Oral, qDay Lab Results 05/04 04:30 WBC: 6.2 Hgb: 14.2 Hct: 41.3 Platelet: 211 Neutrophil %: 64.3 Glucose Level: 91 Sodium Level: 141 Potassium Level: 4.1 BUN: 9.0 Creatinine Lvl (s): 0.72 05/03 16:26 Glucose Level: 686 C Sodium Level: 138 Potassium Level: 4.6 BUN: 7.0 L Creatinine Lvl (s): 0.56 L 05/03 03:00 WBC: 7.6 Hgb: 14.6 Hct: 42.3 Platelet: 221 Neutrophil %: 71.7 Glucose Level: 124 H Sodium Level: 142 Potassium Level: 3.9 BUN: 13.0 Creatinine Lvl (s): 0.78 EKG No qualifying data available. Assessment/Plan 48-year-old male who is hospital day #5 with abdominal distention nausea and vomiting status post open right colectomy on 04/22/2024. Patient's abdomen is much less distended today. He is having loose bowel movements overnight. Remains mildly distended but improved. He is passing flatus. Tolerating sips and chips. He has been hemodynamically stable and afebrile. White count normal with stable hemoglobin and stable electrolytes. KAITY reviewed. Plan: -Will start clear liquid diet. -Encourage mobilization with incentive spirometer use. -Continue Reglan as ordered. -Subcu heparin for DVT prophylaxis. -Anticipate discharge home once distention resolves and he is tolerating diet. Case discussed with Dr. Gonzalez, see addendum to follow. Digitally Signed by LUIS M JONES on 05/04/2024 08:48 AM [facility] 05-03-2024 Surgery Hospital Progress note Date of Service 05/03/2024 Chief Complaint Abdominal distention Subjective Patient resting comfortably in bed. Denies any new overnight concerns. States he has had improved abdominal distention. States he is passing flatus and having loose bowel movements. Objective Vitals and Measurements T: 36.6 C (Oral) TMIN: 36.4 C (Oral) TMAX: 37.0 C (Oral) HR: 80 RR: 18 BP: 114/77 SpO2: 97% Intake and Output 7AM Yesterday to 7AM Today Intake and Output (Last 24 hours) Intake Administration Information 1120.00 Oral Intake 200.00 Output Urine Voided 500.00 Stool Count 6.00 Urine Count 4.00 Total Summary Total Intake 1320.00 Total Output 500.00 Fluid Balance 820.00 Physical Exam General Appearance: In no acute distress. Head: Normocephalic, atraumatic. EENT: HEENT exams unremarkable. Neck: Supple. Lungs: Chest rise symmetrical. Abdomen: Improving distention. No guarding or rigidity noted. Midline abdominal incision is well-approximated sharon. Neurological: Alert and oriented, follows simple commands. Skin: Normal for ethnicity. No jaundice, pallor, or diaphoresis noted. Psychiatric: Calm and cooperative. Weight Dosing Weight: 83 kg (04/30/24) Dosing Weight: 85 kg (04/30/24) Medications Medications (10) Active Scheduled: (3) heparin 5,000 units/mL (1 mL) vial 5,000 unit(s) 1 mL, Subcutaneous, q8h lidocaine 1% (MPF) 2 mL vial pf 30 mg 3 mL, Intradermal, prep pharm metoclopramide 5 mg/mL (2mL) vial 10 mg 2 mL, IV Push, q6hr Continuous: (3) D10W 1,000 mL 1,000 mL, Intravenous NS (0.9% nacl) 1,000 mL 1,000 mL, Intravenous, 100 mL/hr TPN 1,680 mL + amino acids in TPN 5 % + dextrose in TPN 17.5 % + lipids in TPN 4 % + trace elements 1,680 mL, Intravenous, 70 mL/hr PRN: (4) dextrose 50% Solution Disp syringe 50 mL 12.5 gram(s) 25 mL, IV Push, AsDirected HYDROmorphone 0.5 mg/0.5 mL syringe 0.25 mg 0.25 mL, IV Push, q3h HYDROmorphone 0.5 mg/0.5 mL syringe 0.5 mg 0.5 mL, IV Push, q3h omeprazole [address] capsule 20 mg 1 cap(s), Oral, qDay Lab Results 05/03 03:00 WBC: 7.6 Hgb: 14.6 Hct: 42.3 Platelet: 221 Neutrophil %: 71.7 Glucose Level: 124 H Sodium Level: 142 Potassium Level: 3.9 BUN: 13.0 Creatinine Lvl (s): 0.78 EKG No qualifying data available. Assessment/Plan 48-year-old male who was admitted [facility] on April 30, 2024 secondary to abdominal distention, nausea, vomiting. Patient is currently being treated for mid to high-grade bowel obstruction at the location of the ileocolic anastomosis. Small bowel follow-through completed on May 01, 2024 continue to show a mid to high-grade bowel obstruction at the level of the ileocolic anastomosis. Vital signs, laboratory data, I&O been reviewed. Patient remains on TPN. Patient continues to have loose bowel movements. At this time, we will continue with ice chips and TPN for nutritional support. Encourage mobilization including walking the halls and sitting up the chair as the patient tolerates. Encourage incentive spirometer use and coughing and deep breathing. Plan of care is discussed in detail with patient. All questions and concerns were addressed and answered. Case discussed Dr. Gonzalez. Addendum to follow. Digitally Signed by GURINDER MOTA on 05/03/2024 10:43 AM [facility] 05-03-2024 Surgery Hospital Progress note Date of Service 05/03/2024 Chief Complaint Abdominal distention Subjective Patient resting comfortably in bed. Denies any new overnight concerns. States he has had improved abdominal distention. States he is passing flatus and having loose bowel movements. Objective Vitals and Measurements T: 36.6 C (Oral) TMIN: 36.4 C (Oral) TMAX: 37.0 C (Oral) HR: 80 RR: 18 BP: 114/77 SpO2: 97% Intake and Output 7AM Yesterday to 7AM Today Intake and Output (Last 24 hours) Intake Administration Information 1120.00 Oral Intake 200.00 Output Urine Voided 500.00 Stool Count 6.00 Urine Count 4.00 Total Summary Total Intake 1320.00 Total Output 500.00 Fluid Balance 820.00 Physical Exam General Appearance: In no acute distress. Head: Normocephalic, atraumatic. EENT: HEENT exams unremarkable. Neck: Supple. Lungs: Chest rise symmetrical. Abdomen: Improving distention. No guarding or rigidity noted. Midline abdominal incision is well-approximated sharon. Neurological: Alert and oriented, follows simple commands. Skin: Normal for ethnicity. No jaundice, pallor, or diaphoresis noted. Psychiatric: Calm and cooperative. Weight Dosing Weight: 83 kg (04/30/24) Dosing Weight: 85 kg (04/30/24) Medications Medications (10) Active Scheduled: (3) heparin 5,000 units/mL (1 mL) vial 5,000 unit(s) 1 mL, Subcutaneous, q8h lidocaine 1% (MPF) 2 mL vial pf 30 mg 3 mL, Intradermal, prep pharm metoclopramide 5 mg/mL (2mL) vial 10 mg 2 mL, IV Push, q6hr Continuous: (3) D10W 1,000 mL 1,000 mL, Intravenous NS (0.9% nacl) 1,000 mL 1,000 mL, Intravenous, 100 mL/hr TPN 1,680 mL + amino acids in TPN 5 % + dextrose in TPN 17.5 % + lipids in TPN 4 % + trace elements 1,680 mL, Intravenous, 70 mL/hr PRN: (4) dextrose 50% Solution Disp syringe 50 mL 12.5 gram(s) 25 mL, IV Push, AsDirected HYDROmorphone 0.5 mg/0.5 mL syringe 0.25 mg 0.25 mL, IV Push, q3h HYDROmorphone 0.5 mg/0.5 mL syringe 0.5 mg 0.5 mL, IV Push, q3h omeprazole [address] capsule 20 mg 1 cap(s), Oral, qDay Lab Results 05/03 03:00 WBC: 7.6 Hgb: 14.6 Hct: 42.3 Platelet: 221 Neutrophil %: 71.7 Glucose Level: 124 H Sodium Level: 142 Potassium Level: 3.9 BUN: 13.0 Creatinine Lvl (s): 0.78 EKG No qualifying data available. Assessment/Plan 48-year-old male who was admitted [facility] on April 30, 2024 secondary to abdominal distention, nausea, vomiting. Patient is currently being treated for mid to high-grade bowel obstruction at the location of the ileocolic anastomosis. Small bowel follow-through completed on May 01, 2024 continue to show a mid to high-grade bowel obstruction at the level of the ileocolic anastomosis. Vital signs, laboratory data, I&O been reviewed. Patient remains on TPN. Patient continues to have loose bowel movements. At this time, we will continue with ice chips and TPN for nutritional support. Encourage mobilization including walking the halls and sitting up the chair as the patient tolerates. Encourage incentive spirometer use and coughing and deep breathing. Plan of care is discussed in detail with patient. All questions and concerns were addressed and answered. Case discussed Dr. Gonzalez. Addendum to follow. Digitally Signed by GURINDER MOTA on 05/03/2024 10:43 AM [facility] 05-01-2024 Procedure note VASCULAR ACCESS TEAM POST PROCEDURE NOTE PROCEDURE: Peripherally Inserted Central Catheter (PICC) INDICATION: TPN DETAILS: Consult for PICC placement received. Chart reviewed. Informed consent was obtained and verified prior to the procedure. The procedure was performed using a cap, mask, sterile gloves, sterile gown, and full-body fenestrated drape. Hand Hygiene was performed and the site was prepped with hospital approved cutaneous antisepsis. The patient was in a supine position in the hospital bed. A critical pause and confirm was performed just prior to the procedure with the patient's identity confirmed using two patient identifiers and confirming the procedure of the PICC placement. The patient was prepped and draped in the usual sterile fashion. 5 Fr. Double Lumen PICC was inserted at bedside under sterile technique. Vascular access was obtained with ultrasound guidance. All lumens were aspirated and flushed with 0.9 normal saline. Sterile needless connector caps were attached to each lumen. The PICC was fixated to the skin with a stat-lock and a sterile CHG all-in-one dressing applied. PICC flushes easily with good blood return. Patient tolerated well. PICC and CLABSI education packet provided. CUTANEOUS ANTISEPSIS: _ChloraPrep (2% chlorhexidine gluconate and 70% v/v isopropyl alcohol) ANESTHESIA: Local using 2 mL Lidocaine 1% ACCESS VESSEL: Right Basilic CATHETER LENGTH: 42cm INTERNAL LENGTH: 42cm EXTERNAL LENGTH: 0cm ARM CIRCUMFRENCE: 27cm Lot #: [id number] COMPLICATIONS: None INSERTED BY: Madeline Napoles RN BSN PLAN: PICC placement confirmed in lower SVC per ECG technology with Maximum-P wave and absence of negative deflection.Flushes easily with good blood return. Ok to use PICC now. Primary RN notified of PICC placement. Digitally Signed by Madeline Napoles RN on 05/01/2024 01:33 PM [facility] 05-01-2024 Trauma Progress note Date of Service 05/01/24 Subjective Patient states he is doing little better. He is passing gas having liquid bowel movements. Objective Vitals and Measurements T: 36.7 C (Oral) TMIN: 36.6 C (Oral) TMAX: 36.7 C (Oral) HR: 79 RR: 18 BP: 113/76 SpO2: 96% HT: 180.3 cm WT: 83 kg BMI: 25.53 Intake and Output 7AM Yesterday to 7AM Today Intake and Output (Last 24 hours) Intake Oral Intake 0.00 Output Urine Voided 200.00 Stool Count 0.00 Urine Count 1.00 Total Summary Total Intake 0.00 Total Output 200.00 Fluid Balance -200.00 Physical Exam General: No acute distress, alert and oriented Abdomen: Distended, soft, midline incision clean dry intact with skin sharon Weight Dosing Weight: 83 kg (04/30/24) Dosing Weight: 85 kg (04/30/24) Medications Medications (10) Active Scheduled: (3) heparin 5,000 units/mL (1 mL) vial 5,000 unit(s) 1 mL, Subcutaneous, q8h lidocaine 1% (MPF) 2 mL vial pf 30 mg 3 mL, Intradermal, prep pharm metoclopramide 5 mg/mL (2mL) vial 10 mg 2 mL, IV Push, q6hr Continuous: (4) D10W 1,000 mL 1,000 mL, Intravenous NS (0.9% nacl) 1,000 mL 1,000 mL, Intravenous, 100 mL/hr TPN 1,680 mL + amino acids in TPN 5 % + dextrose in TPN 17.5 % + lipids in TPN 4 % + trace elements 1,680 mL, Intravenous, 70 mL/hr TPN 960 mL + amino acids in TPN 5 % + dextrose in TPN 17.5 % + lipids in TPN 4 % + trace elements i 960 mL, Intravenous, 40 mL/hr PRN: (3) dextrose 50% Solution Disp syringe 50 mL 12.5 gram(s) 25 mL, IV Push, AsDirected HYDROmorphone 0.5 mg/0.5 mL syringe 0.25 mg 0.25 mL, IV Push, q3h HYDROmorphone 0.5 mg/0.5 mL syringe 0.5 mg 0.5 mL, IV Push, q3h Lab Results 05/01 07:57 Protime: 13.8 PT International Ratio: 1.2 Glucose Level: 99 Sodium Level: 139 Potassium Level: 4.0 BUN: 19.0 Creatinine Lvl (s): 0.84 05/01 03:10 WBC: 5.3 Hgb: 15.6 Hct: 43.9 Platelet: 225 Neutrophil %: 60.3 Glucose Level: 93 Sodium Level: 139 Potassium Level: 4.1 BUN: 21.0 Creatinine Lvl (s): 0.99 04/30 16:27 Protime: 13.9 PT International Ratio: 1.2 Glucose Level: 118 H Sodium Level: 135 L Potassium Level: 3.6 BUN: 21.0 Creatinine Lvl (s): 0.72 04/30 12:55 WBC: 8.4 Hgb: 18.2 H Hct: 51.9 Platelet: 331 Neutrophil %: 70.0 Glucose Level: 144 H Sodium Level: 133 L Potassium Level: 3.4 L BUN: 23.0 H Creatinine Lvl (s): 0.78 EKG No qualifying data available. Assessment/Plan Orders: Antiembolism Stocking Application Knee High(PAGE Hose Application Knee High), 05/01/24 1:52:00 EST, q4h, size medium please SCD Machine ([id number]), 05/01/24 1:54:00 EST, Quantity 1, Supply needed SCD Sleeves - Knee ([id number]), 05/01/24 1:55:00 EST, Quantity 1, Supply needed Sips & Chips, 05/01/24 7:57:00 EST, Start Meal: Now, Constant Order, N/A, N/A 48-year-old male status post laparoscopic converted to open right colectomy for colon cancer. Patient with severe postoperative ileus on top of baseline bloating issues. Sips and chips TPN Await better bowel function and decrease in distention Ambulate DVT prophylaxis Incentive spirometer Follow-up small bowel follow-through Digitally Signed by NAVIN GONZALEZ MD on 05/01/2024 12:31 PM [facility] 05-01-2024 Note ORIGINAL EXAMINATION: SMALL BOWEL FOLLOW THROUGH SERIES 05/01/2024 TECHNIQUE: Small bowel follow through series was performed with overhead images and spot images. Direct supervision was provided by attending physician Dr. Cortez. FLUOROSCOPY DOSE AND TYPE: Radiation Exposure Index: No fluoroscopic images were obtained. COMPARISON: CT abdomen and pelvis April 30, 2024 HISTORY: ORDERING SYSTEM PROVIDED HISTORY: Reason for Exam: Evaluation of obstruction, status post right colectomy FINDINGS: Sewing Techniques Demonstrator image of the abdomen demonstrates markedly dilated small bowel throughout the abdomen. There appears to be a transition at the midportion of the abdomen which is better appreciated on CT. At 3 hours most of the small bowel is contrast filled. IMPRESSION: Mid to high-grade obstruction at the ileocolic anastomosis. I have personally reviewed the images of this examination and agree with the resident's findings and interpretation. Interpreted by: Jose Ramon Cortez MD Preliminary Report By: German Garza Electronically signed By Jose Ramon Cortez MD Dictated Date: 05/01/2024 1:04:04 PM Prelim Date: 05/01/2024 4:50:43 PM Sign Date: 05/01/2024 4:50:43 PM Ordering Provider: DEREK RGACIA [facility] 04-30-2024 History and physical note Date of Service 04/30/2024 Chief Complaint Pt had part of colon removed on 04/22 and was d/c'd 04/27, bloating and getting worse since he's been home, unable to eat, dry heaving a lot History of Present Illness This patient is a 48-year-old male with past medical history of colon cancer, he recently underwent a laparoscopic converted to open right colectomy with Dr. Gonzalez on 04/22/2024 secondary to colon cancer. Postoperatively, patient had difficulties with advancing his diet due to abdominal distention, and nausea. He was recently discharged from the hospital on 04/27/2024 in satisfactory condition. Patient states since he was home, he had very little appetite, states he feels more bloated now as compared to be when he was in the hospital. Patient states he was barely able to take 1 protein shake per day. States he is continuously belching or vomiting or dry heaving at home. States he is continuing to pass flatus as well as having loose bowel movements. Patient states his last bowel movement was earlier today. He presented to the hospital due to inability to eat, abdominal bloating, nausea and vomiting. Denies any complaints of fever chills. States he has been able to move around at home and be ambulatory. States that most of his abdominal pain is on the right side. ER workup: Tmax 36.1, HR 110s, BP 137/100, O2 sats 96% on room air. WBC 8.4, Hgb 18.2, HCT 51.9, sodium 133, potassium 3.4, BUN 23, creatinine 0.78, AST 37, ALT 139 CT of abdomen/pelvis completed stable with radiology impression showing mid to high-grade obstruction of the distal ileum at the region of the ileocolic anastomosis. No pneumatosis or free air. Patient will be admitted to Dr. Gonzalez's service. Review of Systems All other pertinent positives and negatives are present in the HPI. All other systems are reviewed as negative unless otherwise previously mentioned Physical Exam Vitals and Measurements T: 36.1 C (Temporal Artery) HR: 99 RR: 20 BP: 137/100 SpO2: 96% WT: 85 kg Weight Dosing Weight: 85 kg (04/30/24) General: Awake and alert no acute distress, although patient appears in pain. Able to answer questions and speak in full sentences. Supine in bed. HEENT: Mucous membranes moist and pink. Sclerae anicteric. PERRLA. Heart: Regular rate and rhythm. S1-S2 are present. Lungs: Chest rise symmetrical. Respirations unlabored. Clear to auscultation bilaterally. Abdomen: Distended, rounded, tympanic. No guarding or rigidity. Bowel sounds hypoactive with tinkling bowel sounds noted. Extremities: Freely moving. Skin: Normal color for ethnicity. No pallor or diaphoresis. No jaundice. Psychiatric: Calm and cooperative. Lab Results 04/30 12:55 WBC: 8.4 Hgb: 18.2 H Hct: 51.9 Platelet: 331 Neutrophil %: 70.0 Glucose Level: 144 H Sodium Level: 133 L Potassium Level: 3.4 L BUN: 23.0 H Creatinine Lvl (s): 0.78 Imaging Results and Diagnostics CT Abd/Pelvis w/ IV Contrast Only Result Date: April 30, 2024 Verified By: JOSE RAMON CORTEZ MD CLINICAL STATEMENT: IMPRESSION: Mid to high-grade obstruction of the distal ileum at the region of the ileocolic anastomosis. No pneumatosis or free air. Assessment/Plan This patient is a 48-year-old male with past history of colon cancer who recently underwent laparoscopic converted to open right colectomy on 04/22/2024. Patient presented to the ER today after being discharged on Monday with complaints of ongoing abdominal bloating, nausea, vomiting, and poor appetite. Per patient and 's report, he has not been able to eat any foods, has only drank approximately 1 protein shake per day. Has lost approximately 10 pounds. ER workup shows evidence of mid to high-grade obstruction of the distal ileum per CT scan. Upon examination, patient's abdomen is distended, rounded, tympanic, painful to touch to the right mid quadrant. Patient is passing flatus and having bowel movements, but he is also having nausea, vomiting, and dry heaves. Plan: Will admit, will maintain n.p.o. at this time. NG tube to low intermittent suction GI prophylaxis and DVT prophylaxis Reglan IV every 6 hours Will order TPN Patient encouraged to be ambulatory in room and hallways Pain control, minimize narcotics Will replace electrolytes A.m. labs Case discussed with Dr. Gonzalez, please see her addendum to follow with further assessment/plan. Problem List/Past Medical History Ongoing Anxiety Colon cancer Hypertension Procedure/Surgical History Colectomy: 04/22/24 Colonoscopy: 03/19/24 Esophagogastroduodenoscopy Nasal balloon Medications Home Medications (4) Active acetaminophen 650 mg = 2 tab(s), PRN, Oral, q6h hydrOXYzine hydrochloride 25 mg oral tablet 50 mg = 2 tab(s), PRN, Oral, q6h omeprazole 20 mg oral delayed release capsule 20 mg = 1 cap(s), PRN, Oral, qDay Vitafusion MultiVites Gummies 1 tab(s), Oral, qAM Allergies NKA Social History Alcohol Use: Current. Type: Beer. Frequency: 3-5 times per week., 04/17/2024 Home/Environment Living situation: Home/Independent. Safe place to go: Yes. Domestic Concerns: None. Current Home Treatments Blood Pressure monitoring. Professional Skilled Services or Special Community Resources None. Spouse Name: January., 04/17/2024 Nutrition/Health Type of diet: Regular. Appetite Good. Eating Difficulties None., 04/17/2024 Substance Abuse Use: Past. Type: Marijuana., 04/17/2024 Tobacco Nicotine Use: Former smoker, quit more than 30 days ago, stopped at age 40. Started at age: 29 Years. Stopped at age: 40 Years., 04/17/2024 Family History Cancer: Grandparent. Diabetes: Mother and Brother. Heart disease: Grandparent. Thyroid disease: Daughter. Health Status Family Member(s) Father: History is unknown Immunizations No qualifying data available. Code Status Code Status - Ordered -- 04/30/24 15:06:00 EST, Full Code, Constant Order Digitally Signed by JELENA HAWKINS on 04/30/2024 04:07 PM [facility] 04-30-2024 History and physical note Date of Service 04/30/2024 Chief Complaint Pt had part of colon removed on 04/22 and was d/c'd 04/27, bloating and getting worse since he's been home, unable to eat, dry heaving a lot History of Present Illness This patient is a 48-year-old male with past medical history of colon cancer, he recently underwent a laparoscopic converted to open right colectomy with Dr. Gonzalez on 04/22/2024 secondary to colon cancer. Postoperatively, patient had difficulties with advancing his diet due to abdominal distention, and nausea. He was recently discharged from the hospital on 04/27/2024 in satisfactory condition. Patient states since he was home, he had very little appetite, states he feels more bloated now as compared to be when he was in the hospital. Patient states he was barely able to take 1 protein shake per day. States he is continuously belching or vomiting or dry heaving at home. States he is continuing to pass flatus as well as having loose bowel movements. Patient states his last bowel movement was earlier today. He presented to the hospital due to inability to eat, abdominal bloating, nausea and vomiting. Denies any complaints of fever chills. States he has been able to move around at home and be ambulatory. States that most of his abdominal pain is on the right side. ER workup: Tmax 36.1, HR 110s, BP 137/100, O2 sats 96% on room air. WBC 8.4, Hgb 18.2, HCT 51.9, sodium 133, potassium 3.4, BUN 23, creatinine 0.78, AST 37, ALT 139 CT of abdomen/pelvis completed stable with radiology impression showing mid to high-grade obstruction of the distal ileum at the region of the ileocolic anastomosis. No pneumatosis or free air. Patient will be admitted to Dr. Gonzalez's service. Review of Systems All other pertinent positives and negatives are present in the HPI. All other systems are reviewed as negative unless otherwise previously mentioned Physical Exam Vitals and Measurements T: 36.1 C (Temporal Artery) HR: 99 RR: 20 BP: 137/100 SpO2: 96% WT: 85 kg Weight Dosing Weight: 85 kg (04/30/24) General: Awake and alert no acute distress, although patient appears in pain. Able to answer questions and speak in full sentences. Supine in bed. HEENT: Mucous membranes moist and pink. Sclerae anicteric. PERRLA. Heart: Regular rate and rhythm. S1-S2 are present. Lungs: Chest rise symmetrical. Respirations unlabored. Clear to auscultation bilaterally. Abdomen: Distended, rounded, tympanic. No guarding or rigidity. Bowel sounds hypoactive with tinkling bowel sounds noted. Extremities: Freely moving. Skin: Normal color for ethnicity. No pallor or diaphoresis. No jaundice. Psychiatric: Calm and cooperative. Lab Results 04/30 12:55 WBC: 8.4 Hgb: 18.2 H Hct: 51.9 Platelet: 331 Neutrophil %: 70.0 Glucose Level: 144 H Sodium Level: 133 L Potassium Level: 3.4 L BUN: 23.0 H Creatinine Lvl (s): 0.78 Imaging Results and Diagnostics CT Abd/Pelvis w/ IV Contrast Only Result Date: April 30, 2024 Verified By: JOSE RAMON CORTEZ MD CLINICAL STATEMENT: IMPRESSION: Mid to high-grade obstruction of the distal ileum at the region of the ileocolic anastomosis. No pneumatosis or free air. Assessment/Plan This patient is a 48-year-old male with past history of colon cancer who recently underwent laparoscopic converted to open right colectomy on 04/22/2024. Patient presented to the ER today after being discharged on Monday with complaints of ongoing abdominal bloating, nausea, vomiting, and poor appetite. Per patient and 's report, he has not been able to eat any foods, has only drank approximately 1 protein shake per day. Has lost approximately 10 pounds. ER workup shows evidence of mid to high-grade obstruction of the distal ileum per CT scan. Upon examination, patient's abdomen is distended, rounded, tympanic, painful to touch to the right mid quadrant. Patient is passing flatus and having bowel movements, but he is also having nausea, vomiting, and dry heaves. Plan: Will admit, will maintain n.p.o. at this time. NG tube to low intermittent suction GI prophylaxis and DVT prophylaxis Reglan IV every 6 hours Will order TPN Patient encouraged to be ambulatory in room and hallways Pain control, minimize narcotics Will replace electrolytes A.m. labs Case discussed with Dr. Gonzalez, please see her addendum to follow with further assessment/plan. Problem List/Past Medical History Ongoing Anxiety Colon cancer Hypertension Procedure/Surgical History Colectomy: 04/22/24 Colonoscopy: 03/19/24 Esophagogastroduodenoscopy Nasal balloon Medications Home Medications (4) Active acetaminophen 650 mg = 2 tab(s), PRN, Oral, q6h hydrOXYzine hydrochloride 25 mg oral tablet 50 mg = 2 tab(s), PRN, Oral, q6h omeprazole 20 mg oral delayed release capsule 20 mg = 1 cap(s), PRN, Oral, qDay Vitafusion MultiVites Gummies 1 tab(s), Oral, qAM Allergies NKA Social History Alcohol Use: Current. Type: Beer. Frequency: 3-5 times per week., 04/17/2024 Home/Environment Living situation: Home/Independent. Safe place to go: Yes. Domestic Concerns: None. Current Home Treatments Blood Pressure monitoring. Professional Skilled Services or Special Community Resources None. Spouse Name: January., 04/17/2024 Nutrition/Health Type of diet: Regular. Appetite Good. Eating Difficulties None., 04/17/2024 Substance Abuse Use: Past. Type: Marijuana., 04/17/2024 Tobacco Nicotine Use: Former smoker, quit more than 30 days ago, stopped at age 40. Started at age: 29 Years. Stopped at age: 40 Years., 04/17/2024 Family History Cancer: Grandparent. Diabetes: Mother and Brother. Heart disease: Grandparent. Thyroid disease: Daughter. Health Status Family Member(s) Father: History is unknown Immunizations No qualifying data available. Code Status Code Status - Ordered -- 04/30/24 15:06:00 EST, Full Code, Constant Order Digitally Signed by JELENA HAWKINS on 04/30/2024 04:07 PM [facility] 04-30-2024 Evaluation + Plan note Extrac page from: Title:History and Physical Author:JELENA HAWKINS Date:04/30/24 This patient is a 48-year-ol d male with past history of colon cancer who recently underwent laparoscopic converted to open right colectomy on 04/22/2024. Patient presented to the ER today after being discharged on Monday with complaints of ongoing abdominal bloating, nausea, vomiting, and poor appetite. Per patient and 's report, he has not been able to eat any foods, has only drank approximately 1 protein shake per day. Has lost approximately 10 pounds. ER workup shows evidence of mid to high-grade obstruction of the distal ileum per CT scan. Upon examination, patient's abdomen is distended, rounded, tympanic, painful to touch to the right mid quadrant. Patient is passing flatus and having bowel movements, but he is also having nausea, vomiting, and dry heaves. Plan: Will admit, will maintain n.p.o. at this time. NG tube to low intermittent suction GI prophylaxis and DVT prophylaxis Reglan IV every 6 hours Will order TPN Patient encouraged to be ambulatory in room and hallways Pain control, minimize narcotics Will replace electrolytes A.m. labs Case discussed with Dr. Gonzalez, please see her addendum to follow with further assessment/plan. Addendum by NAVIN GONZALEZ MD on April 30, 2024 19:43:33 EST Agree with above. 48-year-old male who underwent laparoscopic converted open right colectomy on 04/22 for colon cancer. Postoperatively patient difficulties advancing his diet to abdominal distention and nausea. Patient is passing gas having bowel movements. Patient was discharged 3 days ago but has been belching and vomiting and dry heaving at home. Patient has baseline issues with abdominal bloating and constipation. General: No acute distress, alert and oriented Abdomen distended, soft, appropriately tender midline incision clean dry intact with skin sharon Patient with postoperative ileus on top of baseline abdominal bloating. Will start TPN DVT prophylaxis Ambulate Will try minimize narcotics Will continue with conservative management. I explained to the patient his that I think it would just take a long time for him to start to feel better given his baseline issues with distention. Future Appointments Appointment Date:05/21/2024 08:30:00 AM Scheduled Provider:NAVIN GONZALEZ MD Location:[facility] Appointment Type:GS OV Post Op Future Scheduled Tests Radiology* CT Thorax w/ Contrast 04/09/24 * CT Abd/Pelvis w/ IV Contrast Only 04/09/24 [facility] 12-10-2024 Note ORIGINAL EXAMINATION: CT OF THE ABDOMEN AND PELVIS WITH CONTRAST 04/30/2024 1:54 pm TECHNIQUE: CT of the abdomen and pelvis was performed with the administration of intravenous contrast. Multiplanar reformatted images are provided for review. Automated exposure control, iterative reconstruction, and/or weight based adjustment of the mA/kV was utilized to reduce the radiation dose to as low as reasonably achievable. COMPARISON: April 16, 2024 HISTORY: ORDERING SYSTEM PROVIDED HISTORY: Reason for Exam: C.O PAIN AND DISTENDED ABD SINCE SURGERY ON COLON 5 DAYS AGO TO REMOVE MASS IN COLON pain/bloating FINDINGS: No osseous abnormality. Small areas of atelectasis are visible at the lung bases. Liver, spleen, adrenal glands, pancreas, and kidneys are unremarkable. No adenopathy is evident. A small amount of free pelvic fluid is evident. Patient is status post right hemicolectomy. Remaining portions of the colon are normal in caliber. There is diffuse prominent small bowel dilatation, extending to the ileocolic anastomosis. No small bowel wall thickening or pneumatosis is visible. No free air seen. No other GI tract abnormality seen. No additional contributory finding. IMPRESSION: Mid to high-grade obstruction of the distal ileum at the region of the ileocolic anastomosis. No pneumatosis or free air. Interpreted by: Jose Ramon Cortez MD Preliminary Report By: Jose Ramon Cortez MD Electronically signed By Jose Ramon Cortez MD Dictated Date: 04/30/2024 1:58:18 PM Prelim Date: 04/30/2024 2:01:39 PM Sign Date: 04/30/2024 2:01:39 PM Ordering Provider: [facility]12-07-2024 Hospital Discharge instructions Patient Education 04/27/2024 12:20:43 8- Post Op General Surgery (04/2020)(CUSTOM) What to Do After Your General Surgery This sheet will give you general information on what to do when you are home after surgery. However, you should always follow any specific instructions given to you by your surgeon. Pain Medication Please follow the directions on the label of your medication and use your discharge medication listprovided by the hospital. Do not take pain medication on an empty stomach. This may cause a stomachache. Constipation is common while taking oral pain medication after surgery. Use a stool softener (Colace) or gentle laxative (milk of magnesia) if needed. As soon as your pain allows, use less of any narcotic pain medication. You may take vfyq-tau-koxteii pain medication if you no longer need your prescribed pain medication. Bzvj-gfg-nmuyfle pain medications are Tylenol or Advil/Motrin (ibuprofen). Do not take Tylenol if you are still taking Sweet [place] or Percocet. They are the same type of medication, and too much acetaminophen can hurt your liver. Activity It is OK to use stairs. Do not lift more than 15 pounds. After surgery, you may feel tired. Rest is important for healing. Slowly increase your activity level by walking and doing normal activities as you feel comfortable. Do not drive while taking narcotic pain medication. They should be out of your system for [address]. Diet Eating smaller meals instead of three large meals is good. This may help with your appetite and nutrition. Good nutrition will help you heal. Follow diet instructions that you were taught after surgery. Infection Prevention Washing your hands is one of the best ways to prevent infection. Always wash your hands before and after touching your incision or bandage. Hands carry germs that can cause infections. Try not to touch your incision. Keep the Incision Clean Wear clean, loose-fitting clothes to prevent clothes from rubbing on the incision. Put clean sheets on your bed when you get home. Do not let other people or animals touch the incision. Showering You may start to shower 48 hours after your surgery. Use a clean washcloth and towel on your incision before you use it on any other area of your body. Adjust the shower spray to gentle and use warm water. Gently wash over your incision using antibacterial soap and water and pat it dry. Do not rub the incision. Do not soak or submerge in the bathtub or hot tub until your surgeon says it is OK. Wound Care If you have a clear, see-through bandage over your incision(s), you may shower with it in place. The bandage is waterproof. oIt is normal to see a small amount of reddish fluid under the clear bandage. You may remove your bandage after 48 hours. If you are in the hospital longer than 48 hours, it is OK to remove your bandage when you get home. If you have thin white tape strips (Steri-Strips) over your incision, keep them dry. Do not remove them unless they begin curling up at the sides and are almost falling off. Hustler or sutures are generally removed within seven to 14 days at your follow- up appointment. Drain Care If you have a drain, empty it two to three times per day or if it gets half full. Write down the time it was emptied and amount of fluid on a piece of paper. Bring your paper with times and fluid amounts to your follow-up appointment to show your surgeon. Call Your Doctor If: You have a fever of 101 degrees or higher. It is not uncommon to have a low- grade fever after surgery. You have new redness or fluid around the incision that smells bad or looks like pus. Your skin is very painful, red, warm and/or swollen around the incision. You have a lot of bleeding (push with pressure on the area if this happens). You have bad stomach pain or you start throwing up. If you are unable to reach your surgeon, go to the hospital. Follow Up If a follow-up appointment has not been made, please call your surgeon s office. Most appointments are 10 14 days after surgery. If you have any problems or concerns before then, call the surgeon s office. Follow Up Care 04/10/2024 08:33:07 With:KENNY LEES Address: [address] [place] [address] [phone] When:5 to 7 days With:NAVIN GONZALEZ MD, Surgery Address: [address] [facility] [place] [address]- When:05/07/2024 09:15:00 Comments:FOLLOW UP [facility] 12-07-2024 Discharge summary Date of Service 04/27/2024 Discharge Diagnosis Colon cancer Postoperative pain Hospital Course This patient was a 48-year-old male [facility] to open right colectomy with Dr. Gonzalez on 04/22/2024 secondary to colon cancer. Postoperatively, his diet was advanced as tolerated. He did experience nausea and vomiting prompting his diet to be downgraded until he had return of GI function. On 04/27/2024he noted improvement in his abdominal pain, nausea and vomiting and he had been passing flatus/moving his bowels. His diet was advanced and he was cleared for discharge home. He will be seen in the general surgery's office as an outpatient on 05/07/2024. Both the patient and his voiced understanding and were in agreement with the plan of care. Allergies NKA Procedures 04/22/2024: Laparoscopic converted to open right colectomy with ICG angiography Consults Anesthesia Imaging Results and Diagnostics US Anesthesia Block Result Date: April 22, 2024 Verified By: CLINICAL STATEMENT: IMPRESSION: Physical Exam Vitals and Measurements T: 37.0 C (Oral) TMIN: 36.6 C (Oral) TMAX: 37.0 C (Oral) HR: 95 RR: 18 BP: 126/104 SpO2: 94% Weight Dosing Weight: 87 kg (04/22/24) Dosing Weight: 87 kg (04/22/24) General: Awake, alert and oriented x4. In no apparent distress. Able to answer questions appropriately and speak in full sentences. Supine in bed. HEENT: Sclera anicteric. Heart: S1 and S2 present. Lungs: Chest rise symmetrical. Respirations unlabored. Abdomen: Distended and tender with palpation near his incision sites. No rigidity or guarding noted. Bowel sounds present. Incision sites approximated. Extremities: Freely moving. Psychiatric: Calm and cooperative. Pending Labs and Studies None Code Status Code Status - Ordered -- 04/22/24 13:24:00 EST, Full Code, Constant Order Admission Date 04/22/2024 Discharge Date 04/27/2024 Patient Instructions Postoperative activity/wound care recommendations No lifting or pushing objects greater than 10 to 15 pounds and no strenuous activity. Walking, using stairs, and riding in the car are acceptable forms of activity and are encouraged in postoperativeperiod. Spirometer use and deep breathing/coughing exercises are also encouraged after discharge toprevent respiratory complications such as pneumonia and blood clots. No driving while taking narcotic pain medicine. You may shower. No tub bathing or soaking your incision, and no pools/hot tub until cleared by your surgeon. Wash your incision daily with mild soap and water and pat dry. Postoperative medication recommendations/education: You may take 650-1000 mg Tylenol every 6 hours as needed to optimize pain control after surgery. Constipation after surgery is very common for patients after discharge from the hospital. This is related to anesthesia and analgesia (pain medication.). Concern encouraged to take kpor-xaz-knshagu stool softeners (such as Colace) and over the counter laxatives (such as Miralax) as needed for constipation. Additional medications that can be taken for operative constipation including milk of magnesia, Metamucil and Senokot. Medications New Prescription [id number] Milligram by mouth every 6 hours as needed Pain, scale 1-6. ondansetron (Zofran 4 mg oral tablet)1 tab(s) by mouth every 6 hours as needed Nausea/Vomiting for 3 Days. Refills: 0. Unchanged hydrOXYzine (hydrOXYzine hydrochloride 25 mg oral tablet)2 tab(s) by mouth every 6 hours as needed as needed for anxiety. multivitamin with minerals (Vitafusion MultiVites Gummies)1 tab(s) by mouth once a day (in the morning). omeprazole (omeprazole 20 mg oral delayed release capsule)1 cap by mouth once a day as needed abdominal discomfort. Discontinued mupirocin topical (mupirocin 2% topical ointment)1 application Topical two (2) times a day. Bilateral intranasal application twice daily x 5 days pre-surgery &/or as many days pre-surgery as possible.. Refills: 0. Follow Up Follow Up with KENNY LEES When:Within 5 to 7 days Where:[address] [address] [phone] Follow Up with NAVIN GONZALEZ MD, Surgery When:05/07/2024 09:15 AM EST Where:[address] [facility] [place] [address]- Additional Information: FOLLOW UP Follow Up Labs/Studies Discharge Labs No Follow-up Labs Discharge Studies No Follow-up Studies Discharge Diet Discharge Diet - Ordered -- Type of Diet: Regular, 04/27/24 12:12:00 EST Discharge Activity Discharge Activity - Ordered -- May Shower, No shortness activity, no lifting anything greater than 10 to 15 pounds. You may shower. No soaking in a hot tub, whirlpool bath, 04/27/24 12:12:00 EST Condition on Discharge Stable Discharge Disposition Home Information Provided To Patient, his and nursing staff Time Spent 20 minutes Digitally Signed by SALLY NOLAN on 04/27/2024 12:24 PM [id number] Discharge summary Date of Service 04/27/2024 Discharge Diagnosis Colon cancer Postoperative pain Hospital Course This patient was a 48-year-old male who [facility] converted to open right colectomy with Dr. Gonzalez on 04/22/2024 secondary to colon cancer. Postoperatively, his diet was advanced as tolerated. He did experience nausea and vomiting prompting his diet to be downgraded until he had return of GI function. On 04/27/2024he noted improvement in his abdominal pain, nausea and vomiting and he had been passing flatus/moving his bowels. His diet was advanced and he was cleared for discharge home. He will be seen in the general surgery's office as an outpatient on 05/07/2024. Both the patient and his voiced understanding and were in agreement with the plan of care. Allergies NKA Procedures 04/22/2024: Laparoscopic converted to open right colectomy with ICG angiography Consults Anesthesia Imaging Results and Diagnostics US Anesthesia Block Result Date: April 22, 2024 Verified By: CLINICAL STATEMENT: IMPRESSION: Physical Exam Vitals and Measurements T: 37.0 C (Oral) TMIN: 36.6 C (Oral) TMAX: 37.0 C (Oral) HR: 95 RR: 18 BP: 126/104 SpO2: 94% Weight Dosing Weight: 87 kg (04/22/24) Dosing Weight: 87 kg (04/22/24) General: Awake, alert and oriented x4. In no apparent distress. Able to answer questions appropriately and speak in full sentences. Supine in bed. HEENT: Sclera anicteric. Heart: S1 and S2 present. Lungs: Chest rise symmetrical. Respirations unlabored. Abdomen: Distended and tender with palpation near his incision sites. No rigidity or guarding noted. Bowel sounds present. Incision sites approximated. Extremities: Freely moving. Psychiatric: Calm and cooperative. Pending Labs and Studies None Code Status Code Status - Ordered -- 04/22/24 13:24:00 EST, Full Code, Constant Order Admission Date 04/22/2024 Discharge Date 04/27/2024 Patient Instructions Postoperative activity/wound care recommendations No lifting or pushing objects greater than 10 to 15 pounds and no strenuous activity. Walking, using stairs, and riding in the car are acceptable forms of activity and are encouraged in postoperativeperiod. Spirometer use and deep breathing/coughing exercises are also encouraged after discharge toprevent respiratory complications such as pneumonia and blood clots. No driving while taking narcotic pain medicine. You may shower. No tub bathing or soaking your incision, and no pools/hot tub until cleared by your surgeon. Wash your incision daily with mild soap and water and pat dry. Postoperative medication recommendations/education: You may take 650-1000 mg Tylenol every 6 hours as needed to optimize pain control after surgery. Constipation after surgery is very common for patients after discharge from the hospital. This is related to anesthesia and analgesia (pain medication.). Concern encouraged to take oeca-hhh-oggqcos stool softeners (such as Colace) and over the counter laxatives (such as Miralax) as needed for constipation. Additional medications that can be taken for operative constipation including milk of magnesia, Metamucil and Senokot. Medications New Prescription [id number] Milligram by mouth every 6 hours as needed Pain, scale 1-6. ondansetron (Zofran 4 mg oral tablet)1 tab(s) by mouth every 6 hours as needed Nausea/Vomiting for 3 Days. Refills: 0. Unchanged hydrOXYzine (hydrOXYzine hydrochloride 25 mg oral tablet)2 tab(s) by mouth every 6 hours as needed as needed for anxiety. multivitamin with minerals (Vitafusion MultiVites Gummies)1 tab(s) by mouth once a day (in the morning). omeprazole (omeprazole 20 mg oral delayed release capsule)1 cap by mouth once a day as needed abdominal discomfort. Discontinued mupirocin topical (mupirocin 2% topical ointment)1 application Topical two (2) times a day. Bilateral intranasal application twice daily x 5 days pre-surgery &/or as many days pre-surgery as possible.. Refills: 0. Follow Up Follow Up with KENNY LEES When:Within 5 to 7 days Where:[address] [place] [address]- [phone] Follow Up with NAVIN GONZALEZ MD, Surgery When:05/07/2024 09:15 AM EST Where:[address] [facility] [address] [place] [address]- Additional Information: FOLLOW UP Follow Up Labs/Studies Discharge Labs No Follow-up Labs Discharge Studies No Follow-up Studies Discharge Diet Discharge Diet - Ordered -- Type of Diet: Regular, 04/27/24 12:12:00 EST Discharge Activity Discharge Activity - Ordered -- May Shower, No shortness activity, no lifting anything greater than 10 to 15 pounds. You may shower. No soaking in a hot tub, whirlpool bath, 04/27/24 12:12:00 EST Condition on Discharge Stable Discharge Disposition Home Information Provided To Patient, his and nursing staff Time Spent 20 minutes Digitally Signed by SALLY NOLAN on 04/27/2024 12:24 PM [facility] [id number] Note Discharge Instructions Thank you for allowing [facility] to assist you with your healthcare needs. The following is importantdischarge information regarding your hospital visit. Your Care Team KENNY LEES Your Diagnosis Colon cancer S/P right colectomy What to do next Instructions From Your Doctor Postoperative activity/wound care recommendations No lifting or pushing objects greater than 10 to 15 pounds and no strenuous activity. Walking, using stairs, and riding in the car are acceptable forms of activity and are encouraged in postoperativeperiod. Spirometer use and deep breathing/coughing exercises are also encouraged after discharge toprevent respiratory complications such as pneumonia and blood clots. No driving while taking narcotic pain medicine. You may shower. No tub bathing or soaking your incision, and no pools/hot tub until cleared by your surgeon. Wash your incision daily with mild soap and water and pat dry. Postoperative medication recommendations/education: You may take 650-1000 mg Tylenol every 6 hours as needed to optimize pain control after surgery. Constipation after surgery is very common for patients after discharge from the hospital. This is related to anesthesia and analgesia (pain medication.). Concern encouraged to take qzyb-jzj-qmxjamy stool softeners (such as Colace) and over the counter laxatives (such as Miralax) as needed for constipation. Additional medications that can be taken for operative constipation including milk of magnesia, Metamucil and Senokot. Scheduled Follow-Up Appointments Appointment Type When With Where Contact Information StatusGS OV Post Op 05/07/2024 09:15 AM EST NAVIN GONZALEZ MD [facility] Confirmed Follow Up Appointments Follow Up with KENNY LEES When:Within 5 to 7 days Where:[address] [address] [phone] Follow Up with NAVIN GONZALEZ MD, Surgery When:05/07/2024 09:15 AM EST Where:[address] [facility] [address] [place] [address]- Additional Information: FOLLOW UP The Following Activity and Diet Have Been Ordered for You Discharge Activity - Ordered -- May Shower, No shortness activity, no lifting anything greater than 10 to 15 pounds. You may shower. No soaking in a hot tub, whirlpool bath, 04/27/24 12:12:00 EST Discharge Driving Restrictions - Ordered -- * Other, specify in special instructions, No driving if taking narcotics, 04/27/24 12:12:00 EST Discharge Diet - Ordered -- Type of Diet: Regular, 04/27/24 12:12:00 EST The Following Equipment Has Been Ordered for You Discharge Home Equipment Discharge Wound Care - Ordered -- Cleanse midline incision with soap and water pat dry, 04/27/24 12:12:00 EST The Following Treatments Have Been Ordered for You Discharge Labs No qualifying data available. Discharge Radiology No qualifying data available. Other Therapies No qualifying data available. Post Acute Orders No qualifying data available. Someone Will Contact You Regarding These Home Health Referrals No home referrals have been ordered for you. No one will call you. Allergies NKA Medications Please ask your primary doctor or pharmacist before taking any other medication not listed, including over the counter drugs, herbal medications, vitamins and or supplements as they may interact withyour home medications. What How Much When Instructions Last Dose New acetaminophen 650 Milligram by mouth Every 6 hours as needed for Pain, scale 1-6 New ondansetron (Zofran 4 mg oral tablet) 1 tab(s) by mouth Every 6 hours as needed for Nausea/Vomiting Duration: 3 Days [facility] at [facility] Unchanged hydrOXYzine (hydrOXYzine hydrochloride 25 mg oral tablet) 2 tab(s) by mouth Every 6 hours as needed for as needed for anxiety Unchanged multivitamin with minerals (Vitafusion MultiVites Gummies) 1 tab(s) by mouth Once a day (in the morning) Unchanged omeprazole (omeprazole 20 mg oral delayed release capsule) 1 cap by mouth Once a day as needed for abdominal discomfort Pharmacy Information [facility]: [address] [place], [place] [phone] What How Much When Comments Stop Taking mupirocin topical (mupirocin 2% topical ointment) 1 application Topical Two (2) times a day Bilateral intranasal application twice daily x 5 days pre-surgery &/ or as many days pre-surgery as possible. Please take this list to your next doctor s visit. Bring all medications you take, including over the counter medications, herbals and other supplements with you to your doctor s visit. Patients and families are reminded to discard old lists and to update any records with all medication providers or retail pharmacies. Medication Leaflets ondansetron (oral) (on PEG se fish) What is the most important information I should know about ondansetron? Tell your doctor about all your other medicines. Some drugs should not be used with ondansetron. What is ondansetron? Ondansetron is used to prevent nausea and vomiting that may happen with certain cancer medicines (chemotherapy), or after surgery, or radiation treatment . Ondansetron may be used for purposes not listed in this medication guide. What should I discuss with my health care provider before taking ondansetron? You should not use ondansetron if you are allergic to it or similar medicines (dolasetron, granisetron, palonosetron). Some drugs should not be used with ondansetron. Your treatment plan may change if you also use apomorphine. Tell your doctor if you have or have ever had: an electrolyte imbalance (such as low blood levels of potassium or magnesium); congestive heart failure, slow heartbeats; heart rhythm disorder such as long QT syndrome (in you or a family member); an obstruction in the stomach or intestines, a change in bowel habits; a surgery on your stomach or intestines; or severe liver disease. The orally disintegrating tablet may contain phenylalanine and could be harmful if you have phenylketonuria (PKU). Tell your doctor if you also use stimulant medicine, opioid medicine, herbal products, or medicine for depression, mental illness, Parkinson's disease, migraine headaches, serious infections, or prevention of nausea and vomiting. An interaction with ondansetron could cause a serious condition called serotonin syndrome. Tell your doctor if you are or . Ondansetron is not approved for use by anyone younger than 4 years old. How should I take ondansetron? Follow all directions on your prescription label and read all medication guides or instruction sheets. Use the medicine exactly as directed. Ondansetron is usually taken just before surgery, chemotherapy, or radiation treatment. Follow yourdoctor's dosing instructions very carefully. Measure liquid medicine with the supplied measuring device (not a kitchen spoon). To take the orally disintegrating tablet: Keep the tablet in its blister pack until you are ready to take it. Open the package and peel back the foil. Use dry hands to remove the orally disintegrating tablet and place it in your mouth. Do not push a tablet through the foil or you may damage the tablet. Allow the orally disintegrating tablet to dissolve in your mouth without chewing. Do not swallow whole. Store in the original container at room temperature away from moisture, heat, and light. Store liquid medicine in an upright position. What happens if I miss a dose? Ondansetron is used when needed. If you are on a dosing schedule, skip any missed dose. Do not use two doses at one time. What happens if I overdose? Seek emergency medical attention or call the Poison Help line at . What should I avoid while taking ondansetron? Follow your doctor's instructions about any restrictions on food, beverages, or activity. What are the possible side effects of ondansetron? Get emergency medical help if you have signs of an allergic reaction: hives, difficult breathing, swelling of your face, lips, tongue, or throat. Seek medical attention right away if you have symptoms of serotonin syndrome such as: agitation, hallucinations, fever, sweating, shivering, fast heart rate, muscle stiffness, twitching, loss of coordination, nausea, vomiting, or diarrhea. Seek emergency medical help if you have signs of a heart attack: chest pain that spreads to your jaw or shoulder, nausea, and sweating. Call your doctor at once if you have: severe stomach pain, bloating, constipation, or any change in bowel habits; or dizziness, feeling lightheaded, fainting, slow, fast, or uneven heartbeats. Common side effects may include: diarrhea or constipation; headache; shortness of breath, rapid breathing, fast heartbeats; or feeling unwell, tiredness. This is not a complete list of side effects and others may occur. Call your doctor for medical advice about side effects. You may report side effects to FDA at 3-632-PDG-5172. What other drugs will affect ondansetron? Ondansetron can cause a serious heart problem. Your risk may be higher if you also use certain other medicines for infections, asthma, heart problems, high blood pressure, depression, mental illness,cancer, malaria, or HIV. Many drugs can affect ondansetron. This includes prescription and zgco-tvr-ycupabc medicines, vitamins, and herbal products. Not all possible interactions are listed here. Tell your doctor about all other medicines you use. Where can I get more information? Your doctor or pharmacist can provide more information about ondansetron. Remember, keep this and all other medicines out of the reach of children, never share your medicines with others, and use this medication only for the indication prescribed. Every effort has been made to ensure that the information provided by [facility]. ('[employer]') is accurate, up-to-date, and complete, but no guarantee is made to that effect. Drug information contained herein may be time sensitive. [employer] information has been compiled for use by healthcare practitioners and consumers in the [place] and therefore [employer] does not warrant that uses outside of the [place] are appropriate, unless specifically indicated otherwise. [employer] drug information does not endorse drugs, diagnose patients or recommend therapy. [employer] drug information isan informational resource designed to assist licensed healthcare practitioners in caring for their p atients and/or to serve consumers viewing this service as a supplement to, and not a substitute for, the expertise, skill, knowledge and judgment of healthcare practitioners. The absence of a warningfor a given drug or drug combination in no way should be construed to indicate that the drug or drug combination is safe, effective or appropriate for any given patient. [employer] does not assume any responsibility for any aspect of healthcare administered with the aid of information [employer] provides. The information contained herein is not intended to cover all possible uses, directions, precautions, warnings, drug interactions, allergic reactions, or adverse effects. If you have questions about the drugs you are taking, check with your doctor, nurse or pharmacist. Copyright 8085-7687 [facility]. Version: 17.. Revision Date: 02/13/2024. Education Materials What to Do After Your General Surgery This sheet will give you general information on what to do when you are home after surgery. However, you should always follow any specific instructions given to you by your surgeon. Pain Medication Please follow the directions on the label of your medication and use your discharge medication listprovided by the hospital. Do not take pain medication on an empty stomach. This may cause a stomachache. Constipation is common while taking oral pain medication after surgery. Use a stool softener (Colace) or gentle laxative (milk of magnesia) if needed. As soon as your pain allows, use less of any narcotic pain medication. You may take vjcn-fhh-vnfvufx pain medication if you no longer need your prescribed pain medication. Fscf-apf-efrstgi pain medications are Tylenol or Advil/Motrin (ibuprofen). Do not take Tylenol if you are still taking [place] or Percocet. They are the same type of medication, and too much acetaminophen can hurt your liver. Activity It is OK to use stairs. Do not lift more than 15 pounds. After surgery, you may feel tired. Rest is important for healing. Slowly increase your activity level by walking and doing normal activities as you feel comfortable. Do not drive while taking narcotic pain medication. They should be out of your system for [address]. Diet Eating smaller meals instead of three large meals is good. This may help with your appetite and nutrition. Good nutrition will help you heal. Follow diet instructions that you were taught after surgery. Infection Prevention Washing your hands is one of the best ways to prevent infection. Always wash your hands before and after touching your incision or bandage. Hands carry germs that can cause infections. Try not to touch your incision. Keep the Incision Clean Wear clean, loose-fitting clothes to prevent clothes from rubbing on the incision. Put clean sheets on your bed when you get home. Do not let other people or animals touch the incision. Showering You may start to shower 48 hours after your surgery. Use a clean washcloth and towel on your incision before you use it on any other area of your body. Adjust the shower spray to gentle and use warm water. Gently wash over your incision using antibacterial soap and water and pat it dry. Do not rub the incision. Do not soak or submerge in the bathtub or hot tub until your surgeon says it is OK. Wound Care If you have a clear, see-through bandage over your incision(s), you may shower with it in place. The bandage is waterproof. o It is normal to see a small amount of reddish fluid under the clear bandage. You may remove your bandage after 48 hours. If you are in the hospital longer than 48 hours, it is OK to remove your bandage when you get home. If you have thin white tape strips (Steri-Strips) over your incision, keep them dry. Do not remove them unless they begin curling up at the sides and are almost falling off. Hustler or sutures are generally removed within seven to 14 days at your follow- up appointment. Drain Care If you have a drain, empty it two to three times per day or if it gets half full. Write down the time it was emptied and amount of fluid on a piece of paper. Bring your paper with times and fluid amounts to your follow-up appointment to show your surgeon. Call Your Doctor If: You have a fever of 101 degrees or higher. It is not uncommon to have a low- grade fever after surgery. You have new redness or fluid around the incision that smells bad or looks like pus. Your skin is very painful, red, warm and/or swollen around the incision. You have a lot of bleeding (push with pressure on the area if this happens). You have bad stomach pain or you start throwing up. If you are unable to reach your surgeon, go to the hospital. Follow Up If a follow-up appointment has not been made, please call your surgeon s office. Most appointments are 10 14 days after surgery. If you have any problems or concerns before then, call the surgeon s office. Additional Information VACCINATE! IT SAVES LIVES! Members of the community who have not yet received the COVID-19 vaccine and would like to receive it can visit one of [facility] vaccine clinics. There are many vaccine clinic locations within the [facility]. For locations and available times, please visit [email or web address].[place].gov/. It is important to note that some COVID mobile vaccine clinics are held outdoors and may be canceled in rainy or stormy conditions. To learn more about pediatric vaccinations (ages 5-11), we invite you to visit the [facility] webpage. [email or web address] learn more about the COVID-19 vaccine, we invite you to visit the CDC website for a list of frequently asked questions.https://www.cdc.gov/coronavirus/2019-ncov/vaccines/faq.html [facility] Patient Portal Access Instructions: Stay connected with your healthcare team and access your personal medical information anytime with the [facility] [employer] Patient Portal. Please follow the directions below to create your [employer] account: 1.Access the email account you provided upon registration to the hospital/physician office.2.Look for an invitation email from [facility].3.Open the email and access the invitation link: AcceptInvitation to [facility].4.Fill in the required jack to create your account. To access your account, visit [email or web address]. Click the blue button labeled Access Patient Portal and then log in with the username and password that you created in the steps above. You will be able to view your test results, lab results, a summary of your visits, upcoming appointments and more. There is also a convenient messaging option where you can send secure messages to your p rovider. In addition, you will have the ability to download any documents or summaries to your computer and/or send the information securely to a physician. Remember that your healthcare information is confidential, so carefully consider who you will allowto register on the [facility] Patient Portal for access to your information. You can also access the [facility] Patient Portal on the [employer]rett. Simply click on Patient Portal and then log into your account. If you would like to receive a full copy of your medical records, please contact the [facility] Medical Records Department by calling [phone], Monday through Monday between 8 a.m. and 4:30 p.m. HOW TO SAFELY DISPOSE OF PRESCRIPTION MEDICATIONS Please use one of the following methods to safely dispose of your unused medications. 1.Use a drug disposal kit: the drug disposal pouch allows you to safely discard your old and unuseddrugs. Ask your nurse to give you one when you are discharged.2.Visit a local take-back location: Many local pharmacies and police departments have programs that collect old and unwanted prescriptiondrugs. Call your local pharmacy or go to http://[employer].[email or web address]/[email or web address] to find one close to you.3.Make use of household items: Use cat litter or old coffee grounds to dispose medications if other options arenot available. Mix your drugs with these household products, seal them in an airtight container andthrow it into the garbage. Call [facility]: [phone] to be sure your drugs can be disposed of in this way. Some medicines may require a different approach.4.Never flush your medications down the toilet. IF YOU HAVE BEEN PRESCRIBED AN OPIOID FOR PAIN If you have been prescribed an opioid (such as hydrocodone, oxycodone or morphine), it is critical to understand the possible side effects and risks of opioid pain medications. Even when taken as directed, opioids can have several side effects including: Tolerance, meaning you might need to take more of a medication for the same pain relief. Nausea, vomiting and/or constipation. Sleepiness, dizziness, dry mouth, confusion, depression or itching. Physical dependence, meaning you have withdrawal symptoms when a medication is stopped, can develop within a few days. KNOW YOUR RESPONSIBILITIES It is important to know exactly how much and how often to take the opioid pain medications you are prescribed. Never take opioids in higher amounts or more often than prescribed. Do not combine opioids with alcohol or other drugs that cause drowsiness, such as benzodiazepines, also known as benzos, including diazepam and alprazolam, muscle relaxants or sleep aids. Never sell or share prescription opioids. This is illegal. Store opioids in a secure place and out of reach of others (including children, family, friends and visitors). The last page of this document has been signed and retained as a CHART COPY. Signatures Patient Education Materials 8- Post Op General Surgery (04/2020)(CUSTOM) Medication Leaflets ondansetron (oral) My discharge plan and instructions have been reviewed and explained to me and I,DENISE HERNANDEZ understand my current condition and have read and understand these discharge instructions. I have received a written copy of the plan/instructions. If I have questions, I am aware that I should contactmy doctor. 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 States that he feels very bloated again, somewhat nauseated. Objective Vitals and Measurements T: 36.6 C (Oral) TMIN: 36.3 C (Oral) TMAX: 36.6 C (Oral) HR: 98 RR: 16 BP: 130/93 SpO2: 96% Intake and Output 7AM Yesterday to 7AM Today Intake and Output (Last 24 hours) Intake Oral Intake 780.00 Output Urine Voided 400.00 Stool Count 2.00 Total Summary Total Intake 780.00 Total Output 400.00 Fluid Balance 380.00 Physical Exam General: Awake and alert and in no apparent distress. Able to answer questions and speak in full sentences. Supine in bed. HEENT: Mucous membranes moist and pink. Heart: Regular rate and rhythm. S1-S2 are present. Lungs: Chest rise symmetrical. Respirations unlabored. Clear to auscultation bilaterally. Abdomen: Rounded, slightly distended, tympanic. No guarding or rigidity. Bowel sounds 4 quadrants. Midline incision and laparoscopic sites are all intact and well-approximated. Midline intact with sharon Extremities: Freely moving. Skin: Normal color for ethnicity. No pallor or diaphoresis. No jaundice. Psychiatric: Calm and cooperative. Weight Dosing Weight: 87 kg (04/22/24) Dosing Weight: 87 kg (04/22/24) Medications Medications (16) Active Scheduled: (5) enoxaparin 40 mg/ 0.4mL syringe 40 mg 0.4 mL, Subcutaneous, qDay lidocaine 1% (MPF) 2 mL vial pf 2.5 mg 0.25 mL, Intradermal, prep pharm lidocaine patch REMOVAL 1 EA, Miscellaneous, q24h lidocaine topical 4% patch 1 patch(es), Transdermal, q24h omeprazole [address] capsule 20 mg 1 cap(s), Oral, qDay Continuous: (0) PRN: (11) acetaminophen 325 mg Tablet 650 mg 2 tab(s), Oral, q6h gabapentin 100 mg Capsule 100 mg 1 cap(s), Oral, q8hr HYDROmorphone 0.5 mg/0.5 mL syringe 0.25 mg 0.25 mL, IV Push, q2h HYDROmorphone 0.5 mg/0.5 mL syringe 0.5 mg 0.5 mL, IV Push, q2h hydroxyzine hcl 25 mg tablet 50 mg 2 tab(s), Oral, q6h ondansetron 2 mg/ 1 mL 2 mL INJ 4 mg 2 mL, IV Push, q4h ondansetron 4 mg tablet 4 mg 1 tab(s), Oral, q6h oxyCODONE 10 mg Tab (Immediate Release) 10 mg 1 tab(s), Oral, q4h oxycodone 5 mg tablet (immediate release) 5 mg 1 tab(s), Oral, q4h prochlorperazine 10 mg/2 mL vial 5 mg 1 mL, IV Push, q6h promethazine 25 mg Tablet 25 mg 1 tab(s), Oral, q6h Lab Results 04/25 06:38 WBC: 10.2 Hgb: 17.4 Hct: 51.3 Platelet: 203 Neutrophil %: 80.3 H Glucose Level: 111 H Sodium Level: 138 Potassium Level: 4.0 BUN: 12.0 Creatinine Lvl (s): 0.86 Assessment/Plan Colon cancer S/P right colectomy Orders: acetaminophen, 650 mg= 2 tab(s), Oral, q6h, PRN Basic Metabolic Panel(BMP), 04/27/24 5:00:00 EST, Next AM Draw (one day only), Blood, Once, Preferred Lab: [facility], Stop date 04/27/24 5:00:00 EST Complete Blood Count(CBC), 04/27/24 5:00:00 EST, Next AM Draw (one day only), Blood, Once, Preferred Lab: [facility], Stop date 04/27/24 5:00:00 EST Diet Order, 04/26/24 8:41:00 EST, Clear Liquid Diet, Constant Order, : N/A, : N/A This patient 48-year-old male who is postoperative day #4 from laparoscopic converted to open rightcolectomy due to colon cancer. Vitals, labs, I's/O reviewed. Patient currently is afebrile, hemodynamically stable, and on room air. Voiding without difficulties Upon examination this morning, the patient appears somewhat uncomfortable. States that he was not able to tolerate a regular diet last night. Also states that he does not want to take pain pills or Tylenol [id number]. Abdomen is distended, rounded, tympanic. Patient states he is passing flatus when he goes into the bathroom and has a bowel movement. States his bowels have moved a small amount. Does feel nauseated. Bowel sounds are present. Plan: -Will make Tylenol as needed only. -Limit narcotic use -Will add Reglan -Patient encouraged to be up out of bed to chair with frequent ambulation in the hallway -Frequent use of incentive spirometry -Will downgrade to clear liquid diet until GI function resumes. -Continue to monitor closely. Case discussed with Dr. Gonzalez, please see addendum to follow. Digitally Signed by JELENA HAWKINS on 04/26/2024 08:47 AM [id number] [facility] Progress note Date of Service 04/26/2024 Chief Complaint Postoperative, postsurgical Subjective Patient seen resting supine in bed. States that he feels very bloated again, somewhat nauseated. Objective Vitals and Measurements T: 36.6 C (Oral) TMIN: 36.3 C (Oral) TMAX: 36.6 C (Oral) HR: 98 RR: 16 BP: 130/93 SpO2: 96% Intake and Output 7AM Yesterday to 7AM Today Intake and Output (Last 24 hours) Intake Oral Intake 780.00 Output Urine Voided 400.00 Stool Count 2.00 Total Summary Total Intake 780.00 Total Output 400.00 Fluid Balance 380.00 Physical Exam General: Awake and alert and in no apparent distress. Able to answer questions and speak in full sentences. Supine in bed. HEENT: Mucous membranes moist and pink. Heart: Regular rate and rhythm. S1-S2 are present. Lungs: Chest rise symmetrical. Respirations unlabored. Clear to auscultation bilaterally. Abdomen: Rounded, slightly distended, tympanic. No guarding or rigidity. Bowel sounds 4 quadrants. Midline incision and laparoscopic sites are all intact and well-approximated. Midline intact with sharon Extremities: Freely moving. Skin: Normal color for ethnicity. No pallor or diaphoresis. No jaundice. Psychiatric: Calm and cooperative. Weight Dosing Weight: 87 kg (04/22/24) Dosing Weight: 87 kg (04/22/24) Medications Medications (16) Active Scheduled: (5) enoxaparin 40 mg/ 0.4mL syringe 40 mg 0.4 mL, Subcutaneous, qDay lidocaine 1% (MPF) 2 mL vial pf 2.5 mg 0.25 mL, Intradermal, prep pharm lidocaine patch REMOVAL 1 EA, Miscellaneous, q24h lidocaine topical 4% patch 1 patch(es), Transdermal, q24h omeprazole [address] capsule 20 mg 1 cap(s), Oral, qDay Continuous: (0) PRN: (11) acetaminophen 325 mg Tablet 650 mg 2 tab(s), Oral, q6h gabapentin 100 mg Capsule 100 mg 1 cap(s), Oral, q8hr HYDROmorphone 0.5 mg/0.5 mL syringe 0.25 mg 0.25 mL, IV Push, q2h HYDROmorphone 0.5 mg/0.5 mL syringe 0.5 mg 0.5 mL, IV Push, q2h hydroxyzine hcl 25 mg tablet 50 mg 2 tab(s), Oral, q6h ondansetron 2 mg/ 1 mL 2 mL INJ 4 mg 2 mL, IV Push, q4h ondansetron 4 mg tablet 4 mg 1 tab(s), Oral, q6h oxyCODONE 10 mg Tab (Immediate Release) 10 mg 1 tab(s), Oral, q4h oxycodone 5 mg tablet (immediate release) 5 mg 1 tab(s), Oral, q4h prochlorperazine 10 mg/2 mL vial 5 mg 1 mL, IV Push, q6h promethazine 25 mg Tablet 25 mg 1 tab(s), Oral, q6h Lab Results 04/25 06:38 WBC: 10.2 Hgb: 17.4 Hct: 51.3 Platelet: 203 Neutrophil %: 80.3 H Glucose Level: 111 H Sodium Level: 138 Potassium Level: 4.0 BUN: 12.0 Creatinine Lvl (s): 0.86 Assessment/Plan Colon cancer S/P right colectomy Orders: acetaminophen, 650 mg= 2 tab(s), Oral, q6h, PRN Basic Metabolic Panel(BMP), 04/27/24 5:00:00 EST, Next AM Draw (one day only), Blood, Once, Preferred Lab: [facility], Stop date 04/27/24 5:00:00 EST Complete Blood Count(CBC), 04/27/24 5:00:00 EST, Next AM Draw (one day only), Blood, Once, Preferred Lab: [facility], Stop date 04/27/24 5:00:00 EST Diet Order, 04/26/24 8:41:00 EST, Clear Liquid Diet, Constant Order, : N/A, : N/A This patient 48-year-old male who is postoperative day #4 from laparoscopic converted to open rightcolectomy due to colon cancer. Vitals, labs, I's/O reviewed. Patient currently is afebrile, hemodynamically stable, and on room air. Voiding without difficulties Upon examination this morning, the patient appears somewhat uncomfortable. States that he was not able to tolerate a regular diet last night. Also states that he does not want to take pain pills or Tylenol [id number]. Abdomen is distended, rounded, tympanic. Patient states he is passing flatus when he goes into the bathroom and has a bowel movement. States his bowels have moved a small amount. Does feel nauseated. Bowel sounds are present. Plan: -Will make Tylenol as needed only. -Limit narcotic use -Will add Reglan -Patient encouraged to be up out of bed to chair with frequent ambulation in the hallway -Frequent use of incentive spirometry -Will downgrade to clear liquid diet until GI function resumes. -Continue to monitor closely. Case discussed with Dr. Gonzalez, please see addendum to follow. Digitally Signed by JELENA HAWKINS on 04/26/2024 08:47 AM [facility] [id number] [facility] Progress note Date of Service 04/25/2024 Chief Complaint POD#3 Subjective On examination of the patient he is seen resting supine in bed. Patient reporting that he is still bloated, but reports that bloating can be normal for him. He denies any nausea and vomiting althoughhe has had no PO intake since yesterday. He reports that he is pass gas and has had many liquid stools through out the night. He states that he feels less bloated than yesterday. Denies any chills, fever or SOB. Objective Vitals and Measurements T: 37.0 C (Oral) TMIN: 37.0 C (Oral) TMAX: 37.1 C (Oral) HR: 88 RR: 16 BP: 126/84 SpO2: 95% Intake and Output 7AM Yesterday to 7AM Today Intake and Output (Last 24 hours) Intake Administration Information 1600.00 Oral Intake 300.00 Output Urine Voided 650.00 Emesis 0.00 Stool Count 6.00 Total Summary Total Intake 1900.00 Total Output 650.00 Fluid Balance 1250.00 Physical Exam General: Awake and alert and in no apparent distress. Able to answer questions and speak in full sentences. Supine in bed. Sitting upright. HEENT: Mucous membranes moist and pink. Sclerae anicteric. PERRLA. Heart: Regular rate and rhythm. S1-S2 are present. Lungs: Chest rise symmetrical. Respirations unlabored. Clear to auscultation bilaterally. Abdomen: Soft and distended. No guarding or rigidity. ML with sharon GONZALEZ no s/s of infection. Extremities: Freely moving. Skin: Normal color for ethnicity. No pallor or diaphoresis. No jaundice. Psychiatric: Calm and cooperative. Weight Dosing Weight: 87 kg (04/22/24) Dosing Weight: 87 kg (04/22/24) Medications Medications (16) Active Scheduled: (6) alvimopan 12 mg capsule 12 mg 1 cap(s), Oral, BID enoxaparin 40 mg/ 0.4mL syringe 40 mg 0.4 mL, Subcutaneous, qDay lidocaine 1% (MPF) 2 mL vial pf 2.5 mg 0.25 mL, Intradermal, prep pharm lidocaine patch REMOVAL 1 EA, Miscellaneous, q24h lidocaine topical 4% patch 1 patch(es), Transdermal, q24h omeprazole [address] capsule 20 mg 1 cap(s), Oral, qDay Continuous: (0) PRN: (10) gabapentin 100 mg Capsule 100 mg 1 cap(s), Oral, q8hr HYDROmorphone 0.5 mg/0.5 mL syringe 0.25 mg 0.25 mL, IV Push, q2h HYDROmorphone 0.5 mg/0.5 mL syringe 0.5 mg 0.5 mL, IV Push, q2h hydroxyzine hcl 25 mg tablet 50 mg 2 tab(s), Oral, q6h ondansetron 2 mg/ 1 mL 2 mL INJ 4 mg 2 mL, IV Push, q4h ondansetron 4 mg tablet 4 mg 1 tab(s), Oral, q6h oxyCODONE 10 mg Tab (Immediate Release) 10 mg 1 tab(s), Oral, q4h oxycodone 5 mg tablet (immediate release) 5 mg 1 tab(s), Oral, q4h prochlorperazine 10 mg/2 mL vial 5 mg 1 mL, IV Push, q6h promethazine 25 mg Tablet 25 mg 1 tab(s), Oral, q6h Lab Results 04/25 06:38 WBC: 10.2 Hgb: 17.4 Hct: 51.3 Platelet: 203 Neutrophil %: 80.3 H Glucose Level: 111 H Sodium Level: 138 Potassium Level: 4.0 BUN: 12.0 Creatinine Lvl (s): 0.86 04/24 03:00 WBC: 8.6 Hgb: 16.5 Hct: 48.0 Platelet: 174 Neutrophil %: 69.9 Glucose Level: 91 Sodium Level: 141 Potassium Level: 4.1 BUN: 14.0 Creatinine Lvl (s): 1.10 EKG No qualifying data available. Assessment/Plan This is a 48-year-old male postop day # 3 from laparoscopic converted to open right colectomy for colon cancer. Over doing fairly well, decrease in bloating but is till bloated with passing of flatulences and many liquid stools thought out the night . Vital signs, I/O and labs have been reviewed. Vital signs, laboratory data and I/O have been reviewed. The patient has remained afebrile throughout the last 24 hours. WBC 10.2, platelets 203, no abnormal electrolytes. Pathology was reviewed with the patient by Dr. Gonzalez at the bedside. Plan: 1. Postoperative day #3 -Advance the patient's diet to regular diet -Patient encouraged to use incentive spirometry 10 times hourly for cough and deep breathing -Continue with serial abdominal examinations -Continue with multi modality pain control -Patient encouraged to mobilize, get up and sit in chair, mobilize in room and walk in hallway withstaff -Continue with supportive care -DVT prophylaxis-SCD PAGE hose and subcutaneous Lovenox -Anticipate discharge within the next [address] Case discussed [address] Gonzalez. Please addendum to follow This document was dictated with voice recognition software and may contain grammatical errors Digitally Signed by DEREK GRACIA on 04/25/2024 09:12 AM [facility] [id number] [facility] Progress note Date of Service 04/25/2024 Chief Complaint POD#3 Subjective On examination of the patient he is seen resting supine in bed. Patient reporting that he is still bloated, but reports that bloating can be normal for him. He denies any nausea and vomiting althoughhe has had no PO intake since yesterday. He reports that he is pass gas and has had many liquid stools through out the night. He states that he feels less bloated than yesterday. Denies any chills, fever or SOB. Objective Vitals and Measurements T: 37.0 C (Oral) TMIN: 37.0 C (Oral) TMAX: 37.1 C (Oral) HR: 88 RR: 16 BP: 126/84 SpO2: 95% Intake and Output 7AM Yesterday to 7AM Today Intake and Output (Last 24 hours) Intake Administration Information 1600.00 Oral Intake 300.00 Output Urine Voided 650.00 Emesis 0.00 Stool Count 6.00 Total Summary Total Intake 1900.00 Total Output 650.00 Fluid Balance 1250.00 Physical Exam General: Awake and alert and in no apparent distress. Able to answer questions and speak in full sentences. Supine in bed. Sitting upright. HEENT: Mucous membranes moist and pink. Sclerae anicteric. PERRLA. Heart: Regular rate and rhythm. S1-S2 are present. Lungs: Chest rise symmetrical. Respirations unlabored. Clear to auscultation bilaterally. Abdomen: Soft and distended. No guarding or rigidity. ML with sharon [employer] no s/s of infection. Extremities: Freely moving. Skin: Normal color for ethnicity. No pallor or diaphoresis. No jaundice. Psychiatric: Calm and cooperative. Weight Dosing Weight: 87 kg (04/22/24) Dosing Weight: 87 kg (04/22/24) Medications Medications (16) Active Scheduled: (6) alvimopan 12 mg capsule 12 mg 1 cap(s), Oral, BID enoxaparin 40 mg/ 0.4mL syringe 40 mg 0.4 mL, Subcutaneous, qDay lidocaine 1% (MPF) 2 mL vial pf 2.5 mg 0.25 mL, Intradermal, prep pharm lidocaine patch REMOVAL 1 EA, Miscellaneous, q24h lidocaine topical 4% patch 1 patch(es), Transdermal, q24h omeprazole [address] capsule 20 mg 1 cap(s), Oral, qDay Continuous: (0) PRN: (10) gabapentin 100 mg Capsule 100 mg 1 cap(s), Oral, q8hr HYDROmorphone 0.5 mg/0.5 mL syringe 0.25 mg 0.25 mL, IV Push, q2h HYDROmorphone 0.5 mg/0.5 mL syringe 0.5 mg 0.5 mL, IV Push, q2h hydroxyzine hcl 25 mg tablet 50 mg 2 tab(s), Oral, q6h ondansetron 2 mg/ 1 mL 2 mL INJ 4 mg 2 mL, IV Push, q4h ondansetron 4 mg tablet 4 mg 1 tab(s), Oral, q6h oxyCODONE 10 mg Tab (Immediate Release) 10 mg 1 tab(s), Oral, q4h oxycodone 5 mg tablet (immediate release) 5 mg 1 tab(s), Oral, q4h prochlorperazine 10 mg/2 mL vial 5 mg 1 mL, IV Push, q6h promethazine 25 mg Tablet 25 mg 1 tab(s), Oral, q6h Lab Results 12/ 06:38 WBC: 10.2 Hgb: 17.4 Hct: 51.3 Platelet: 203 Neutrophil %: 80.3 H Glucose Level: 111 H Sodium Level: 138 Potassium Level: 4.0 BUN: 12.0 Creatinine Lvl (s): 0.86 12/04 03:00 WBC: 8.6 Hgb: 16.5 Hct: 48.0 Platelet: 174 Neutrophil %: 69.9 Glucose Level: 91 Sodium Level: 141 Potassium Level: 4.1 BUN: 14.0 Creatinine Lvl (s): 1.10 EKG No qualifying data available. Assessment/Plan This is a 48-year-old male postop day # 3 from laparoscopic converted to open right colectomy for colon cancer. Over doing fairly well, decrease in bloating but is till bloated with passing of flatulences and many liquid stools thought out the night . Vital signs, I/O and labs have been reviewed. Vital signs, laboratory data and I/O have been reviewed. The patient has remained afebrile throughout the last 24 hours. WBC 10.2, platelets 203, no abnormal electrolytes. Pathology was reviewed with the patient by Dr. Gonzalez at the bedside. Plan: 1. Postoperative day #3 -Advance the patient's diet to regular diet -Patient encouraged to use incentive spirometry 10 times hourly for cough and deep breathing -Continue with serial abdominal examinations -Continue with multi modality pain control -Patient encouraged to mobilize, get up and sit in chair, mobilize in room and walk in hallway withstaff -Continue with supportive care -DVT prophylaxis-SCD PAGE hose and subcutaneous Lovenox -Anticipate discharge within the next 24 hours Case discussed with Dr. Gonzalez. Please addendum to follow This document was dictated with voice recognition software and may contain grammatical errors Digitally Signed by DEREK GRACIA on 04/25/2024 09:12 AM [id number] Note If ancillary studies were utilized, the following Laboratory Developed Test (LDT) disclaimer will apply: Under CLIA requirements, [facility] is qualified to perform high complexity testing. For all ancillary stains, positive and negative controls stain appropriately. Performance characteristics of immunohistochemical and chromogenic in-situ hybridization tests have been deter mined by [facility]. These tests are used for clinical purposes, They should not be regarded as investigational or for research. [facility] 12-04-2024 Surgery Hospital Progress note Date of Service 04/24/24 Subjective Patient is following clear liquids. Patient had some nausea related to passing gas. Patient denies emesis. Patient denies having bowel movements. Patient is ambulating. Pain is controlled. Patient feels more bloated than normal. Objective Vitals and Measurements T: 36.5 C (Oral) TMIN: 36.5 C (Oral) TMAX: 36.9 C (Oral) HR: 80 RR: 18 BP: 136/95 SpO2: 94% Intake and Output 7AM Yesterday to 7AM Today Intake and Output (Last 24 hours) Intake Oral Intake 1300.00 Administration Information 400.00 Supplement Intake 0.00 Output Urine Voided 1150.00 Stool Count 0.00 Urine Count 2.00 Total Summary Total Intake 1700.00 Total Output 1150.00 Fluid Balance 550.00 Physical Exam General: No acute distress, alert and oriented Abdomen: Nondistended, soft, appropriately tender, midline incision clean dry and intact with skin sharon other incisions clean dry and intact Weight Dosing Weight: 87 kg (04/22/24) Dosing Weight: 87 kg (04/22/24) Medications Medications (18) Active Scheduled: (9) acetaminophen 325 mg Tablet 650 mg 2 tab(s), Oral, QID alvimopan 12 mg capsule 12 mg 1 cap(s), Oral, BID enoxaparin 40 mg/ 0.4mL syringe 40 mg 0.4 mL, Subcutaneous, qDay gabapentin 100 mg Capsule 100 mg 1 cap(s), Oral, q8hr lidocaine 1% (MPF) 2 mL vial pf 2.5 mg 0.25 mL, Intradermal, prep pharm lidocaine patch REMOVAL 1 EA, Miscellaneous, q24h lidocaine topical 4% patch 1 patch(es), Transdermal, q24h omeprazole [address] capsule 20 mg 1 cap(s), Oral, qDay scopolamine (Transderm-Scop Patch REMOVAL) 1 EA, Miscellaneous, Once Continuous: (0) PRN: (9) HYDROmorphone 0.5 mg/0.5 mL syringe 0.25 mg 0.25 mL, IV Push, q2h HYDROmorphone 0.5 mg/0.5 mL syringe 0.5 mg 0.5 mL, IV Push, q2h hydroxyzine hcl 25 mg tablet 50 mg 2 tab(s), Oral, q6h ondansetron 2 mg/ 1 mL 2 mL INJ 4 mg 2 mL, IV Push, q4h ondansetron 4 mg tablet 4 mg 1 tab(s), Oral, q6h oxyCODONE 10 mg Tab (Immediate Release) 10 mg 1 tab(s), Oral, q4h oxycodone 5 mg tablet (immediate release) 5 mg 1 tab(s), Oral, q4h prochlorperazine 10 mg/2 mL vial 5 mg 1 mL, IV Push, q6h promethazine 25 mg Tablet 25 mg 1 tab(s), Oral, q6h Lab Results 04/24 03:00 WBC: 8.6 Hgb: 16.5 Hct: 48.0 Platelet: 174 Neutrophil %: 69.9 Glucose Level: 91 Sodium Level: 141 Potassium Level: 4.1 BUN: 14.0 Creatinine Lvl (s): 1.10 04/23 03:55 WBC: 9.4 Hgb: 15.5 Hct: 44.8 Platelet: 165 Neutrophil %: 80.7 H Glucose Level: 124 H Sodium Level: 144 Potassium Level: 4.5 BUN: 11.0 Creatinine Lvl (s): 0.97 EKG No qualifying data available. Assessment/Plan 48-year-old male postop day 2 from laparoscopic converted to open right colectomy for colon cancer.Patient is recovering appropriately. Leave on clear liquids until patient has better bowel function and is less distended DVT prophylaxis Ambulate Pain control Incentive spirometer Digitally Signed by NAVIN GONZALEZ MD on 04/24/2024 06:57 AM [facility] [id number] Note If ancillary studies were utilized, the following Laboratory Developed Test (LDT) disclaimer will apply: Under CLIA requirements, [facility] is qualified to perform high complexity testing. For all ancillary stains, positive and negative controls stain appropriately. Performance characteristics of immunohistochemical and chromogenic in-situ hybridization tests have been deter mined by [facility]. These tests are used for clinical purposes, They should not be regarded as investigational or for research. [facility] 12-02-2024 Note If ancillary studies were utilized, the following Laboratory Developed Test (LDT) disclaimer will apply: Under CLIA requirements, [facility] is qualified to perform high complexity testing. For all ancillary stains, positive and negative controls stain appropriately. Performance characteristics of immunohistochemical and chromogenic in-situ hybridization tests have been deter mined by [facility]. These tests are used for clinical purposes, They should not be regarded as investigational or for research. [facility] 12-02-2024 Note If ancillary studies were utilized, the following Laboratory Developed Test (LDT) disclaimer will apply: Under CLIA requirements, [facility] is qualified to perform high complexity testing. For all ancillary stains, positive and negative controls stain appropriately. Performance characteristics of immunohistochemical and chromogenic in-situ hybridization tests have been deter mined by [facility]. These tests are used for clinical purposes, They should not be regarded as investigational or for research. [facility] 12-02-2024 Note If ancillary studies were utilized, the following Laboratory Developed Test (LDT) disclaimer will apply: Under CLIA requirements, [facility] is qualified to perform high complexity testing. For all ancillary stains, positive and negative controls stain appropriately. Performance characteristics of immunohistochemical and chromogenic in-situ hybridization tests have been deter mined by [facility]. These tests are used for clinical purposes, They should not be regarded as investigational or for research. [facility] 12-02-2024 Note If ancillary studies were utilized, the following Laboratory Developed Test (LDT) disclaimer will apply: Under CLIA requirements, [facility] is qualified to perform high complexity testing. For all ancillary stains, positive and negative controls stain appropriately. Performance characteristics of immunohistochemical and chromogenic in-situ hybridization tests have been deter mined by [facility]. These tests are used for clinical purposes, They should not be regarded as investigational or for research. [facility] 12-02-2024 Note If ancillary studies were utilized, the following Laboratory Developed Test (LDT) disclaimer will apply: Under CLIA requirements, [facility] is qualified to perform high complexity testing. For all ancillary stains, positive and negative controls stain appropriately. Performance characteristics of immunohistochemical and chromogenic in-situ hybridization tests have been deter mined by [facility]. These tests are used for clinical purposes, They should not be regarded as investigational or for research. [facility] 12-02-2024 Anesthesiology Consult note Patient: DENISE HERNANDEZ Age: 48 years Sex: Male : 1975 Associated Diagnoses: None Author: ESTRELLITA CUELLAR MD Postoperative Information Post Operative Info: Post op day: POD0. Patient location: PACU. Assessment Postanesthesia assessment Vitals: Vital signs from flowsheet : Vital Signs 04/22/2024 13:07 EST Temperature Axillary 37.0 DegC HI Peripheral Pulse Rate 64 bpm Respiratory Rate 16 br/min Systolic Blood Pressure Non-Invasive 104 mmHg Diastolic Blood Pressure Non-Invasive 74 mmHg 04/22/2024 12:35 EST Temperature Temporal Artery 36.7 DegC Heart Rate Monitored 81 bpm Respiratory Rate 16 br/min Systolic Blood Pressure Non-Invasive 107 mmHg Diastolic Blood Pressure Non-Invasive 77 mmHg Mean Arterial Pressure (NBP) 87 mmHg 04/22/2024 12:20 EST Heart Rate Monitored 72 bpm Respiratory Rate 16 br/min Systolic Blood Pressure Non-Invasive 112 mmHg Diastolic Blood Pressure Non-Invasive 72 mmHg Mean Arterial Pressure (NBP) 84 mmHg 04/22/2024 12:05 EST Heart Rate Monitored 67 bpm Respiratory Rate 16 br/min Systolic Blood Pressure Non-Invasive 109 mmHg Diastolic Blood Pressure Non-Invasive 77 mmHg Mean Arterial Pressure (NBP) 87 mmHg 04/22/2024 11:50 EST Heart Rate Monitored 62 bpm Respiratory Rate 16 br/min Systolic Blood Pressure Non-Invasive 112 mmHg Diastolic Blood Pressure Non-Invasive 77 mmHg Mean Arterial Pressure (NBP) 88 mmHg 04/22/2024 11:35 EST Heart Rate Monitored 63 bpm Respiratory Rate 18 br/min Systolic Blood Pressure Non-Invasive 114 mmHg Diastolic Blood Pressure Non-Invasive 78 mmHg Mean Arterial Pressure (NBP) 90 mmHg 04/22/2024 11:20 EST Temperature Temporal Artery 36.2 DegC Heart Rate Monitored 67 bpm Respiratory Rate 18 br/min Systolic Blood Pressure Non-Invasive 124 mmHg Diastolic Blood Pressure Non-Invasive 83 mmHg Mean Arterial Pressure (NBP) 96 mmHg 04/22/2024 11:15 EST Heart Rate Monitored 86 bpm bpm Respiratory Rate - Anes 16 br/min br/min 04/22/2024 11:12 EST Systolic Blood Pressure Non-Invasive 109 mmHg mmHg Diastolic Blood Pressure Non-Invasive 82 mmHg mmHg 04/22/2024 11:10 EST Heart Rate Monitored 62 bpm bpm Respiratory Rate - Anes 6 br/min br/min 04/22/2024 11:09 EST Systolic Blood Pressure Non-Invasive 110 mmHg mmHg Diastolic Blood Pressure Non-Invasive 80 mmHg mmHg 04/22/2024 11:06 EST Systolic Blood Pressure Non-Invasive 100 mmHg mmHg Diastolic Blood Pressure Non-Invasive 74 mmHg mmHg 04/22/2024 11:05 EST Temperature (Route Not Specified) 36.98 DegC DegC Heart Rate Monitored 69 bpm bpm Respiratory Rate - Anes 14 br/min br/min 04/22/2024 11:03 EST Systolic Blood Pressure Non-Invasive 103 mmHg mmHg Diastolic Blood Pressure Non-Invasive 72 mmHg mmHg 04/22/2024 11:00 EST Temperature (Route Not Specified) 36.95 DegC DegC Heart Rate Monitored 67 bpm bpm Respiratory Rate - Anes 14 br/min br/min Systolic Blood Pressure Non-Invasive 106 mmHg mmHg Diastolic Blood Pressure Non-Invasive 72 mmHg mmHg 04/22/2024 10:57 EST Systolic Blood Pressure Non-Invasive 103 mmHg mmHg Diastolic Blood Pressure Non-Invasive 74 mmHg mmHg 04/22/2024 10:55 EST Temperature (Route Not Specified) 36.94 DegC DegC Heart Rate Monitored 72 bpm bpm Respiratory Rate - Anes 14 br/min br/min 04/22/2024 10:54 EST Systolic Blood Pressure Non-Invasive 103 mmHg mmHg Diastolic Blood Pressure Non-Invasive 71 mmHg mmHg 04/22/2024 10:51 EST Systolic Blood Pressure Non-Invasive 105 mmHg mmHg Diastolic Blood Pressure Non-Invasive 70 mmHg mmHg 04/22/2024 10:50 EST Temperature (Route Not Specified) 36.94 DegC DegC Heart Rate Monitored 67 bpm bpm Respiratory Rate - Anes 14 br/min br/min 04/22/2024 10:48 EST Systolic Blood Pressure Non-Invasive 105 mmHg mmHg Diastolic Blood Pressure Non-Invasive 72 mmHg mmHg 04/22/2024 10:45 EST Temperature (Route Not Specified) 36.93 DegC DegC Heart Rate Monitored 70 bpm bpm Respiratory Rate - Anes 14 br/min br/min Systolic Blood Pressure Non-Invasive 103 mmHg mmHg Diastolic Blood Pressure Non-Invasive 78 mmHg mmHg 04/22/2024 10:42 EST Systolic Blood Pressure Non-Invasive 105 mmHg mmHg Diastolic Blood Pressure Non-Invasive 73 mmHg mmHg 04/22/2024 10:40 EST Temperature (Route Not Specified) 36.9 DegC DegC Heart Rate Monitored 74 bpm bpm Respiratory Rate - Anes 14 br/min br/min 04/22/2024 10:39 EST Systolic Blood Pressure Non-Invasive 103 mmHg mmHg Diastolic Blood Pressure Non-Invasive 73 mmHg mmHg 04/22/2024 10:36 EST Systolic Blood Pressure Non-Invasive 106 mmHg mmHg Diastolic Blood Pressure Non-Invasive 73 mmHg mmHg 04/22/2024 10:35 EST Temperature (Route Not Specified) 36.86 DegC DegC Heart Rate Monitored 73 bpm bpm Respiratory Rate - Anes 14 br/min br/min 04/22/2024 10:33 EST Systolic Blood Pressure Non-Invasive 115 mmHg mmHg Diastolic Blood Pressure Non-Invasive 78 mmHg mmHg 04/22/2024 10:30 EST Temperature (Route Not Specified) 36.82 DegC DegC Heart Rate Monitored 72 bpm bpm Respiratory Rate - Anes 14 br/min br/min Systolic Blood Pressure Non-Invasive 110 mmHg mmHg Diastolic Blood Pressure Non-Invasive 67 mmHg mmHg 04/22/2024 10:27 EST Systolic Blood Pressure Non-Invasive 107 mmHg mmHg Diastolic Blood Pressure Non-Invasive 76 mmHg mmHg 04/22/2024 10:25 EST Temperature (Route Not Specified) 36.77 DegC DegC Heart Rate Monitored 66 bpm bpm Respiratory Rate - Anes 14 br/min br/min 04/22/2024 10:24 EST Systolic Blood Pressure Non-Invasive 103 mmHg mmHg Diastolic Blood Pressure Non-Invasive 72 mmHg mmHg 04/22/2024 10:21 EST Systolic Blood Pressure Non-Invasive 98 mmHg mmHg Diastolic Blood Pressure Non-Invasive 71 mmHg mmHg 04/22/2024 10:20 EST Temperature (Route Not Specified) 36.73 DegC DegC Heart Rate Monitored 65 bpm bpm Respiratory Rate - Anes 14 br/min br/min 04/22/2024 10:18 EST Systolic Blood Pressure Non-Invasive 90 mmHg mmHg Diastolic Blood Pressure Non-Invasive 64 mmHg mmHg 04/22/2024 10:16 EST Systolic Blood Pressure Non-Invasive 84 mmHg mmHg Diastolic Blood Pressure Non-Invasive 62 mmHg mmHg 04/22/2024 10:15 EST Temperature (Route Not Specified) 36.67 DegC DegC Heart Rate Monitored 65 bpm bpm Respiratory Rate - Anes 14 br/min br/min Systolic Blood Pressure Non-Invasive 77 mmHg mmHg Diastolic Blood Pressure Non-Invasive 54 mmHg mmHg 04/22/2024 10:12 EST Systolic Blood Pressure Non-Invasive 81 mmHg mmHg Diastolic Blood Pressure Non-Invasive 58 mmHg mmHg 04/22/2024 10:10 EST Temperature (Route Not Specified) 36.64 DegC DegC Heart Rate Monitored 71 bpm bpm Respiratory Rate - Anes 16 br/min br/min 04/22/2024 10:09 EST Systolic Blood Pressure Non-Invasive 90 mmHg mmHg Diastolic Blood Pressure Non-Invasive 61 mmHg mmHg 04/22/2024 10:06 EST Systolic Blood Pressure Non-Invasive 96 mmHg mmHg Diastolic Blood Pressure Non-Invasive 66 mmHg mmHg 04/22/2024 10:05 EST Temperature (Route Not Specified) 36.61 DegC DegC Heart Rate Monitored 85 bpm bpm Respiratory Rate - Anes 16 br/min br/min 04/22/2024 10:03 EST Systolic Blood Pressure Non-Invasive 100 mmHg mmHg Diastolic Blood Pressure Non-Invasive 68 mmHg mmHg 04/22/2024 10:00 EST Temperature (Route Not Specified) 36.6 DegC DegC Heart Rate Monitored 73 bpm bpm Respiratory Rate - Anes 16 br/min br/min Systolic Blood Pressure Non-Invasive 109 mmHg mmHg Diastolic Blood Pressure Non-Invasive 78 mmHg mmHg 04/22/2024 9:57 EST Systolic Blood Pressure Non-Invasive 122 mmHg mmHg Diastolic Blood Pressure Non-Invasive 77 mmHg mmHg 04/22/2024 9:55 EST Temperature (Route Not Specified) 36.56 DegC DegC Heart Rate Monitored 80 bpm bpm Respiratory Rate - Anes 14 br/min br/min 04/22/2024 9:54 EST Systolic Blood Pressure Non-Invasive 119 mmHg mmHg Diastolic Blood Pressure Non-Invasive 85 mmHg mmHg 04/22/2024 9:51 EST Systolic Blood Pressure Non-Invasive 103 mmHg mmHg Diastolic Blood Pressure Non-Invasive 80 mmHg mmHg 04/22/2024 9:50 EST Temperature (Route Not Specified) 36.51 DegC DegC Heart Rate Monitored 73 bpm bpm Respiratory Rate - Anes 14 br/min br/min 04/22/2024 9:48 EST Systolic Blood Pressure Non-Invasive 106 mmHg mmHg Diastolic Blood Pressure Non-Invasive 81 mmHg mmHg 04/22/2024 9:45 EST Temperature (Route Not Specified) 36.45 DegC DegC Heart Rate Monitored 77 bpm bpm Respiratory Rate - Anes 14 br/min br/min Systolic Blood Pressure Non-Invasive 110 mmHg mmHg Diastolic Blood Pressure Non-Invasive 84 mmHg mmHg 04/22/2024 9:42 EST Systolic Blood Pressure Non-Invasive 116 mmHg mmHg Diastolic Blood Pressure Non-Invasive 88 mmHg mmHg 04/22/2024 9:40 EST Temperature (Route Not Specified) 36.41 DegC DegC Heart Rate Monitored 87 bpm bpm Respiratory Rate - Anes 14 br/min br/min 04/22/2024 9:39 EST Systolic Blood Pressure Non-Invasive 126 mmHg mmHg Diastolic Blood Pressure Non-Invasive 96 mmHg mmHg 04/22/2024 9:36 EST Systolic Blood Pressure Non-Invasive 120 mmHg mmHg Diastolic Blood Pressure Non-Invasive 88 mmHg mmHg 04/22/2024 9:35 EST Temperature (Route Not Specified) 36.4 DegC DegC Heart Rate Monitored 70 bpm bpm Respiratory Rate - Anes 10 br/min br/min 04/22/2024 9:33 EST Systolic Blood Pressure Non-Invasive 115 mmHg mmHg Diastolic Blood Pressure Non-Invasive 81 mmHg mmHg 04/22/2024 9:30 EST Temperature (Route Not Specified) 36.42 DegC DegC Heart Rate Monitored 69 bpm bpm Respiratory Rate - Anes 8 br/min br/min Systolic Blood Pressure Non-Invasive 116 mmHg mmHg Diastolic Blood Pressure Non-Invasive 82 mmHg mmHg 04/22/2024 9:27 EST Systolic Blood Pressure Non-Invasive 112 mmHg mmHg Diastolic Blood Pressure Non-Invasive 85 mmHg mmHg 04/22/2024 9:25 EST Temperature (Route Not Specified) 36.44 DegC DegC Heart Rate Monitored 65 bpm bpm Respiratory Rate - Anes 8 br/min br/min 04/22/2024 9:24 EST Systolic Blood Pressure Non-Invasive 92 mmHg mmHg Diastolic Blood Pressure Non-Invasive 65 mmHg mmHg 04/22/2024 9:21 EST Systolic Blood Pressure Non-Invasive 89 mmHg mmHg Diastolic Blood Pressure Non-Invasive 61 mmHg mmHg 04/22/2024 9:20 EST Temperature (Route Not Specified) 36.4 DegC DegC Heart Rate Monitored 67 bpm bpm Respiratory Rate - Anes 8 br/min br/min 04/22/2024 9:18 EST Systolic Blood Pressure Non-Invasive 90 mmHg mmHg Diastolic Blood Pressure Non-Invasive 61 mmHg mmHg 04/22/2024 9:15 EST Heart Rate Monitored 74 bpm bpm Respiratory Rate - Anes 8 br/min br/min Systolic Blood Pressure Non-Invasive 91 mmHg mmHg Diastolic Blood Pressure Non-Invasive 66 mmHg mmHg 04/22/2024 9:12 EST Systolic Blood Pressure Non-Invasive 85 mmHg mmHg Diastolic Blood Pressure Non-Invasive 61 mmHg mmHg 04/22/2024 9:10 EST Heart Rate Monitored 73 bpm bpm Respiratory Rate - Anes 0 br/min br/min 04/22/2024 9:09 EST Systolic Blood Pressure Non-Invasive 122 mmHg mmHg Diastolic Blood Pressure Non-Invasive 80 mmHg mmHg 04/22/2024 9:06 EST Systolic Blood Pressure Non-Invasive 115 mmHg mmHg Diastolic Blood Pressure Non-Invasive 75 mmHg mmHg 04/22/2024 9:05 EST Respiratory Rate - Anes 0 br/min br/min 04/22/2024 8:18 EST Systolic Blood Pressure Non-Invasive 105 mmHg Diastolic Blood Pressure Non-Invasive 77 mmHg 04/22/2024 8:16 EST Heart Rate Monitored 70 bpm Respiratory Rate 16 br/min Systolic Blood Pressure Non-Invasive 82 mmHg LOW Diastolic Blood Pressure Non-Invasive 55 mmHg LOW Mean Arterial Pressure (NBP) 65 mmHg 04/22/2024 7:59 EST Peripheral Pulse Rate 77 bpm Systolic Blood Pressure Non-Invasive 116 mmHg Diastolic Blood Pressure Non-Invasive 81 mmHg Mean Arterial Pressure (NBP) 93 mmHg 04/22/2024 6:34 EST Temperature Temporal Artery 36.8 DegC Peripheral Pulse Rate 71 bpm Respiratory Rate 16 br/min Systolic Blood Pressure Non-Invasive 106 mmHg Diastolic Blood Pressure Non-Invasive 65 mmHg . Mental status: at preoperative baseline. Respiratory function: respirations are non-labored, Stable. Respiratory support: none. CV function: Stable. Cardiovascular support: none. Pain: Satisfactory. Nausea status: Satisfactory. Postoperative hydration status: within normal limits. Notes: Patient is sufficiently recovered from anesthesia to participate in the evaluation. No follow-up care needed. No complications post-anesthesia.. Digitally Signed by ESTRELLITA CUELLAR MD on 04/22/2024 01:15 PM [id number] Note ORIGINAL Images acquired, not reported on this accession number.[facility] 04-22-2024 History and physical note Date of Service 04/22/24 History and Physical Update I have examined the patient; reviewed the History and Physical and there are no changes to the History and Physical unless noted below. Digitally Signed by NAVIN GONZALEZ MD on 04/22/2024 08:27 AM [facility] [id number] Procedure note Patient: DENISE HERNANDEZ Age: 48 years Sex: Male : 1975 Associated Diagnoses: None Author: JOSE RAMON RAMIREZ MD Visit Information Location: Regional Block Area. Reason: Postoperative Pain Management, Surgeon Request. Timing: Preoperative. Start Time: (In Room) Start (808). Stop Time: (Out of Room) Stop (813). Time Out Performed: Refer to [facility] Time Out Form, Patient was confirmed by two patient identifiers, The procedure and laterality were verified. Monitored During Procedure: BP, Oxygen Saturation, OTHER (Heart rate). Vitals Signs Assessed Immediately Prior to Regional Placement/Sedation: No Change in Plan. Level of Sedation: Responsive, Sedated. Oxygen Therapy: O2 applied prior to procedure. Procedure Procedure Type: Main Nerve Block QL. Position Type: Left Lateral, Right Lateral. Laterality Bilateral. Needle Type: Echogenic. Size: 21 G. Length: 4. Ultrasound Exam Dynamic Guidance Use Throughout. OTHER (Image saved to patient's EMR). Parathesia Location: None. Prep Type: Cholorprep, Skin Prep Allowed to Dry. Sterile Barrier Type: Hand Hygiene, Sterile Drape, gloves, mask, and hat. Patient Condition Tolerated Well/No Complications. Note (Aspiration after every 5mL injected with negative blood return, medication injected slowly without high pressure, vital signs unchanged with injection of local anesthetic). Review / Management Vital signs remain stable throughout procedure, see nursing documentation for vital signs Intravenous Medications: Administered: Intravenous Medications - See MAR. Nerve block Medications: See MAR for medications administered for nerve block Professional Services Provider: Anesthesiologist. Digitally Signed by JOSE RAMON RAMIREZ MD on 04/22/2024 08:20 AM [id number] Anesthesiology Consult note Patient: DENISE HERNANDEZ Age: 48 years Sex: Male : 1975 Associated Diagnoses: None Author: JOSE RAMON RAMIREZ MD Preoperative Information Time of last food or liquid consumption: 04/22/2024 00:00:00 Anesthesia history Patient's history: negative. Family's history: negative. Health Status Allergies: Allergic Reactions (Selected) NKA, Allergies (1) ActiveSeverityReaction NKANone Documented Current medications: (Selected) Inpatient Medications Ordered Flagyl IVPB: 500 mg, 100 mL, 100 mL/hr, IV Piggyback, PREOP pharm Flagyl IVPB: 500 mg, 100 mL, 100 mL/hr, IV Piggyback, PREOP pharm Kefzol: 2 gram(s), 20 mL, 240 mL/hr, IV Push (INT), q4hr Mefoxin: 2 gram(s), 100 mL/hr, IV Piggyback, PREOP pharm Neurontin: 300 mg, 1 cap(s), Oral, PREOP pharm Neurontin: 300 mg, 1 cap(s), Oral, PREOP pharm Transderm-Scop 1 mg/72 hr transdermal film, extended release: 1 patch(es), Transdermal, PREOP pharm Transderm-Scop 1 mg/72 hr transdermal film, extended release: 1 patch(es), Transdermal, PREOP pharm Tylenol: 500 mg, 1 tab(s), Oral, PREOP pharm Tylenol: 500 mg, 1 tab(s), Oral, PREOP pharm Zofran: 4 mg, 2 mL, IV Push, PREOP pharm Zofran: 4 mg, 2 mL, IV Push, PREOP pharm heparin 5000 units/mL injection: 5,000 unit(s), 1 mL, Subcutaneous, PREOP pharm indocyanine green: 5 mg, 2 mL, IV Push, PREOP pharm lidocaine 1% preservative-free injectable solution: 2.5 mg, 0.25 mL, Intradermal, prep pharm mupirocin 2% topical ointment: 1 everett, Nostril, each, BID scopolamine (Transderm-Scop Patch REMOVAL): 1 EA, Miscellaneous, Once scopolamine (Transderm-Scop Patch REMOVAL): 1 EA, Miscellaneous, Once Prescriptions Prescribed mupirocin 2% topical ointment: 1 everett, Topical, BID, Bilateral intranasal application twice daily x 5 days pre-surgery &/or as many days pre-surgery as possible., 22 gram(s), 0 Refill(s) Documented Medications Documented Vitafusion MultiVites Gummies: 1 tab(s), Oral, qAM, 0 Refill(s) hydrOXYzine hydrochloride 25 mg oral tablet: 50 mg, 2 tab(s), Oral, q6h, PRN: as needed for anxiety, 0 Refill(s) omeprazole 20 mg oral delayed release capsule: 20 mg, 1 cap(s), Oral, qDay, PRN: abdominal discomfort, 0 Refill(s), Medications (18) Active Scheduled: (18) acetaminophen 500 mg Tablet 500 mg 1 tab(s), Oral, PREOP pharm acetaminophen 500 mg Tablet 500 mg 1 tab(s), Oral, PREOP pharm ceFAZolin syringe 2 gram(s) 20 mL, IV Push (INT), q4hr ceFOXitin 2 gram(s), IV Piggyback, PREOP pharm gabapentin 300 mg Capsule 300 mg 1 cap(s), Oral, PREOP pharm gabapentin 300 mg Capsule 300 mg 1 cap(s), Oral, PREOP pharm heparin 5,000 units/mL (1 mL) vial 5,000 unit(s) 1 mL, Subcutaneous, PREOP pharm indocyanine green 25 mg 5 mg 2 mL, IV Push, PREOP pharm lidocaine 1% (MPF) 2 mL vial pf 2.5 mg 0.25 mL, Intradermal, prep pharm metronidazole PMX 500 mg 100 mL, IV Piggyback, PREOP pharm metronidazole PMX 500 mg 100 mL, IV Piggyback, PREOP pharm mupirocin 2% Ointment 22 Gram(s) tube 1 everett, Nostril, each, BID ondansetron 2 mg/ 1 mL 2 mL INJ 4 mg 2 mL, IV Push, PREOP pharm ondansetron 2 mg/ 1 mL 2 mL INJ 4 mg 2 mL, IV Push, PREOP pharm scopolamine (Transderm-Scop Patch REMOVAL) 1 EA, Miscellaneous, Once scopolamine (Transderm-Scop Patch REMOVAL) 1 EA, Miscellaneous, Once scopolamine 1.5 mg (1 mg / 72 hours patch) 1 patch(es), Transdermal, PREOP pharm scopolamine 1.5 mg (1 mg / 72 hours patch) 1 patch(es), Transdermal, PREOP pharm Continuous: (0) PRN: (0) Problem list: Medical Anxiety / SNOMED CT 70878295 / Confirmed Hypertension / SNOMED CT 4320369354 / Confirmed, Active Problems (12) Acid reflux Anxiety AP (abdominal pain) Cancer of colon Claustrophobia Diarrhea Ex-cigarette smoker Glasses History of COVID-19 Hx of low back pain Hypertension Sinus drainage Histories Past Medical History: No active or resolved past medical history items have been selected or recorded. Family History: Cancer Grandparent Comments: 04/04/2024 13:15 EST - StraightNilaA breast, uterine Thyroid disease Daughter Heart disease Grandparent Diabetes Mother Brother Procedure history: Colonoscopy ([id number]) on 03/19/2024 at 48 Years. Comments: 04/04/2024 11:54 EST - Straight, Nila RMA [facility] [place] Nasal balloon ([id number]). Esophagogastroduodenoscopy ([id number]). Social History: Social & Psychosocial Habits Alcohol 04/17/2024 Use: Current Type: Beer Frequency: 3-5 times per week Substance Abuse 04/17/2024 Use: Past Type: Marijuana Tobacco 04/17/2024 Tobacco Use: Former smoker, quit more, stopped at age 40 Started at age: 29 Years Stopped at age: 40 Years Home/Environment 04/17/2024 Living situation: Home/Independent Safe place to go: Yes Domestic Concerns None Current Home Treatments Blood Pressure monitoring Special Services and Community Resources None Spouse Name Leonarda Nutrition/Health 04/17/2024 Type of diet: Regular Appetite Good Eating Difficulties None Physical Examination No qualifying data available General: Alert and oriented, No acute distress. Airway: Mallampati classification: II (soft palate, fauces, uvula visible). Dentition Evaluation: Own teeth. Respiratory: Lungs are clear to auscultation. Cardiovascular: Normal rate. Heart Sounds: Normal. Review / Management Results review: No qualifying data available . Assessment and Plan [place] [employer]esthesi[employer] (ASA) physical status classification: Class III. Anesthetic Preoperative Plan Anesthetic technique: General. Maintenance airway: Oral endotracheal tube. Regional: QL bilateral. Risks discussed: nausea, vomiting, headache, sore throat, dental injury, hypotension, allergic reaction, serious complications. Informed consent: signed by patient. Notes: ASA III: colon CA; HTN, Patient was seen and examined by Jose Ramon grey MD. The medical record was reviewed. Consultations, lab results , radiographic results and cardiovascular studies examined and noted. Anesthesia was explained in detail and questions were invited and answered. We will proceed as outlined in the plan above.. Digitally Signed by JOSE RAMON RAMIREZ MD on 04/22/2024 06:29 AM Digitally Signed by JOSE RAMON RAMIREZ MD on 04/22/2024 08:19 AM [facility] [id number] Evaluation + Plan note Future Scheduled Tests Radiology* CT Thorax w/ Contrast 04/09/24 * CT Abd/Pelvis w/ IV Contrast Only 04/09/24 [facility] Evaluation + Plan note Future Appointments Appointment Date:04/16/2024 11:30:00 AM Scheduled Provider: Location:[facility] Appointment Type:CT Abdomen and Pelvis w/ Contrast Future Scheduled Tests Radiology* CT Thorax w/ Contrast 04/09/24 * CT Abd/Pelvis w/ IV Contrast Only 04/09/24 * CT Abdomen and Pelvis w/ contrast 04/16/24 [facility] Evaluation + Plan note Future Appointments Appointment Date:05/07/2024 09:15:00 AM Scheduled Provider:NAVIN GONZALEZ MD Location:[facility] Appointment Type:GS OV Post Op Future Scheduled Tests Radiology* CT Thorax w/ Contrast 04/09/24 * CT Abd/Pelvis w/ IV Contrast Only 04/09/24 [facility] Hospital course Narrative No data available for this section [facility] Hospital Discharge instructions No data available for this section [facility] Progress note No data available for this section [facility] Instructions Name Dates Details How to access [...] Informa tion Online using Patient Portal and 3rd [employer] Apps Indication:Non-smoker Start:08-Jul-2020 Instruction Type:Patient Education How [...] Informa tion Online using Patient Portal and [employer] Apps Indication:Non-smoker Start:08-Jul-2020 Instruction Type:Patient Education How [...] PHARYNGITIS Start:15-Feb-2013 Instruction Type:Provider Instructions for Treatment Summary Purpose Family History No Family History Records Found Advance Directives No Advanced Directives Records FoundNo Advanced Directives Records FoundNo Advanced Directives Records Found Additional Source Comments Patient Care team informatio n (unrecognized section and content) Care Team Personnel Name: KENNY LEES Member Role: Primary Care Physician Address: Address: [address] [place], [place] [id number] Name: NAVIN GONZALEZ MD Position: P4 Physician - General Surgery Member Role: Surgeon Address: Address: [address] [place], [place] [id number] Care Team Related Persons Name: [facility] Address: Home [address], [place] [phone] Care Team Personnel Name: KENNY LEES Member Role: Primary Care Physician Address: Address: [address] [place] [id number] Name: NAVIN GONZALEZ MD Position: P4 Physician - General Surgery Member Role: Surgeon Address: Address: [address] [place] [address] Care Team Related Persons Name: [facility] Address: Home [address], [place] [phone] Care Team Personnel Name: KENNY LEES Member Role: Primary Care Physician Address: Address: [address] [place] [id number] Name: NAVIN GONZALEZ MD Position: P4 Physician - General Surgery Member Role: Surgeon Address: Address: [address] [place], [place] [id number] Care Team Related Persons Name: [facility] Address: Home [address], [place] [phone] [place] Care Team Personnel Name: KENNY LEES Member Role: Primary Care Physician Address: Address: [address] [place] [address] [place] [id number] Name: NAVIN GONZALEZ MD Position: P4 Physician - General Surgery Member Role: Surgeon Address: Address: [address] [place] [id number] Care Team Related Persons Name: MARY Address: [address] [phone] Care Team Personnel Name: Nima Sawyer Nurse Position: Bed Management Member Role: Other Name: KENNY LEES Member Role: Primary Care Physician Address: Address: [address] [place] [id number] Name: NAVIN GONZALEZ MD Position: P4 Physician - General Surgery Member Role: Surgeon Address: Address: [address] [place] [id number] Care Team Related [facility]: [facility] Address: Home [address] [place] [phone] Care Team Personnel Name: Nima Sawyer Nurse Position: Bed Management Member Role: Other Name: KENNY LEESP Member Role: Primary Care Physician Address: [address] [place] [id number] [place] [employer]: Name: NAVIN GONZALEZ MD Position: P4 Physician - General Surgery Member Role: Surgeon Address: [address] [place], [place] [id number] Telecom: Care Team Related Persons Name: MARY (unrecognized sect ion and content) No Status Records FoundNo Status Records FoundNo Status Records Found INFORMATION SOURCE (unrecogn ized section and content) DATE CREATED AUTHOR 04/21/2024 [facility] DATE CREATED AUTHOR AUTHOR'S ORGANIZ ATION 09/27/[address] [facility] DATE CREATED AUTHOR AUTHOR'S ORGANIZ ATION 03/09/2025 [facility] FOR RECORDS PERTAINING TO PATIENTS WHO ARE [...] BE BASED ON THE PRIMARY CLINICAL RECORDS. [facility] [employer] [facility]. provides no warranty or guarantee of the accuracy or completeness of information in this document.
[2025-04-03 04:07] LABS: Carcinoembryonic Antigen 2.5 ng/mL (0.0-4.7)
== END | disposition home or self-care (01) ==
LOC: LAB 06:17
PROVIDERS: PCP Nurse Practitioner Family; Referring Provider Internal Medicine Medical Oncology; Visit Provider Internal Medicine Medical Oncology
DX: C18.2 Malignant neoplasm of ascending colon (principal)
CPT/HCPCS: 36415; 82378